=== PATIENT | female | born 1955 | race Caucasian/White ===

== ENCOUNTER 2022-11-03 10:47 | Outpatient (RCR) | payer MEDICARE, SELFPAY | END 2022-11-11 16:53 | disposition home or self-care (01) | LOC: PT 10:47 | PROVIDERS: PCP Nurse Practitioner Family; Visit Provider Nurse Practitioner Family | DX: R26.89 Other abnormalities of gait and mobility (principal) | CPT/HCPCS: 97110; 97112; 97162 ==

== ENCOUNTER 2022-11-17 12:20 | Outpatient (OUT) | payer MEDICARE, SELFPAY ==
[2022-11-17 12:35] LABS: Bilirubin Urine NEGATIVE (NEGATIVE); Blood Urine MODERATE (NEGATIVE); Glucose Urine UA >=1000 mg/dL (NEGATIVE); Ketones Urine TRACE mg/dL (NEGATIVE); Leukocyte Esterase Urine MODERATE (NEGATIVE); Nitrite Urine POSITIVE (NEGATIVE); Protein Urine 30 mg/dL (NEG/TRACE); Urobilinogen Urine 0.2 EU/dL (0.2-1.0)
[2022-11-17 12:37] LABS: Clarity Urine CLOUDY (CLEAR); Color Urine YELLOW (YELLOW)
[2022-11-17 12:41] LABS: Bacteria Urine MODERATE #/HPF (NONE SEEN); Cast Seen? NONE SEEN #/LPF (NONE SEEN); Crystals Seen? None Seen #/HPF (None Seen); Mucus Urine NONE SEEN (NONE SEEN); RBC Urine 0-2 #/HPF (0-2); Squamous Epithelial Cell Urine NONE SEEN #/LPF (NONE/RARE); Urine Culture Indicated ALREADY ORDERED; WBC Urine >100 #/HPF (NONE SEEN)
== END 2022-11-17 12:21 | disposition home or self-care (01) ==
LOC: LAB 12:24
PROVIDERS: PCP Nurse Practitioner Family; Visit Provider Nurse Practitioner Family
DX: R30.0 Dysuria (principal)
CPT/HCPCS: 81001; 87086; 87150; 87186

== ENCOUNTER 2022-11-29 12:16 | Outpatient (OUT) | payer MEDICARE, SELFPAY ==
[2022-11-29 12:37] LABS: Bilirubin Urine NEGATIVE (NEGATIVE); Blood Urine NEGATIVE (NEGATIVE); Clarity Urine CLEAR (CLEAR); Color Urine LT. YELLOW (YELLOW); Glucose Urine UA >=1000 mg/dL (NEGATIVE); Ketones Urine NEGATIVE (NEGATIVE); Leukocyte Esterase Urine NEGATIVE (NEGATIVE); Nitrite Urine POSITIVE (NEGATIVE); Protein Urine NEGATIVE (NEG/TRACE); Urobilinogen Urine 0.2 EU/dL (0.2-1.0); pH Urine 5.5 (5.0-9.0)
[2022-11-29 12:45] LABS: Bacteria Urine MODERATE #/HPF (NONE SEEN); Cast Seen? NONE SEEN #/LPF (NONE SEEN); Crystals Seen? None Seen #/HPF (None Seen); Mucus Urine NONE SEEN (NONE SEEN); RBC Urine 0-2 #/HPF (0-2); Squamous Epithelial Cell Urine FEW #/LPF (NONE/RARE)
[2022-11-29 12:46] LABS: Urine Culture Indicated ALREADY ORDERED
--- NOTE | 2022-11-29 13:44 | CA_ITS ---
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 PVR waveforms with normal upstroke, amplitude but loss of dicrotic notch. Right: - significant pressure gradient between the thigh and calf cuff - normal DAVID Left: - significant pressure gradient between the thigh and calf cuff - significant pressure gradient between the calf and DP cuff - normal DAVID Impression: - elevated indices (B/L thigh) consistent with calcified, noncompressible arterial espinosa, which may underestimate the degree of arterial disease - normal arterial evaluation throughout the remainder of the lower extremities without hemodynamic impairment of the B/L lower extremities at rest (right DAVID 1.07, left DAVID 1.02) - normal B/L TBI Electronically Signed On 11-30-2022 6:58:52 EDT by ACE FISCHER
== END 2022-11-29 12:17 | disposition home or self-care (01) ==
LOC: CARD 12:16
PROVIDERS: PCP Nurse Practitioner Family; Visit Provider Nurse Practitioner Family
DX: M79.605 Pain in left leg (principal); M79.604 Pain in right leg; E11.59 Type 2 diabetes mellitus with other circulatory complications; R30.0 Dysuria
CPT/HCPCS: 81001; 87086; 87150; 87186; 93923

== ENCOUNTER 2023-02-01 14:20 | Outpatient (OUT) | payer MEDICARE, SELFPAY ==
--- OUTSIDE RECORDS SUMMARY | 2023-02-01 14:27 | XMS_ITS | CCD ---
Author Name Unknown Address [address] [place] [address] Organization [facility] Care Team Providers Care Communications Specialist Name Role Phone EBRAHEIM, STUART Unavailable Unavailable EBRAHEIM, STUART Unavailable Unavailable HODGESBENIEL Unavailable Unavailable HODGES, REESE Unavailable Unavailable EBRAHEIM, STUART Unavailable Unavailable EBRAHEIM, STUART Unavailable Unavailable BENI HODGESEL Unavailable Unavailable HODGES, REESE Unavailable Unavailable [place] Unavailable Unavailable EBRAHEIM, STUART Unavailable Unavailable [place] Unavailable Unavailable YERMAL, SOORAJ G Unavailable Unavailable IRENE, MANOHAR Unavailable Unavailable IRENE, MANOHAR Unavailable Unavailable HODGES, REESE Unavailable Unavailable HODGES, REESE Unavailable Unavailable AICHHOLZ, SKI INSTRUCTOR SAMI Attending Unavailable AICHHOLZ, SKI INSTRUCTOR SAMI Consulting Unavailable AICHHOLZ, SKI INSTRUCTOR SAMI Primary Care Unavailable AICHHOLZ, SKI INSTRUCTOR SAMI Admitting Unavailable DR MALLIKA ORTIZ Consulting Unavailable GORAN TORRES Consulting Unavailable MARIANN BORJAS Consulting Unavailable AICHHOLZ, SKI INSTRUCTOR SAMI Primary Care Unavailable RALPH ., SVETA Admitting Unavailable RALPH ., SVETA Attending Unavailable PETRONA SUMNER Consulting Unavailable VIRGINIA TOTH Consulting Unavailable RALPH ., SVETA Consulting Unavailable DIAB ., KAROL Consulting Unavailable FRANCISCO, SHARAN Consulting Unavailable DR REESE HODGES Primary Care Unavailable WILMAN LAKHANI Admitting Unavailable DR MALLIKA ORTIZ Consulting Unavailable WILMAN LAKHANI Attending Unavailable WILAMN LAKHANI Consulting Unavailable AICHHOLZ, SKI INSTRUCTOR SAMI Consulting Unavailable AICHHOLZ, SKI INSTRUCTOR SAMI Primary Care Unavailable AICHHOLZ, SKI INSTRUCTOR SAMI Admitting Unavailable AICHHOLZ, SKI INSTRUCTOR SAMI Attending Unavailable AICHHOLZ, SKI INSTRUCTOR SAMI Consulting Unavailable AICHHOLZ, SKI INSTRUCTOR SAMI Admitting Unavailable URBANO GARCIA Primary Care Unavailable URBANO GARCIA Attending Unavailable BALA HENAO Attending Unavailable MARIANN BORJAS Attending Unavailable MARIANN BORJAS Attending Unavailable Allergies Allergy Classification Reported Allergen(s) Allergy Type Date of Onset Reaction(s) Facility (1 source) succinylcholine chloride Drug allergy (disorder) 8 [facility] (1 source) Succinylcholine; Translations: [SUCCINYLCHOLINE] Drug Allergy 0 [facility] (1 source) ALLERGIES NOT ON FILE; Translations: [ALLERGIES NOT ON FILE] Propensity to adverse reactions (disorder) [facility] Problems Active Problems Problem Classification Problem Date Documented Date Episodic/Chronic Congestive heart failure; nonhypertensive (5 sources) Heart failure, unspecified; Translations: [Acute diastolic (congestive) heart failure] Onset: 04-23-2022 Chronic Diabetes mellitus with complications (5 sources) Type 2 diabetes mellitus with hyperglycemia; Translations: [TYPE 2 DM W/HYPERGLYCEMIA] Onset: 04-11-2022 Chronic Diabetes mellitus with complications (1 source) Type 2 diabetes mellitus with diabetic peripheral angiopathy with gangrene; Translations: [TYPE 2 DIABETES W DIABETIC PERIPHERAL ANGIOPATHY W GANGRENE] Onset: 12-31-2017 Disorders of lipid metabolism (3 sources) Hyperlipidemia, unspecified; Translations: [Mixed hyperlipidemia] Onset: 05-03-2022 Chronic Essential hypertension (4 sources) Essential (primary) hypertension; Translations: [ESSENTIAL PRIMARY HYPERTENSION] Onset: 06-02-2022 Chronic Gangrene (3 sources) Gangrene, not elsewhere classified; Translations: [GANGRENE, NOT ELSEWHERE CLASSIFIED] Onset: 12-31-2017 Episodic Hypertension with complications and secondary hypertension (4 sources) Hypertensive heart disease with heart failure; Translations: [Hypertensive urgency] Onset: 05-03-2022 Chronic Nonspecific chest pain (4 sources) Other chest pain; Translations: [OTHER CHEST PAIN] Onset: 06-12-2022 Episodic Open wounds of extremities (3 sources) 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, initial encounter; Translations: [PARTIAL TRAUMATIC TRNSPHAL AMPUTATION OF R MID FINGER, INIT] Onset: 01-07-2018 Chronic Open wounds of extremities (1 source) 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, subsequent encounter; Translations: [PARTIAL TRAUMATIC TRNSPHAL AMPUTATION OF R MID FINGER, SUBS] Onset: 01-07-2018 Episodic Osteoarthritis (1 source) Primary osteoarthritis, right hand; Translations: [PRIMARY OSTEOARTHRITIS, RIGHT HAND] Onset: 01-07-2018 Chronic Other aftercare (2 sources) half-way (current) use of insulin; Translations: [DIVER PUMPER (CURRENT) USE OF INSULIN] Onset: 12-31-2017 Episodic Other connective tissue disease (1 source) Other specified soft tissue disorders; Translations: [OTHER SPECIFIED SOFT TISSUE DISORDERS] Onset: 01-07-2018 Episodic Other connective tissue disease (1 source) Pain in right foot; Translations: [PAIN IN RIGHT FOOT] Onset: 03-31-2022 Episodic Other connective tissue disease (1 source) Pain in left foot; Translations: [PAIN IN LEFT FOOT] Onset: 03-31-2022 Episodic Other non-traumatic joint disorders (4 sources) Pain in right ankle and joints of right foot; Translations: [PAIN IN RIGHT ANKLE] Onset: 03-28-2022 Episodic Other non-traumatic joint disorders (1 source) Pain in left ankle and joints of left foot; Translations: [PAIN IN LEFT ANKLE] Onset: 03-31-2022 Episodic Other nutritional; endocrine; and metabolic disorders (1 source) Hypomagnesemia; Translations: [HYPOMAGNESEMIA] Onset: 04-13-2022 Chronic Respiratory failure; insufficiency; arrest (adult) (1 source) Acute respiratory failure with hypoxia; Translations: [ACUTE RESPIRATORY FAIL W/HYPOXIA] Onset: 05-03-2022 Episodic Unclassified (2 sources) Unknown / UNK(Unknown) Onset: 12-31-2017 Unclassified (1 source) CONTACT W/AND (SUSP) EXPOS COVID-19; Translations: [CONTACT W/AND (SUSP) EXPOS COVID-19] Onset: 05-03-2022 Past or Other Problems Problem Classification Problem Date Documented Da te Episodic/Chronic Conditions associated with dizziness or vertigo (2 sources) Dizziness; Translations: [Dizziness] Onset: 05-12-2022 Episodic Nausea and vomiting (2 sources) Nausea; Translations: [Nausea] Onset: 05-12-2022 Episodic Results Test Name Value Interpretation Reference Range Facility 36on 12-14-2022 36 Can we call her phar richard and confirm if she picked up her medication? I just sent in a refill for lisinopril/hydrochloroth iazide. Thanks [facility] Office Visiton 11-09-2022 Follow-up visit [id number] Keyanna Stafford 1955 Provider Department Center 11/09/2022 MARIANN DWYER Family History Problem Relation Age of Onset Hypertension Mother Diabetes Mother Family Status - Relation Status Age at Mother Level of Service:31664 [place] OFFICE/OUTPATIENT ESTABLISHED MOD MDM 30-39 MIN Reason for Visit and Comments: Hypertension [077537] Congestive Heart Failure [127] [facility] Telephoneon 11-09-2022 Telephone [id number] Keyanna Stafford 1955 Provider Department Center 11/09/2022 AJAY HERNÁNDEZ Family History Problem Relation Age of Onset Hypertension Mother Diabetes Mother Family Status - Relation Status Age at Mother [facility] Office Visiton 06-21-2022 Follow-up visit [id number] Keyanna Stafford [place] 1955 Provider Department Center 06/21/2022 MARIANN DWYER Family History Problem Relation Age of Onset Hypertension Mother Diabetes Mother Family Status - Relation Status Age at Mother Level of Service:72776 [place] OFFICE/OUTPATIENT ESTABLISHED MOD MDM 30-39 MIN Reason for Visit and Comments: Follow-up [243465] - One month follow up [facility] XR CHEST 2 Von 06-12-2022 XR CHEST 2 V EXAM: XR CHEST 2 V HISTORY: Chest pain COMPARISON: None. TECHNIQUE: PA and lateral views of the chest. FINDINGS: The cardiomediastinal silhouette is normal. No focal consolidation is identified. There is no pneumothorax. No pleural effusion is noted. The osseous structures are intact. IMPRESSION: No acute cardiopulmonary process. Electronically authenticated by: GORAN TORRES Date: 2022-06-12 13:31 Normal [facility] XR STERNUM MIN 2 VIEWSon XR STERNUM MIN 2 VIEWS EXAMINATION: XR STERNUM MIN 2 VIEWS, XR RIBS ELENA NO CHEST 3VIEWS HISTORY: Chest pain COMPARISON: No relevant comparison available. FINDINGS: LUNGS: No appreciable pulmonary parenchymal abnormalities. STERNUM: No fracture or visible bone lesion. RIBS: No fracture or visible bone lesion. OTHER: Negative. IMPRESSION: 1. Unremarkable sternum and ribs. Electronically authenticated by: MALLIKA ORTIZ Date: 2022-06-12 16:18 Normal [facility] PROF CHEM 8 (BAS METB)on Anion gap [Moles/Vol] 15.1 mmol/L Normal [facility] Comment on above: Performed By: #### H STROPN #### [facility] [address] [address] [address] Quique Ortiz Calcium [Mass/Vol] 9.5 mg/dL Normal 8.5-10.1 [facility] Comment on above: Performed By: #### H STROPN #### [facility] [address] [address] [address] Quique Ortiz Chloride [Moles/Vol] 95 mmol/L Critically low 98-107 [facility] Comment on above: Performed By: #### H STROPN #### [facility] [address] [address] [address] Quique Ortiz CO2 [Moles/Vol] 27.3 mmol/L Normal 21.0-32.0 [facility] Comment on above: Performed By: #### H STROPN #### [facility] [address] [address] [address] Quique Ortiz Creatinine [Mass/Vol] 1.01 mg/dL Normal 0.55-1.02 [facility] Comment on above: Performed By: #### H STROPN #### [facility] [address] [address] [address] Quique Ortiz EGFR-AF ZAMBIAN >60 Normal >=60 [facility] Comment on above: Performed By: #### H STROPN #### [facility] [address] [address] [address] Quique Ortiz EGFR-NON AF ZAMBIAN 55 mL/min/1.73m2 Critically low >=60 [facility] Comment on above: Performed By: #### H STROPN #### [facility] [address] [address] [address] Quique Ortiz Glucose [Mass/Vol] 483 mg/dL Critically high 74-106 [facility] Comment on above: Performed By: #### H STROPN #### [facility] [address] [address] [address] Quique Ortiz Potassium [Moles/Vol] 4.4 mmol/L Normal 3.5-5.1 [facility] Comment on above: Performed By: #### H STROPN #### [facility] [address] [address] [address] Quique Ortiz Sodium [Moles/Vol] 133 mmol/L Critically low 136-145 [facility] Comment on above: Performed By: #### H STROPN #### [facility] [address] [address] [address] Quique Ortiz Urea nitrogen [Mass/Vol] 14.0 mg/dL Normal 7.0-18.0 [facility] Comment on above: Performed By: #### H STROPN #### [facility] [address] [address] [address] Quique Ortiz Urea nitrogen/Creatinine [Mass ratio] 13.9 mg/mg Normal [facility] Comment on above: Performed By: #### H STROPN #### [facility] [address] [address] [address] Quique Ortiz Telemedicineon 05-12-2022 Telemedicine [id number] Keyanna Stafford 1955 F Date Provider Department Center 05/12/2022 [id number] HENAO [facility] Family History Problem Relation Age of Onset Hypertension Mother Diabetes Mother Family Status - Relation Status Age at Mother Level of Service:76797 [place] OFFICE/OUTPATIENT ESTABLISHED MOD MDM 30-39 MIN Reason for Visit and Comments: Nausea [70] Dizziness [960259] - Pt states she was taking a rx states she was put on Furosamide 40mg Spironolactone 25mg and Lisinopril 20mg but pt states she stopped these rx due to medications making her Dizziness and Nausea Normal [facility] BNPon 04-25-2022 Natriuretic peptide B (Bld) [Mass/Vol] 1330.0 pg/mL Critically high <=900.0 [facility] Comment on above: Performed By: #### C VDTB #### [facility] [address] [address] [address] Quique Ortiz CBC AUTO DIFFon 04-25-2022 BASO # 0.0 103/ul Normal 0.0-0.1 [facility] Comment on above: Performed By: #### C BC #### [facility] [address] [place] [address] Dr. Qiuque Ortiz Basophils/100 WBC (Bld) 0.4 % Normal 0.2-2.0 [facility] Comment on above: Performed By: #### C BC #### [facility] [address] [place] [address] Dr. Quique Ortiz EO # 0.1 103/ul Normal 0.0-0.7 [facility] Comment on above: Performed By: #### C BC #### [facility] [address] [place] [address] Dr. Quique Ortiz Eosinophils/100 WBC (Bld) 2.3 % Normal 0.9-7.0 [facility] Comment on above: Performed By: #### C BC #### [facility] [address] [place] [address] Dr. Quique Ortiz Erythrocyte distribution width (RBC) [Ratio] 13.2 % Normal 11.0-15.0 [facility] Comment on above: Performed By: #### C BC #### [facility] [address] [place] [address] Dr. Quique Ortiz Hematocrit (Bld) [Volume fraction] 32.7 % Critically low 36.0-48.0 [facility] Comment on above: Performed By: #### C BC #### [facility] [address] [place] [address] Dr. Quique Ortiz Hemoglobin (Bld) [Mass/Vol] 11.0 g/dL Critically low 12.0-16.0 [facility] Comment on above: Performed By: #### C BC #### [facility] [address] [place] [address] Dr. Quique Ortiz IG # 0.02 10e3/ul Normal 0.00-0.03 [facility] Comment on above: Performed By: #### C BC #### [facility] [address] [place] [address] Dr. Quique Ortiz IG % 0.4 % Normal 0.0-0.5 [facility] Comment on above: Performed By: #### C BC #### [facility] [address] [place] [address] Dr. Quique Ortiz LYMPH # 1.3 103/ul Normal 1.2-3.8 [facility] Comment on above: Performed By: #### C BC #### [facility] [address] [place] [address] Dr. Quique Ortiz Lymphocytes/100 WBC (Bld) 23.5 % Normal 20.5-60.0 [facility] Comment on above: Performed By: #### C BC #### [facility] [address] [place] [address] Dr. Quique Ortiz MANUAL DIFF REQ NO Normal [facility] Comment on above: Performed By: #### C BC #### [facility] [address] [place] [address] Dr. Quique Ortiz MCH (RBC) [Entitic mass] 29.3 pg Normal 26.7-34.0 [facility] Comment on above: Performed By: #### C BC #### [facility] [address] [place] [address] Dr. Quique Ortiz MCHC (RBC) [Mass/Vol] 33.6 g/dL Normal 29.9-35.2 [facility] Comment on above: Performed By: #### C BC #### [facility] [address] [place] [address] Dr. Quique Ortiz MCV (RBC) [Entitic vol] 87.0 fL Normal 81.0-99.0 [facility] Comment on above: Performed By: #### C BC #### [facility] [address] [address] [address] Quique Ortiz MONO # 0.6 103/ul Normal 0.3-0.8 [facility] Comment on above: Performed By: #### C BC #### [facility] [address] [address] [address] Quique Ortiz Monocytes/100 WBC (Bld) 10.2 % Normal 1.7-12.0 [facility] Comment on above: Performed By: #### C BC #### [facility] [address] [place] [address] Dr. Quique Ortiz NEUT # 3.5 103/ul Normal 1.4-6.5 [facility] Comment on above: Performed By: #### C BC #### [facility] [address] [place] [address] Dr. Quique Ortiz Neutrophils/100 WBC (Bld) 63.2 % Normal 43.0-75.0 [facility] Comment on above: Performed By: #### C BC #### [facility] [address] [place] [address] Dr. Quique Ortiz Platelet mean volume (Bld) [Entitic vol] 9.2 fL Critically low 9.5-13.5 [facility] Comment on above: Performed By: #### C BC #### [facility] [address] [place] [address] Dr. Quique Ortiz PLT 243 103/ul Normal 150-450 [facility] Comment on above: Performed By: #### C BC #### [facility] [address] [place] [address] Dr. Quique Ortiz RBC 3.76 106/ul Critically low 4.20-5.40 [facility] Comment on above: Performed By: #### C BC #### [facility] [address] [place] [address] Dr. Quique Ortiz WBC 5.6 103/ul Normal 4.0-11.0 [facility] Comment on above: Performed By: #### C BC #### [facility] [address] [place] [address] Dr. Quique Ortiz POINT OF CARE GLUCOSEon 04-06 Glucose [Mass/Vol] 226 mg/dL Critically high 74-106 [facility] Comment on above: Performed By: #### U AMIC #### [facility] [address] [address] [address] Quique Ortiz PROF 14(COMP METB)on 023 Albumin [Mass/Vol] 3.1 g/dL Critically low 3.4-5.0 [facility] Comment on above: Performed By: #### U AMIC #### [facility] [address] [address] [address] Quique Ortiz Albumin/Globulin [Mass ratio] 1.0 {ratio} Normal [facility] Comment on above: Performed By: #### U AMIC #### [facility] [address] [address] [address] Quique Ortiz ALP [Catalytic activity/Vol] 69 U/L Normal 46-116 [facility] Comment on above: Performed By: #### U AMIC #### [facility] [address] [address] [address] Quique Ortiz ALT [Catalytic activity/Vol] 16 U/L Normal 14-59 [facility] Comment on above: Performed By: #### U AMIC #### [facility] [address] [address] [address] Quique Ortiz Anion gap [Moles/Vol] 12.1 mmol/L Normal [facility] Comment on above: Performed By: #### U AMIC #### [facility] [address] [address] [address] Quique Ortiz AST [Catalytic activity/Vol] 12 U/L Critically low 15-37 [facility] Comment on above: Performed By: #### U AMIC #### [facility] [address] [address] [address] Quique Ortiz Bilirubin [Mass/Vol] 0.7 mg/dL Normal 0.2-1.0 [facility] Comment on above: Performed By: #### U AMIC #### [facility] [address] [address] [address] Quique Ortiz Calcium [Mass/Vol] 9.0 mg/dL Normal 8.5-10.1 [facility] Comment on above: Performed By: #### U AMIC #### [facility] [address] [address] [address] Quique Ortiz Chloride [Moles/Vol] 101 mmol/L Normal 98-107 [facility] Comment on above: Performed By: #### U AMIC #### [facility] [address] [address] [address] Quique Ortiz CO2 [Moles/Vol] 28.5 mmol/L Normal 21.0-32.0 [facility] Comment on above: Performed By: #### U AMIC #### [facility] [address] [place] [address] Dr. Quique Ortiz Creatinine [Mass/Vol] 0.56 mg/dL Normal 0.55-1.02 [facility] Comment on above: Performed By: #### U AMIC #### [facility] [address] [address] [address] Quique Ortiz EGFR-AF ZAMBIAN >60 Normal >=60 [facility] Comment on above: Performed By: #### U AMIC #### [facility] [address] [place] [address] Dr. Quique Ortiz EGFR-NON AF ZAMBIAN >60 Normal >=60 [facility] Comment on above: Performed By: #### U AMIC #### [facility] [address] [address] [address] Quique Ortiz Globulin (S) [Mass/Vol] 3.2 g/dL Normal [facility] Comment on above: Performed By: #### U AMIC #### [facility] [address] [address] [address] Quique Ortiz Glucose [Mass/Vol] 187 mg/dL Critically high 74-106 [facility] Comment on above: Performed By: #### U AMIC #### [facility] [address] [address] [address] Quique Ortiz Potassium [Moles/Vol] 3.6 mmol/L Normal 3.5-5.1 [facility] Comment on above: Performed By: #### U AMIC #### [facility] [address] [place] [address] Dr. Quique Ortiz Protein [Mass/Vol] 6.3 g/dL Critically low 6.4-8.2 [facility] Comment on above: Performed By: #### U AMIC #### [facility] [address] [address] [address] Quique Ortiz Sodium [Moles/Vol] 138 mmol/L Normal 136-145 [facility] Comment on above: Performed By: #### U AMIC #### [facility] [address] [place] [address] Dr. Quique Ortiz Urea nitrogen [Mass/Vol] 9.0 mg/dL Normal 7.0-18.0 [facility] Comment on above: Performed By: #### U AMIC #### [facility] [address] [place] [address] Dr. Quique Ortiz Urea nitrogen/Creatinine [Mass ratio] 16.1 mg/mg Normal [facility] Comment on above: Performed By: #### U AMIC #### [facility] [address] [place] [address] Dr. Quique Ortiz BNPon 04-24-2022 Natriuretic peptide B (Bld) [Mass/Vol] 1760.0 pg/mL Critically high <=900.0 [facility] Comment on above: Performed By: #### H STROPN #### [facility] [address] [place] [address] Dr. Quique Ortiz CBC AUTO DIFFon 04-24-2022 BASO # 0.0 103/ul Normal 0.0-0.1 [facility] Comment on above: Performed By: #### H STROPN #### [facility] [address] [place] [address] Dr. Quique Ortiz Basophils/100 WBC (Bld) 0.4 % Normal 0.2-2.0 [facility] Comment on above: Performed By: #### H STROPN #### [facility] [address] [place] [address] Dr. Quique Ortiz EO # 0.1 103/ul Normal 0.0-0.7 [facility] Comment on above: Performed By: #### H STROPN #### [facility] [address] [place] [address] Dr. Quique Ortiz Eosinophils/100 WBC (Bld) 2.6 % Normal 0.9-7.0 [facility] Comment on above: Performed By: #### H STROPN #### [facility] [address] [place] [address] Dr. Quique Ortiz Erythrocyte distribution width (RBC) [Ratio] 13.4 % Normal 11.0-15.0 [facility] Comment on above: Performed By: #### H STROPN #### [facility] [address] [place] [address] Dr. Quique Ortiz Hematocrit (Bld) [Volume fraction] 30.3 % Critically low 36.0-48.0 [facility] Comment on above: Performed By: #### H STROPN #### [facility] [address] [place] [address] Dr. Quique Ortiz Hemoglobin (Bld) [Mass/Vol] 10.1 g/dL Critically low 12.0-16.0 [facility] Comment on above: Performed By: #### H STROPN #### [facility] [address] [place] [address] Dr. Quique Ortiz IG # 0.02 10e3/ul Normal 0.00-0.03 [facility] Comment on above: Performed By: #### H STROPN #### [facility] [address] [place] [address] Dr. Quique Ortiz IG % 0.4 % Normal 0.0-0.5 [facility] Comment on above: Performed By: #### H STROPN #### [facility] [address] [place] [address] Dr. Quique Ortiz LYMPH # 1.7 103/ul Normal 1.2-3.8 [facility] Comment on above: Performed By: #### H STROPN #### [facility] [address] [place] [address] Dr. Quique Ortiz Lymphocytes/100 WBC (Bld) 33.9 % Normal 20.5-60.0 [facility] Comment on above: Performed By: #### H STROPN #### [facility] [address] [place] [address] Dr. Quique Ortiz MANUAL DIFF REQ NO Normal [facility] Comment on above: Performed By: #### H STROPN #### [facility] [address] [place] [address] Dr. Quique Ortiz MCH (RBC) [Entitic mass] 29.4 pg Normal 26.7-34.0 [facility] Comment on above: Performed By: #### H STROPN #### [facility] [address] [place] [address] Dr. Quique Ortiz MCHC (RBC) [Mass/Vol] 33.3 g/dL Normal 29.9-35.2 [facility] Comment on above: Performed By: #### H STROPN #### [facility] [address] [place] [address] Dr. Quique Ortiz MCV (RBC) [Entitic vol] 88.3 fL Normal 81.0-99.0 [facility] Comment on above: Performed By: #### H STROPN #### [facility] [address] [place] [address] Dr. Quique Ortiz MONO # 0.5 103/ul Normal 0.3-0.8 [facility] Comment on above: Performed By: #### H STROPN #### [facility] [address] [place] [address] Dr. Quique Ortiz Monocytes/100 WBC (Bld) 10.5 % Normal 1.7-12.0 [facility] Comment on above: Performed By: #### H STROPN #### [facility] [address] [place] [address] Dr. Quique Ortiz NEUT # 2.6 103/ul Normal 1.4-6.5 [facility] Comment on above: Performed By: #### H STROPN #### [facility] [address] [place], [place] [address] Dr. Quique Ortiz Neutrophils/100 WBC (Bld) 52.2 % Normal 43.0-75.0 [facility] Comment on above: Performed By: #### H STROPN #### [facility] [address] [place], [place] [address] Dr. Quique Ortiz Platelet mean volume (Bld) [Entitic vol] 9.2 fL Critically low 9.5-13.5 [facility] Comment on above: Performed By: #### H STROPN #### [facility] [address] [address] [address] Quique Ortiz PLT 227 103/ul Normal 150-450 [facility] Comment on above: Performed By: #### H STROPN #### [facility] [address] [address] [address] Quique Ortiz RBC 3.43 106/ul Critically low 4.20-5.40 [facility] Comment on above: Performed By: #### H STROPN #### [facility] [address] [address] [address] Quique Ortiz WBC 5.0 103/ul Normal 4.0-11.0 [facility] Comment on above: Performed By: #### H STROPN #### [facility] [address] [address] [address] Quique Ortiz ECHOCARDIO M/2D COMPLETEon 0 04-24-2022 ECHOCARDIO M/2D COMPLETE Patient: KEYANNA STAFFORD Exam Date: 04/24/2022 : 1955 Gender:F Ordering : SVETA RALPH . Admission #: [id number] Family : PETRONA LOREDO Order #: [id number] CLICK HERE TO VIEW EXAM ECHOCARDIOGRAM REPORT PROCEDURE: CARDIO PULMONARY ECHOCARDIO M/2D COMP INDICATIONS: CHF, Shortness of breath COMPARISON: None. DESCRIPTION: COMPLETE ECHOCARDIOGRAM Real-time transthoracic echocardiography with 2D, M-mode, spectral and color flow Doppler performed. QUALITY: Technical quality was good. LEFT VENTRICLE: Normal chamber size. Mild concentric left ventricular hypertrophy. Global left ventricular systolic function is normal. LV EF: Visual estimation of left ventricular ejection fraction is 65% DIASTOLIC: Grade II diastolic dysfunction. ATRIAL SEPTUM: LEFT ATRIUM: Mild dilatation. RIGHT ATRIUM: Normal chamber size. RIGHT VENTRICLE: Normal chamber size. Normal right ventricular systolic function. TRICUSPID VALVE: Normal mobility and thickness. No stenosis with mild regurgitation. Moderate pulmonary hypertension. RVSP 51 mmHg MITRAL VALVE: Normal mobility and thickness. No mitral valve prolapse. No evidence of mitral valve stenosis. There is no mitral annular calcification. Mild mitral regurgitation. AORTIC VALVE: Normal trileaflet appearance. No visible sclerosis. Normal leaflet mobility. No evidence of aortic valve stenosis. Trivial aortic regurgitation. AORTIC ROOT: Normal diameter and appearance. PULMONIC VALVE: Normal thickness and mobility. No stenosis. Mild regurgitation. PERICARDIUM: No evidence of pericardial effusion. IVC: Normal in size. Measuring 2.1 cm with partial collapse. PLEURA: Small pleural effusion. CONCLUSION: 1. Mild concentric left ventricular hypertrophy. Normal ventricular systolic function. LVEF is 65%. 2. Grade 2 diastolic dysfunction. 3. Mild mitral and tricuspid regurgitation. 4. Moderately elevated right-sided pressures. RVSP is 51 mmHg. 5. Doppler studies are consistent with elevated left-sided filling pressures. 6. Small pleural effusion seen. Adult Echocardiography Procedure Report Left Ventricle LVEDD (3.7 - 5.6 cm): 4.36 cm LVESD (2.2 - 4.0 cm): 3.20 cm LVIVS thickness (0.6 - 1.2 cm): 1.28 cm LVPW thickness (0.5 - 1.0 cm): 1.28 cm e': 0.06 m/s E - e': 16.01 LVOT Max Gradient: 2.33 mm[Hg], 2.11 mm[Hg] Peak Velocity (LVOT): 0.76 m/s, 0.73 m/s Mean Velocity (LVOT): 0.55 m/s, 0.55 m/s LVOT Diameter 1.77 cm Left Ventricular Ejection Fraction: 65% Left Atrium LA Volume Index (2D A2C): 59.35 ml, 59.35 ml Left Atrium Systolic Dimension: 3.77 cm Mitral Valve MV E to A Ratio: 1.12, 1.06 Mitral Valve A-Wave Peak Velocity: 0.96 m/s, 0.94 m/s Mitral Valve E-Wave Peak Velocity: 1.08 m/s, 1.00 m/s Right Ventricle RV Internal Diastolic Dimension: 2.29 cm Aorta AO Root Diam: 2.68 cm Ascending Ao Diam: 2.57 cm Aortic Valve AoV Area (Peak Edward): 1.37 cm2, 1.43 cm2, 1.31 cm2 AoV Area (VTI): 1.29 cm2, 1.35 cm2, 1.24 cm2 Peak Velocity(Antegrade Flow): 1.31 m/s, 1.35 m/s Peak Gradient(Antegrade Flow): 6.86 mm[Hg], 7.32 mm[Hg] Mean Velocity(Antegrade Flow): 0.98 m/s, 0.99 m/s Mean Gradient(Antegrade Flow): 4.31 mm[Hg], 4.47 mm[Hg] Velocity Time Integral: 31.11 cm, 30.85 cm Tricuspid Valve Peak Velocity (Regurgitant Flow): 2.83 m/s, 3.30 m/s, 2.58 m/s Peak Velocity: 0.63 m/s Pulmonic Valve Peak Velocity: 0.91 m/s, 0.94 m/s Peak Gradient: 3.30 mm[Hg], 3.52 mm[Hg] Right Atrium Right Atrium Systolic Pressure: 18.02 ml, 18.02 ml Dictated by: Edgard Villatoro M.D. on 04/24/2022 at 14:29 Approved by: Edgard Villatoro M.D. on 04/24/2022 at 14:35 Normal [facility] POINT OF CARE GLUCOSEon 03- Glucose [Mass/Vol] 331 mg/dL Critically high 74-106 [facility] Comment on above: Performed By: #### P OCGLUC #### [facility] [address] [address] [address] Quiqeu Ortiz Glucose [Mass/Vol] 333 mg/dL Critically high -106 [facility] Comment on above: Performed By: #### P OCGLUC #### [facility] [address] [address] [address] Quique Ortiz Glucose [Mass/Vol] 283 mg/dL Critically high -106 [facility] Comment on above: Performed By: #### C VDTBH #### [facility] [address] [address] [address] Quique Ortiz PROF 14(COMP METB)on 023 Albumin [Mass/Vol] 2.9 g/dL Critically low 3.4-5.0 [facility] Comment on above: Performed By: #### H STROPN #### [facility] [address] [address] [address] Quique Ortiz Albumin/Globulin [Mass ratio] 1.1 {ratio} Normal [facility] Comment on above: Performed By: #### H STROPN #### [facility] [address] [address] [address] Quique Ortiz ALP [Catalytic activity/Vol] 76 U/L Normal 46-116 [facility] Comment on above: Performed By: #### H STROPN #### [facility] [address] [place] [address] Dr. Quique Ortiz ALT [Catalytic activity/Vol] 13 U/L Critically low 14-59 [facility] Comment on above: Performed By: #### H STROPN #### [facility] [address] [place] [address] Dr. Quique Ortiz Anion gap [Moles/Vol] 9.9 mmol/L Normal [facility] Comment on above: Performed By: #### H STROPN #### [facility] [address] [place] [address] Dr. Quique Ortiz AST [Catalytic activity/Vol] 14 U/L Critically low 15-37 [facility] Comment on above: Performed By: #### H STROPN #### [facility] [address] [place] [address] Dr. Quique Ortiz Bilirubin [Mass/Vol] 0.5 mg/dL Normal 0.2-1.0 [facility] Comment on above: Performed By: #### H STROPN #### [facility] [address] [place] [address] Dr. Quique Ortiz Calcium [Mass/Vol] 8.3 mg/dL Critically low 8.5-10.1 [facility] Comment on above: Performed By: #### H STROPN #### [facility] [address] [address] [address] Quique Ortiz Chloride [Moles/Vol] 107 mmol/L Normal 98-107 [facility] Comment on above: Performed By: #### H STROPN #### [facility] [address] [address] [address] Quique Ortiz CO2 [Moles/Vol] 28.5 mmol/L Normal 21.0-32.0 [facility] Comment on above: Performed By: #### H STROPN #### [facility] [address] [address] [address] Quique Ortiz Creatinine [Mass/Vol] 0.54 mg/dL Critically low 0.55-1.02 [facility] Comment on above: Performed By: #### H STROPN #### [facility] [address] [address] [address] Quique Ortiz EGFR-AF ZAMBIAN >60 Normal >=60 [facility] Comment on above: Performed By: #### H STROPN #### [facility] [address] [address] [address] Quique Ortiz EGFR-NON AF ZAMBIAN >60 Normal >=60 [facility] Comment on above: Performed By: #### H STROPN #### [facility] [address] [address] [address] Quique Ortiz Globulin (S) [Mass/Vol] 2.7 g/dL Normal [facility] Comment on above: Performed By: #### H STROPN #### [facility] [address] [address] [address] Quique Ortiz Glucose [Mass/Vol] 110 mg/dL Critically high 74-106 [facility] Comment on above: Performed By: #### H STROPN #### [facility] [address] [address] [address] Quique Ortiz Potassium [Moles/Vol] 3.4 mmol/L Critically low 3.5-5.1 [facility] Comment on above: Performed By: #### H STROPN #### [facility] [address] [address] [address] Quique Ortiz Protein [Mass/Vol] 5.6 g/dL Critically low 6.4-8.2 [facility] Comment on above: Performed By: #### H STROPN #### [facility] [address] [address] [address] Quique Ortiz Sodium [Moles/Vol] 142 mmol/L Normal 136-145 [facility] Comment on above: Performed By: #### H STROPN #### [facility] [address] [address] [address] Quique Ortiz Urea nitrogen [Mass/Vol] 6.0 mg/dL Critically low 7.0-18.0 [facility] Comment on above: Performed By: #### H STROPN #### [facility] [address] [address] [address] Quique Ortiz Urea nitrogen/Creatinine [Mass ratio] 11.1 mg/mg Normal [facility] Comment on above: Performed By: #### H STROPN #### [facility] [address] [address] [address] Quique Ortiz BNPon 04-23-2022 Natriuretic peptide B (Bld) [Mass/Vol] 1898.0 pg/mL Critically high <=900.0 [facility] Comment on above: Performed By: #### U AMIC #### [facility] [address] [address] [address] Quique Ortiz CARDIAC GORAN ADMITon 023 CK [Catalytic activity/Vol] 113 U/L Normal 26-192 [facility] Comment on above: Performed By: #### U AMIC #### [facility] [address] [address] [address] Quique Ortiz CK.MB [Mass/Vol] 2.55 ng/mL Normal <=3.60 [facility] Comment on above: Performed By: #### U AMIC #### [facility] [address] [address] [address] Quique Ortiz HSTROP 11.2 pg/mL Normal 4.0-51.3 [facility] Comment on above: Result Comment: CUT- OFF POINTS HAVE BEEN ESTABLISHED BASED ON THE FOURTH UNIVERSAL DEFINITIONS OF MYOCARDIAL INFARCTION. THE UPPER REFERENCE LIMIT (URL) OF TROPONIN, DEFINED THE 99TH PERCENTILE OF cTnI DISTRIBUTION IN A REFERENCE POPULATION, HAS BEEN CONFIRMED THE DECISION THRESHOLD FOR [place] DIAGNOSIS. Performed By: #### U AMIC #### [facility] [address] [address] [address] Quique Ortiz JAXSON 50 ng/mL Normal 9-82 [facility] Comment on above: Performed By: #### U AMIC #### [facility] [address] [address] [address] Quique Ortiz CBC AUTO DIFFon 04-23-2022 BASO # 0.0 103/ul Normal 0.0-0.1 [facility] Comment on above: Performed By: #### H STROPN #### [facility] [address] [place] [address] Dr. Quique Ortiz Basophils/100 WBC (Bld) 0.5 % Normal 0.2-2.0 [facility] Comment on above: Performed By: #### H STROPN #### [facility] [address] [address] [address] Quique Ortiz EO # 0.1 103/ul Normal 0.0-0.7 [facility] Comment on above: Performed By: #### H STROPN #### [facility] [address] [place] [address] Dr. Quique Ortiz Eosinophils/100 WBC (Bld) 1.8 % Normal 0.9-7.0 [facility] Comment on above: Performed By: #### H STROPN #### [facility] [address] [place] [address] Dr. Quique Ortiz Erythrocyte distribution width (RBC) [Ratio] 13.4 % Normal 11.0-15.0 [facility] Comment on above: Performed By: #### H STROPN #### [facility] [address] [place] [address] Dr. Quique Ortiz Hematocrit (Bld) [Volume fraction] 35.9 % Critically low 36.0-48.0 [facility] Comment on above: Performed By: #### H STROPN #### [facility] [address] [address] [address] Quique Ortiz Hemoglobin (Bld) [Mass/Vol] 11.9 g/dL Critically low 12.0-16.0 [facility] Comment on above: Performed By: #### H STROPN #### [facility] [address] [address] [address] Quique Ortiz IG # 0.02 10e3/ul Normal 0.00-0.03 [facility] Comment on above: Performed By: #### H STROPN #### [facility] [address] [address] [address] Quique Ortiz IG % 0.4 % Normal 0.0-0.5 [facility] Comment on above: Performed By: #### H STROPN #### [facility] [address] [place] [address] Dr. Quique Ortiz LYMPH # 1.3 103/ul Normal 1.2-3.8 [facility] Comment on above: Performed By: #### H STROPN #### [facility] [address] [address] [address] Quique Ortiz Lymphocytes/100 WBC (Bld) 23.5 % Normal 20.5-60.0 [facility] Comment on above: Performed By: #### H STROPN #### [facility] [address] [address] [address] Quique Ortiz MANUAL DIFF REQ NO Normal [facility] Comment on above: Performed By: #### H STROPN #### [facility] [address] [address] [address] Quique Ortiz MCH (RBC) [Entitic mass] 29.4 pg Normal 26.7-34.0 [facility] Comment on above: Performed By: #### H STROPN #### [facility] [address] [address] [address] Quique Ortiz MCHC (RBC) [Mass/Vol] 33.1 g/dL Normal 29.9-35.2 [facility] Comment on above: Performed By: #### H STROPN #### [facility] [address] [address] [address] Quique Ortiz MCV (RBC) [Entitic vol] 88.6 fL Normal 81.0-99.0 [facility] Comment on above: Performed By: #### H STROPN #### [facility] [address] [address] [address] Quique Ortiz MONO # 0.5 103/ul Normal 0.3-0.8 [facility] Comment on above: Performed By: #### H STROPN #### [facility] [address] [address] [address] Quique Ortiz Monocytes/100 WBC (Bld) 8.8 % Normal 1.7-12.0 [facility] Comment on above: Performed By: #### H STROPN #### [facility] [address] [address] [address] Quique Ortiz NEUT # 3.6 103/ul Normal 1.4-6.5 [facility] Comment on above: Performed By: #### H STROPN #### [facility] [address] [address] [address] Quique Ortiz Neutrophils/100 WBC (Bld) 65.0 % Normal 43.0-75.0 [facility] Comment on above: Performed By: #### H STROPN #### [facility] [address] [address] [address] Quique Ortiz Platelet mean volume (Bld) [Entitic vol] 9.4 fL Critically low 9.5-13.5 [facility] Comment on above: Performed By: #### H STROPN #### [facility] [address] [address] [address] Quique Ortiz PLT 277 103/ul Normal 150-450 [facility] Comment on above: Performed By: #### H STROPN #### [facility] [address] [address] [address] Quique Ortiz RBC 4.05 106/ul Critically low 4.20-5.40 [facility] Comment on above: Performed By: #### H STROPN #### [facility] [address] [place], [place] [address] Dr[address] Quique Ortiz WBC 5.6 103/ul Normal 4.0-11.0 [facility] Comment on above: Performed By: #### H STROPN #### [facility] [address], [place] [address] Dr[address] Qiuque Ortiz CTA CHEST WO W CONon 023 CTA CHEST WO W CON EXAM: CTA CHEST WO W CON HISTORY: SHORTNESS OF BREATH COMPARISON: None. TECHNIQUE: CT chest with intravenous contrast was performed with timing for the evaluation for pulmonary arteries. Multiplanar reformats were performed. MIP (maximum intensity projection) images or 3D post processing was performed. Dose reduction techniques were achieved by using automated exposure control and/or adjustment of mA and/or kV according to patient size and/or use of iterative reconstruction technique. FINDINGS: Lungs: There are bilateral moderate to large pleural effusions. There are bilateral lower lobes and lingula atelectasis and/or consolidation Airways: Normal. Mediastinum: No adenopathy. Aorta: No aneurysm. Cardiac: Mild cardiomegaly. No pericardial effusion. Pulmonary vasculature: Diagnostic opacification of pulmonary arteries without evidence of pulmonary embolus. Normal morphology. Bones: No acute bony abnormality. Axilla: No adenopathy. Thyroid gland: No abnormality demonstrated on provided imaging. Soft tissues: Unremarkable. Upper abdomen: Unremarkable. Additional findings: None. IMPRESSION: No acute pulmonary embolism. Moderate to large bilateral pleural effusions with bilateral lower lobes and lingular consolidation and/or atelectasis. Finding representing focal pneumonia or sequela of the heart failure. Electronically authenticated by: SHARAN SINGH Date: 2022-04-23 18:04 Normal [facility] Cov[facility] PCR ([facility]on 04-05 SARS-CoV-2 (COVID-19) RNA ALESIA+probe Ql (Unsp spec) Not detected Normal NOT DETECTED [facility] Comment on above: Result Comment: When diagnostic testing is negative, the possibility of a false negative should be considered in the context of a patient's recent exposures and the presence of clinical signs and symptoms consistent with SARS-CoV-2. This test is not yet approved or cleared by the [place] FDA. When there are no FDA-approved or cleared tests available, and other criteria are met, FDA can make tests available under an emergency access mechanism called an Emergency Use Authorization (EUA). The EUA for this test is supported by the [place] of Health and Human Service's declaration that circumstances exist to justify the emergency use of in vitro diagnostics for the detection and/or diagnosis of the virus that causes COVID-19. This EUA will remain in effect for the duration of the COVID-19 declaration justifying emergency of IVDs, unless it is terminated or revoked by the FDA (after which the test may no longer be used). Performed By: #### C VDTBH #### [facility] [address] [place] [address] Dr. Quique Ortiz D-DIMERon 04-23-2022 D-DIMER 0.82 mg/L FEU Critically high <=0.59 [facility] Comment on above: Performed By: #### D DIM #### [facility] [address] [address] [address] Quique Ortiz D-DIMER COMMENTS SEE BELOW Normal [facility] Comment on above: Result Comment: Incr eases in D-Dimer concentration observed with thromboembolic events can be variable due to localization, size, and age of the thrombus. Therefore, a thromboembolic event cannot be diagnosed with certainty on the basis of the reference range. D-Dimers may also be elevated for a variety of disorders including: advanced age, , coronary disease, cancer, liver disease, infection, inflammation, hematoma, DIC, trauma, post-surgery, diabetes, thrombolytic or anticoagulant therapy, stress, and generalized hospitalization. Performed By: #### D DIM #### [facility] [address] [place] [address] Dr. Quique Ortiz POINT OF CARE GLUCOSEon 04-05 Glucose [Mass/Vol] 113 mg/dL Critically high 74-106 [facility] Comment on above: Performed By: #### H STROPN #### [facility] [address] [place] [address] Dr. Quique Ortiz PROF 14(COMP METB)on 023 Albumin [Mass/Vol] 3.5 g/dL Normal 3.4-5.0 [facility] Comment on above: Performed By: #### U AMIC #### [facility] [address] [address] [address] Quique Ortiz Albumin/Globulin [Mass ratio] 1.0 {ratio} Normal [facility] Comment on above: Performed By: #### U AMIC #### [facility] [address] [address] [address] Quique Ortiz ALP [Catalytic activity/Vol] 102 U/L Normal 46-116 [facility] Comment on above: Performed By: #### U AMIC #### [facility] [address] [address] [address] Quique Ortiz ALT [Catalytic activity/Vol] 17 U/L Normal 14-59 [facility] Comment on above: Performed By: #### U AMIC #### [facility] [address] [address] [address] Quique Ortiz Anion gap [Moles/Vol] 11.1 mmol/L Normal [facility] Comment on above: Performed By: #### U AMIC #### [facility] [address] [address] [address] Quique Ortiz AST [Catalytic activity/Vol] 18 U/L Normal 15-37 [facility] Comment on above: Performed By: #### U AMIC #### [facility] [address] [address] [address] Quique Ortiz Bilirubin [Mass/Vol] 0.7 mg/dL Normal 0.2-1.0 [facility] Comment on above: Performed By: #### U AMIC #### [facility] [address] [address] [address] Quique Ortiz Calcium [Mass/Vol] 9.0 mg/dL Normal 8.5-10.1 [facility] Comment on above: Performed By: #### U AMIC #### [facility] [address] [address] [address] Quique Ortiz Chloride [Moles/Vol] 105 mmol/L Normal 98-107 [facility] Comment on above: Performed By: #### U AMIC #### [facility] [address] [address] [address] Quique Ortiz CO2 [Moles/Vol] 27.6 mmol/L Normal 21.0-32.0 [facility] Comment on above: Performed By: #### U AMIC #### [facility] [address] [address] [address] Quique Ortiz Creatinine [Mass/Vol] 0.57 mg/dL Normal 0.55-1.02 [facility] Comment on above: Performed By: #### U AMIC #### [facility] [address] [address] [address] Quique Ortiz EGFR-AF ZAMBIAN >60 Normal >=60 [facility] Comment on above: Performed By: #### U AMIC #### [facility] [address] [address] [address] Quique Ortiz EGFR-NON AF ZAMBIAN >60 Normal >=60 [facility] Comment on above: Performed By: #### U AMIC #### [facility] [address] [address] [address] Quique Ortiz Globulin (S) [Mass/Vol] 3.6 g/dL Normal [facility] Comment on above: Performed By: #### U AMIC #### [facility] [address] [address] [address] Quique Ortiz Glucose [Mass/Vol] 135 mg/dL Critically high 74-106 [facility] Comment on above: Performed By: #### U AMIC #### [facility] [address] [address] [address] Quique Ortiz Potassium [Moles/Vol] 3.7 mmol/L Normal 3.5-5.1 [facility] Comment on above: Performed By: #### U AMIC #### [facility] [address] [address] [address] Quique Ortiz Protein [Mass/Vol] 7.1 g/dL Normal 6.4-8.2 [facility] Comment on above: Performed By: #### U AMIC #### [facility] [address] [address] [address] Quique Ortiz Sodium [Moles/Vol] 140 mmol/L Normal 136-145 [facility] Comment on above: Performed By: #### U AMIC #### [facility] [address] [address] [address] Quique Ortiz Urea nitrogen [Mass/Vol] 7.0 mg/dL Normal 7.0-18.0 [facility] Comment on above: Performed By: #### U AMIC #### [facility] [address] [address] [address] Quique Ortiz Urea nitrogen/Creatinine [Mass ratio] 12.3 mg/mg Normal [facility] Comment on above: Performed By: #### U AMIC #### [facility] [address] [place] [address] Dr. Quique Ortiz TROPONIN, HIGH SENSITIVITYon 04-23-2022 HSTROP 10.9 pg/mL Normal 4.0-51.3 [facility] Comment on above: Result Comment: CUT- OFF POINTS HAVE BEEN ESTABLISHED BASED ON THE FOURTH UNIVERSAL DEFINITIONS OF MYOCARDIAL INFARCTION. THE UPPER REFERENCE LIMIT (URL) OF TROPONIN, DEFINED THE 99TH PERCENTILE OF cTnI DISTRIBUTION IN A REFERENCE POPULATION, HAS BEEN CONFIRMED THE DECISION THRESHOLD FOR [place] DIAGNOSIS. Performed By: #### H STROPN #### [facility] [address] [place] [address] Dr. Quique Ortiz XR CHEST 1 Von 04-23-2022 XR CHEST 1 V EXAM: XR CHEST 1 V HISTORY: Shortness of breath and chest heaviness. COMPARISON: None. TECHNIQUE: Portable chest FINDINGS: IMPRESSION: Moderate bilateral pleural effusions. No pneumothorax. No focal parenchymal consolidation or infiltrate. Electronically authenticated by: PETRONA SUMNER Date: 2022-04-23 15:45 Normal [facility] CBC AUTO DIFFon 04-11-2022 BASO # 0.0 103/ul Normal 0.0-0.1 [facility] Comment on above: Performed By: #### U AMIC #### [facility] [address] [address] [address] Quique Ortiz Basophils/100 WBC (Bld) 0.5 % Normal 0.2-2.0 [facility] Comment on above: Performed By: #### U AMIC #### [facility] [address] [place] [address] Dr. Quique Ortiz EO # 0.1 103/ul Normal 0.0-0.7 [facility] Comment on above: Performed By: #### U AMIC #### [facility] [address] [place] [address] Dr. Quique Ortiz Eosinophils/100 WBC (Bld) 1.6 % Normal 0.9-7.0 [facility] Comment on above: Performed By: #### U AMIC #### [facility] [address] [place] [address] Dr. Quique Ortiz Erythrocyte distribution width (RBC) [Ratio] 12.6 % Normal 11.0-15.0 [facility] Comment on above: Performed By: #### U AMIC #### [facility] [address] [place] [address] Dr. Quique Ortiz Hematocrit (Bld) [Volume fraction] 34.3 % Critically low 36.0-48.0 [facility] Comment on above: Performed By: #### U AMIC #### [facility] [address] [place] [address] Dr. Quique Ortiz Hemoglobin (Bld) [Mass/Vol] 11.5 g/dL Critically low 12.0-16.0 [facility] Comment on above: Performed By: #### U AMIC #### [facility] [address] [place] [address] Dr. Quique Ortiz IG # 0.01 10e3/ul Normal 0.00-0.03 [facility] Comment on above: Performed By: #### U AMIC #### [facility] [address] [place] [address] Dr. Quique Ortiz IG % 0.2 % Normal 0.0-0.5 [facility] Comment on above: Performed By: #### U AMIC #### [facility] [address] [place] [address] Dr. Quique Ortiz LYMPH # 1.3 103/ul Normal 1.2-3.8 [facility] Comment on above: Performed By: #### U AMIC #### [facility] [address] [place] [address] Dr. Quique Ortiz Lymphocytes/100 WBC (Bld) 24.0 % Normal 20.5-60.0 [facility] Comment on above: Performed By: #### U AMIC #### [facility] [address] [place] [address] Dr. Quique Ortiz MANUAL DIFF REQ NO Normal [facility] Comment on above: Performed By: #### U AMIC #### [facility] [address] [place] [address] Dr. Quique Ortiz MCH (RBC) [Entitic mass] 28.5 pg Normal 26.7-34.0 [facility] Comment on above: Performed By: #### U AMIC #### [facility] [address] [place] [address] Dr. Quique Ortiz MCHC (RBC) [Mass/Vol] 33.5 g/dL Normal 29.9-35.2 [facility] Comment on above: Performed By: #### U AMIC #### [facility] [address] [place] [address] Dr. Quique Ortiz MCV (RBC) [Entitic vol] 85.1 fL Normal 81.0-99.0 [facility] Comment on above: Performed By: #### U AMIC #### [facility] [address] [place] [address] Dr. Quique Ortiz MONO # 0.5 103/ul Normal 0.3-0.8 [facility] Comment on above: Performed By: #### U AMIC #### [facility] [address] [place] [address] Dr. Quique Ortiz Monocytes/100 WBC (Bld) 8.3 % Normal 1.7-12.0 [facility] Comment on above: Performed By: #### U AMIC #### [facility] [address] [place] [address] Dr. Quique Ortiz NEUT # 3.6 103/ul Normal 1.4-6.5 [facility] Comment on above: Performed By: #### U AMIC #### [facility] [address] [place] [address] Dr. Quique Ortiz Neutrophils/100 WBC (Bld) 65.4 % Normal 43.0-75.0 [facility] Comment on above: Performed By: #### U AMIC #### [facility] [address] [place] [address] Dr. Quique Ortiz Platelet mean volume (Bld) [Entitic vol] 9.0 fL Critically low 9.5-13.5 [facility] Comment on above: Performed By: #### U AMIC #### [facility] [address] [place] [address] Dr. Quique Ortiz PLT 243 103/ul Normal 150-450 [facility] Comment on above: Performed By: #### U AMIC #### [facility] [address] [place] [address] Dr. Quique Ortiz RBC 4.03 106/ul Critically low 4.20-5.40 [facility] Comment on above: Performed By: #### U AMIC #### [facility] [address] [place] [address] Dr. Quique Ortiz WBC 5.5 103/ul Normal 4.0-11.0 [facility] Comment on above: Performed By: #### U AMIC #### [facility] [address] [place] [address] Dr. Quique Ortiz GLYCOHEMOGLOBIN A1Con 2022 ADA RECOMMENDATION SEE BELOW Normal [facility] Comment on above: Result Comment: ADA RECOMMENDED LIMIT 4.0 - 6.0 ADA THERAPEUTIC TARGET < 7.0 ACTION SUGGESTED > 7.0 Performed By: #### C VDTBH #### [facility] [address] [place] [address] Dr. Quique Ortiz Glucose [Mass/Vol] 292 mg/dL Normal [facility] Comment on above: Performed By: #### C VDTBH #### [facility] [address] [place] [address] Dr. Quique Ortiz HbA1c (Bld) [Mass fraction] 11.8 % Critically high 4.5-6.2 [facility] Comment on above: Performed By: #### C VDTBH #### [facility] [address] [place] [address] Dr. Quique Ortiz LIPID PROFILEon 04-11-2022 CHOL-HDL RATIO NORM SEE BELOW Normal [facility] Comment on above: Result Comment: 3.3 - 4.4 LOW RISK 4.4 - 7.1 AVERAGE RISK 7.1 - 11.0 MODERATE RISK >11.0 HIGH RISK Performed By: #### L IPID, MG, CMP #### [facility] [address] [place] [address] Dr. Quique Ortiz Cholesterol [Mass/Vol] 227 mg/dL Critically high <=200 [facility] Comment on above: Performed By: #### L IPID, MG, CMP #### [facility] [address] [place] [address] Dr. Quique Ortiz Cholesterol in HDL [Mass/Vol] 48 mg/dL Normal 40-60 [facility] Comment on above: Performed By: #### L IPID, MG, CMP #### [facility] [address] [place] [address] Dr. Quique Ortiz Cholesterol in LDL [Mass/Vol] 149.8 mg/dL Normal [facility] Comment on above: Performed By: #### L IPID, MG, CMP #### [facility] [address] [place] [address] Dr. Quique Ortiz Cholesterol.total/C holesterol in HDL [Mass ratio] 4.7 {ratio} Normal [facility] Comment on above: Performed By: #### L IPID, MG, CMP #### [facility] [address] [place] [address] Dr. Quique Ortiz HDL NORMAL > or = 60 mg/dl - LO W CARDIOVASCULAR RISK <40 mg/dl - HIGH CARDIOVASCULAR RISK Normal [facility] Comment on above: Performed By: #### L IPID, MG, CMP #### [facility] [address] [place] [address] Dr. Quique Ortiz LDL CALC NORMAL SEE BELOW Normal [facility] Comment on above: Result Comment: <100 mg/dl OPTIMAL 100 - 129 mg/dl NEAR OR ABOVE OPTIMAL 130 - 159 mg/dl BORDERLINE HIGH 160 - 189 mg/dl HIGH >190 mg/dl VERY HIGH Performed By: #### L IPID, MG, CMP #### [facility] [address] [place] [address] Dr. Quique Ortiz Triglyceride [Mass/Vol] 146 mg/dL Normal <=150 [facility] Comment on above: Performed By: #### L IPID, MG, CMP #### [facility] [address] [place] [address] Dr. Quique Ortiz VLDL CALC 29.2 mg/dL Normal [facility] Comment on above: Performed By: #### L IPID, MG, CMP #### [facility] [address] [place] [address] Dr. Quique Ortiz MAGNESIUMon 04-11-2022 Magnesium [Mass/Vol] 2.0 mg/dL Normal 1.8-2.4 [facility] Comment on above: Performed By: #### L IPID, MG, CMP #### [facility] [address] [place] [address] Dr. Quique Ortiz PROF 14(COMP METB)on 023 Albumin [Mass/Vol] 3.4 g/dL Normal 3.4-5.0 [facility] Comment on above: Performed By: #### L IPID, MG, CMP #### [facility] [address] [address] [address] Quique Ortiz Albumin/Globulin [Mass ratio] 1.0 {ratio} Normal [facility] Comment on above: Performed By: #### L IPID, MG, CMP #### [facility] [address] [place] [address] Dr. Quique Ortiz ALP [Catalytic activity/Vol] 89 U/L Normal 46-116 [facility] Comment on above: Performed By: #### L IPID, MG, CMP #### [facility] [address] [place] [address] Dr. Quique Ortiz ALT [Catalytic activity/Vol] 15 U/L Normal 14-59 [facility] Comment on above: Performed By: #### L IPID, MG, CMP #### [facility] [address] [address] [address] Quique Ortiz Anion gap [Moles/Vol] 10.3 mmol/L Normal [facility] Comment on above: Performed By: #### L IPID, MG, CMP #### [facility] [address] [address] [address] Quique Ortiz AST [Catalytic activity/Vol] 13 U/L Critically low 15-37 [facility] Comment on above: Performed By: #### L IPID, MG, CMP #### [facility] [address] [place] [address] Dr. Quique Ortiz Bilirubin [Mass/Vol] 0.7 mg/dL Normal 0.2-1.0 [facility] Comment on above: Performed By: #### L IPID, MG, CMP #### [facility] [address] [place] [address] Dr. Quique Ortiz Calcium [Mass/Vol] 9.2 mg/dL Normal 8.5-10.1 [facility] Comment on above: Performed By: #### L IPID, MG, CMP #### [facility] [address] [place] [address] Dr. Quique Ortiz Chloride [Moles/Vol] 100 mmol/L Normal 98-107 [facility] Comment on above: Performed By: #### L IPID, MG, CMP #### [facility] [address] [place] [address] Dr. Quique Ortiz CO2 [Moles/Vol] 27.7 mmol/L Normal 21.0-32.0 [facility] Comment on above: Performed By: #### L IPID, MG, CMP #### [facility] [address] [place] [address] Dr. Quique Ortiz Creatinine [Mass/Vol] 0.60 mg/dL Normal 0.55-1.02 [facility] Comment on above: Performed By: #### L IPID, MG, CMP #### [facility] [address] [address] [address] Quique Ortiz EGFR-AF ZAMBIAN >60 Normal >=60 [facility] Comment on above: Performed By: #### L IPID, MG, CMP #### [facility] [address] [address] [address] Quique Ortiz EGFR-NON AF ZAMBIAN >60 Normal >=60 [facility] Comment on above: Performed By: #### L IPID, MG, CMP #### [facility] [address] [address] [address] Quique Ortiz Globulin (S) [Mass/Vol] 3.5 g/dL Normal [facility] Comment on above: Performed By: #### L IPID, MG, CMP #### [facility] [address] [address] [address] Quique Ortiz Glucose [Mass/Vol] 340 mg/dL Critically high 74-106 [facility] Comment on above: Performed By: #### L IPID, MG, CMP #### [facility] [address] [address] [address] Quique Ortiz Potassium [Moles/Vol] 4.0 mmol/L Normal 3.5-5.1 [facility] Comment on above: Performed By: #### L IPID, MG, CMP #### [facility] [address] [place] [address] Dr. Quique Ortiz Protein [Mass/Vol] 6.9 g/dL Normal 6.4-8.2 [facility] Comment on above: Performed By: #### L IPID, MG, CMP #### [facility] [address] [address] [address] Quique Ortiz Sodium [Moles/Vol] 134 mmol/L Critically low 136-145 [facility] Comment on above: Performed By: #### L IPID, MG, CMP #### [facility] [address] [address] [address] Quique Ortiz Urea nitrogen [Mass/Vol] 10.0 mg/dL Normal 7.0-18.0 [facility] Comment on above: Performed By: #### L IPID, MG, CMP #### [facility] [address] [address] [address] Quique Ortiz Urea nitrogen/Creatinine [Mass ratio] 16.7 mg/mg Normal [facility] Comment on above: Performed By: #### L IPID, MG, CMP #### [facility] [address] [address] [address] Quique Ortiz UA RANDOM W/MICROSCOPICon BACTERIA TRACE Abnormal NONE SEEN [facility] Comment on above: Performed By: #### U AMIC #### [facility] [address] [place] [address] Dr. Quique Ortiz Bilirubin Ql (U) Negative Normal NEGATIVE [facility] Comment on above: Performed By: #### U AMIC #### [facility] [address] [place] [address] Dr. Quique Ortiz CAST NONE SEEN Normal NONE SEEN [facility] Comment on above: Performed By: #### U AMIC #### [facility] [address] [place] [address] Dr. Quique Ortiz Clarity (U) CLEAR Normal CLEAR [facility] Comment on above: Performed By: #### U AMIC #### [facility] [address] [place] [address] Dr. Quique Ortiz Color (U) LT. YELLOW Normal YELLOW [facility] Comment on above: Performed By: #### U AMIC #### [facility] [address] [address] [address] Quique Ortiz Crystals LM Nom (Urine sed) NONE SEEN Normal NONE SEEN [facility] Comment on above: Performed By: #### U AMIC #### [facility] [address] [place] [address] Dr. Quique Ortiz Epithelial cells LM Ql (Urine sed) NONE SEEN Normal NONE SEEN /RARE [facility] Comment on above: Performed By: #### U AMIC #### [facility] [address] [place] [address] Dr. Quique Ortiz Glucose Ql (U) >1000 Abnormal NEGATIVE [facility] Comment on above: Performed By: #### U AMIC #### [facility] [address] [address] [address] Quique Ortiz Hemoglobin Ql (U) SMALL Abnormal NEGATIVE [facility] Comment on above: Performed By: #### U AMIC #### [facility] [address] [address] [address] Quique Ortiz Ketones Ql (U) Negative Normal NEGATIVE [facility] Comment on above: Performed By: #### U AMIC #### [facility] [address] [address] [address] Quique Ortiz LEUKOCYTES Negative Normal NEGATIVE [facility] Comment on above: Performed By: #### U AMIC #### [facility] [address] [place] [address] Dr. Quique Ortiz MUCOUS NONE SEEN Normal NONE SEEN [facility] Comment on above: Performed By: #### U AMIC #### [facility] [address] [address] [address] Quique Ortiz Nitrite Ql (U) Negative Normal NEGATIVE [facility] Comment on above: Performed By: #### U AMIC #### [facility] [address] [address] [address] Quique Ortiz pH (U) 5.5 [pH] Normal 5-9 [facility] Comment on above: Performed By: #### U AMIC #### [facility] [address] [address] [address] Quique Ortiz RBC NONE SEEN Abnormal 0-2 [facility] Comment on above: Performed By: #### U AMIC #### [facility] [address] [place] [address] Dr. Quique Ortiz SPEC GRAVITY <=1.005 Abnormal 1.005-<=1.025 [facility] Comment on above: Performed By: #### U AMIC #### [facility] [address] [place] [address] Dr. Quique Ortiz UA PROTEIN Negative Normal NEGATIVE/ TRACE [facility] Comment on above: Performed By: #### U AMIC #### [facility] [address] [place], [place] [address] Dr. Quique Ortiz Urobilinogen Qn (U) 0.2 {Jv'U}/dL Normal 0.2 - 1. 0 [facility] Comment on above: Performed By: #### U AMIC #### [facility] [address] [place], [place] [address] Dr. Quique Ortiz WBC NONE SEEN Normal NONE SEEN [facility] Comment on above: Performed By: #### U AMIC #### [facility] [address] [place], [place] [address] Dr. Quique Ortiz XR ANKLE ELENA MIN 3 VIEWSon 0 03-29-2022 XR ANKLE ELENA MIN 3 VIEWS EXAMINATION: XR FOOT ELENA MIN 3 VIEWS, XR ANKLE ELENA MIN 3 VIEWS HISTORY: Pain in both feet and ankles ; diabetic neuropathy COMPARISON: No relevant comparison available. FINDINGS: RIGHT FINDINGS: BONES: Mild degenerative changes of the first metatarsophalangeal joint. Minimal degenerative changes of the midfoot. Moderate size calcaneal plantar spur. SOFT TISSUES: No visible soft tissue swelling. OTHER: Negative. LEFT FINDINGS: BONES: Mild degenerative changes of the first metatarsophalangeal joint. Minimal degenerative changes of the midfoot. Moderate size calcaneal plantar spur. SOFT TISSUES: No visible soft tissue swelling. OTHER: Negative. IMPRESSION: RIGHT CONCLUSION: Minimal degenerative changes of the foot and ankle. LEFT CONCLUSION: Minimal degenerative changes of the foot and ankle. Electronically authenticated by: MALLIKA ORTIZ Date: 2022-03-29 10:38 Normal [facility] Coding Summary.on 07-02-2020 Coding Summary. CD:[id number] Gh0b Ww+PGhlYWQ+CM7UXQHvP74kp JTooA1ND1zPMI7KSQNEXKVQX I0FVD1dxBZ7QIaoJ5FhbdSm XndwpDScXC13TQj4JIH2cMch QDuxjU4vhIMlS2n6VdYtOB69 jL48FSwgZMDtZbV9ZiLpglol bWFy C4etEaQxfGTuUob+PHRhYmxl IHdpZHRoPScxMDAlJyBzdHls SE9gLw6tMSCjEDPemVccnRLt OiBj i5vlIANkVWwuOV4lrFitQ0Ok kLF9KTJdj9u9Sg77uND+PHRk NFQ6tVsaJQbne153WdKdl8px IDM3 aESpMLssVXR8Q00gr5F9BXMy KVWoUAS2nHQ9mT0ezTojwydr E8ApyOAqAdJ8EVW9uUAmtI9c bGln tzlluS7uHbj+K69IWO5IHOOE YX2WJqt6S8OxZiuflWV+PC90 TCYaZN52cJLdmVPrf0mabRt3 JzEw JGTqIMF3vBfnDFfsj2ReMCJo A50lmLHfx9B5PTSfyMqonSCj CbXrjJT0rJ4sRSxqhvcvr4do dzsn Qxxui3ywsz28nF58A47iBWmj HGTuGZO2EMExDUUjgAhhdo9s lU0aUr2+RFcgp1rzg2agsKf0 IjIw CUUpgcFpaLxcLZQ5h0CtFt02 M2QthBxte0KkMdc8vc28iMQx d8G6cVM2OQnsQGHikD4cLBww ZnQ6 RXGdPnWrlT96wPBbHCznEg8a vBojhFlhQF6kRZKybfkfDGRu sZ8iDKLsgBIkwAfpQK9rKDOt bjtm a523NsYhXIP8VTIefOTqF2Kz lI3tCyVzCHBaMMFnD4GvaBLy CReeC915QPpjBbC8XWFlxoDd Y2Fs QZWkxKdrKwH2p3I1Ij9Nk4Gk ayjpVAM8GIbdBSK2NnQ4TqWu XjY8C8JzIeo4GBGfjWlsNW1v J3Bh GQAehikcsmlbpGU5FWPvKECb pE67iZFgXYxuOh0jr6V7c475 BRNgQJCmwD27Dw1nqMcyNNNs dCBU jC3tvqlnc0smqvmhAbNtRFDe LYv1OIo1GAPrrLucFuUzTWS4 MvS7LIH1kGEsiQ1ecVlnyqct dG9w Oyc+Q93ezE7zFCJ3BKE8pmro HAEgwjYmLM49CM75D1ZfVmmh dGFibGU+XIMnhhFlfDqkIL0v YmFj a0vzs7HmYYxxJ9FdOXHkGDsd Tte0DWCgZYF7lYT2sU2nOCFn CMoxn3F5jKC6M1KmyyRkcf4d b2xs LCGiRWzbK64maUMfe7F6MDTo dSO0DUNqbEjvHpBcoK46Jze+ CIJiaSwgl3YzSpboy9rgt4gw dGg9 HzCzGZHrwrIetQjnQKW1y5Kx Ck10M42zVAnqOZAnQEZbKVPf ERFqxXmyif3cgY4pEv8+PGNv bCB3 qPW1bT1cPZFyDpV9ACqeQ066 YqFfhYVmIteis3wbm6ftsTu5 ApIyDXOcadOmgSwnNPV8m7Vf Lz48 G26oIVgpZWEbXWEbPMIiOMMn lXasbx3eyQ0jWk2+BQ8rb7zo we03jY96lCX+WGEgLUU6cLhe PSdw ZECvoT5xIAmqNmQ8CAQfNrVf sJ52yIJlMVoeYs4pzBqdlXhw KB3rSKSolgsww806EgUjb7zj IDEw rIRpXBcfVWV3B64vl0E2BDLg DUTnCZV2wJY3nV6tdBgrehbr bGVmdDsgdmVydGljYWwtYWxp Z246 IHRvcDsnPlBhdGllbnQgTmFt XPr5V5LkJpr4UEOjxAlwGX6s uJPuFPjkYk0pqZbdaUggXP4f NTBp dgnjn766BnZmi6qrGNAjgLLh SPxcHOA4M27dp9C9YQOoQGEh WWB8bPW1wR6rbWdjadhckKYb dDsg dqPpaGwzMJeyKVzeL126WITr lVyfPkYsqvSoKLHrxWB6JH01 ZP93tAPcg9N5pNV9S8GuJHTx bmct vecfjXQ8NJIkYBKogQ06Dp3q sRhyTk8pYCUmHSJ3SLOpbPCz E3GnpO6yYjWrLTVvVNNaH3Yw eHQt PAmlQ422GPxoNpG9OYKdmuYf N2WzYDXiyYhlXeU4s5Y9Pq7V A6L8WT24BQ02kKTdx7V4lGV7 J3Bh WESuwdbvwflvdBR0GRRxDREq aK95Ys1roAicRu7xBZUjTVI2 OUJhpAAgE0LwaB4qSsJlPDNn MDAw V7BbwOFsRGxeP987VKdcVzO8 CPVyecGsY8YzYHLldWbaKsW2 r9K8Ns1RSTm4UG56SH58wBMl c3R5 yIL1V7RePLLxroglepvapJP0 SJKtDPTafY74Fz8guLxoLl9p KWMqLBN4QFVepATiQ2HuqS8z OiAj YSGfOSUhF0ZnbWIpOGifR694 QRezIdQ5WIZxahUjG9XiALPc pFuiTeG8v1X6Py7PZSTdOQ56 IFR5 vNZ8AB76KN81S5LpDlvnrKKq bGU+PHRhYmxlIHdpZHRoPScx YGSjGsBpnWlyPY2aBm9yIGQo LWNv mHfthDSpXcUxe3ppYROxBLnn GU3alRuoY3IykMS5XTAua1t3 Qe60T12lM8NajIE+PGNvbCB3 aWR0 hO1hUeDgHbK6KIxsW597YfFr qEGxEoice5stk3wxiAn8ZvA9 SMKtkdOjfGzkIAJ4t1LeXx23 Y29s IHdpZHRoPSIxNSUiIHZhbGln gm8wlC8nWv5+ETVccLT9cVT7 wB7xMuIxWrC3THljI710BrTw cCIv Mchhq3jku0wmsUt0HoSqASAg huQkrRdaHGF1o7NgRb86D6En fLwoa4RgWev7sa24gPKvy5L4 bGU9 J1FiHSLzintdbYHaqHoaUR6m TGGrqqoyWDJbcM7oZVLnP9w4 OeImAbJ2AQzcS1JfatU5FEFw cHQg YBflCZE6Y06al7Y9SILqTDZl PVD6rIM2aX4goEspflvuwBCs tQrcbcYgfNyhNSdaRPyrD632 IHRv dAywOJHjmI4nWTMhqXGxzDtq KN4pPKOqotytSdKWIKjuBILN TFZJQTwvdGQ+FGDkTDZ7xImf PSdw JLVryS2qAMWlU8z0BfKaSvP4 BEllN9HwQSHchhiiDs55sQ6s FgHhQqO8JFlcR8RlcvS4ZCDd cHQg ODivUXP5L42pe1J1GLEcYMAr SXK7nKS9bJ4nkVscdhiacUFe zSifljUtqQigNLlpHCtnO362 IHRv eOeuWoUfHzL9NlI8IPF0A9We Moa7ZSYagZmlEZ7ueOJjVFws Hx7kjZwykBhkQK4fGQOnwsrb YWRk nU7lGDJusRXnbIgwSF0wYPGh maoor420OrKrJVI2DJGciPOf I6OsjT3rFnPnDZFwPHFaC3Uh eHQt CJebZ644QSeoWqW4RSPygsLa Z7WoXUVcdAmvEcN7v6S2Ap99 NiBZZWFyczwvdGQ+PHRkIHN0 eWxl JBvlZBPzwX1sJVYpV9a3DzKc XlT5PKqwD2FnBJZcahaeWr77 aD6oTmRdJvJ9FEhoT6AsgiD4 IDEw dBBgGFxaDLY0W53qp1Z6GRTu GXAxGZK3gJU0iX8afWdnwntz bGVmdDsgdmVydGljYWwtYWxp Z246 IHRvcDsnPkZlbWFsZTwvdGQ+ XVLvLEJ8aNkbUIwlSQAxtW3m UFXsF0c2EfFkSfF8MGjkF2Ur ZGRp ggvmHh92vM7qSuQeIzJ0DQqh V0QpgwF5SZWthGJkREotGNR0 V67sb7E8OLFpTIVzVTV8gEN0 dC1h bGlnbjogbGVmdDsgdmVydGlj ZGapVDpuH001YPJtvDzgGsDo CJGpAJ3bxHdkdNY+ZO27hx08 L3Rh EqqlGfw5MFGaVBL8oTM3uA5u FRRfDTudl0M6vHJ2J5EowtGn vo6bp0mcNEWnOJegJ31jtMZn c2U7 MTRdlXS4FNGzyTeiNmJasQ32 Oyc+ZUMumCcbl9ZoGakaf0gv k4yzqWc3IxOgDKCmsbLhsXif PSJ0 q3NpBv90C68xAAceWXCqDIJf BGZpYGAucPsdgs2xpX0bAi9+ UEZqpIK7aJC7vV4iQbHvXrJ1 YWxp N116VvNqrZOyZbyvh7qco4hs vXr7BmSsWMEgpxBnhFefBLK4 g4OoHe01Y9JjhTqmk5FbYvk2 cj48 hTVui6S8jSE5U0XoMQJggwez qGZfdVbxEB9uHDGhhkcjHOVx vI2gSHAiR8o6QbBuUxS9WZhk O2Zv fmJ1XCVavKUgACEazIVRcC7n hurvv1uvpgkhRpYxFNUjHYb3 UIs8LULbhUevHwHrKND1XlF4 ZXJ0 hJRmkN6ywUjfkoombL7dMrf+ MQt7q4alrVKoCJ3biXY1QQ51 XO76mUDcu0M2bFA7X2UrMGZt bmct ofeyvIJ7IGOqHYCabZ54Do4c pVecCl4bVJNgUCC9EWGskVVi K2CcgK4kBlPtLCApYDTgT9Eq eHQt TCzsS634EOlwWdX5RJQitpBn B6NbUJCbxXscYdA5c1A6Do6H YB20ZC58XX79rJSxg6I7uLO8 J3Bh YHXbytvhnpvsvCS6HRElWQFf wX23Jl8zvJvnUy0tHIFqDDY9 FZVzrYUtO1LbtL0gSsZbIOAs MDAw R9ApuPKfIIflB548SYlkEjQ1 TBDwhlJjE0MaMZNhkXalFbL6 t5W6Pz3CId20DC68LH89nZHg c3R5 rOV4M4GfVBUyclcynfpuiUW8 YPEyDRAjcC99Tz5xbPvwCj6m WHXnMHE0QNXgkPPbR7HhsG1o OiAj ARJhJMCvT7NtjHXuQSqjA496 CRnbRbD4TTDbbaOuT5PsYPCs kZxeAtS2t6W0Jf9MADgbijn3 L3Rk PjwvdHI+VA42EAMcXW89iCQu bVZej3draLn3GaZtIUAgEES2 bIlkIFofb5TnIIRwK66yhMWb c2U6 IGNv (more content not included)... [facility] Consent for Treatmenton 06-06 Consent for Treatment [id number]: 127 [facility] Discharge Instructionson Discharge Instructions [id number] :127 [facility] Discharge Instructions Discharge instructions complete, RR equal and non labored and nurse educated to make follow up and take medication as prescribed. [facility] Comment on above: Result Comment: Elec tronically Signed By: Malorie MONSIVAIS, Don Urbina\.tiffany\Date and Time Signed: 06/28/20 11:39 EDT ED Clinical Summaryon 2020 ED Clinical Summary (Inserted Image. [place] ble to display) [place] [id number] ED Clinical Summary Person Information Name: KEYANNA STAFFORD/Brandy Age: 65 Years : 1955 Sex: Female Language: Bahamian PCP: Manohar PARHAM DO Marital Status: Single Visit Id: Visit Reason: Hypertension; HIGH BP Speciality: Acuity: 3 Enc Type: Emergency Med Service: Emergency Arrival: 06/28/2020 10:27:51 Discharge: 06/28/2020 11:46:31 LOS: 000 01:19 Checkin: 06/28/2020 10:27:51 Checkout: 06/28/2020 11:46:31 Dispo Type: Home (Routine DC) EVENTS: Event Name Event Status Request Date/Time Start Date/Time Complete Date/Time Arrive Complete 06/28/2020 10:27:51 06/28/2020 10:27:51 06/28/2020 10:27:51 Document Home Meds Request 06/28/2020 10:27:51 Triage Complete 06/28/2020 10:27:51 06/28/2020 10:42:42 06/28/2020 10:42:42 EKG Complete 06/28/2020 10:42:40 06/28/2020 10:50:03 Dr Exam Complete 06/28/2020 11:00:55 06/28/2020 11:00:55 06/28/2020 11:00:55 Registration Complete 06/28/2020 11:00:55 06/28/2020 11:04:44 06/28/2020 11:43:40 Bed Assign Complete 06/28/2020 11:04:44 06/28/2020 11:04:44 06/28/2020 11:04:44 RN Exam Complete 06/28/2020 11:04:44 06/28/2020 11:17:33 06/28/2020 11:17:33 Meds Admin Complete 06/28/2020 11:17:22 06/28/2020 11:30:42 Discharge Complete 06/28/2020 11:17:28 06/28/2020 11:46:42 06/28/2020 11:46:42 Reg Complete Request 06/28/2020 11:43:40 Reg Bed Request Complete 06/28/2020 11:43:40 06/28/2020 11:43:40 06/28/2020 11:43:40 Transfer Complete 06/28/2020 11:46:42 06/28/2020 11:46:42 06/28/2020 11:46:42 ADDRESS: [address] [place] [phone] PHYS DOC NOTES: MEDICAL INFORMATION: Prescriptions Given: New Medications Printed Prescriptions amlodipine (Norvasc 10 mg Tab) 1 Tablets By Mouth every day for 30 Days. Refills: 0. PATIENT EDUCATION INFORMATION: Instructions: Hypertension; DASH Eating Plan Follow up: With: Address: When: Manohar PARHAM [address] [place] [id number] Business (1) In 3 days 07/01/2020 DIAGNOSIS: Hypertension [facility] ED Note-Physicianon 06-29-19 ED Note-Physician Basic Information Time Seen: Waylon Marques DO 06/28/2020 11:00 Chief Complaint Pt. had a cataract removed from her left eye today and presents with high blood pressure. History of Present Illness 65 female presents the emergency department today with asymptomatic hypertension. Patient did have cataract surgery on her left eye today with Dr. Polo and was sent to the emergency department because of elevated blood pressure readings. Patient does have history of hypertension states that she is supposed to be taking unknown medications for this but she recently lost the care of her primary care physician and she has not had her medications for 1 to 2 months. She is not sure when she last took her medications she is not sure what the medications are. She has been otherwise asymptomatic she denies any headache no chest pain difficulty breathing she is denying any changes acutely to her speech vision or any neurological symptoms, other than of course trouble with her left eye because she just had surgery on it just prior to arrival. No other aggravating or relieving factors no other associated symptoms no other prior treatments or complaints. Family: Reviewed and noncontributory Social: lives at home Review of systems negative unless otherwise specified in the HPI. Physical Exam Vitals & Measurements T: 36.6 ?C (Oral) HR: 74(Peripheral) RR: 18 BP: 183/84 SpO2: 93% HT: 150 cm HT: 150.0 cm WT: 58 kg WT: 58.0 kg BMI: 25.78 Vital Signs reviewed and noted. General: Alert, no acute distress, patient resting comfortably Skin: warm, intact, no pallor noted Head: Normocephalic, atraumatic Eye: Normal conjunctiva patient does have a covering over her left eye consistent with stated history of surgery just prior to arrival Cardiac: Normal peripheral perfusion Respiratory: No acute distress Musculoskeletal: No deformity, full ROM. Neurological: alert and oriented, normal sensory and motor observed. Psychiatric: Cooperative Medical Decision Making Patient was observed in the emergency department for over 1 hour her blood pressure now is 183/84. There is no utility in treating her blood pressure aggressively at this time. Patient remains asymptomatic she is discharged home I did confer with the pharmacist and the patient will be started back on her amlodipine 10 mg daily and given referral to primary care physician. Assessment/Plan Hypertension (I10: Essential (primary) hypertension) Orders: amlodipine, 10 mg = 1 tab(s), Tab, Oral, Once, Stop date 06/28/20 11:17:00 EDT, STAT, Start date 06/28/20 11:17:00 EDT amlodipine, 10 mg = 1 tab(s), Oral, Daily, X 30 day(s), # 30 tab(s), Refills(s) 0 Disposition Plan Discharge Prescription List Prescriptions Norvasc 10 mg Tab, 10 mg= 1 tab(s), Oral, Daily Follow-up With When Contact Information Manohar PARHAM In 3 days 07/01/[address] [place] [address]- Business (1) Additional Instructions: Patient Education Hypertension DASH Eating Plan Problem List/Past Medical History Ongoing No qualifying data Historical No qualifying data Medications Inpatient No active inpatient medications Home No active home medications Allergies No Known Medication Allergies Lab Results No qualifying data available. Diagnostic Results No qualifying data available. EKG Results EC06/28/20: SINUS RHYTHM POSSIBLE LEFT ATRIAL ENLARGEMENT EKG: Normal sinus rhythm rate is normal, the axis is normal there is no ectopy there are no acute ST changes. EKG interpretation by Dr. Marques. BORDERLINE ECG Signed By: Waylon Marques DO 06/28/2020 10:57:50 [facility] Comment on above: Result Comment: Elec tronically Signed By: Waylon Marques DO\.br\Date and Time Signed: 06/28/20 11:18 EDT ED Patient Education Noteon 06-28-2020 ED Patient Education Note Hypertension Hypertension, commonly called high blood pressure, is when the force of blood pumping through your arteries is too strong. Your arteries are the blood vessels that carry blood from your heart throughout your body. A blood pressure reading consists of a higher number over a lower number, such as 110/72. The higher number (systolic) is the pressure inside your arteries when your heart pumps. The lower number (diastolic) is the pressure inside your arteries when your heart relaxes. Ideally you want your blood pressure below 120/80. Hypertension forces your heart to work harder to pump blood. Your arteries may become narrow or stiff. Having hypertension puts you at risk for heart disease, stroke, and other problems. RISK FACTORS Some risk factors for high blood pressure are controllable. Others are not. Risk factors you cannot control include: ? Race. You may be at higher risk if you are . ? Age. Risk increases with age. ? Gender. Men are at higher risk than women before age 45 years. After age 65, women are at higher risk than men. Risk factors you can control include: ? Not getting enough exercise or physical activity. ? Being overweight. ? Getting too much fat, sugar, calories, or salt in your diet. ? Drinking too much alcohol. SIGNS AND SYMPTOMS Hypertension does not usually cause signs or symptoms. Extremely high blood pressure (hypertensive crisis) may cause headache, anxiety, shortness of breath, and nosebleed. DIAGNOSIS To check if you have hypertension, your health care provider will measure your blood pressure while you are seated, with your arm held at the level of your heart. It should be measured at least twice using the same arm. Certain conditions can cause a difference in blood pressure between your right and left arms. A blood pressure reading that is higher than normal on one occasion does not mean that you need treatment. If one blood pressure reading is high, ask your health care provider about having it checked again. TREATMENT Treating high blood pressure includes making lifestyle changes and possibly taking medicine. Living a healthy lifestyle can help lower high blood pressure. You may need to change some of your habits. Lifestyle changes may include: ? Following the DASH diet. This diet is high in fruits, vegetables, and whole grains. It is low in salt, red meat, and added sugars. ? Getting at least 2? hours of brisk physical activity every week. ? Losing weight if necessary. ? Not smoking. ? Limiting alcoholic beverages. ? Learning ways to reduce stress. ?If lifestyle changes are not enough to get your blood pressure under control, your health care provider may prescribe medicine. You may need to take more than one. Work closely with your health care provider to understand the risks and benefits. HOME CARE INSTRUCTIONS ? Have your blood pressure rechecked as directed by your health care provider. ? ? Take medicines only as directed by your health care provider. Follow the directions carefully. Blood pressure medicines must be taken as prescribed. The medicine does not work as well when you skip doses. Skipping doses also puts you at risk for problems. ? ? Do not smoke. ? ? Monitor your blood pressure at home as directed by your health care provider.? SEEK MEDICAL CARE IF: ? You think you are having a reaction to medicines taken. ? You have recurrent headaches or feel dizzy. ? You have swelling in your ankles. ? You have trouble with your vision. SEEK IMMEDIATE MEDICAL CARE IF: ? You develop a severe headache or confusion. ? You have unusual weakness, numbness, or feel faint. ? You have severe chest or abdominal pain. ? You vomit repeatedly. ? You have trouble breathing. MAKE SURE YOU: ? Understand these instructions. ? Will watch your condition. ? Will get help right away if you are not doing well or get worse. Document Released: 01/22/2006 Document Revised: 06/08/2014 Document Reviewed: 11/14/2013 ExitCare? Patient Information ?2014 [employer]. This information is not intended to replace advice given to you by your health care provider. Make sure you discuss any questions you have with your health care provider. Nutrition DASH Eating Plan DASH stands for Dietary Approaches to Stop Hypertension. The DASH eating plan is a healthy eating plan that has been shown to reduce high blood pressure (hypertension). It may also reduce your risk for type 2 diabetes, heart disease, and stroke. The DASH eating plan may also help with weight loss. What are tips for following this plan? General guidelines ? Avoid eating more than 2,300 mg (milligrams) of salt (sodium) a day. If you have hypertension, you may need to reduce your sodium intake to 1,500 mg a day. ? Limit alcohol intake to no more than 1 drink a day for non women and 2 drinks a day for men. One drink equals 12 oz (more content not included)... [facility] ED Patient Summaryon 021 ED Patient Summary (Inserted Image. [place] ble to display) [address] [address] Patient Discharge Instructions Person Information Name: KEYANNA STAFFORD Age: 65 Years Arrival Date: 06/28/2020 10:27:51 Discharge Diagnosis: Hypertension Primary Care Physician: Manohar PARHAM DO Provider Information Primary Provider: Waylon Marques DO Advanced Sealer Operator:None The exam and treatment you received in the Emergency Department were for an urgent problem and are not intended as complete care. It is important that you follow up with a doctor, nurse practitioner, or physician?s records management assistant for ongoing care. If your symptoms become worse or you do not improve as expected and you are unable to reach your usual health care provider, you should return to the Emergency Department. We are available 24 hours a day. KEYANNA STAFFORD has been given the following list of patient education materials, prescriptions and follow-up instructions: Follow-up Instructions: With: Address: When: Manohar PARHAM [address] [facility] [address] [place] [address] Business (1) In 3 days 07/01/2020 In the event that this physician does not participate in your insurance network, please consult with your insurance company to find a nearby participating provider. Patient Education Materials: Hypertension; DASH Eating Plan A MESSAGE TO ALL PATIENTS REGARDING OPIOIDS PRESCRIPTION OPIOIDS: WHAT YOU NEED TO KNOW Prescription opioids can be used to help relieve hnufmdmy-nx-tfyuhv pain and are often prescribed following a surgery or injury, or for certain health conditions. These medications can be an important part of the treatment but also come with serious risks. It is important to work with your healthcare provider to make sure you are getting the safest, most effective care. WHAT ARE THE RISKS AND SIDE EFFECTS OF OPIOID USE? Prescription opioids carry serious risks of addiction and overdose, especially with prolonged use. An opioid overdose, often marked by slowed breathing, can cause sudden . The use of prescription opioids can have a number of side effects as well, even when taken as directed: ? Tolerance?meaning you might need to take more of the medication for the same pain relief ? Physical dependence?meaning you have symptoms of withdrawal when a medication is stopped ? Increased sensitivity to pain ? Constipation ? Nausea, vomiting, and dry mouth ? Sleepiness and dizziness ? Confusion ? Depression ? Low levels of testosterone that can result in lower sex drive, energy, and strength ? Itching and sweating RISKS ARE GREATER WITH: ? History of drug misuse, substance use disorder, or overdose ? Mental health conditions (such as depression or anxiety) ? Sleep apnea ? Older age (65 years and older) ? Avoid alcohol while taking prescription opioids. Also, unless specifically advised by your health care provider, medications to avoid include: ? Benzodiazepines (such as Xanax or Valium) ? Muscle relaxants (such as Soma or Flexeril) ? Hypnotics (such as Ambien or Lunesta) ? Other prescription opioids KNOW YOUR OPTIONS Talk to your health care provider about ways to manage your pain that don?t involve prescription opioids. Some of these options may actually work better and have fewer risks and side effects. Options may include: ? Pain relievers such as acetaminophen, ibuprofen, and naproxen ? Some medication that are also used for depression or seizures ? Physical therapy and exercise ? Cognitive behavioral therapy, a psychological, goal-directed approach, in which patients learn how to modify physical, behavioral, and emotional triggers of pain and stress. IF YOU ARE PRESCRIBED OPIOIDS FOR PAIN: ? Never take opioids in greater amounts or more often than prescribed. ? Follow up with your primary health care provider. o Work together to create a plan on how to manage your pain. o Talk about ways to help manage your pain that don?t involve prescription opioids. o Talk about any and all concerns and side effects. ? Help prevent misuse and abuse o Never sell or share prescription opioids. o Never use another person?s prescription opioids. ? Store prescription opioids in a secure place and out of reach of others (this may include visitors, children, friends, and family). ? Safely dispose of unused prescription opioids: Find your community drug take-back program or your pharmacy mail-back program, or flush them down the toilet, following guidance from the Food and Drug Administration (www.fda.gov/Drugs/Resou rcesForYou). ? Visit www.cdc.gov/drugoverdose to learn about the risks of opioids abuse and overdose. ? If you believe you may be struggling with addiction, tell your health family day care provider and ask for guidance or call [facility]S National Helpline at 4-444-424-XJJQ. u Source: Department of [facility] and (more content not included)... [facility] HAND RIGHT 2 [facility] 8 [facility] RIGHT 2 [facility] [address] [place] [address] ==Patient Name: KEYANNA STAFFORD : 1955Sex: FAge: Race: WhiteMRN: [id number]. 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 COMPARISON: None FINDINGS: Soft tissues:Swelling along the tip of the amputated long finger Bones:Amputation of the long finger middle phalanx at the metaphyseal base Joints:Flexion deformity of the index finger DIP jointOsteoarthritis of the thumb base, to a lesser degree elsewhere IMPRESSION: Long finger amputation injury as above Electronically signed by:Segrio Lawrence. Transcribed by: [email or web address], User Resident: Electronically Signed by: SERGIO LAWRENCE @ 01/07/2018 02:05 PM [facility] Comment on above: Order Comment: , , = ========= , Ordering Provider - MANOHAR BONILLA PA-C , Operative Reporton 8 Operative Report MR#: [id number] [facility] Pt. Name: Keyanna Stafford Room #: DCC Discharge 12/31/2017 Date: Birthdate: 1955 OPERATIVE REPORTDATE OF SURGERY: 12/31/2017SURGEON: Stuart Vo M.D.PREPROCEDURE DIAGNOSIS: Right long finger gangrene.POSTPROCEDURE DIAGNOSIS: Right long finger gangrene.PROCEDURE PERFORMED: Right long finger amputation at the level of themiddle phalanx approximately 5 mm distal to the PIP joint.ASSISTANTS:1. Rajendra Tolentino M.D.2. Perry Garcia M.D.ANESTHESIA: General.IV FLUIDS: Per Anesthesia protocol.SPECIMENS: Intraoperative tissue samples were sent for culture.IMPLANTS: None.BLOOD LOSS: Minimal.TOURNIQUET: Tourni-Cot was used.INDICATIONS FOR PROCEDURE: This is a 62-year-old female with an extensivepsychiatric history, who reports that she has had previous infections tothe fingers of the right hand. She states that the current infection beganapproximately a year ago due to the fact that she impulsively chews herfingernails to the point that she breaks through the skin predominantly onher right 2nd and 3rd digits. She presented to clinic earlier today andthe decision was made to explore the wound in the right long finger as itappeared to be necrotic from its distal most extent down to the middlephalanx.PROCEDURE IN DETAIL: The patient was met in the preoperative area, whereconsent was confirmed and surgical site was marked. The patient was takento the operating room, where she was placed on the operating table insupine position and general anesthesia was induced. The patient's rightupper extremity was prepped and draped in the usual sterile fashion and atime-out was performed. The procedure began by performing a digital blockon the right long finger followed by application of a Tourni-Cot. Theright long finger tip was examined initially using a hemostat. Again, theskin was necrotic and easily friable. Mamadou pus was expressed from thedistal portion of the finger tip. A line was marked at the demarcation ofthe necrotic tissue around the level of the middle phalanx. An incisionwas made circumferentially a few mm proximal to this demarcation at thelevel, which the healthy skin appeared to be. The soft tissues weredissected down and the digital nerves were identified bilaterally and cutafter applying traction to the nerves allowing them to retract back intothe proximal stump. A bone cutter was then used and initial cut was madeat the level of the incision and the distal aspect of the finger wascompletely amputated. At this point, a rongeur was used to debrideremaining necrotic tissue deep as well as to remove additional middlephalanx leaving approximately 3 mm of middle phalanx just distal to the PIPjoint and this allowed for an adequate soft tissue coverage once thehealthy skin flaps were approximated. The wound was irrigated withBetadine and normal saline and then the dorsal skin flap was folded over tothe volar skin flap and closed using 3-0 Novafil suture. Xeroform wasplaced over the incision and the Tourni-Cot was removed. The wound wasthen covered with sterile soft dressing followed by Kerlix and an Weston wrapand this marked the conclusion of the procedure. The patient was taken tothe PACU and started on Bactrim as well as pain medication and Colace. Thepatient was instructed not to remove the dressing until followup and wasdischarged once deemed stable. Dr. Vo was present for the entireprocedure and made all critical decisions regarding the patient care.Electronically Signed by:Stuart Vo M.D. 01/05/2018 10:48 A Stuart Vo M.D. I was present for the sandy and critical portions and I was otherwiseimmediately available to assist. Date Dict: 01/01/2018/09:11 P/Tiffanie Rose Trans: 01/02/2018 05:47 A/JenniferN_JN:[id number]: Reese Hodges M.D. [address] [address] Normal [facility] *ANAEROBIC CULTUREon 11-26-2 018 *ANAEROBIC CULTURE Clinical Report: (D) Specimen/Source: TISSUE/INTRAOP SPEC Collected: 12/31/2017 15:35 Status: Final Last Updated: 01/05/2018 08:19 (1) Right Long Finger Soft Tissue ISO (Final) No Anaerobes Isolated 5 Days Normal [facility] Comment on above: Order Comment: Right Long Finger Soft Tissue Performed By: #### 5 5301, [id number] ####[id number] [place] [address], [facility] *ANAEROBIC CULTURE Clinical Report: (D) Specimen/Source: TISSUE/INTRAOP SPEC Collected: 12/31/2017 15:34 Status: Final Last Updated: 01/05/2018 08:07 (1) Right Long Finger Distal Phalanx ISO (Final) No Anaerobes Isolated 5 Days Result changed by SERVANDO on 01/05/2018 08:07. The previous result was: ISO (Prelim) Normal [facility] Comment on above: Order Comment: Right Long Finger Distal Phalanx Performed By: #### 3 0312 ####[address] *FUNGAL CULTUREon 12-31-2017 *FUNGAL CULTURE Clinical Report: (D) Specimen/Source: TISSUE/INTRAOP SPEC Collected: 12/31/2017 15:35 Status: Final Last Updated: 01/08/2018 14:58 (1) Right Long Finger Soft Tissue FS (Final) No Yeast or Fungal Elements Seen ISO (Final) Tisha albicans Normal [facility] Comment on above: Order Comment: Right Long Finger Soft Tissue Performed By: #### 5 6101, 74161 ####[address] *FUNGAL CULTURE Clinical Report: (D) Specimen/Source: TISSUE/INTRAOP SPEC Collected: 12/31/2017 15:34 Status: Final Last Updated: 01/08/2018 10:00 (1) Right Long Finger Distal Phalanx FS (Final) No Yeast or Fungal Elements Seen ISO (Final) Tisha albicans Normal [facility] Comment on above: Order Comment: Right Long Finger Distal Phalanx Performed By: #### 5 6101, 08942 ####[address] *TISSUE CULTUREon 12-31-2017 *TISSUE CULTURE Clinical Report: (D) Specimen/Source: TISSUE/INTRAOP SPEC Collected: 12/31/2017 15:35 Status: Final Last Updated: 01/02/2018 08:32 (1) Right Long Finger Soft Tissue GRAM (Final) Many Polys Rare Gram Positive Cocci In Pairs Rare Gram Positive Bacilli ISO (Final) Enterococcus faecalis Moderate Growth ISOLATE: Enterococcus faecalis PAU (mcg/ml) AMPICILLIN (AM) 2 Susceptible DAPTOMYCIN (DAP) 2 Susceptible PENICILLIN (P) 4 Susceptible VANCOMYCIN (VA) 1 Susceptible Normal [facility] Comment on above: Order Comment: Right Long Finger Soft Tissue Performed By: #### 3 0338 ####[facility] *TISSUE CULTURE Clinical Report: (D) Specimen/Source: TISSUE/INTRAOP SPEC Collected: 12/31/2017 15:34 Status: Final Last Updated: 01/05/2018 10:02 (1) Right Long Finger Distal Phalanx GRAM (Final) No Polys Seen No Bacteria Seen ISO (Final) Enterococcus faecalis Isolated from broth culture ISO (Final) Presumptive Tisha albicans Isolated from broth culture ISOLATE: Enterococcus faecalis PAU (mcg/ml) AMPICILLIN (AM) 2 Susceptible DAPTOMYCIN (DAP) 2 Susceptible PENICILLIN (P) 4 Susceptible VANCOMYCIN (VA) 1 Susceptible Normal [facility] Comment on above: Order Comment: Right Long Finger Distal Phalanx Performed By: #### 3 0338 ####[facility] APTTon 12-31-2017 aPTT Coag time (Bld) 27.1 s Normal 25.0-35.0 [facility] Comment on above: Result Comment: ALL RESULTS MUST BE INTERPRETED WITH RESPECT TO BLOOD DRAWING ARTIFACTOR DILUTION ERROR OF ANTICOAGULANT AT THE TIME OF SAMPLING.THE APTT SHOULD NOT BE USED TO MONITOR UNFRACTIONATED HEPARIN THERAPY, THIS LABORATORY NO LONGER HAS AN ESTABLISHED THERAPEUTIC RANGE BASEDON THE APTT. IT IS RECOMMENDED THAT THE [facility] - HEPARIN ASSAY (ANTI-XAACTIVITY) BE USED FOR THIS PURPOSE. Performed By: #### 5 6101, 78010 ####[facility] BASIC METABOLIC PANELon 12-07 Calcium mass conc 9.3 mg/dL Normal 8.6-10.3 [facility] Comment on above: Performed By: #### 0 0071 ####[facility] [place] [address], [facility] Chloride molar conc 104 mmol/L Normal 98-107 [facility] Comment on above: Performed By: #### 0 0071 ####[facility] [place] [address], [facility] CO2 molar conc 28 mmol/L Normal 21-31 [facility] Comment on above: Performed By: #### 0 0071 ####[facility] [facility] [place] [address], [facility] Creatinine mass conc 0.51 mg/dL Low 0.60-1.20 [facility] Comment on above: Performed By: #### 0 0071 ####[facility] [facility] [place] [address], [facility] GFR/1.73 sq M predicted among blacks MDRD vol rate/area (S/P/Bld) mL/min/{1.73_m2} Normal >60 [facility] Comment on above: Performed By: #### 0 0071 ####[facility] [facility] [place] [address], [facility] GFR/1.73 sq M predicted among non-blacks MDRD vol rate/area (S/P/Bld) mL/min/{1.73_m2} Normal >60 [facility] Comment on above: Performed By: #### 0 0071 ####[facility] [facility] [place] [place] [address], [facility] Glucose mass conc 168 mg/dL High 70-100 [facility] Comment on above: Performed By: #### 0 0071 ####[facility] [facility] [place] [address], [facility] Potassium molar conc 4.2 mmol/L Normal 3.5-5.1 [facility] Comment on above: Performed By: #### 0 0071 ####[facility] Sodium molar conc 141 mmol/L Normal 136-145 [facility] Comment on above: Performed By: #### 0 0071 ####[facility] Urea nitrogen mass conc 5 mg/dL Low 7-25 [facility] Comment on above: Performed By: #### 0 0071 ####[facility] CBC W/DIFFon 12-31-2017 ABS BASOPHILS 0.0 10*3/uL Normal 0.0-0.2 [facility] Comment on above: Performed By: #### 5 0103 ####[facility] ABS IMM GRANS 0.0 10*3/uL Normal 0.0-0.2 [facility] Comment on above: Performed By: #### 5 102 ####[address] [address] [id number] ABS NEUTROPHILS 3.3 10*3/uL Normal 1.6-7.6 [facility] Comment on above: Performed By: #### 5 0103 ####[facility] Basophils Auto #/vol (Bld) 0.4 % Normal 0.0-1.0 [facility] Comment on above: Performed By: #### 5 0103 ####[facility] Eosinophils Auto #/vol (Bld) 0.1 10*3/uL Normal 0.0-0.5 [facility] Comment on above: Performed By: #### 5 3 ####[facility] [place] [address], [place] Eosinophils/100 WBC Auto (Bld) 1.1 % Normal 0.0-6.0 [facility] Comment on above: Performed By: #### 5 0103 ####[facility] Erythrocyte distribution width Auto Ratio (RBC) 13.0 % Normal 11.5-15.0 [facility] Comment on above: Performed By: #### 5 0103 ####[facility] Hematocrit Auto Volume Fraction (Bld) 39.9 % Normal 36.0-45.0 [facility] Comment on above: Performed By: #### 5 3 ####[facility] Hemoglobin mass conc (Bld) 13.5 g/dL Normal 12.0-15.0 [facility] Comment on above: Performed By: #### 0103 ####[facility] IMMATURE GRANS 0.4 % Normal 0.0-1.0 [facility] Comment on above: Performed By: #### 5 0103 ####[facility] Lymphocytes Auto #/vol (Bld) 1.9 10*3/uL Normal 1.2-4.0 [facility] Comment on above: Performed By: #### 5 0103 ####[facility] Lymphocytes/100 WBC Auto (Bld) 32.9 % Normal 20.0-45.0 [facility] Comment on above: Performed By: #### 3 ####[facility] MCH Auto Entitic mass (RBC) 29.2 pg Normal 27.0-33.0 [facility] Comment on above: Performed By: #### 5 0103 ####[facility] [facility].[address] MCHC Auto mass conc (RBC) 33.8 g/dL Normal 32.0-35.0 [facility] Comment on above: Performed By: #### 5 0103 ####[facility] MCV Auto Entitic volume (RBC) 86.4 fL Normal 82.0-98.0 [facility] Comment on above: Performed By: #### 3 ####[facility] Monocytes Auto #/vol (Bld) 0.4 10*3/uL Normal 0.1-1.0 [facility] Comment on above: Performed By: #### 3 ####[facility] MONOS 7.4 % Normal 5.0-12.0 [facility] Comment on above: Performed By: #### 3 ####[facility] Neutrophils/100 WBC Auto (Bld) 57.8 % Normal 40.0-72.0 [facility] Comment on above: Performed By: #### 3 ####[facility] Nucleated RBC/100 WBC Ratio (Bld) 0 % Normal 0-0 [facility] Comment on above: Performed By: #### 3 ####[facility] [facility].[address] PLAT CNT 226 10*3/uL Normal 150-400 [facility] Comment on above: Performed By: #### 5 0103 ####[facility] [place] [address] RBC Auto #/vol (Bld) 4.62 10*6/uL Normal 3.80-5.00 [facility] Comment on above: Performed By: #### 5 0103 ####[facility] [place] [address] WBC Auto #/vol (Bld) 5.71 10*3/uL Normal 4.00-10.60 [facility] Comment on above: Performed By: #### 5 0103 ####[address] FINGER RIGHT MIN 2 VWSon FINGER RIGHT MIN 2 VWS [facility] [place], [place] [address] ==Patient Name: KEYANNA STAFFORD : 1955Sex: FAge: Race: WhiteMRN: [id number]. Location: OUTPPatient Status: OVisit #: [id number] Date: 12/31/2017 3:35:00 PMCompleted Date: 12/31/2017 03:48 PMRequesting Provider: STUART VO Attending Provider: STUART VO Report Copy To: Signs & Symptoms: crpp right fingerHistory: Comments: crpp right fingerExam: FINGER RIGHT MIN 2 VWSAccession #: [id number] =========FINGER RIGHT MIN 2 VWS 12/31/2017 3:48 PM EST SIGNS AND SYMPTOMS: crpp right finger TECHNOLOGIST COMMENTS: Intra op Fluoro for I\EANDE\D of right middle finger and distal partial amputation of right middle finger with Dr. Vo in OR 6 Silva c-arm used Fluoro time 2 seconds QUESTION FOR THE RADIOLOGIST: crpp right finger PROTOCOL: AP,Lateral and Oblique views were obtained. COMPARISON: None FINDINGS: 3 images were obtained. See above regarding fluoroscopy. IMPRESSION:For documentation Electronically signed by:Abdirizak Herrera. Transcribed by: [email or web address], User Resident: Electronically Signed by: ABDIRIZAK HERRERA @ 2018 08:05 AM Normal [facility] Comment on above: Order Comment: crpp right finger POC GLUCOSE LABon 12-31-2017 Glucose mass conc 141 mg/dL High 70-100 [facility] Comment on above: Performed By: #### 8 5499 ####[facility] [facility] [place] [place] [address], [facility] Glucose mass conc 152 mg/dL High 70-100 [facility] Comment on above: Performed By: #### 8 5499 ####[facility] [facility] [place] [address], [facility] PROTHROMBIN TIMEon 8 INR Coag RelTime (PPP) 0.90 {INR} Low 0.91-1.16 [facility] Comment on above: Result Comment: ACCC P RECOMMENDED INR FOR WARFARIN THERAPY CONDITION INRPROPHYLAXIS OF VENOUS THROMBOSIS 2-3(HIGH-RISK SURGERY)TREATMENT OF VENOUS THROMBOSIS 2-3TREATMENT OF PULMONARY EMBOLISM 2-3PREVENTION OF SYSTEMIC EMBOLISM: 2-3 ACUTE MYOCARDIAL INFARCTION TISSUE HEART VALVES VALVULAR HEART DISEASE ATRIAL FIBRILLATION RECURRENT SYSTEMIC EMBOLISMMECHANICAL HEART VALVE 2.5-3.5 FROM: ORAL ANTICOAGULANTS. MECHANISM OF ACTION, CLINICALEFFECTIVENESS, AND OPTIMAL THERAPEUTIC RANGE. [id number];108:231S-246S. Performed By: #### 5 6101, 57576 ####[facility] [facility].[address] Prothrombin time (PT) Coag time (PPP) 12.1 s Low 12.3-14.8 [facility] Comment on above: Result Comment: ALL RESULTS MUST BE INTERPRETED WITH RESPECT TO BLOOD DRAWING ARTIFACTOR DILUTION ERROR OF ANTICOAGULANT AT THE TIME OF SAMPLING. Performed By: #### 5 6101, 08591 ####[facility] [facility].[address] Encounters Encounter Date Encounter Type Care Provider Facility Start: 11-09-2022 End: 11-09-2022 ambulatory MARIANN [facility] Start: 06-21-2022 End: 06-21-2022 ambulatory [facility] Start: 06-12-2022 End: 06-13-2022 ambulatory URBANO GARCIA Facility:[facility] Start: 06-02-2022 End: 06-03-2022 ambulatory URBANO GARCIA Facility:[facility] Start: 05-12-2022 ambulatory BALA HENAO [facility] Start: 04-23-2022 End: 04-25-2022 Evaluation and management of inpatient MARIANN BORJAS Facility:[facility] Start: 04-11-2022 End: 04-12-2022 ambulatory URBANO GARCIA Facility:[facility] Start: 03-28-2022 End: 03-29-[address] REESE HODGES Facility:[facility] Start: 01-07-2018 End: 01-08-2018 Patient encounter procedure MANOHAR BONILLA Facility:[facility] Start: 12-31-2017 Encounter for other specified special examinations STUART VO [facility] Start: 12-31-2017 End: 2018 Patient encounter procedure STUART VO Facility:[facility] Encounter for other specified special examinations STUART VO [facility] Procedures Date Procedure Procedure Detail Performing Clinician Start: 12-31-2017 AMPUTATION OF FINGER/THUMB STUART GONGBLAIR Start: 12-31-2017 ANESTH LOWER ARM SURGERY LIZZETTE Meng JENIFER Payers Date Payer Category Payer Unknown [id number] 1955 Unknown [id number] 2.16.8 [id number] 1955 Unknown [id number] 2.16.8 [id number] 1955 Unknown [id number] 2.16.8 [id number] 1955 Unknown [id number] 2.16.84 [id number] 1955 Unknown [id number] 2.16.84 [id number] 1955 Unknown [id number] 2.16.84 [id number] 1955 Unknown [id number] 2.16.84 [id number] 1955 Unknown [id number] 2.16.84 [id number] Unknown [id number] Progress note 11-09-2022 Note Date & Type Note Facility 11-09-2022 Note Patient here for 6 m o follow up chronic diastolic heart failure, hypertension, and hyperlipidemia. Denies chest pain and SOB. She is not taking atorvastatin or lisinopril-hydrochlorothiazide because they both made her dizzy. She feels better not taking them. When she checks her BP at home she says it's usually 160 or higher systolic. Review of Systems Constitutional: Positive for malaise/fatigue. Cardiovascular: Positive for leg swelling (intermittent). Neurological: Positive for numbness. All other systems reviewed and are negative. [facility] Progress note 11-09-2022 Note Date & Type Note Facility 11-09-2022 Note Cardiovascular Medic in[facility] SUBJECTIVE No chief complaint on file. Keyanna Stafford is a 67 y.o. female here for follow-up. Patient here for 6 mo follow up chronic diastolic heart failure, hypertension, and hyperlipidemia. Denies chest pain and SOB. She is not taking atorvastatin or lisinopril-hydrochlorothiazide because they both made her dizzy. She feels better not taking them. When she checks her BP at home she says it's usually 160 or higher systolic. HPI PMHx: DM type II, (hx of noncompliance), HTN, HLD, HFpEF She c/o fatigue. This is an ongoing issue for her. She has intermittent dizziness. Not new for her. She denies issues with dyspnea. She has some intermittent issues with leg swelling, this is typically mild. Her BP is elevated today. Advised she report to the ER as she is at risk for a stroke, [place], etc. She declines to go. She reports she stopped taking her lisinopril/hydrochlorothiazide. She is unsure why. She states she will resuming taking it. Patient Active Problem List Diagnosis Gangrene of finger (CMS/HCC) Proliferative diabetic retinopathy of both eyes with macular edema associated with type 2 diabetes mellitus (CMS/HCC) Polyneuropathy due to type 2 diabetes mellitus (CMS/HCC) Pain in left foot Nuclear senile cataract Noncompliance with treatment Mild nonproliferative diabetic retinopathy associated with type 2 diabetes mellitus (CMS/HCC) Hypothyroidism Hyperglycemia due to type 2 diabetes mellitus (CMS/HCC) Hypercholesterolemia Finger clubbing Essential hypertension Diabetes mellitus without complication (CMS/HCC) CVA (cerebral vascular accident) (CMS/HCC) Borderline glaucoma Pseudophakia Scleroderma (CMS/HCC) No past medical history on file. Family History Problem Relation Name Age of Onset Hypertension Mother Diabetes Mother Social History Tobacco Use Smoking status: Never Smokeless tobacco: Never Allergies Allergen Reactions Succinylcholine Review of Systems Constitutional: Positive for malaise/fatigue. Negative for chills, decreased appetite, fever and weight gain. Cardiovascular: Positive for leg swelling (intermittent). Negative for chest pain, dyspnea on exertion, irregular heartbeat, near-syncope, orthopnea, palpitations, paroxysmal nocturnal dyspnea and syncope. Hematologic/Lymphatic: Negative for bleeding problem. Does not bruise/bleed easily. Neurological: Positive for numbness. Constitutional: Positive for malaise/fatigue. Cardiovascular: Positive for leg swelling (intermittent). Neurological: Positive for numbness. All other systems reviewed and are negative. OBJECTIVE Visit Vitals BP (!) 184/87 (BP Location: Right arm, Patient Position: Sitting) Pulse 85 Ht 1.499 m (4' 11 ) Wt 56.2 kg (124 lb) SpO2 99% BMI 25.04 kg/m??? Smoking Status Never BSA 1.53 m??? Medications: Current Outpatient Medications: furosemide (Lasix) 40 mg tablet, Take 1 tablet (40 mg) by mouth in the morning., Disp: 90 tablet, Rfl: 3 insulin lispro (HumaLOG) 100 unit/mL injection, Inject 2-8 Units under the skin in the morning., Disp: , Rfl: Levemir FlexTouch U100 Insulin 100 unit/mL (3 mL) pen, Inject 100 Units under the skin., Disp: , Rfl: atorvastatin (Lipitor) 10 mg tablet, Take 1 tablet (10 mg) by mouth in the evening. (Patient not taking: Reported on 11/09/2022), Disp: 90 tablet, Rfl: 3 lisinopriL-hydrochlorothiazide 20-12.5 mg tablet, Take 1 tablet by mouth in the morning., Disp: 90 tablet, Rfl: 3 Physical Exam Vitals reviewed. Constitutional: Appearance: Normal appearance. She is normal weight. HENT: Head: Normocephalic and atraumatic. Right Ear: External ear normal. Left Ear: External ear normal. Eyes: Extraocular Movements: Extraocular movements intact. Conjunctiva/sclera: Conjunctivae normal. Pupils: Pupils are equal, round, and reactive to light. Neck: Vascular: No carotid bruit. Cardiovascular: Rate and Rhythm: Normal rate and regular rhythm. Pulses: Normal pulses. Heart sounds: Normal heart sounds. Pulmonary: Effort: Pulmonary effort is normal. Breath sounds: Normal breath sounds. Abdominal: General: Bowel sounds are normal. Palpations: Abdomen is soft. Musculoskeletal: Cervical back: Neck supple. Right lower leg: Edema present. Left lower leg: Edema present. Comments: +1 BLE edema Skin: General: Skin is warm and dry. Neurological: General: No focal deficit present. Mental Status: She is alert and oriented to person, place, and time. Psychiatric: Mood and Affect: Mood normal. Behavior: Behavior normal. Thought Content: Thought content normal. Judgment: Judgment normal. Labs: 06/02/22 Cr. 1.01, BUN 14, K 4.4, Na 133, eGFR 55 04/25/22 Hgb 11, plt 243 Cr 0.56, BUN 9, K 3.6, Na 138, eGFR >60, ALT 16, AST 12 NTproBNP 1330 Testing/Procedures: CXR 06/12/2022: no acute findings ECHO 04/24/22 ASSESSMENT/PLAN: Diagnosis Plan (more content not included)... [facility] note 06-21-2022 Note Date & Type Note Facility 06-21-2022 Note Patient is here toda y for a one month follow up. Review of Systems Constitutional: Positive for malaise/fatigue. Neurological: Positive for numbness. All other systems reviewed and are negative. [facility] Progress note 06-21-2022 Note Date & Type Note Facility 06-21-2022 Note Cardiovascular Medic [facility] SUBJECTIVE Chief Complaint Patient presents with Follow-up One month follow up Keyanna Stafford is a 67 y.o. female here for follow-up. HPI PMHx: DM type II (hx of noncompliance), HTN, HLD She reports having significant side effects from taking the medications she was prescribed after her recent discharge. She thinks one of them was aldactone and the other she cannot recall. BP at home the past few days: L 135/84 R 108/68 L 104/70 R 117/72 Today: L 195/100 R 201/95 She has been out of her medications for the past week or so. She c/o fatigue. This is an ongoing issue for her. She has some occasional palpitations, typically when she is laying down on her left side. Resolves with deep breathing. Not new for her. She denies issues with dyspnea. She has some intermittent issues with leg swelling, this is mild, denies any currently. She has been weighing herself. She had some weight loss after her recent admission. We discussed how some of her weight loss was related to her fluid retention. She states she had gained weight from her insulin. Last HPI per Dr. Henao: Keyanna Stafford is a 67 y.o. female who presents today for a telemed visit for a post hospitalization follow up. She has a history of HTN, HLD, and DM. She was recently hospitalized after presenting with shortness of breath and was treated for acute decompensated heart failure with preserved ejection fraction. She was started on lasix and spirinolactone for HFpEF. Today, patient tells me that she had been dizzy, and for that reason, she discontinued taking all of her medications. She tells me that she has been doing well since discontinuing the medications. She denies any chest pain or shortness of breath. She endroses some lower extremity edema, but denies any orthopnea or PND. No chest pressure or tightness. No additional complaints or concerns. Patient Active Problem List Diagnosis Gangrene of finger (CMS/HCC) Proliferative diabetic retinopathy of both eyes with macular edema associated with type 2 diabetes mellitus (CMS/HCC) Polyneuropathy due to type 2 diabetes mellitus (CMS/HCC) Pain in left foot Nuclear senile cataract Noncompliance with treatment Mild nonproliferative diabetic retinopathy associated with type 2 diabetes mellitus (CMS/HCC) Hypothyroidism Hyperglycemia due to type 2 diabetes mellitus (CMS/HCC) Hypercholesterolemia Finger clubbing Essential hypertension Diabetes mellitus without complication (CMS/HCC) CVA (cerebral vascular accident) (CMS/HCC) Borderline glaucoma Pseudophakia Scleroderma (CMS/HCC) History reviewed. No pertinent past medical history. Family History Problem Relation Name Age of Onset Hypertension Mother Diabetes Mother Social History Tobacco Use Smoking status: Never Smokeless tobacco: Never Allergies Allergen Reactions Succinylcholine ROS Constitutional: Positive for malaise/fatigue. Neurological: Positive for numbness. All other systems reviewed and are negative. OBJECTIVE Visit Vitals BP 157/75 (BP Location: Left arm, Patient Position: Sitting, BP Cuff Size: Adult) Pulse 89 Ht 1.499 m (4' 11 ) Wt 54.4 kg (120 lb) SpO2 100% BMI 24.24 kg/m??? Smoking Status Never BSA 1.5 m??? Medications: Current Outpatient Medications: atorvastatin (Lipitor) 10 mg tablet, Take 1 tablet (10 mg) by mouth in the evening., Disp: 90 tablet, Rfl: 3 furosemide (Lasix) 40 mg tablet, Take 1 tablet (40 mg) by mouth in the morning., Disp: 90 tablet, Rfl: 3 insulin lispro (HumaLOG) 100 unit/mL injection, Inject 2-8 Units under the skin in the morning., Disp: , Rfl: Levemir FlexTouch U100 Insulin 100 unit/mL (3 mL) pen, Inject 100 Units under the skin., Disp: , Rfl: lisinopriL-hydrochlorothiazide 20-12.5 mg tablet, Take 1 tablet by mouth in the morning., Disp: 90 tablet, Rfl: 3 Physical Exam Vitals reviewed. Constitutional: Appearance: Normal appearance. She is normal weight. HENT: Head: Normocephalic and atraumatic. Right Ear: External ear normal. Left Ear: External ear normal. Eyes: Extraocular Movements: Extraocular movements intact. Conjunctiva/sclera: Conjunctivae normal. Pupils: Pupils are equal, round, and reactive to light. Neck: Vascular: No carotid bruit. Cardiovascular: Rate and Rhythm: Normal rate and regular rhythm. Pulses: Normal pulses. Heart sounds: Normal heart sounds. Pulmonary: Effort: Pulmonary effort is normal. Breath sounds: Normal breath sounds. Abdominal: General: Bowel sounds are normal. Palpations: Abdomen is soft. Musculoskeletal: Cervical back: Neck supple. Right lower leg: No edema. Left lower leg: No edema. Skin: General: Skin is warm and dry. Neurological: General: No focal deficit present. Mental Status: She is alert and oriented to person, place, and time. (more content not included)... [facility] Progress note 05-12-2022 Note Date & Type Note Facility 05-12-2022 Note Review of Systems Cardiovascular: Positive for leg swelling. Respiratory: Positive for cough. Neurological: Positive for dizziness, light-headedness and loss of balance. All other systems reviewed and are negative. [facility] Progress note 05-12-2022 Note Date & Type Note Facility 05-12-2022 Note [facility] Note Date of Telehealth Visit: 05/12/2022 Keyanna Stafford is a 67 y.o. female who presents today for a telemed visit for a post hospitalization follow up. She has a history of HTN, HLD, and DM. She was recently hospitalized after presenting with shortness of breath and was treated for acute decompensated heart failure with preserved ejection fraction. She was started on lasix and spirinolactone for HFpEF. Today, patient tells me that she had been dizzy, and for that reason, she discontinued taking all of her medications. She tells me that she has been doing well since discontinuing the medications. She denies any chest pain or shortness of breath. She endroses some lower extremity edema, but denies any orthopnea or PND. No chest pressure or tightness. No additional complaints or concerns. The patient was notified that using 3rd [employer] telecommunication application (e.g., [employer]) is not HIPPA compliant and may carry some privacy risks. Yes The visit was conducted via telephone. Verbal consent to provide and bill this service was obtained on 05/12/2022. No signature was obtained due to the COVID-19 pandemic. Patient Location: Patient Home Review of Systems: 10 point ROS was performed and negative unless otherwise specified in HPI Objective PHYSICAL EXAMINATION: Exam is performed during tele-medicine encounter. Gen: Patient is speaking comfortably, is alert and oriented. Does not appear to be in any distress. Speaks in full sentences. Lungs: no cough. Breathing is non labored Neuro: No aphasia or dysarthria Psych: Cooperative, appropriate mood and affect ASSESSMENT AND PLAN HFpEF Hypertension Chest pain Plan: -Patient self discontinued medications. I emphasized the importance of medication compliance and taking medications as prescribed. Recommend resumed meds as prescribed -For hypertension, patient has not been checking her blood pressure at home. I emphasized importance of checking blood pressure on a daily basis and maintaining blood pressure log. This will help in anti hypertensive medication titration -Patient denies any recurrence of chest pain. Possible chest pain was related to hypertensive urgency. I discussed ischemic eval with patient at this time. She declines at the present time and will think about it. Should be discussed during next in person visit -Optimize medical management -Aggressive risk factor modification -Plan of care discussed with patient. All questions were answered. Patient voices understanding and is agreeable with current plan. -Patient was educated on red flag symptoms. Strict return precautions were provided. Patient verbalizes understanding -Follow-up in cardiology clinic in person in 2-4 weeks Thank you for allowing us to participate in the care of your patient. Please do not hesitate to contact cardiology with any questions or concerns. Bala Henao MD [facility] Summary Purpose Family History No Family History Records FoundNo Family History Records FoundNo Family History Records FoundNo Family History Records Found Advance Directives No Advanced Directives Records FoundNo Advanced Directives Records FoundNo Advanced Directives Records FoundNo Advanced Directives Records Found Additional Source Comments INFORMATION SOURCE (unrecogn ized section and content) DATE CREATED AUTHOR 01/14/2018 [facility] DATE CREATED AUTHOR AUTHOR'S ORGANIZ ATION 07/05/2020 [facility] DATE CREATED AUTHOR AUTHOR'S ORGANIZ ATION 06/16/2022 [facility] DATE CREATED AUTHOR AUTHOR'S ORGANIZ ATION 12/16/2022 [facility] FOR RECORDS PERTAINING TO PATIENTS WHO ARE OR HAVE BEEN ENROLLED IN A CHEMICAL DEPENDENCY/SUBSTANCEABUSE PROGRAM, SOME INFORMATION MAY BE OMITTED. This clinical summary was aggregated from multiple sources. Caution should be exercised in using it in the provision of clinical care. This summary normalizes information from multiple sources, and as a consequence, information in this document may materially change the coding, format and clinical context of patient data. In addition, data may be omitted in some cases. CLINICAL DECISIONS SHOULD BE BASED ON THE PRIMARY CLINICAL RECORDS. [employer] provides no warranty or guarantee of the accuracy or completeness of information in this document.
[2023-02-01 15:29] LABS: Bilirubin Urine NEGATIVE (NEGATIVE); Blood Urine TRACE-I (NEGATIVE); Clarity Urine CLEAR (CLEAR); Color Urine LT. YELLOW (YELLOW); Glucose Urine UA 250 mg/dL (NEGATIVE); Ketones Urine NEGATIVE (NEGATIVE); Leukocyte Esterase Urine NEGATIVE (NEGATIVE); Nitrite Urine NEGATIVE (NEGATIVE); Protein Urine NEGATIVE (NEG/TRACE); Specific Gravity Urine <=1.005 (1.005-1.025); Urobilinogen Urine 0.2 EU/dL (0.2-1.0)
[2023-02-01 15:40] LABS: Bacteria Urine TRACE #/HPF (NONE SEEN); Cast Seen? NONE SEEN #/LPF (NONE SEEN); Crystals Seen? None Seen #/HPF (None Seen); Mucus Urine NONE SEEN (NONE SEEN); RBC Urine 0-2 #/HPF (0-2); Squamous Epithelial Cell Urine FEW #/LPF (NONE/RARE); Urine Culture Indicated ALREADY ORDERED; WBC Urine 0-2 #/HPF (NONE SEEN)
== END 2023-02-01 14:21 | disposition home or self-care (01) ==
LOC: LAB 14:21
PROVIDERS: PCP Nurse Practitioner Family; Visit Provider Nurse Practitioner Family
DX: R30.0 Dysuria (principal)
CPT/HCPCS: 81001; 87086

== ENCOUNTER 2023-09-04 12:14 | Inpatient (IN) | payer MEDICARE, SELFPAY ==
[2023-09-04] VITALS (25 sets, daily range): BP systolic 116–197; BP diastolic 54–112; PULSE 76–90; TEMP 36.7–37.4; O2SAT 16–96; BMI 28.3; BMI 27.9
--- NOTE | 2023-09-04 12:17 | XR_ITS ---
The [address] [address] Patient Name: GLENN STAFFORD MRN: [id number] date: 1955 Sex: F Assigned Patient Location: ED.MAIN Current Patient Location: ER Accession/Order Number: [id number] Exam Date: 09/04/2023 12:45 Report Date: 09/04/2023 13:01 At the request of: ADRIAN MANZANO Procedure: XR chest 1V EXAMINATION: XR chest 1V HISTORY: Dyspnea COMPARISON: 06/12/2022 TECHNIQUE: AP portable FINDINGS: LUNGS: Moderate bibasilar infiltrates obscuring the hemidiaphragms and partially obscuring the heart borders VASCULATURE: Mildly increased pulmonary vasculature. PLEURA: No pneumothorax. Bilateral pleural effusions CARDIAC: No cardiomegaly or cardiac silhouette abnormality. MEDIASTINUM: No visible mass or adenopathy. BONES: No fracture or visible bone lesion. OTHER: Negative. XR/XR chest 1V IMPRESSION: Moderate bibasilar infiltrates with pleural effusions and pulmonary vascular congestion. Consider pulmonary edema Electronically authenticated by: PETRONA ZHANG Date: 09/04/2023 13:01
--- NOTE | 2023-09-04 12:17 | ECG_ITS ---
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
--- OUTSIDE RECORDS SUMMARY | 2023-09-04 12:46 | XMS_ITS | CCD ---
Author Organization [facility] Inform ion [facility] Care Team Providers Care Marketing Segment Manager Name Role Phone EBRAHEIM, STUART Unavailable Unavailable EBRAHEIM, STUART Unavailable Unavailable REESE HODGES Unavailable Unavailable HODGESBENIEL Unavailable Unavailable EBRAHEIM, STUART Unavailable Unavailable EBRAHEIM, STUART Unavailable Unavailable REESE HODGES Unavailable Unavailable REESE HODGES Unavailable Unavailable OR Unavailable Unavailable EBRAHEIM, STUART Unavailable Unavailable OR Unavailable Unavailable YERMAL, SOORAJ G Unavailable Unavailable IRENE, MANOHAR Unavailable Unavailable IRENE, MANOHAR Unavailable Unavailable HODGES, REESE Unavailable Unavailable BENI HODGESEL Unavailable Unavailable AICHHOLZ, ELECTRONICS TEACHER SAMI Attending Unavailable AICHHOLZ, ELECTRONICS TEACHER SAMI Consulting Unavailable AICHHOLZ, ELECTRONICS TEACHER SAMI Primary Care Unavailable AICHHOLZ, ELECTRONICS TEACHER SAMI Admitting Unavailable DR MALLIKA ORTIZ Consulting Unavailable GORAN TORRES Consulting Unavailable MARIANN BORJAS Consulting Unavailable AICHHOLZ, ELECTRONICS TEACHER SAMI Primary Care Unavailable RALPH ., SVETA Admitting Unavailable RALPH ., SVETA Attending Unavailable PETRONA SUMNER Consulting Unavailable VIRGINIA TOTH Consulting Unavailable RALPH ., SVETA Consulting Unavailable DIAB ., KAROL Consulting Unavailable FRANCISCO, SHARAN Consulting Unavailable DR REESE HODGES Primary Care Unavailable WILMAN LAKHANI Admitting Unavailable DR MALLIKA ORTIZ Consulting Unavailable WILMAN LAKHANI Attending Unavailable WILMAN LAKHANI Consulting Unavailable AICHHOLZ, ELECTRONICS TEACHER SAMI Consulting Unavailable AICHHOLZ, ELECTRONICS TEACHER SAMI Primary Care Unavailable AICHHOLZ, ELECTRONICS TEACHER SAMI Admitting Unavailable AICHHOLZ, ELECTRONICS TEACHER SAMI Attending Unavailable AICHHOLZ, ELECTRONICS TEACHER SAMI Consulting Unavailable AICHHOLZ, ELECTRONICS TEACHER SAMI Admitting Unavailable AICHHOLZ, ELECTRONICS TEACHER SAMI Primary Care Unavailable URBANO GARCIA Attending Unavailable MARIANN BORJAS Attending Unavailable BALA HENAO Attending Unavailable MARIANN BORJAS Attending Unavailable Allergies Allergy Classification Reported Allergen(s) Allergy Type Date of Onset Reaction(s) Facility (1 source) succinylcholine chloride Drug allergy (disorder) 8 [facility] Repository (1 source) Succinylcholine; Translations: [SUCCINYLCHOLINE] Drug Allergy 0 [facility] Repository (1 source) ALLERGIES NOT ON FILE; Translations: [ALLERGIES NOT ON FILE] Propensity to adverse reactions (disorder) [facility] Repository Problems Active Problems Problem Classification Problem [...] Onset: 01-07-2018 Chronic Other aftercare (2 sources) terminal gauger (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 Please provide a one month supply and then we can send refills once she gets the lab work done. We just need to be sure that it doesn't affect her kidney function or make her potassium go too high. Thank you. [facility] 36on 12-14-2022 36 Can we call her phar richard and confirm if she picked up her medication? I just sent in a refill for lisinopril/hydrochloroth iazide. Thanks [facility] Office Visiton 11-09-2022 Follow-up visit [id number] [facility] 1955 [facility] Provider Department Center 11/09/2022 MARIANN DWYER Family History Problem Relation Age of Onset Hypertension Mother Diabetes Mother Family Status - Relation Status Age at Mother Level of Service:28077 OR OFFICE/OUTPATIENT ESTABLISHED MOD MDM 30-39 MIN Reason for Visit and Comments: Hypertension [664748] Congestive Heart Failure [127] [facility] Telephoneon 11-09-2022 Telephone [id number] Keyanna Stafford 1955 Provider Department Center 11/09/2022 AJAY HERNÁNDEZ Family History Problem Relation Age of Onset Hypertension Mother Diabetes Mother Family Status - Relation Status Age at Mother [facility] Office Visiton 06-21-2022 Follow-up visit [id number] Keyanna Stafford 1955 Provider Department Center 06/21/2022 MARIANN DWYER Family History Problem Relation Age of Onset Hypertension Mother Diabetes Mother Family Status - Relation Status Age at Mother Level of Service:05166 OR OFFICE/OUTPATIENT ESTABLISHED MOD MDM 30-39 MIN Reason for Visit and Comments: Follow-up [958634] - One month follow up [facility] XR CHEST 2 Von 06-12-2022 XR CHEST [...] by: GORAN TORRES Date: 2022-06-12 13:31 Normal [facility] XR STERNUM MIN 2 VIEWSon [...] by: MALLIKA ORTIZ Date: 2022-06-12 16:18 Normal [facility] PROF CHEM 8 (BAS METB)on Anion gap [Moles/Vol] 15.1 mmol/L Normal [facility] Comment on above: Performed By: #### H STROPN #### [facility] [address] [place] [address] Dr. Quique Ortiz Calcium [Mass/Vol] 9.5 mg/dL Normal 8.5-10.1 [facility] Comment on above: Performed By: #### H STROPN #### [facility] [address] [place] [address] Dr. Quique Ortiz Chloride [Moles/Vol] 95 mmol/L Critically low 98-107 [facility] Comment on above: Performed By: #### H STROPN #### [facility] [address] [address] [address] Quique Ortiz CO2 [Moles/Vol] 27.3 mmol/L Normal 21.0-32.0 [facility] Comment on above: Performed By: #### H STROPN #### [facility] [address] [address] [address] Quique Ortiz Creatinine [Mass/Vol] 1.01 mg/dL Normal 0.55-1.02 [facility] Comment on above: Performed By: #### H STROPN #### [facility] [address] [place] [address] Dr. Quique Ortiz EGFR-AF WALLISIAN >60 Normal >=60 [facility] Comment on above: Performed By: #### H STROPN #### [facility] [address] [address] [address] Quique Ortiz EGFR-NON AF WALLISIAN 55 mL/min/1.73m2 Critically low >=60 [facility] Comment on above: Performed By: #### H STROPN #### [facility] [address] [address] [address] Quique Ortiz Glucose [Mass/Vol] 483 mg/dL Critically high 74-106 [facility] Comment on above: Performed By: #### H STROPN #### [facility] [address] [address] [address] Quique Ortiz Potassium [Moles/Vol] 4.4 mmol/L Normal 3.5-5.1 [facility] Comment on above: Performed By: #### H STROPN #### [facility] [address] [address] [address] Quique Ortiz Sodium [Moles/Vol] 133 mmol/L Critically low 136-145 [facility] Comment on above: Performed By: #### H STROPN #### [facility] [address] [address] [address] Quique Ortiz Urea nitrogen [Mass/Vol] 14.0 mg/dL Normal 7.0-18.0 [facility] Comment on above: Performed By: #### H STROPN #### [facility] [address] [address] [address] Quique Ortiz Urea nitrogen/Creatinine [Mass ratio] 13.9 mg/mg Normal [facility] Comment on above: Performed By: #### H STROPN #### [facility] [address] [address] [address] Quique Ortiz Telemedicine 05-12-2022 Telemedicine [id number] Keyanna Stafford 1955 F Date Provider Department Center 05/12/2022 [facility]8BALA HENAO [facility] Family History Problem Relation Age of Onset Hypertension Mother Diabetes Mother Family Status - Relation Status Age at Mother Level of Service:26339 OR OFFICE/OUTPATIENT ESTABLISHED MOD MDM 30-39 MIN Reason for Visit and Comments: Nausea [70] Dizziness [762349] - Pt states she was taking a rx states she was put on Furosamide 40mg Spironolactone 25mg and Lisinopril 20mg but pt states she stopped these rx due to medications making her Dizziness and Nausea Normal [facility] BNPon 04-25-2022 Natriuretic peptide B (Bld) [Mass/Vol] 1330.0 pg/mL Critically high <=900.0 [facility] Comment on above: Performed By: #### C VDTB #### [facility] [address] [place] [address] Dr. Quique Ortiz CBC AUTO DIFFon 04-25-2022 BASO # 0.0 103/ul Normal 0.0-0.1 [facility] Comment on above: Performed By: #### C BC #### [facility] [address] [place] [address] Dr. Quique Ortiz Basophils/100 WBC (Bld) 0.4 % Normal 0.2-2.0 [facility] Comment on above: Performed By: #### C BC #### [facility] [address] [place] [address] Dr. Quique Ortiz EO # 0.1 103/ul Normal 0.0-0.7 [facility] Comment on above: Performed By: #### C BC #### [facility] [address] [place] [address] Dr. Quique Ortiz Eosinophils/100 WBC (Bld) 2.3 % Normal 0.9-7.0 [facility] Comment on above: Performed By: #### C BC #### [facility] [address] [place] [address] Dr. Quique Ortiz Erythrocyte distribution width (RBC) [Ratio] 13.2 % Normal 11.0-15.0 [facility] Comment on above: Performed By: #### C BC #### [facility] [address] [place] [address] Dr. Quique Ortiz Hematocrit (Bld) [Volume fraction] 32.7 % Critically low 36.0-48.0 [facility] Comment on above: Performed By: #### C BC #### [facility] [address] [place] [address] Dr. Quique Ortiz Hemoglobin (Bld) [Mass/Vol] 11.0 g/dL Critically low 12.0-16.0 [facility] Comment on above: Performed By: #### C BC #### [facility] [address] [place] [address] Dr. Quique Ortiz IG # 0.02 10e3/ul Normal 0.00-0.03 [facility] Comment on above: Performed By: #### C BC #### [facility] [address] [place] [address] Dr. Quique Ortiz IG % 0.4 % Normal 0.0-0.5 [facility] Comment on above: Performed By: #### C BC #### [facility] [address] [place] [address] Dr. Quique Ortiz LYMPH # 1.3 103/ul Normal 1.2-3.8 [facility] Comment on above: Performed By: #### C BC #### [facility] [address] [place] [address] Dr. Quique Otriz Lymphocytes/100 WBC (Bld) 23.5 % Normal 20.5-60.0 [facility] Comment on above: Performed By: #### C BC #### [facility] [address] [place] [address] Dr. Quique Ortiz MANUAL DIFF REQ NO Normal [facility] Comment on above: Performed By: #### C BC #### [facility] [address] [place] [address] Dr. Quique Ortiz MCH (RBC) [Entitic mass] 29.3 pg Normal 26.7-34.0 [facility] Comment on above: Performed By: #### C BC #### [facility] [address] [place] [address] Dr. Quique Ortiz MCHC (RBC) [Mass/Vol] 33.6 g/dL Normal 29.9-35.2 [facility] Comment on above: Performed By: #### C BC #### [facility] [address] [address] [address] Quique Ortiz MCV (RBC) [Entitic vol] 87.0 fL Normal 81.0-99.0 [facility] Comment on above: Performed By: #### C BC #### [facility] [address] [address] [address] Quique Ortiz MONO # 0.6 103/ul Normal 0.3-0.8 [facility] Comment on above: Performed By: #### C BC #### [facility] [address] [address] [address] Quique Ortiz Monocytes/100 WBC (Bld) 10.2 % Normal 1.7-12.0 [facility] Comment on above: Performed By: #### C BC #### [facility] [address] [address] [address] Quique Ortiz NEUT # 3.5 103/ul Normal 1.4-6.5 [facility] Comment on above: Performed By: #### C BC #### [facility] [address] [address] [address] Quique Ortiz Neutrophils/100 WBC (Bld) 63.2 % Normal 43.0-75.0 [facility] Comment on above: Performed By: #### C BC #### [facility] [address] [address] [address] Quique Ortiz Platelet mean volume (Bld) [Entitic vol] 9.2 fL Critically low 9.5-13.5 [facility] Comment on above: Performed By: #### C BC #### [facility] [address] [address] [address] Quique Ortiz PLT 243 103/ul Normal 150-450 [facility] Comment on above: Performed By: #### C BC #### [facility] [address] [address] [address] Quique Ortiz RBC 3.76 106/ul Critically low 4.20-5.40 [facility] Comment on above: Performed By: #### C BC #### [facility] [address] [address] [address] Quique Ortiz WBC 5.6 103/ul Normal 4.0-11.0 [facility] Comment on above: Performed By: #### C BC #### [facility] [address] [address] [address] Quique Ortiz POINT OF CARE GLUCOSEon 04-06 Glucose [Mass/Vol] 226 mg/dL Critically high 74-106 [facility] Comment on above: Performed By: #### U AMIC #### [facility] [address] [place] [address] Dr. Quique Ortiz PROF 14(COMP METB)on 023 Albumin [Mass/Vol] 3.1 g/dL Critically low 3.4-5.0 [facility] Comment on above: Performed By: #### U AMIC #### [facility] [address] [place] [address] Dr. Quique Ortiz Albumin/Globulin [Mass ratio] 1.0 {ratio} Normal [facility] Comment on above: Performed By: #### U AMIC #### [facility] [address] [place] [address] Dr. Quique Ortiz ALP [Catalytic activity/Vol] 69 U/L Normal 46-116 [facility] Comment on above: Performed By: #### U AMIC #### [facility] [address] [place] [address] Dr. Quique Ortiz ALT [Catalytic activity/Vol] 16 U/L Normal 14-59 [facility] Comment on above: Performed By: #### U AMIC #### [facility] [address] [address] [address] Quique Ortiz Anion gap [Moles/Vol] 12.1 mmol/L Normal [facility] Comment on above: Performed By: #### U AMIC #### [facility] [address] [place] [address] Dr. Quique Ortiz AST [Catalytic activity/Vol] 12 U/L Critically low 15-37 [facility] Comment on above: Performed By: #### U AMIC #### [facility] [address] [address] [address] Quique Ortiz Bilirubin [Mass/Vol] 0.7 mg/dL Normal 0.2-1.0 [facility] Comment on above: Performed By: #### U AMIC #### [facility] [address] [address] [address] Quique Ortiz Calcium [Mass/Vol] 9.0 mg/dL Normal 8.5-10.1 [facility] Comment on above: Performed By: #### U AMIC #### [facility] [address] [address] [address] Quique Ortiz Chloride [Moles/Vol] 101 mmol/L Normal 98-107 [facility] Comment on above: Performed By: #### U AMIC #### [facility] [address] [address] [address] Quique Ortiz CO2 [Moles/Vol] 28.5 mmol/L Normal 21.0-32.0 [facility] Comment on above: Performed By: #### U AMIC #### [facility] [address] [address] [address] Quique Ortiz Creatinine [Mass/Vol] 0.56 mg/dL Normal 0.55-1.02 [facility] Comment on above: Performed By: #### U AMIC #### [facility] [address] [address] [address] Quique Ortiz EGFR-AF WALLISIAN >60 Normal >=60 [facility] Comment on above: Performed By: #### U AMIC #### [facility] [address] [address] [address] Quique Ortiz EGFR-NON AF WALLISIAN >60 Normal >=60 [facility] Comment on above: Performed By: #### U AMIC #### [facility] [address] [address] [address] Quique Ortiz Globulin (S) [Mass/Vol] 3.2 g/dL Normal [facility] Comment on above: Performed By: #### U AMIC #### [facility] [address] [address] [address] Quique Ortiz Glucose [Mass/Vol] 187 mg/dL Critically high 74-106 [facility] Comment on above: Performed By: #### U AMIC #### [facility] [address] [address] [address] Quique Ortiz Potassium [Moles/Vol] 3.6 mmol/L Normal 3.5-5.1 [facility] Comment on above: Performed By: #### U AMIC #### [facility] [address] [address] [address] Quique Ortiz Protein [Mass/Vol] 6.3 g/dL Critically low 6.4-8.2 [facility] Comment on above: Performed By: #### U AMIC #### [facility] [address] [place] [address] Dr. Quique Ortiz Sodium [Moles/Vol] 138 mmol/L Normal 136-145 [facility] Comment on above: Performed By: #### U AMIC #### [facility] [address] [place] [address] Dr. Quique Ortiz Urea nitrogen [Mass/Vol] 9.0 mg/dL Normal 7.0-18.0 [facility] Comment on above: Performed By: #### U AMIC #### [facility] [address] [place] [address] Dr. Quique Ortiz Urea nitrogen/Creatinine [Mass ratio] 16.1 mg/mg Normal [facility] Comment on above: Performed By: #### U AMIC #### [facility] [address] [address] [address] Quique Ortiz BNPon 04-24-2022 Natriuretic peptide B (Bld) [Mass/Vol] 1760.0 pg/mL Critically high <=900.0 [facility] Comment on above: Performed By: #### H STROPN #### [facility] [address] [place] [address] Dr. Quique Ortiz CBC AUTO DIFFon 04-24-2022 BASO # 0.0 103/ul Normal 0.0-0.1 [facility] Comment on above: Performed By: #### H STROPN #### [facility] [address] [place] [address] Dr. Quique Ortiz Basophils/100 WBC (Bld) 0.4 % Normal 0.2-2.0 [facility] Comment on above: Performed By: #### H STROPN #### [facility] [address] [place] [address] Dr. Quique Ortiz EO # 0.1 103/ul Normal 0.0-0.7 [facility] Comment on above: Performed By: #### H STROPN #### [facility] [address] [place] [address] Dr. Quique Ortiz Eosinophils/100 WBC (Bld) 2.6 % Normal 0.9-7.0 [facility] Comment on above: Performed By: #### H STROPN #### [facility] [address] [place] [address] Dr. Quique Ortiz Erythrocyte distribution width (RBC) [Ratio] 13.4 % Normal 11.0-15.0 [facility] Comment on above: Performed By: #### H STROPN #### [facility] [address] [place] [address] Dr. Quique Ortiz Hematocrit (Bld) [Volume fraction] 30.3 % Critically low 36.0-48.0 [facility] Comment on above: Performed By: #### H STROPN #### [facility] [address] [place] [address] Dr. Quique Ortiz Hemoglobin (Bld) [Mass/Vol] 10.1 g/dL Critically low 12.0-16.0 [facility] Comment on above: Performed By: #### H STROPN #### [facility] [address] [place] [address] Dr. Quique Ortiz IG # 0.02 10e3/ul Normal 0.00-0.03 [facility] Comment on above: Performed By: #### H STROPN #### [facility] [address] [place] [address] Dr. Quique Ortiz IG % 0.4 % Normal 0.0-0.5 [facility] Comment on above: Performed By: #### H STROPN #### [facility] [address] [place] [address] Dr. Quique Ortiz LYMPH # 1.7 103/ul Normal 1.2-3.8 [facility] Comment on above: Performed By: #### H STROPN #### [facility] [address] [place] [address] Dr. Quique Ortiz Lymphocytes/100 WBC (Bld) 33.9 % Normal 20.5-60.0 [facility] Comment on above: Performed By: #### H STROPN #### [facility] [address] [place] [address] Dr. Quique Ortiz MANUAL DIFF REQ NO Normal [facility] Comment on above: Performed By: #### H STROPN #### [facility] [address] [place] [address] Dr. Quique Ortiz MCH (RBC) [Entitic mass] 29.4 pg Normal 26.7-34.0 [facility] Comment on above: Performed By: #### H STROPN #### [facility] [address] [place] [address] Dr. Quique Ortiz MCHC (RBC) [Mass/Vol] 33.3 g/dL Normal 29.9-35.2 [facility] Comment on above: Performed By: #### H STROPN #### [facility] [address] [place] [address] Dr. Quique Ortiz MCV (RBC) [Entitic vol] 88.3 fL Normal 81.0-99.0 [facility] Comment on above: Performed By: #### H STROPN #### [facility] [address] [place] [address] Dr. Quique Ortiz MONO # 0.5 103/ul Normal 0.3-0.8 [facility] Comment on above: Performed By: #### H STROPN #### [facility] [address] [place] [address] Dr. Quique Ortiz Monocytes/100 WBC (Bld) 10.5 % Normal 1.7-12.0 [facility] Comment on above: Performed By: #### H STROPN #### [facility] [address] [address] [address] Quique Ortiz NEUT # 2.6 103/ul Normal 1.4-6.5 [facility] Comment on above: Performed By: #### H STROPN #### [facility] [address] [address] [address] Quique Ortiz Neutrophils/100 WBC (Bld) 52.2 % Normal 43.0-75.0 [facility] Comment on above: Performed By: #### H STROPN #### [facility] [address] [address] [address] Quique Ortiz Platelet mean volume (Bld) [Entitic vol] 9.2 fL Critically low 9.5-13.5 [facility] Comment on above: Performed By: #### H STROPN #### [facility] [address] [address] [address] Quique Ortiz PLT 227 103/ul Normal 150-450 [facility] Comment on above: Performed By: #### H STROPN #### [facility] [address] [place] [address] Dr. Quique Ortiz RBC 3.43 106/ul Critically low 4.20-5.40 [facility] Comment on above: Performed By: #### H STROPN #### [facility] [address] [place] [address] Dr. Quique Ortiz WBC 5.0 103/ul Normal 4.0-11.0 [facility] Comment on above: Performed By: #### H STROPN #### [facility] [address] [address] [address] Quique Ortiz ECHOCARDIO M/2D COMPLETEon 0 04-24-2022 ECHOCARDIO M/2D COMPLETE Patient: KEYANNA STAFFORD Exam Date: 04/24/2022 : 1955 Gender:F Ordering : SVETA ROSAS . Admission #: [id number] Family : PETRONA OLREDO Order #: [id number] CLICK HERE TO VIEW EXAM ECHOCARDIOGRAM REPORT [...] Villatoro M.D. on 04/24/2022 at 14:35 Normal [facility] POINT OF CARE GLUCOSEon 04-06 Glucose [Mass/Vol] 331 mg/dL Critically high 74-106 T [facility] Comment on above: Performed By: #### P OCGLUC #### [facility] [address] [place] [address] Dr. Quique Ortiz Glucose [Mass/Vol] 333 mg/dL Critically high 74-106 [facility] Comment on above: Performed By: #### P OCGLUC #### [facility] [address] [place] [address] Dr. Quique Ortiz Glucose [Mass/Vol] 283 mg/dL Critically high 74-106 [facility] Comment on above: Performed By: #### C VDTBH #### [facility] [address] [place] [address] Dr. Quique Ortiz PROF 14(COMP METB)on 023 Albumin [Mass/Vol] 2.9 g/dL Critically low 3.4-5.0 [facility] Comment on above: Performed By: #### H STROPN #### [facility] [address] [place] [address] Dr. Quique Ortiz Albumin/Globulin [Mass ratio] 1.1 {ratio} Normal [facility] Comment on above: Performed By: #### H STROPN #### [facility] [address] [place] [address] Dr. Quique Ortiz ALP [Catalytic activity/Vol] 76 U/L Normal 46-116 [facility] Comment on above: Performed By: #### H STROPN #### [facility] [address] [place] [address] Dr. Quique Ortiz ALT [Catalytic activity/Vol] 13 U/L Critically low 14-59 [facility] Comment on above: Performed By: #### H STROPN #### [facility] [address] [place] [address] Dr. Quique Ortiz Anion gap [Moles/Vol] 9.9 mmol/L Normal [facility] Comment on above: Performed By: #### H STROPN #### [facility] [address] [place] [address] Dr. Quique Ortiz AST [Catalytic activity/Vol] 14 U/L Critically low 15-37 [facility] Comment on above: Performed By: #### H STROPN #### [facility] [address] [place] [address] Dr. Quique Ortiz Bilirubin [Mass/Vol] 0.5 mg/dL Normal 0.2-1.0 [facility] Comment on above: Performed By: #### H STROPN #### [facility] [address] [place] [address] Dr. Quique Ortiz Calcium [Mass/Vol] 8.3 mg/dL Critically low 8.5-10.1 [facility] Comment on above: Performed By: #### H STROPN #### [facility] [address] [address] [address] Quique Ortiz Chloride [Moles/Vol] 107 mmol/L Normal 98-107 [facility] Comment on above: Performed By: #### H STROPN #### [facility] [address] [place] [address] Dr. Quique Ortiz CO2 [Moles/Vol] 28.5 mmol/L Normal 21.0-32.0 [facility] Comment on above: Performed By: #### H STROPN #### [facility] [address] [place] [address] Dr. Quique Ortiz Creatinine [Mass/Vol] 0.54 mg/dL Critically low 0.55-1.02 [facility] Comment on above: Performed By: #### H STROPN #### [facility] [address] [place] [address] Dr. Quique Ortiz EGFR-AF WALLISIAN >60 Normal >=60 [facility] Comment on above: Performed By: #### H STROPN #### [facility] [address] [place] [address] Dr. Quique Ortiz EGFR-NON AF WALLISIAN >60 Normal >=60 [facility] Comment on above: Performed By: #### H STROPN #### [facility] [address] [address] [address] Quique Ortiz Globulin (S) [Mass/Vol] 2.7 g/dL Normal [facility] Comment on above: Performed By: #### H STROPN #### [facility] [address] [place] [address] Dr. Quique Ortiz Glucose [Mass/Vol] 110 mg/dL Critically high 74-106 T [facility] Comment on above: Performed By: #### H STROPN #### [facility] [address] [address] [address] Quique Ortiz Potassium [Moles/Vol] 3.4 mmol/L Critically low 3.5-5.1 [facility] Comment on above: Performed By: #### H STROPN #### [facility] [address] [address] [address] Quique Ortiz Protein [Mass/Vol] 5.6 g/dL Critically low 6.4-8.2 [facility] Comment on above: Performed By: #### H STROPN #### [facility] [address] [place] [address] Dr. Quique Ortiz Sodium [Moles/Vol] 142 mmol/L Normal 136-145 [facility] Comment on above: Performed By: #### H STROPN #### [facility] [address] [place] [address] Dr. Quique Ortiz Urea nitrogen [Mass/Vol] 6.0 mg/dL Critically low 7.0-18.0 [facility] Comment on above: Performed By: #### H STROPN #### [facility] [address] [place] [address] Dr. Quique Ortiz Urea nitrogen/Creatinine [Mass ratio] 11.1 mg/mg Normal [facility] Comment on above: Performed By: #### H STROPN #### [facility] [address] [place] [address] Dr. Quique Ortiz BNPon 04-23-2022 Natriuretic peptide B (Bld) [Mass/Vol] 1898.0 pg/mL Critically high <=900.0 [facility] Comment on above: Performed By: #### U AMIC #### [facility] [address] [place] [address] Dr. Quique Ortiz CARDIAC GORAN ADMITon 023 CK [Catalytic activity/Vol] 113 U/L Normal 26-192 [facility] Comment on above: Performed By: #### U AMIC #### [facility] [address] [place] [address] Dr. Quique Ortiz CK.MB [Mass/Vol] 2.55 ng/mL Normal <=3.60 [facility] Comment on above: Performed By: #### U AMIC #### [facility] [address] [place] [address] Dr. Quique Ortiz HSTROP 11.2 pg/mL Normal 4.0-51.3 [facility] Comment on above: Result Comment: CUT- OFF POINTS HAVE BEEN ESTABLISHED BASED ON THE FOURTH UNIVERSAL DEFINITIONS OF MYOCARDIAL INFARCTION. THE UPPER REFERENCE LIMIT (URL) OF TROPONIN, DEFINED THE 99TH PERCENTILE OF cTnI DISTRIBUTION IN A REFERENCE POPULATION, HAS BEEN CONFIRMED THE DECISION THRESHOLD FOR [place] DIAGNOSIS. Performed By: #### U AMIC #### [facility] [address] [place] [address] Dr. Quique Ortiz JAXSON 50 ng/mL Normal 9-82 [facility] Comment on above: Performed By: #### U AMIC #### [facility] [address] [place] [address] Dr. Quique Ortiz CBC AUTO DIFFon 04-23-2022 BASO # 0.0 103/ul Normal 0.0-0.1 [facility] Comment on above: Performed By: #### H STROPN #### [facility] [address] [place] [address] Dr. Quique Ortiz Basophils/100 WBC (Bld) 0.5 % Normal 0.2-2.0 [facility] Comment on above: Performed By: #### H STROPN #### [facility] [address] [place] [address] Dr. Quique Ortiz EO # 0.1 103/ul Normal 0.0-0.7 [facility] Comment on above: Performed By: #### H STROPN #### [facility] [address] [place] [address] Dr. Quique Ortiz Eosinophils/100 WBC (Bld) 1.8 % Normal 0.9-7.0 [facility] Comment on above: Performed By: #### H STROPN #### [facility] [address] [place] [address] Dr. Quique Ortiz Erythrocyte distribution width (RBC) [Ratio] 13.4 % Normal 11.0-15.0 [facility] Comment on above: Performed By: #### H STROPN #### [facility] [address] [place] [address] Dr. Quique Ortiz Hematocrit (Bld) [Volume fraction] 35.9 % Critically low 36.0-48.0 [facility] Comment on above: Performed By: #### H STROPN #### [facility] [address] [place] [address] Dr. Quique Ortiz Hemoglobin (Bld) [Mass/Vol] 11.9 g/dL Critically low 12.0-16.0 [facility] Comment on above: Performed By: #### H STROPN #### [facility] [address] [place] [address] Dr. Quique Ortiz IG # 0.02 10e3/ul Normal 0.00-0.03 [facility] Comment on above: Performed By: #### H STROPN #### [facility] [address] [place] [address] Dr. Quique Ortiz IG % 0.4 % Normal 0.0-0.5 [facility] Comment on above: Performed By: #### H STROPN #### [facility] [address] [place] [address] Dr. Quique Ortiz LYMPH # 1.3 103/ul Normal 1.2-3.8 [facility] Comment on above: Performed By: #### H STROPN #### [facility] [address] [place] [address] Dr. Quique Ortiz Lymphocytes/100 WBC (Bld) 23.5 % Normal 20.5-60.0 [facility] Comment on above: Performed By: #### H STROPN #### [facility] [address] [place] [address] Dr. Quique Ortiz MANUAL DIFF REQ NO Normal [facility] Comment on above: Performed By: #### H STROPN #### [facility] [address] [place] [address] Dr. Quique Ortiz MCH (RBC) [Entitic mass] 29.4 pg Normal 26.7-34.0 [facility] Comment on above: Performed By: #### H STROPN #### [facility] [address] [place] [address] Dr. Quique Ortiz MCHC (RBC) [Mass/Vol] 33.1 g/dL Normal 29.9-35.2 [facility] Comment on above: Performed By: #### H STROPN #### [facility] [address] [place] [address] Dr. Quique Ortiz MCV (RBC) [Entitic vol] 88.6 fL Normal 81.0-99.0 [facility] Comment on above: Performed By: #### H STROPN #### [facility] [address] [place] [address] Dr. Quique Ortiz MONO # 0.5 103/ul Normal 0.3-0.8 [facility] Comment on above: Performed By: #### H STROPN #### [facility] [address] [place] [address] Dr. Quique Ortiz Monocytes/100 WBC (Bld) 8.8 % Normal 1.7-12.0 [facility] Comment on above: Performed By: #### H STROPN #### [facility] [address] [place] [address] Dr. Quique Ortiz NEUT # 3.6 103/ul Normal 1.4-6.5 [facility] Comment on above: Performed By: #### H STROPN #### [facility] [address] [place] [address] Dr. Quique Ortiz Neutrophils/100 WBC (Bld) 65.0 % Normal 43.0-75.0 [facility] Comment on above: Performed By: #### H STROPN #### [facility] [address] [place] [address] Dr. Quique Ortiz Platelet mean volume (Bld) [Entitic vol] 9.4 fL Critically low 9.5-13.5 [facility] Comment on above: Performed By: #### H STROPN #### [facility] [address] [place] [address] Dr. Quique Ortiz PLT 277 103/ul Normal 150-450 [facility] Comment on above: Performed By: #### H STROPN #### [facility] [address] [address] [address] Quique Ortiz RBC 4.05 106/ul Critically low 4.20-5.40 [facility] Comment on above: Performed By: #### H STROPN #### [facility] [address] [address] [address] Quique Ortiz WBC 5.6 103/ul Normal 4.0-11.0 [facility] Comment on above: Performed By: #### H STROPN #### [facility] [address] [address] [address] Quique Ortiz CTA CHEST WO W CONon 023 [...] SHARAN SINGH Date: 2022-04-23 18:04 Normal [facility] Covid-19 PCR (CVDTB)on 04-05 SARS-CoV-2 (COVID-19) RNA ALESIA+probe Ql (Unsp spec) Not detected Normal NOT DETECTED [facility] Comment on above: Result Comment: When diagnostic [...] for this test is supported by the [place] of Health and Human Service's declaration that [...] used). Performed By: #### C VDTBH #### [facility] [address] [place] [address] Dr. Quique Ortiz D-DIMERon 04-23-2022 D-DIMER 0.82 mg/L FEU Critically high <=0.59 [facility] Comment on above: Performed By: #### D DIM #### [facility] [address] [place] [address] Dr. Quique Ortiz D-DIMER COMMENTS SEE BELOW Normal [facility] Comment on above: Result Comment: Incr [...] hospitalization. Performed By: #### D DIM #### [facility] [address] [place] [address] Dr. Quique Ortiz POINT OF CARE GLUCOSEon 04-05 Glucose [Mass/Vol] 113 mg/dL Critically high 74-106 T [facility] Comment on above: Performed By: #### H STROPN #### [facility] [address] [address] [address] Quique Ortiz PROF 14(COMP METB)on 023 Albumin [Mass/Vol] 3.5 g/dL Normal 3.4-5.0 [facility] Comment on above: Performed By: #### U AMIC #### [facility] [address] [address] [address] Quique Ortiz Albumin/Globulin [Mass ratio] 1.0 {ratio} Normal [facility] Comment on above: Performed By: #### U AMIC #### [facility] [address] [place] [address] Dr. Quique Ortiz ALP [Catalytic activity/Vol] 102 U/L Normal 46-116 [facility] Comment on above: Performed By: #### U AMIC #### [facility] [address] [address] [address] Quique Ortiz ALT [Catalytic activity/Vol] 17 U/L Normal 14-59 [facility] Comment on above: Performed By: #### U AMIC #### [facility] [address] [address] [address] Quique Ortiz Anion gap [Moles/Vol] 11.1 mmol/L Normal [facility] Comment on above: Performed By: #### U AMIC #### [facility] [address] [address] [address] Quique Ortiz AST [Catalytic activity/Vol] 18 U/L Normal 15-37 [facility] Comment on above: Performed By: #### U AMIC #### [facility] [address] [address] [address] Quique Ortiz Bilirubin [Mass/Vol] 0.7 mg/dL Normal 0.2-1.0 [facility] Comment on above: Performed By: #### U AMIC #### [facility] [address] [address] [address] Quique Ortiz Calcium [Mass/Vol] 9.0 mg/dL Normal 8.5-10.1 [facility] Comment on above: Performed By: #### U AMIC #### [facility] [address] [address] [address] Quique Ortiz Chloride [Moles/Vol] 105 mmol/L Normal 98-107 [facility] Comment on above: Performed By: #### U AMIC #### [facility] [address] [address] [address] Quique Ortiz CO2 [Moles/Vol] 27.6 mmol/L Normal 21.0-32.0 [facility] Comment on above: Performed By: #### U AMIC #### [facility] [address] [place] [address] Dr. Quique Ortiz Creatinine [Mass/Vol] 0.57 mg/dL Normal 0.55-1.02 [facility] Comment on above: Performed By: #### U AMIC #### [facility] [address] [address] [address] Quique Ortiz EGFR-AF WALLISIAN >60 Normal >=60 [facility] Comment on above: Performed By: #### U AMIC #### [facility] [address] [place] [address] Dr. Quique Ortiz EGFR-NON AF WALLISIAN >60 Normal >=60 [facility] Comment on above: Performed By: #### U AMIC #### [facility] [address] [place] [address] Dr. Quique Ortiz Globulin (S) [Mass/Vol] 3.6 g/dL Normal [facility] Comment on above: Performed By: #### U AMIC #### [facility] [address] [address] [address] Quique Ortiz Glucose [Mass/Vol] 135 mg/dL Critically high 74-106 [facility] Comment on above: Performed By: #### U AMIC #### [facility] [address] [place] [address] Dr. Quique Ortiz Potassium [Moles/Vol] 3.7 mmol/L Normal 3.5-5.1 [facility] Comment on above: Performed By: #### U AMIC #### [facility] [address] [place], [place] [address] Dr. Quique Ortiz Protein [Mass/Vol] 7.1 g/dL Normal 6.4-8.2 [facility] Comment on above: Performed By: #### U AMIC #### [facility] [address] [place], [place] [address] Dr. Quique Ortiz Sodium [Moles/Vol] 140 mmol/L Normal 136-145 [facility] Comment on above: Performed By: #### U AMIC #### [facility] [address] [address] [address] Quique Ortiz Urea nitrogen [Mass/Vol] 7.0 mg/dL Normal 7.0-18.0 [facility] Comment on above: Performed By: #### U AMIC #### [facility] [address] [address] [address] Quique Ortiz Urea nitrogen/Creatinine [Mass ratio] 12.3 mg/mg Normal [facility] Comment on above: Performed By: #### U AMIC #### [facility] [address] [address] [address] Quique Ortiz TROPONIN, HIGH SENSITIVITYon 04-23-2022 HSTROP 10.9 pg/mL Normal 4.0-51.3 [facility] Comment on above: Result Comment: CUT- OFF POINTS HAVE BEEN ESTABLISHED BASED ON THE FOURTH UNIVERSAL DEFINITIONS OF MYOCARDIAL INFARCTION. THE UPPER REFERENCE LIMIT (URL) OF TROPONIN, DEFINED THE 99TH PERCENTILE OF cTnI DISTRIBUTION IN A REFERENCE POPULATION, HAS BEEN CONFIRMED THE DECISION THRESHOLD FOR [place] DIAGNOSIS. Performed By: #### H STROPN #### [facility] [id number] Quique Ortiz XR CHEST 1 Von 04-23-2022 XR CHEST 1 V EXAM: XR CHEST 1 V HISTORY: Shortness of breath and chest heaviness. COMPARISON: None. TECHNIQUE: Portable chest FINDINGS: IMPRESSION: Moderate bilateral pleural effusions. No pneumothorax. No focal parenchymal consolidation or infiltrate. Electronically authenticated by: PETRONA SUMNER Date: 2022-04-23 15:45 Normal [facility] CBC AUTO DIFFon 04-11-2022 BASO # 0.0 103/ul Normal 0.0-0.1 [facility] Comment on above: Performed By: #### U AMIC #### [facility] [address] [address] [address] Quique Ortiz Basophils/100 WBC (Bld) 0.5 % Normal 0.2-2.0 [facility] Comment on above: Performed By: #### U AMIC #### [facility] [address] [address] [address] Quique Ortiz EO # 0.1 103/ul Normal 0.0-0.7 [facility] Comment on above: Performed By: #### U AMIC #### [facility] [address] [address] [address] Quique Ortiz Eosinophils/100 WBC (Bld) 1.6 % Normal 0.9-7.0 [facility] Comment on above: Performed By: #### U AMIC #### [facility] [address] [address] [address] Quique Ortiz Erythrocyte distribution width (RBC) [Ratio] 12.6 % Normal 11.0-15.0 [facility] Comment on above: Performed By: #### U AMIC #### [facility] [address] [place] [address] Dr. Quique Ortiz Hematocrit (Bld) [Volume fraction] 34.3 % Critically low 36.0-48.0 [facility] Comment on above: Performed By: #### U AMIC #### [facility] [address] [address] [address] Quique Ortiz Hemoglobin (Bld) [Mass/Vol] 11.5 g/dL Critically low 12.0-16.0 [facility] Comment on above: Performed By: #### U AMIC #### [facility] [address] [address] [address] Quique Ortiz IG # 0.01 10e3/ul Normal 0.00-0.03 [facility] Comment on above: Performed By: #### U AMIC #### [facility] [address] [address] [address] Quique Ortiz IG % 0.2 % Normal 0.0-0.5 [facility] Comment on above: Performed By: #### U AMIC #### [facility] [address] [address] [address] Quique Ortiz LYMPH # 1.3 103/ul Normal 1.2-3.8 [facility] Comment on above: Performed By: #### U AMIC #### [facility] [address] [place] [address] Dr. Quique Ortiz Lymphocytes/100 WBC (Bld) 24.0 % Normal 20.5-60.0 [facility] Comment on above: Performed By: #### U AMIC #### [facility] [address] [place] [address] Dr. Quique Ortiz MANUAL DIFF REQ NO Normal [facility] Comment on above: Performed By: #### U AMIC #### [facility] [address] [place] [address] Dr. Quique Ortiz MCH (RBC) [Entitic mass] 28.5 pg Normal 26.7-34.0 [facility] Comment on above: Performed By: #### U AMIC #### [facility] [address] [place] [address] Dr. Quique Ortiz MCHC (RBC) [Mass/Vol] 33.5 g/dL Normal 29.9-35.2 [facility] Comment on above: Performed By: #### U AMIC #### [facility] [address] [place] [address] Dr. Quique Ortiz MCV (RBC) [Entitic vol] 85.1 fL Normal 81.0-99.0 [facility] Comment on above: Performed By: #### U AMIC #### [facility] [address] [place] [address] Dr. Quique Ortiz MONO # 0.5 103/ul Normal 0.3-0.8 [facility] Comment on above: Performed By: #### U AMIC #### [facility] [address] [address] [address] Quique Ortiz Monocytes/100 WBC (Bld) 8.3 % Normal 1.7-12.0 [facility] Comment on above: Performed By: #### U AMIC #### [facility] [address] [place] [address] Dr. Quique Ortiz NEUT # 3.6 103/ul Normal 1.4-6.5 [facility] Comment on above: Performed By: #### U AMIC #### [facility] [facility] [address] [place] [address] Dr. Quique Ortiz Neutrophils/100 WBC (Bld) 65.4 % Normal 43.0-75.0 [facility] Comment on above: Performed By: #### U AMIC #### [facility] [address] [place] [address] Dr. Quique Ortiz Platelet mean volume (Bld) [Entitic vol] 9.0 fL Critically low 9.5-13.5 [facility] Comment on above: Performed By: #### U AMIC #### [facility] [address] [place] [address] Dr. Quique Ortiz PLT 243 103/ul Normal 150-450 [facility] Comment on above: Performed By: #### U AMIC #### [facility] [address] [place] [address] Dr. Quique Ortiz RBC 4.03 106/ul Critically low 4.20-5.40 [facility] Comment on above: Performed By: #### U AMIC #### [facility] [address] [place] [address] Dr. Quique Ortiz WBC 5.5 103/ul Normal 4.0-11.0 [facility] Comment on above: Performed By: #### U AMIC #### [facility] [address] [place], [place] [id number] Dr. Quique Ortiz GLYCOHEMOGLOBIN A1Con 2022 ADA RECOMMENDATION SEE BELOW Normal The [facility] Comment on above: Result Comment: ADA RECOMMENDED LIMIT 4.0 - 6.0 ADA THERAPEUTIC TARGET < 7.0 ACTION SUGGESTED > 7.0 Performed By: #### C VDTBH #### [facility] [address] [address] [address] Quique Ortiz Glucose [Mass/Vol] 292 mg/dL Normal [facility] Comment on above: Performed By: #### C VDTBH #### [facility] [address] [address] [address] Quique Ortiz HbA1c (Bld) [Mass fraction] 11.8 % Critically high 4.5-6.2 [facility] Comment on above: Performed By: #### C VDTBH #### [facility] [address] [address] [address] Quique Ortiz LIPID PROFILEon 04-11-2022 CHOL-HDL RATIO NORM SEE BELOW Normal [facility] Comment on above: Result Comment: 3.3 - 4.4 LOW RISK 4.4 - 7.1 AVERAGE RISK 7.1 - 11.0 MODERATE RISK >11.0 HIGH RISK Performed By: #### L IPID, MG, CMP #### [facility] [address] [place] [address] Dr. Quique Ortiz Cholesterol [Mass/Vol] 227 mg/dL Critically high <=200 [facility] Comment on above: Performed By: #### L IPID, MG, CMP #### [facility] [address] [place] [address] Dr. Quique Ortiz Cholesterol in HDL [Mass/Vol] 48 mg/dL Normal 40-60 [facility] Comment on above: Performed By: #### L IPID, MG, CMP #### [facility] [address] [address] [address] Quique Ortiz Cholesterol in LDL [Mass/Vol] 149.8 mg/dL Normal [facility] Comment on above: Performed By: #### L IPID, MG, CMP #### [facility] [address] [address] [address] Quique Ortiz Cholesterol.total/C holesterol in HDL [Mass ratio] 4.7 {ratio} Normal [facility] Comment on above: Performed By: #### L IPID, MG, CMP #### [facility] [address] [address] [address] Quique Ortiz HDL NORMAL > or = 60 mg/dl - LO W CARDIOVASCULAR RISK <40 mg/dl - HIGH CARDIOVASCULAR RISK Normal [facility] Comment on above: Performed By: #### L IPID, MG, CMP #### [facility] [address] [address] [address] Quique Ortiz LDL CALC NORMAL SEE BELOW Normal [facility] Comment on above: Result Comment: <100 mg/dl OPTIMAL 100 - 129 mg/dl NEAR OR ABOVE OPTIMAL 130 - 159 mg/dl BORDERLINE HIGH 160 - 189 mg/dl HIGH >190 mg/dl VERY HIGH Performed By: #### L IPID, MG, CMP #### [facility] [address] [address] [address] Quique Ortiz Triglyceride [Mass/Vol] 146 mg/dL Normal <=150 [facility] Comment on above: Performed By: #### L IPID, MG, CMP #### [facility] [address] [address] [address] Quique Ortiz VLDL CALC 29.2 mg/dL Normal [facility] Comment on above: Performed By: #### L IPID, MG, CMP #### [facility] [address] [address] [address] Quique Ortiz MAGNESIUMon 04-11-2022 Magnesium [Mass/Vol] 2.0 mg/dL Normal 1.8-2.4 [facility] Comment on above: Performed By: #### L IPID, MG, CMP #### [facility] [address] [address] [address] Quique Ortiz PROF 14(COMP METB)on 023 Albumin [Mass/Vol] 3.4 g/dL Normal 3.4-5.0 [facility] Comment on above: Performed By: #### L IPID, MG, CMP #### [facility] [address] [place] [address] Dr. Quique Ortiz Albumin/Globulin [Mass ratio] 1.0 {ratio} Normal [facility] Comment on above: Performed By: #### L IPID, MG, CMP #### [facility] [address] [address] [address] Quique Ortiz ALP [Catalytic activity/Vol] 89 U/L Normal 46-116 [facility] Comment on above: Performed By: #### L IPID, MG, CMP #### [facility] [address] [address] [address] Quique Ortiz ALT [Catalytic activity/Vol] 15 U/L Normal 14-59 [facility] Comment on above: Performed By: #### L IPID, MG, CMP #### [facility] [address] [address] [address] Quique Ortiz Anion gap [Moles/Vol] 10.3 mmol/L Normal [facility] Comment on above: Performed By: #### L IPID, MG, CMP #### [facility] [address] [address] [address] Quique Ortiz AST [Catalytic activity/Vol] 13 U/L Critically low 15-37 [facility] Comment on above: Performed By: #### L IPID, MG, CMP #### [facility] [address] [address] [address] Quique Ortiz Bilirubin [Mass/Vol] 0.7 mg/dL Normal 0.2-1.0 [facility] Comment on above: Performed By: #### L IPID, MG, CMP #### [facility] [address] [address] [address] Quique Ortiz Calcium [Mass/Vol] 9.2 mg/dL Normal 8.5-10.1 [facility] Comment on above: Performed By: #### L IPID, MG, CMP #### [facility] [address] [address] [address] Quique Ortiz Chloride [Moles/Vol] 100 mmol/L Normal 98-107 [facility] Comment on above: Performed By: #### L IPID, MG, CMP #### [facility] [address] [address] [address] Quique Ortiz CO2 [Moles/Vol] 27.7 mmol/L Normal 21.0-32.0 [facility] Comment on above: Performed By: #### L IPID, MG, CMP #### [facility] [address] [address] [address] Quique Ortiz Creatinine [Mass/Vol] 0.60 mg/dL Normal 0.55-1.02 [facility] Comment on above: Performed By: #### L IPID, MG, CMP #### [facility] [address] [address] [address] Quique Ortiz EGFR-AF WALLISIAN >60 Normal >=60 [facility] Comment on above: Performed By: #### L IPID, MG, CMP #### [facility] [address] [address] [address] Quique Ortiz EGFR-NON AF WALLISIAN >60 Normal >=60 [facility] Comment on above: Performed By: #### L IPID, MG, CMP #### [facility] [address] [address] [address] Quique Ortiz Globulin (S) [Mass/Vol] 3.5 g/dL Normal [facility] Comment on above: Performed By: #### L IPID, MG, CMP #### [facility] [address] [address] [address] Quique Ortiz Glucose [Mass/Vol] 340 mg/dL Critically high 74-106 [facility] Comment on above: Performed By: #### L IPID, MG, CMP #### [facility] [address] [address] [address] Quique Ortiz Potassium [Moles/Vol] 4.0 mmol/L Normal 3.5-5.1 [facility] Comment on above: Performed By: #### L IPID, MG, CMP #### [facility] [address] [address] [address] Quique Ortiz Protein [Mass/Vol] 6.9 g/dL Normal 6.4-8.2 [facility] Comment on above: Performed By: #### L IPID, MG, CMP #### [facility] [address] [address] [address] Quique Ortiz Sodium [Moles/Vol] 134 mmol/L Critically low 136-145 Th e [facility] Comment on above: Performed By: #### L IPID, MG, CMP #### [facility] [address] [place] [address] Dr. Quique Ortiz Urea nitrogen [Mass/Vol] 10.0 mg/dL Normal 7.0-18.0 [facility] Comment on above: Performed By: #### L IPID, MG, CMP #### [facility] [address] [place] [address] Dr. Quique Ortiz Urea nitrogen/Creatinine [Mass ratio] 16.7 mg/mg Normal [facility] Comment on above: Performed By: #### L IPID, MG, CMP #### [facility] [address] [place] [address] Dr. Quique Ortiz UA RANDOM W/MICROSCOPICon BACTERIA TRACE Abnormal NONE SEEN [facility] Comment on above: Performed By: #### U AMIC #### [facility] [address] [place] [address] Dr. Quique Ortiz Bilirubin Ql (U) Negative Normal NEGATIVE [facility] Comment on above: Performed By: #### U AMIC #### [facility] [address] [place] [address] Dr. Quique Ortiz CAST NONE SEEN Normal NONE SEEN [facility] Comment on above: Performed By: #### U AMIC #### [facility] [address] [place] [address] Dr. Quique Ortiz Clarity (U) CLEAR Normal CLEAR [facility] Comment on above: Performed By: #### U AMIC #### [facility] [address] [place] [address] Dr. Quique Ortiz Color (U) LT. YELLOW Normal YELLOW [facility] Comment on above: Performed By: #### U AMIC #### [facility] [address] [place] [address] Dr. Quique Ortiz Crystals LM Nom (Urine sed) NONE SEEN Normal NONE SEEN [facility] Comment on above: Performed By: #### U AMIC #### [facility] [address] [address] [address] Quique Ortiz Epithelial cells LM Ql (Urine sed) NONE SEEN Normal NONE SEEN /RARE [facility] Comment on above: Performed By: #### U AMIC #### [facility] [address] [place] [address] Dr. Quique Ortiz Glucose Ql (U) >1000 Abnormal NEGATIVE [facility] Comment on above: Performed By: #### U AMIC #### [facility] [address] [address] [address] Quique Ortiz Hemoglobin Ql (U) SMALL Abnormal NEGATIVE [facility] Comment on above: Performed By: #### U AMIC #### [facility] [address] [place] [address] Dr. Quique Ortiz Ketones Ql (U) Negative Normal NEGATIVE [facility] Comment on above: Performed By: #### U AMIC #### [facility] [address] [place] [address] Dr. Quique Ortiz LEUKOCYTES Negative Normal NEGATIVE [facility] Comment on above: Performed By: #### U AMIC #### [facility] [address] [address] [address] Quique Ortiz MUCOUS NONE SEEN Normal NONE SEEN [facility] Comment on above: Performed By: #### U AMIC #### [facility] [address] [place] [address] Dr. Quique Ortiz Nitrite Ql (U) Negative Normal NEGATIVE [facility] Comment on above: Performed By: #### U AMIC #### [facility] [address] [place] [address] Dr. Quique Ortiz pH (U) 5.5 [pH] Normal 5-9 [facility] Comment on above: Performed By: #### U AMIC #### [facility] [address] [place] [address] Dr. Quique Ortiz RBC NONE SEEN Abnormal 0-2 [facility] Comment on above: Performed By: #### U AMIC #### [facility] [address] [place] [address] Dr. Quique Ortiz SPEC GRAVITY <=1.005 Abnormal 1.005-<=1.025 [facility] Comment on above: Performed By: #### U AMIC #### [facility] [address] [address] [address] Quique Ortiz UA PROTEIN Negative Normal NEGATIVE/ TRACE [facility] Comment on above: Performed By: #### U AMIC #### [facility] [address] [address] [address] Quique Ortiz Urobilinogen Qn (U) 0.2 {Jv'U}/dL Normal 0.2 - 1. 0 [facility] Comment on above: Performed By: #### U AMIC #### [facility] [address] [place] [address] Dr. Quique Ortiz WBC NONE SEEN Normal NONE SEEN [facility] Comment on above: Performed By: #### U AMIC #### [facility] [address] [place] [address] Dr. Quique Ortiz XR ANKLE ELENA MIN [...] MALLIKA ORTIZ Date: 2022-03-29 10:38 Normal [facility] Coding Summary.on 07-02-2020 Coding Summary. CD:[id number] Gh0b Ww+PGhlYWQ+LC5YQJCzR86pj XRlrK8KJ6fYUN3COPGLKYEJS Z2WQV2aqOL1YFpwU7GpdcCq QhvbdLDzVL93KSz0OQJ8qVlg VQfwzC8joOGqM0k2XiBlTK22 vQ29ZBcvNPLcVpC6SdHeqhjd bWFy Z8nlRbXcqQSgBdo+PHRhYmxl IHdpZHRoPScxMDAlJyBzdHls BR2jOp2pXSVaFWJhdQhypGEx OiBj y6eqMCVxAXjtAJ1xuTszV1Mx kTQ7MJKhi2g5Mu62rRZ+PHRk BWA5dXrbHLnro507QyQmh6do IDM3 zIAxKUduSQT9Q26wz3J2UUXw UOKjICB8dWX0rA9yxUrqfsif E8OzqVKpYrJ8NRE6oSWuiU9b bGln orimjQ4kDlx+U78KPL9GPZCA AR6PGrv7B3GsDuapyCW+PC90 OMZhQC33sGPodXFup1ukjPe8 JzEw DXVsNVC8xOeyZLuuh2UwXZJt G41qoZInk8R3CDLbgKajgKBx AvJhiAP8kQ7pFEnpflqod0rt dzsn Njpnx6plaw14kU93P18dFGnh YHHkHLZ0WEGhCCFjuYgkgy6o zT6jTm7+HLnkt9gmp2uuiQt6 IjIw FKZnyuZczHhoUWQ0m7PyFq38 F6WhcBqec3AwJai0xx49vDBn d9G9rJB9ATmhAWPhmJ9zUHdr ZnQ6 AEJwTgXwlP29qUHzIDkhMf3v mFtumFluEG9hQKPnxrwiNZDy nG7eNSXvaINkaFbxHU9yJAWt bjtm b474BmXzKIT4EZGqcJXzK1Id sK3sXsVpLIYhFTQcV2DkwYEg TXzoB683MLurOgN7UPDzjuKt Y2Fs PLKxbQuxGjU4w0I2Pn2Dp0Hr nnkwOTF0EDgyLRZ7IfV1FhCt IkB4J5EzOjq5NRSmvXklGF4w J3Bh FGOhwgzdktdxcFX4XZCjAOEw rI55xKZdCUhlKp9op9U8o838 BHJqLFLzcB52Bv5jlYrjQNOt dCBU cR3mxhrty6tspcliHnDyWXLw HZz6WBz9EDEjvIitOgWmLZU9 FgK4WBY9mSTslF1feHdaksrd dG9w Oyc+B36skF1kTRR7YDO5zzbx BIKgtsMcJF26EC99Y5KpGnsa dGFibGU+OGJtgxUkgXlrLO7x YmFj k3mbb7WeFZlzT3XbVRLsROsb Dsc9DDNpRJS9nLB6kH8qPYJr GYwtp7E1fKX6O5GybuHsyl6x b2xs KAFjYTpvR33qgWUfu0O7OWEs lGX0EIDgsQebBtBymY29Htl+ ULHzqTesn8TjOicsc0ooj7mf dGg9 BaUbNBEcuuUrcSjyEAK0e6Kq Oa72F71wFLpuTFQnWNQgTJIo UKCpdToyxz5lmC6xRw4+PGNv bCB3 lKD0yW8dJAEnHgJ7EQwwE872 GkRmpXEeWrlff9pzi6lguMu3 NnCiPQVdfvYmsSngFAT7r5Xd Lz48 T09sTKqjHPTfXMSzGKOgHBGl tKkyre9tlX5mSl4+FL6iz6qn tc43aI11xNI+DOHpRKK0rSqk PSdw OXUphM1dODkvKlF2TFSeGzGd nV96xJUmVTmwFi8qvXgweWod WJ0cEMHgqdvek487VhNxs6ee IDEw sRAeKDcmDEU7G25sz9E0GVBs CYPiRLX1sQQ0yQ3qsSixegcq bGVmdDsgdmVydGljYWwtYWxp Z246 IHRvcDsnPlBhdGllbnQgTmFt XFl6C8UiLss9HMMcsTwrND8q pTGlGCcmHb1eyOjytSnwBI7v NTBp lwmnz701OgPed6vmXCOxjAPy ERmfQJD3M44vf6J3CTSwLKSz CCH0fHA9cT5igKkjetumlKSr dDsg trLjrRykKYutDReiI087MECm pSgeAtAyegNuRMOfjKO6DY75 WW91cETxv5T7tFX4H6PoFEAf bmct edgwnUG1UKWhFXRviC74Ft1t lKifEn7lMDZeSWB8RSFniXIl T1RhjC3sXiCsCKYwYXLaA9Nu eHQt DVhoQ467CGlhTuZ5JQXznvGw F0JzUBDzuRadMlO8s8S4Zm6D Z0U8ME81ZE23iKQrr1E5cNC9 J3Bh YHZnikgqkwyspUE0YNKsTHEf jY00Ff7hnZuxZw6sHKUkWBN6 PRFcbLWhZ6TbcD2nSoPnRLXn MDAw A6GkhYNoHWfoQ792ZKiuVuT4 CSSbyrHfK3AxPECsfCuwMhF8 p3G3Pt5XEBb8PD41VU92wWLj c3R5 iJW7Z0BwCIOnogbhbubvvVN9 SRNuUHCopW81Ze0vrOpiHm8g ZHKeSDB7UWYziQRdK1KmbY2e OiAj BMRrQBBaF0GsdSFbYBdzN365 VUioHhY3OHUsvsQzH0CbDNBk oUuiMyA9d5O1Kf5FKUWrJP09 IFR5 sWA5UZ79QG53D9OrZvjlmGSi bGU+PHRhYmxlIHdpZHRoPScx HCBxVsLvzHmcVO3dWq9pPCOy LWNv qAqnxGSrJrTth6noPBUtOYbv PN5jfWovF3TpgLK9OQNpb0f1 Tl00P61tL5FugRH+PGNvbCB3 aWR0 qW1aEyGdLpW3JBpiR369BuBi cELtRckvt0evb6yafMm8ZaO2 EHOnkdGonRaxKZO5j2IiGq95 Y29s IHdpZHRoPSIxNSUiIHZhbGln jf4jbZ6mIp9+SJZzjGQ3hUF4 aY7gUuQiWtG2DHzgC053NcLs cCIv Unorf0pmm7dbfUv6VlMtFDRk lnZrrUhoINM8g9QkAs97K6Xs mDbzr2SsSdk9sg08yUKmz5B7 bGU9 J6FoFXTxtzceyPFdxUynNN6p MVEknaijRLGziV7fJNCwK7g8 KpBjZbK5LCjmV3XnajY1ATSc cHQg QAulGFT5I77zz3L3UDBrPCHk HPY9oFO7cB3rbNobcpveuNBk cNwkirAwbNbyKQjhMVezV081 IHRv vVvjGKQomS1dPRMxzGQxaNie DY5pOXWfaefqMxVDLDovORLY TFZJQTwvdGQ+JHZzPWU1yZyy PSdw FGBscS6uZEXzI9d6WdJoNfC2 PWqbH9BcDFZiplgfRe90mZ7x UsKkBgB0IIujO5IjzpM4LUCk cHQg AIozXMA4O01aj7Z3NUXuSRLm HGU8yEI1gZ5gfZxnnorxiXGf sVqhqyWitXwjWKqlLAquW428 IHRv hVksUhUcSjC7FoG0UHN0O7Zi Ghf1VMDlmUdgCG0dkRCsWCem Nv0zdZfmfPwcEQ7pYARjmhjt YWRk yR8sOISgnWLaiIfyNR0iUZAp titzi209JfWuLVW5XKMlgFGa Y3BskQ1zLxEiJVDwTBIlW3Lz eHQt GRfmR196ASgmDqQ2YGAbxgLk N8XlTEAidTarJnU8g5Z0Dc23 NiBZZWFyczwvdGQ+PHRkIHN0 eWxl SZblCEOoeQ1oSMZwM9i1ReQg XoZ2TTitZ0BvSDNifpghKv63 pH7fHsItSiJ4HTifV5RhbfS5 IDEw zUKrCLdqHQL4C68rg0N6MBOs DZSpIIN8lLM6gP4amHohzsxn bGVmdDsgdmVydGljYWwtYWxp Z246 IHRvcDsnPkZlbWFsZTwvdGQ+ FCVsOXC8pZmpLPtlEYYglF7w UCMrC3z3OpFiUiT9HQekU6Pe ZGRp knfgXi18wJ8uQkFjHdE4GGsv I9PpspT0KWYulRQeZQtaQRN9 Y82jr9I2ODDgQXIcLPF7xOD6 dC1h bGlnbjogbGVmdDsgdmVydGlj IMlyEZgoD117MIJuiApfDeFh PECyWI6tuGqyhDN+QH80sc35 L3Rh OykaDqv1SWCwKDQ8sAQ6xN8b BCIqDWtcu0P0kBX2L6EwjnSb mg0pq6neXSBsFZavO37saILw c2U7 MPLnoOI5LPGltCtwSbZgsV36 Oyc+BDLqpVtpn9XkIuzfa5xd g6iqiGz7NrAfAPFpmbBghUqk PSJ0 b6WeXb68D57aPWvxAMRgXSNu UHMxITRnpMgoos7zaO9hTc8+ CIKxpZG9yIJ1jB1yKzSqXrZ6 YWxp S921ZlCcgPBrLgvxh6dcn9nk lOs5EgEdBRWokgGcpQwkPYA5 j0YmWl34S5OuyUjjv5TjEkm3 cj48 wGEgw1B3cRM3P7LeCBHhdiye sDPyhZxfOJ6mENYmesyrNMHy kB2dFMRnE5g7CbMfLaJ9YUiu O2Zv fnA9UQEhrXBjTPYvlPLJcQ3v rqanu1ycebnfMuAlJKCjKPn9 BSa4ENZoxWbuXcLxUMH9YnW8 ZXJ0 tIBfwP9uwUzsuhoddY8qZbi+ ONn1m5msgEScZB0dyCB2RX61 XL92dXLoy4X2lIW0E3TrVUJo bmct mbijfVS3YFIuRGVqbA39Xz4k hLndUj9bRIQhBBE1XCPmeSBt M9BmhI0tGwXoRBRiWZVvS4Lj eHQt EZflK720BJioZaU5SIQfylDn D1UdSOVpdJmnVwM0r5I5Un3R EI95NK39FW03uKPgo2P3sAR8 J3Bh UTEamsztmuqloLF6DABiKCVl eA77Dl6lcDhrZn0tMSTgIBB9 CGPxsORtC6OhdE5zFsFsSSDy MDAw L6DuwXSiHEliL533LPwxLuZ3 LQFnguItB6UfBKAifGpcCeY1 y3Q8Xp0SJq53TD88ZT41uQXk c3R5 cJR5H3QrYBQkmrxdezzguDK2 TZJfCQWexF06Dr0tvWplZu2s LGDiZFA9PQGhbLIqY8TtxH0h OiAj MNSmRDNjK5VjhTXrNJdgT346 XOmrUmL4SUOiikEjA3OlCAVf bOknLiC8b9I4Ky4SOKhwcpa9 L3Rk PjwvdHI+RR56CVFhXT40wCKw cXIco1fycBn3FzQnRWFeONP9 yMiuUUetl1NaRLNhX13wiHFk c2U6 IGNv (more content not included)... [facility] Consent for Treatmenton 06-06 Consent for Treatment [id number]: 127 [facility] Discharge Instructionson Discharge Instructions [id number] :127 [facility] Discharge Instructions Discharge instructions complete, RR equal and non labored and nurse educated to make follow up and take medication as prescribed. [facility] Comment on above: Result Comment: Elec tronically Signed By: Malorie MONSIVAIS, Don Urbina\.tiffany\Date and Time Signed: 06/28/20 11:39 EDT ED Clinical Summaryon 2020 ED Clinical Summary (Inserted Image. [place] ble to display) [place] [id number] ED Clinical Summary Person Information Name: KEYANNA STAFFORD/[facility] Age: 65 Years : 1955 Sex: Female Language: Yi PCP: Manohar PARHAM DO Marital Status: Single [...] 06/28/2020 11:46:42 06/28/2020 11:46:42 06/28/2020 11:46:42 ADDRESS: [address] [place] [phone] PHYS DOC NOTES: MEDICAL INFORMATION: Prescriptions Given: New Medications Printed Prescriptions amlodipine (Norvasc 10 mg Tab) 1 Tablets By Mouth every day for 30 Days. Refills: 0. PATIENT EDUCATION INFORMATION: Instructions: Hypertension; DASH Eating Plan Follow up: With: Address: When: Manohar PARHAM [address] [facility] [address] [place] [id number] Business (1) In 3 days 07/01/2020 DIAGNOSIS: Hypertension Normal [facility] ED Note-Physicianon 06-29-19 ED Note-Physician Basic Information [...] Manohar PARHAM In 3 days 07/01/2020 EDT [address] [place] [id number] Business (1) Additional Instructions: Patient Education Hypertension [...] By: Waylon Marques DO 06/28/2020 10:57:50 Normal [facility] Comment on above: Result Comment: Elec tronically [...] 06/08/2014 Document Reviewed: 11/14/2013 ExitCare? Patient Information ?2015 [employer]. This information is not intended to replace [...] 12 oz (more content not included)... Normal [facility] ED Patient Summaryon 021 ED Patient Summary (Inserted Image. [place] ble to display) [place] [id number] Patient Discharge Instructions Person Information Name: KEYANNA STAFFORD Age: 65 Years Arrival Date: 06/28/2020 10:27:51 Discharge Diagnosis: Hypertension Primary Care Physician: Manohar PARHAM DO Provider Information Primary Provider: Waylon Marques DO [employer] Member:None The exam and treatment you received in the Emergency Department were for an urgent problem and are not intended as complete care. It is important that you follow up with a doctor, nurse practitioner, or physician?s ex assistant/program director for ongoing care. If your symptoms become worse or you do not improve as expected and you are unable to reach your usual health care provider, you should return to the Emergency Department. We are available 24 hours a day. KEYANNA STAFFORD has been given the following list of patient education materials, prescriptions and follow-up instructions: Follow-up Instructions: With: Address: When: Manohar PARHAM [address] [place] [address] Business (1) In 3 days 07/01/2020 In the event that this physician does not participate in your insurance network, please consult with your insurance company to find a nearby participating provider. Patient Education Materials: Hypertension; DASH Eating Plan A MESSAGE TO ALL PATIENTS REGARDING OPIOIDS PRESCRIPTION OPIOIDS: WHAT YOU NEED TO KNOW Prescription opioids can be used to help relieve gkhirqmi-ic-mewtra pain and are often prescribed following a [...] be struggling with addiction, tell your health manager care management and ask for guidance or call [facility] National Helpline at 6-909-315-PNVS. v Source: [place] Department of Health and (more content not included)... Normal [facility] HAND RIGHT 2 [facility] 8 HAND RIGHT 2 [facility] [address] [place] [id number] ==Patient Name: KEYANNA STAFFORD : 1955Sex: FAge: Race: WhiteMRN: [id number]. 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 Transcribed by: [email or web address], User Resident: Electronically Signed by: SERGIO LAWRENCE @ 01/07/2018 02:05 PM Normal [facility] Comment on above: Order Comment: , , = ========= , Ordering Provider - MANOHAR BONILLA PA-C , Operative Reporton [id number] Operative Report MR#: [id number] [facility] Pt. Name: Keyanna Stafford Room [...] Dict: 01/01/2018/09:11 P/Tiffanie Rose Trans: 01/02/2018 05:47 A/JenniferN_JN:[id number]: Reese Hodges M.D. 3 [facility] [address] Normal [facility] *ANAEROBIC CULTUREon 11-26-2 018 *ANAEROBIC CULTURE Clinical Report: (D) Specimen/Source: TISSUE/INTRAOP SPEC Collected: 12/31/2017 15:35 Status: Final Last Updated: 01/05/2018 08:19 (1) Right Long Finger Soft Tissue ISO (Final) No Anaerobes Isolated 5 Days Normal [facility] Comment on above: Order Comment: Right Long Finger Soft Tissue Performed By: #### 5 6101, [id number] ####[facility] *ANAEROBIC CULTURE Clinical Report: (D) Specimen/Source: TISSUE/INTRAOP SPEC Collected: 12/31/2017 15:34 Status: Final Last Updated: 01/05/2018 08:07 (1) Right Long Finger Distal Phalanx ISO (Final) No Anaerobes Isolated 5 Days Result changed by MICKI on 01/05/2018 08:07. The previous result was: ISO (Prelim) Normal [facility] Comment on above: Order Comment: Right Long Finger Distal Phalanx Performed By: #### 3 0312 ####[facility] *FUNGAL CULTUREon 12-31-2017 *FUNGAL CULTURE Clinical Report: (D) Specimen/Source: TISSUE/INTRAOP SPEC Collected: 12/31/2017 15:35 Status: Final Last Updated: 01/08/2018 14:58 (1) Right Long Finger Soft Tissue FS (Final) No Yeast or Fungal Elements Seen ISO (Final) Tisha albicans Normal [facility] Comment on above: Order Comment: Right Long Finger Soft Tissue Performed By: #### 5 6101, [id number] ####[facility] *FUNGAL CULTURE Clinical Report: (D) Specimen/Source: TISSUE/INTRAOP SPEC Collected: 12/31/2017 15:34 Status: Final Last Updated: 01/08/2018 10:00 (1) Right Long Finger Distal Phalanx FS (Final) No Yeast or Fungal Elements Seen ISO (Final) Tisha albicans Normal [facility] Comment on above: Order Comment: Right Long Finger Distal Phalanx Performed By: #### 5 6101, [id number] ####[facility] *TISSUE CULTUREon 12-31-2017 *TISSUE CULTURE Clinical [...] Susceptible VANCOMYCIN (VA) 1 Susceptible Normal [facility] Comment on above: Order Comment: Right Long Finger Soft Tissue Performed By: #### 3 0338 ####[facility] *TISSUE CULTURE Clinical Report: (D) Specimen/Source: [...] Susceptible VANCOMYCIN (VA) 1 Susceptible Normal [facility] Comment on above: Order Comment: Right Long Finger Distal Phalanx Performed By: #### 3 0338 ####[facility] APTTon 12-31-2017 aPTT Coag time (Bld) 27.1 s Normal 25.0-35.0 [facility] Comment on above: Result Comment: ALL [...] THIS PURPOSE. Performed By: #### 5 6101, [id number] ####[facility] [facility] [place] [address], [facility] BASIC METABOLIC PANELon 11-2 Calcium mass conc 9.3 mg/dL Normal 8.6-10.3 [facility] Comment on above: Performed By: #### 0 0071 ####[facility] [facility] [place] [address], [facility] Chloride molar conc 104 mmol/L Normal 98-107 [facility] Comment on above: Performed By: #### 0 0071 ####[place] [address] [facility] [place] [address], [facility] CO2 molar conc 28 mmol/L Normal 21-31 [facility] Comment on above: Performed By: #### 0 0071 ####[place] [address] [facility] [place] [address], [facility] Creatinine mass conc 0.51 mg/dL Low 0.60-1.20 [facility] Comment on above: Performed By: #### 0 0071 ####[place] [address] [facility] [place] [address], [facility] GFR/1.73 sq M predicted among blacks MDRD vol rate/area (S/P/Bld) mL/min/{1.73_m2} Normal >60 [facility] Comment on above: Performed By: #### 0 0071 ####[facility] [facility] [place] [address], [facility] GFR/1.73 sq M predicted among non-blacks MDRD vol rate/area (S/P/Bld) mL/min/{1.73_m2} Normal >60 [facility] Comment on above: Performed By: #### 0 0071 ####[place] [address] [facility] [place] [address], [facility] Glucose mass conc 168 mg/dL High 70-100 [facility] Comment on above: Performed By: #### 0 0071 ####[facility] Potassium molar conc 4.2 mmol/L Normal 3.5-5.1 [facility] Comment on above: Performed By: #### 0 0071 ####[facility] Sodium molar conc 141 mmol/L Normal 136-145 [facility] Comment on above: Performed By: #### 0 1 ####[facility] Urea nitrogen mass conc 5 mg/dL Low 7-25 [facility] Comment on above: Performed By: #### 0 1 ####[place] [address] CBC W/DIFFon 12-31-2017 ABS BASOPHILS 0.0 10*3/uL Normal 0.0-0.2 [facility] Comment on above: Performed By: #### 5 102 ####[facility] ABS IMM GRANS 0.0 10*3/uL Normal 0.0-0.2 [facility] Comment on above: Performed By: #### 5 3 ####[facility] ABS NEUTROPHILS 3.3 10*3/uL Normal 1.6-7.6 [facility] Comment on above: Performed By: #### 5 3 ####[facility] Basophils Auto #/vol (Bld) 0.4 % Normal 0.0-1.0 [facility] Comment on above: Performed By: #### 5 3 ####[facility] Eosinophils Auto #/vol (Bld) 0.1 10*3/uL Normal 0.0-0.5 [facility] Comment on above: Performed By: #### 0103 ####[address] Eosinophils/100 WBC Auto (Bld) 1.1 % Normal 0.0-6.0 [facility] Comment on above: Performed By: #### 102 ####[address] Erythrocyte distribution width Auto Ratio (RBC) 13.0 % Normal 11.5-15.0 [facility] Comment on above: Performed By: #### 102 ####[address] Hematocrit Auto Volume Fraction (Bld) 39.9 % Normal 36.0-45.0 [facility] Comment on above: Performed By: #### 102 ####[address] Hemoglobin mass conc (Bld) 13.5 g/dL Normal 12.0-15.0 [facility] Comment on above: Performed By: #### 3 ####[address] IMMATURE GRANS 0.4 % Normal 0.0-1.0 [facility] Comment on above: Performed By: #### 3 ####[address] Lymphocytes Auto #/vol (Bld) 1.9 10*3/uL Normal 1.2-4.0 [facility] Comment on above: Performed By: #### 3 ####[address] [place] [address], [place] Lymphocytes/100 WBC Auto (Bld) 32.9 % Normal 20.0-45.0 [facility] Comment on above: Performed By: #### 5 0103 ####[facility] MCH Auto Entitic mass (RBC) 29.2 pg Normal 27.0-33.0 [facility] Comment on above: Performed By: #### 5 0103 ####[facility] MCHC Auto mass conc (RBC) 33.8 g/dL Normal 32.0-35.0 [facility] Comment on above: Performed By: #### 0103 ####[address] MCV Auto Entitic volume (RBC) 86.4 fL Normal 82.0-98.0 [facility] Comment on above: Performed By: #### 0103 ####[address] Monocytes Auto #/vol (Bld) 0.4 10*3/uL Normal 0.1-1.0 [facility] Comment on above: Performed By: #### 5 0103 ####[facility] MONOS 7.4 % Normal 5.0-12.0 [facility] Comment on above: Performed By: #### 5 0103 ####[place] [address] Neutrophils/100 WBC Auto (Bld) 57.8 % Normal 40.0-72.0 [facility] Comment on above: Performed By: #### 5 3 ####[facility] Nucleated RBC/100 WBC Ratio (Bld) 0 % Normal 0-0 [facility] Comment on above: Performed By: #### 5 0103 ####[facility] [place] [address] PLAT CNT 226 10*3/uL Normal 150-400 [facility] Comment on above: Performed By: #### 5 0103 ####[address] RBC Auto #/vol (Bld) 4.62 10*6/uL Normal 3.80-5.00 [facility] Comment on above: Performed By: #### 5 0103 ####[place] [address] WBC Auto #/vol (Bld) 5.71 10*3/uL Normal 4.00-10.60 [facility] Comment on above: Performed By: #### 5 0103 ####[address] FINGER RIGHT MIN 2 Son FINGER RIGHT MIN 2 VWS [facility] [address] [place], [place] [address] ==Patient Name: KEYANNA STAFFORD : 1955Sex: FAge: Race: WhiteMRN: [id number]. Location: OUTPPatient Status: OVisit #: [id number] Date: 12/31/2017 3:35:00 PMCompleted Date: 12/31/2017 03:48 PMRequesting Provider: STUART VO Attending Provider: STUART VO Report Copy To: Signs & Symptoms: crpp right fingerHistory: Comments: crpp right fingerExam: FINGER RIGHT MIN 2 VWSAccession #: [id number] =========FINGER RIGHT MIN 2 VWS 12/31/2017 3:48 [...] documentation Electronically signed by:Abdirizak Herrera. Transcribed by: [email or web address], User Resident: Electronically Signed by: ABDIRIZAK HERRERA @ 2018 08:05 AM Normal [facility] Comment on above: Order Comment: crpp right finger POC GLUCOSE LABon 12-31-2017 Glucose mass conc 141 mg/dL High 70-100 [facility] Comment on above: Performed By: #### 8 5499 ####[facility] [facility] [place] [address], [facility] Glucose mass conc 152 mg/dL High 70-100 [facility] Comment on above: Performed By: #### 8 5499 ####[facility] [facility] [place] [address], [facility] PROTHROMBIN TIMEon 8 INR Coag RelTime (PPP) 0.90 {INR} Low 0.91-1.16 [facility] Comment on above: Result Comment: ACCC P RECOMMENDED INR FOR WARFARIN THERAPY CONDITION INRPROPHYLAXIS OF VENOUS THROMBOSIS 2-3(HIGH-RISK SURGERY)TREATMENT OF VENOUS THROMBOSIS 2-3TREATMENT OF PULMONARY EMBOLISM 2-3PREVENTION OF SYSTEMIC EMBOLISM: 2-3 ACUTE MYOCARDIAL INFARCTION TISSUE HEART VALVES VALVULAR HEART DISEASE ATRIAL FIBRILLATION RECURRENT SYSTEMIC EMBOLISMMECHANICAL HEART VALVE 2.5-3.5 FROM: ORAL ANTICOAGULANTS. MECHANISM OF ACTION, CLINICALEFFECTIVENESS, AND OPTIMAL THERAPEUTIC RANGE. [id number]. Performed By: #### 5 6101, 60[address] ####[place] [address] Prothrombin time (PT) Coag time (PPP) 12.1 s Low 12.3-14.8 [facility] Comment on above: Result Comment: ALL RESULTS MUST BE INTERPRETED WITH RESPECT TO BLOOD DRAWING ARTIFACTOR DILUTION ERROR OF ANTICOAGULANT AT THE TIME OF SAMPLING. Performed By: #### 5 6101, [id number] ####[place] [address] Encounters Encounter Date Encounter Type Care Provider Facility Start: 11-09-2022 End: 11-09-2022 ambulatory [facility] Start: 06-21-2022 End: 06-21-2022 ambulatory [facility] Start: 06-12-2022 End: 06-13-2022 ambulatory URBANO GARCIA Facility:[facility] Start: 06-02-2022 End: 06-03-2022 ambulatory URBANO GARCIA Facility:[facility] Start: 05-12-2022 ambulatory BALA HENAO [facility] Start: 04-23-2022 End: 04-25-2022 Evaluation and management of inpatient MARIANN BORJAS Facility:[facility] Start: 04-11-2022 End: 04-12-2022 ambulatory URBANO GARCIA Facility:[facility] Start: 03-28-2022 End: 03-29-[address] REESE HODGES Facility:[facility] Start: 01-07-2018 End: 01-08-2018 Patient encounter procedure MANOHAR BONILLA Facility:[facility] Start: 12-31-2017 Encounter for other specified special examinations STUART EBRAHEIM [facility] Start: 12-31-2017 End: 2018 Patient encounter procedure STUART EBRAHEIM Facility:[facility] Encounter for other specified special examinations STUART EBRAHEIM [facility] Procedures Date Procedure Procedure Detail Performing Clinician Start: 12-31-2017 AMPUTATION OF FINGER/THUMB STUART EBRAHEIM Start: 12-31-2017 ANESTH LOWER ARM SURGERY LIZZETTE FLORIANOBEY Payers Date Payer Category Payer Unknown [id number] 1955 Unknown [id number] 2.16.8 [id number] 1955 Unknown [id number] 2.16.8 [id number] 1955 Unknown [id number] 2.16.8 [id number] 1955 Unknown [id number] 2.16.84 [id number] 1955 Unknown [id number] 2.16.84 [id number] 1955 Unknown [id number] 2.16.84 [id number] 1955 Unknown [id number] 2.16.84 [id number] 1955 Unknown [id number] 2.16.84 [id number] Unknown [id number] Progress note 11-09-2022 Note Date & Type Note Facility 11-09-2022 Note [facility] SUBJECTIVE No chief complaint on file. [...] she is at risk for a stroke, [place], etc. She declines to go. She reports [...] ASSESSMENT/PLAN: Diagnosis Plan (more content not included)... [facility] Progress note 11-09-2022 Note Date & Type [...] All other systems reviewed and are negative. [facility] Progress note 06-21-2022 Note Date & Type Note Facility 06-21-2022 Note [facility] SUBJECTIVE Chief Complaint Patient presents with Follow-up [...] place, and time. (more content not included)... [facility] Progress note 06-21-2022 Note Date & Type Note Facility 06-21-2022 Note Patient is here toda y for a one month follow up. Review of Systems Constitutional: Positive for malaise/fatigue. Neurological: Positive for numbness. All other systems reviewed and are negative. [facility] Progress note 05-12-2022 Note Date & Type Note Facility 05-12-2022 Note [facility] Note Date of Telehealth Visit: [...] The patient was notified that using 3rd constitution party telecommunication application (e.g., [employer]) is not HIPPA compliant and may carry [...] any questions or concerns. Bala Henao MD [facility] Progress note 05-12-2022 Note Date & Type Note Facility 05-12-2022 Note Review of Systems Cardiovascular: Positive for leg swelling. Respiratory: Positive for cough. Neurological: Positive for dizziness, light-headedness and loss of balance. All other systems reviewed and are negative. [facility] Summary Purpose Family History No Family History Records FoundNo Family History Records FoundNo Family History Records FoundNo Family History Records Found Advance Directives No Advanced Directives Records FoundNo Advanced Directives Records FoundNo Advanced Directives Records FoundNo Advanced Directives Records Found Additional Source Comments INFORMATION SOURCE (unrecogn ized section and content) DATE CREATED AUTHOR 01/14/2018 [facility] DATE CREATED AUTHOR AUTHOR'S ORGANIZ ATION 07/05/2020 [facility] DATE CREATED AUTHOR AUTHOR'S ORGANIZ ATION 06/16/2022 [facility] DATE CREATED AUTHOR AUTHOR'S ORGANIZ ATION 03/22/2023 [facility] FOR RECORDS PERTAINING TO PATIENTS WHO [...] BE BASED ON THE PRIMARY CLINICAL RECORDS. [employer] provides no warranty or guarantee of the accuracy or completeness of information in this document.
[2023-09-04 12:47] LABS: PCO2 VBG 41.7 mmHg (40.0-52.0); pH VBG 7.409 (7.330-7.430)
[2023-09-04 12:50] LABS: Basophils Percent Auto 0.7 % (0.2-2.0); Eosinophils Absolute Auto 0.2 10^3/uL (0.0-0.7); Eosinophils Percent Auto 3.2 % (0.9-7.0); Hematocrit 31.4 % (36.0-48.0); Hemoglobin 10.8 g/dL (12.0-16.0); Immature Granulocytes Abs Auto 0.01 10^3/uL (0.00-0.03); Immature Granulocytes Pct Auto 0.2 % (0.0-0.5); Lymphocytes Absolute Auto 0.9 10^3/uL (1.2-3.8); Lymphocytes Percent Auto 15.1 % (20.5-60.0); Mean Corpuscular HGB Conc 34.4 g/dL (29.9-35.2); Mean Corpuscular Hemoglobin 29.8 pg (26.7-34.0); Mean Corpuscular Volume 86.7 fL (81.0-99.0); Monocytes Absolute Auto 0.6 10^3/uL (0.3-0.8); Monocytes Percent Auto 11.4 % (1.7-12.0); Neutrophils Absolute Auto 3.9 10^3/uL (1.4-6.5); Neutrophils Percent Auto 69.4 % (43.0-75.0); Platelet Count 225 10^3/uL (150-450); Red Blood Count 3.62 10^6/uL (4.20-5.40); Red Cell Distribution Width 13.1 % (11.0-15.0); White Blood Count 5.6 10^3/uL (4.0-11.0)
[2023-09-04 13:02] LABS: Troponin I High Sensitivity 14.9 pg/mL (4.0-51.3)
[2023-09-04 13:08] LABS: Alanine Aminotransferase 30 U/L (14-59); Albumin Globulin Ratio 0.9; Albumin Level 3.3 g/dL (3.4-5.0); Alkaline Phosphatase 115 U/L (46-116); Anion Gap 13.2; Aspartate Amino Transferase 14 U/L (15-37); BUN Creatinine Ratio 14.5; Bilirubin Total 0.8 mg/dL (0.2-1.0); Calcium 8.9 mg/dL (8.5-10.1); Carbon Dioxide 28.7 mmol/L (21.0-32.0); Chloride 94 mmol/L (98-107); Estimated GFR (African America 52 (>=60); Estimated GFR (Non-African Ame 43 (>=60); Globulin 3.7 g/dL; Potassium 3.9 mmol/L (3.5-5.1); Sodium 132 mmol/L (136-145)
[2023-09-04 13:10] LABS: Glucose 568 mg/dL (74-106)
[2023-09-04 13:14] LABS: D Dimer 1.48 mg/L FEU (<=0.59)
[2023-09-04 13:17] LABS: INR 1.01; Prothrombin Time 10.7 sec (9.0-11.6)
[2023-09-04 13:20] LABS: Bilirubin Urine NEGATIVE (NEGATIVE); Blood Urine NEGATIVE (NEGATIVE); Clarity Urine CLEAR (CLEAR); Color Urine LT. YELLOW (YELLOW); Glucose Urine UA >=1000 mg/dL (NEGATIVE); Ketones Urine NEGATIVE (NEGATIVE); Leukocyte Esterase Urine NEGATIVE (NEGATIVE); Nitrite Urine NEGATIVE (NEGATIVE); Protein Urine NEGATIVE (NEG/TRACE); Specific Gravity Urine <=1.005 (1.005-1.025); Urobilinogen Urine 0.2 EU/dL (0.2-1.0)
[2023-09-04] MEDS: BUMETANIDE 1 MG/4 ML VIAL IVP (13:22)
[2023-09-04 13:30] LABS: Urine Microscopic Indicated NO
--- NOTE | 2023-09-04 13:43 | ED.SOB1 ---
HPI - SOB/Dyspnea General Chief Complaint: Shortness of Breath/Dyspnea Stated Complaint: CHF AND WATER RETENTION Time Seen by Provider: 09/04/23 12:17 Source: patient and family Mode of arrival: Wheelchair Limitations: no limitations History of Present Illness HPI Narrative: This patient is here being seen by her marketing researcher here in this community. The nurse practitioner called me and thought that she was in heart failure. She has had a recent echocardiogram done that showed preserved left ventricular function but some decrease on right sided function. She admittedly is extremely noncompliant with all of her medications including her heart pills her diabetes pills and diuretics and hypertension pills. She cannot give a reason why she says sometimes she just gets forgetful or lazy. She has not been running a fever. She notes that she has increasing dyspnea with exertion she has also increased leg swelling. She says she does not know what her dry weight is and does not weigh herself at home. She is not having any chest pain heaviness squeezing or pressure. Related Data Home Medications ?Medication ?Instructions ?Recorded ?Confirmed furosemide 40 mg tablet 40 mg PO DAILY 09/04/23 09/04/23 insulin detemir U-100 100 unit/mL 30 unit subcut BID 09/04/23 09/04/23 (3 mL) subcutaneous pen (Levemir FlexPen) Allergies Allergy/AdvReac Type Severity Reaction Status Date / Time No Known Drug Allergies Allergy Verified 09/04/23 12:22 Exam Narrative Exam Narrative: Awake alert [place] very pleasant. 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 She does have some jugular vein distention. Her airway is widely normal there is no central nervous system symptomatology she has no confusion no altered mental status she has no headache he has no neck pain. Her lungs show that she has a rales bilaterally to midlung tan. There is no pleural rub. Heart sounds are normal with no S3-S4 gallop. Abdomen is nontender. Extremities show 2-3+ edema all the way from ankles up to her mid thigh. There is no cellulitis there is no drainage from the legs. There is no palpable ropiness. Constitutional Vital Signs, click to edit/add: Last Vital Signs Temp 98.1 F 09/04/23 12:26 Pulse 82 09/04/23 12:40 Resp 21 H 09/04/23 12:40 BP 187/82 H 09/04/23 12:26 Pulse Ox 92 L 07/30/24 12:40 O2 Del Method Room Air 09/04/23 12:38 Course Vital Signs Vital signs: Vital Signs Temperature 98.1 F 09/04/23 12:26 Pulse Rate 83 09/04/23 12:26 Respiratory Rate 16 09/04/23 12:26 Blood Pressure 187/82 H 09/04/23 12:26 Pulse Oximetry 93 L 09/04/23 12:26 Oxygen Delivery Method Room Air 09/04/23 12:26 Temperature 98.1 F 09/04/23 12:26 Pulse Rate 82 09/04/23 12:40 Respiratory Rate 21 H 09/04/23 12:40 Blood Pressure 187/82 H 09/04/23 12:26 Pulse Oximetry 92 L 09/04/23 12:40 Oxygen Delivery Method Room Air 09/04/23 12:38 MDM - SOB/Dyspnea MDM Narrative Medical decision making narrative: Patient's resting EKG does not show any ST segment elevation or malignant arrhythmia. Her troponin is negative. However her BNP is substantially elevated consistent with his clinical working diagnosis of CHF. She had been given 1 mg of Bumex after my initial evaluation. Her oxygen saturations are stable. I spoke to the on-call hospitalist. He spoke with her marketing researcher and they are going to admit her here. I did relay that her D-dimer is modestly elevated but she does have some renal compromise as well. He will deal with the doubt D-dimer but we would like to get her admitted to the floor soon as possible Lab Data Labs: Lab Results 09/04/23 09/04/23 Range/Units 12:35 13:05 WBC 5.6 (4.0-11.0) 10^3/uL RBC 3.62 L (4.20-5.40) 10^6/uL Hgb 10.8 L (12.0-16.0) g/dL Hct 31.4 L (36.0-48.0) % MCV 86.7 (81.0-99.0) fL MCH 29.8 (26.7-34.0) pg MCHC 34.4 (29.9-35.2) g/dL RDW 13.1 (11.0-15.0) % Plt Count 225 (150-450) 10^3/uL MPV 10.0 (9.5-13.5) fL Neut % (Auto) 69.4 (43.0-75.0) % Lymph % (Auto) 15.1 L (20.5-60.0) % Armstrong % (Auto) 11.4 (1.7-12.0) % Eos % (Auto) 3.2 (0.9-7.0) % Baso % (Auto) 0.7 (0.2-2.0) % Neut # (Auto) 3.9 (1.4-6.5) 10^3/uL Lymph # (Auto) 0.9 L (1.2-3.8) 10^3/uL Armstrong # (Auto) 0.6 (0.3-0.8) 10^3/uL Eos # (Auto) 0.2 (0.0-0.7) 10^3/uL Baso # (Auto) 0.0 (0.0-0.1) 10^3/uL Abs Immat Gran (auto) 0.01 (0.00-0.03) 10^3/uL Imm/Tot Granulo (auto) 0.2 (0.0-0.5) % PT 10.7 (9.0-11.6) sec INR 1.01 D-Dimer 1.48 H* (<=0.59) mg/L FEU VBG pH 7.409 (7.330-7.430) VBG pCO2 41.7 (40.0-52.0) mmHg Sodium 132 L (136-145) mmol/L Potassium 3.9 (3.5-5.1) mmol/L Chloride 94 L (98-107) mmol/L Carbon Dioxide 28.7 (21.0-32.0) mmol/L Anion Gap 13.2 BUN 18.0 (7.0-18.0) mg/dL Creatinine 1.24 H (0.55-1.02) mg/dL Est GFR ( Amer) 52 L (>=60) Est GFR (Non-Af Amer) 43 L (>=60) BUN/Creatinine Ratio 14.5 Glucose 568 H* (74-106) mg/dL Calcium 8.9 (8.5-10.1) mg/dL Total Bilirubin 0.8 (0.2-1.0) mg/dL AST 14 L (15-37) U/L ALT 30 (14-59) U/L Alkaline Phosphatase 115 (46-116) U/L Troponin I High Sens 14.9 (4.0-51.3) pg/mL NT-Pro-B Natriuret Pep 4803.0 H* (<=900.0) pg/mL Total Protein 7.0 (6.4-8.2) g/dL Albumin 3.3 L (3.4-5.0) g/dL Globulin 3.7 g/dL Albumin/Globulin Ratio 0.9 Urine Color Lt. yellow (YELLOW) Urine Clarity Clear (CLEAR) Urine pH 6.0 (5.0-9.0) Ur Specific [place] <=1.005 A (1.005-1.025) Urine Protein Negative (NEG/TRACE) mg/dL Urine Glucose (UA) >=1000 A (NEGATIVE) mg/dL Urine Ketones Negative (NEGATIVE) mg/dL Urine Occult Blood Negative (NEGATIVE) Urine Nitrite Negative (NEGATIVE) Urine Bilirubin Negative (NEGATIVE) Urine Urobilinogen 0.2 (0.2-1.0) EU/dL Ur Leukocyte Esterase Negative (NEGATIVE) Discharge Plan Discharge Chief Complaint: Shortness of Breath/Dyspnea Clinical Impression: CHF (congestive heart failure) Patient Disposition: Admitted As Inpatient Time of Disposition Decision: 13:46 Prescriptions / Home Meds: No Action furosemide 40 mg tablet 40 mg PO DAILY Levemir FlexPen 100 unit/mL (3 mL) insulin pen 30 unit SUBCUT BID Print Language: German Referrals: MISTY MCBRIDE [Primary Care Provider] - 1 week
--- NOTE | 2023-09-04 14:53 | CA_ITS ---
Patient Name: GLENN STAFFORD MR#: [id number] : 1955 Exam Date: 09/04/2023 Ordering Doctor: SHAIKH Xiomara KAPADIA . ECHOCARDIOGRAM REPORT PROCEDURE: CA ECHO DOPPLER COMPLETE INDICATIONS: CHF COMPARISON: None. DESCRIPTION: COMPLETE ECHOCARDIOGRAM Real-time transthoracic echocardiography with 2D, M-mode, spectral and color flow Doppler performed. QUALITY: Technical quality was good. LEFT VENTRICLE: Normal chamber size. Moderate concentric left ventricular hypertrophy. Global left ventricular systolic function is moderately there is global hypokinesis. Decreased. LV EF: Moderately reduced left ventricular ejection fraction, (35-40%). DIASTOLIC: Grade II diastolic dysfunction. ATRIAL SEPTUM: LEFT ATRIUM: Moderate dilatation. RIGHT ATRIUM: Normal chamber size. RIGHT VENTRICLE: Normal chamber size. Normal right ventricular systolic function. TRICUSPID VALVE: Normal mobility and thickness. No stenosis with trivial regurgitation. Mild pulmonary hypertension. RVSP 42 mmHg MITRAL VALVE: Normal mobility and thickness. No evidence of mitral valve stenosis. There is no mitral annular calcification. Moderate mitral regurgitation. AORTIC VALVE: Normal trileaflet appearance. Thickened aortic valve. Normal leaflet mobility. No evidence of aortic valve stenosis. DVI 0.6. No aortic regurgitation. AORTIC ROOT: Normal diameter and appearance. PULMONIC VALVE: Normal thickness and mobility. No stenosis. Trivial regurgitation. PERICARDIUM: No evidence of pericardial effusion. IVC: Collapses with inspirations. Normal size. PLEURA: Small pleural effusion. CONCLUSION: 1. Moderate concentric left ventricular hypertrophy with diffuse global hypokinesis and moderately reduced systolic function. LVEF is 35 to 40%. 2. Grade 2 diastolic dysfunction. 3. Normal right ventricular size and systolic function. 4. Moderate mitral regurgitation. 5. No pericardial effusion. 6. Mildly elevated right-sided pressures. RVSP is 42 mmHg. Adult Echocardiography Procedure Report Left Ventricle LVEDD (3.7 - 5.6 cm): 4.73 cm LVESD (2.2 - 4.0 cm): 3.80 cm LVIVS thickness (0.6 - 1.2 cm): 1.29 cm LVPW thickness (0.5 - 1.0 cm): 1.27 cm e': 0.07 m/s E - e': 17.09 LVOT Max Gradient: 2.77 mm[Hg], 2.98 mm[Hg] LVOT Area (cm2): 0.85 m/s Peak Velocity (LVOT): 0.83 m/s, 0.86 m/s Mean Velocity (LVOT): 0.62 m/s LVOT Diameter 1.74 cm Left Ventricular Ejection Fraction: 35-40 % Left Atrium LA Volume Index (2D A2C): 42.75 ml/m2 Left Atrium Systolic Dimension: 4.02 cm Mitral Valve MV E to A Ratio: 1.11, 1.24 Mitral Valve A-Wave Peak Velocity: 1.01 m/s Mitral Valve E-Wave Peak Velocity: 1.19 m/s Right Ventricle RV Internal Diastolic Dimension: 2.83 cm Aorta AO Root Diam: 2.87 cm Ascending Ao Diam: 2.52 cm Aortic Valve AoV Area (Peak Edward): 1.43 cm2, 1.43 cm2, 1.42 cm2 AoV Area (VTI): 1.40 cm2, 1.47 cm2, 1.34 cm2 Peak Velocity(Antegrade Flow): 1.39 m/s, 1.45 m/s Peak Gradient(Antegrade Flow): 7.74 mm[Hg], 8.38 mm[Hg] Mean Velocity(Antegrade Flow): 0.96 m/s, 1.00 m/s Mean Gradient(Antegrade Flow): 4.15 mm[Hg], 4.57 mm[Hg] Velocity Time Integral: 30.05 cm, 31.89 cm Tricuspid Valve Peak Velocity (Regurgitant Flow): 3.12 m/s, 2.44 m/s, 2.12 m/s Pulmonic Valve Peak Velocity: 0.88 m/s Peak Gradient: 2.85 mm[Hg], 3.41 mm[Hg] Right Atrium Right Atrium Systolic Pressure: 38.64 ml, 38.64 ml Dictated by: Edgard Villatoro M.D. on 09/04/2023 at 17:56 Approved by: Edgard Villatoro M.D. on 09/04/2023 at 18:01
[2023-09-04] MEDS: HYDRALAZINE HCL 20 MG/ML VIAL 10 MG IVP (15:20)
[2023-09-04 15:39] LABS: Glucometer 507 mg/dL (74-106)
[2023-09-04] MEDS: INSULIN ASPART 300 UNIT/3 ML PEN SUBQ ×2 (15:49→21:32)
[2023-09-04] MEDS: ENOXAPARIN SODIUM 40 MG/0.4 ML SYRINGE SUBQ (16:52)
[2023-09-04] MEDS: SPIRONOLACTONE 25 MG TABLET PO (17:19)
[2023-09-04] MEDS: ISOSORBIDE MONONITRATE 30 MG TAB.ER.24H PO (17:20)
[2023-09-04 20:26] LABS: Glucometer 186 mg/dL (74-106)
[2023-09-04] MEDS: FUROSEMIDE 40 MG/4 ML VIAL IVP (20:47)
[2023-09-05] VITALS (22 sets, daily range): BP systolic 126–165; BP diastolic 59–75; PULSE 71–84; TEMP 36.8–37.1; O2SAT 91–95
[2023-09-05 06:14] LABS: Basophils Percent Auto 0.6 % (0.2-2.0); Eosinophils Absolute Auto 0.2 10^3/uL (0.0-0.7); Eosinophils Percent Auto 3.6 % (0.9-7.0); Hematocrit 27.5 % (36.0-48.0); Hemoglobin 9.4 g/dL (12.0-16.0); Immature Granulocytes Abs Auto 0.02 10^3/uL (0.00-0.03); Immature Granulocytes Pct Auto 0.4 % (0.0-0.5); Lymphocytes Absolute Auto 1.3 10^3/uL (1.2-3.8); Lymphocytes Percent Auto 25.1 % (20.5-60.0); Mean Corpuscular HGB Conc 34.2 g/dL (29.9-35.2); Mean Corpuscular Hemoglobin 29.7 pg (26.7-34.0); Monocytes Absolute Auto 0.6 10^3/uL (0.3-0.8); Neutrophils Absolute Auto 3.1 10^3/uL (1.4-6.5); Neutrophils Percent Auto 59.3 % (43.0-75.0); Platelet Count 203 10^3/uL (150-450); Red Blood Count 3.16 10^6/uL (4.20-5.40); Red Cell Distribution Width 13.1 % (11.0-15.0); White Blood Count 5.3 10^3/uL (4.0-11.0)
[2023-09-05 06:28] LABS: Alanine Aminotransferase 18 U/L (14-59); Albumin Globulin Ratio 0.8; Albumin Level 2.7 g/dL (3.4-5.0); Alkaline Phosphatase 77 U/L (46-116); Anion Gap 8.8; Aspartate Amino Transferase 10 U/L (15-37); BUN Creatinine Ratio 16.7; Bilirubin Total 0.8 mg/dL (0.2-1.0); Calcium 8.6 mg/dL (8.5-10.1); Carbon Dioxide 27.6 mmol/L (21.0-32.0); Chloride 98 mmol/L (98-107); Estimated GFR (African America >60 (>=60); Estimated GFR (Non-African Ame 54 (>=60); Globulin 3.2 g/dL; Glucose 269 mg/dL (74-106); Potassium 3.4 mmol/L (3.5-5.1); Sodium 131 mmol/L (136-145); Total Protein 5.9 g/dL (6.4-8.2)
[2023-09-05] MEDS: ISOSORBIDE MONONITRATE 30 MG TAB.ER.24H PO (08:16)
[2023-09-05] MEDS: POTASSIUM CHLORIDE 10 MEQ ER TABLET 40 MEQ PO (08:17)
[2023-09-05] MEDS: SPIRONOLACTONE 25 MG TABLET PO (08:17)
[2023-09-05] MEDS: INSULIN ASPART 300 UNIT/3 ML PEN SUBQ ×4 (08:17→22:00)
[2023-09-05] MEDS: FUROSEMIDE 40 MG/4 ML VIAL IVP ×2 (08:58→21:59)
[2023-09-05] MEDS: ONDANSETRON PF 4 MG/2 ML VIAL IV (10:42)
--- NOTE | 2023-09-05 10:48 | CM.NOTE ---
Rounds made with Dr. Stone. Dr. Stone discussed plan of care, Echo results with Keyanna. Will order cardiology consult. Keyanna verbalized understanding. No discharge today.
--- NOTE | 2023-09-05 11:03 | PM.HP ---
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 Patient herself reports shortness of breath at rest that is worse on exertion along with orthopnea, PND, lower extremity edema that has progressively gotten worse over the past 1 month. Workup in ER was consistent with volume overload likely secondary to acute on chronic diastolic heart failure for which she was admitted for inpatient treatment, IV diuresis. She was started on IV Lasix 40 twice daily. She was also noted to have poorly controlled blood pressure with blood pressure as high as 190/110 -values consistent with hypertensive emergency. She was also noted to have elevated blood glucose upon arrival for which she required sliding scale insulin coverage. An echocardiogram was ordered that shows new finding of reduced ejection fraction, grade 2 diastolic dysfunction, significant cardiac structural abnormality. Patient still feels quite short of breath at rest and has evidence of considerable volume overload based on exam. Opioid HPI Opioid Management Most Recent Pain and Opioid Data: Last Pain Assessment 09/05/23 11:00 Last ORT Total Score 0 09/04/23 14:30 Last ORT Risk Category Low Risk 09/04/23 14:30 Review of Systems ROS Status of ROS 10 or more systems reviewed and unremarkable except as noted in history and below PFS PFS Medical History (Updated 09/05/23 @ 11:09 by Shaikh Chase MD) CHF (congestive heart failure) ?I50.9 - Heart failure, unspecified (ICD-10) HTN (hypertension) ?I10 - Essential (primary) hypertension (ICD-10) HLD (hyperlipidemia) ?E78.5 - Hyperlipidemia, unspecified (ICD-10) Type 2 diabetes mellitus ?E11.9 - Type 2 diabetes mellitus without complications (ICD-10) Social History (Updated 09/05/23 @ 11:09 by Shaikh Chase MD) Within the past year, how often did you have a drink containing alcohol: never Within the past year, how often did you have six or more drinks on one occasion: never Score interpretation: A score less than 3 is consistent with normal alcohol consumption. Non-prescribed substance use: denies use Highest level of school completed/degree received: high school graduate Gender Identity: female Meds Home Medications and Allergies Home Medications ?Medication ?Instructions ?Recorded ?Confirmed ?Type furosemide 40 mg tablet 40 mg PO DAILY 09/04/23 09/04/23 History insulin detemir U-100 100 unit/mL 30 unit subcut BID 09/04/23 09/04/23 History (3 mL) subcutaneous pen (Levemir FlexPen) Allergies Allergy/AdvReac Type Severity Reaction Status Date / Time No Known Drug Allergies Allergy Verified 09/04/23 12:22 Exam Constitutional Vital Signs, click to edit/add: Last Vital Signs Temp 98.4 F 09/05/23 07:45 Pulse 80 09/05/23 10:50 Resp 15 09/05/23 07:45 BP 165/75 H 09/05/23 07:45 Pulse Ox 92 L 09/05/23 10:50 O2 Del Method Room Air 09/05/23 10:50 O2 Flow Rate 2 09/05/23 10:00 Documenting provider has reviewed patient's vital signs: yes Common normals: no apparent distress and oriented x3 General appearance: cooperative Respiratory Common normals: normal respiratory effort and no use of accessory muscles Effort & inspection: able to speak in complete sentences Auscultation: rales bilateral and diffuse Cardio Common normals: regular rate, S1 normal heart sound and S2 normal heart sound Rate: regular rate Heart sounds: S1 normal and S2 normal GI Common normals: Normal to inspection, nondistended, normoactive bowel sounds present, soft to palpation, non-tender and no hepatosplenomegaly Palpation: soft and no hepatosplenomegaly Extremity General: edema (+3 LE edema) Neuro Common normals: oriented x3, moves all extremities and no focal motor deficits Psych Common normals: mental status grossly normal, denies hallucinations, denies homicidal ideation and denies suicidal ideation Results Labs Labs: Short CBC 09/04/23 09/05/23 Range/Units 12:35 05:41 WBC 5.6 5.3 (4.0-11.0) 10^3/uL Hgb 10.8 L 9.4 L (12.0-16.0) g/dL Hct 31.4 L 27.5 L (36.0-48.0) % Plt Count 225 203 (150-450) 10^3/uL BMP 09/04/23 09/05/23 12:35 05:41 Sodium 132 L 131 L Potassium 3.9 3.4 L Chloride 94 L 98 Carbon Dioxide 28.7 27.6 BUN 18.0 17.0 Creatinine 1.24 H 1.02 Glucose 568 H* 269 H Calcium 8.9 8.6 Liver Function 09/04/23 09/05/23 Range/Units 12:35 05:41 Total Bilirubin 0.8 0.8 (0.2-1.0) mg/dL AST 14 L 10 L (15-37) U/L ALT 30 18 (14-59) U/L Alkaline Phosphatase 115 77 (46-116) U/L Albumin 3.3 L 2.7 L (3.4-5.0) g/dL Urine 09/04/23 Range/Units 13:05 Urine Color Lt. yellow (YELLOW) Urine Clarity Clear (CLEAR) Urine pH 6.0 (5.0-9.0) Ur Specific [place] <=1.005 A (1.005-1.025) Urine Protein Negative (NEG/TRACE) mg/dL Urine Glucose (UA) >=1000 A (NEGATIVE) mg/dL ABG ABG results: 09/04/23 12:35 VBG pH 7.409 VBG pCO2 41.7 Assessment and Plan Assessment and Plan (1) Acute on chronic combined systolic (congestive) and diastolic (congestive) heart failure: Assessment and Plan: Acute on chronic combined (systolic and diastolic) heart failure. On IV Lasix 40 twice daily. Monitor intake and output. Daily weights. Cardiology consulted. New finding of reduced ejection fraction on echo. Once euvolemic, may need to consider ischemic workup for coronary artery disease (2) Hypertensive emergency: Assessment and Plan: Blood pressure is now stable. Blood pressure is still above goal. Added carvedilol. Continue with Aldactone and Imdur. She will need to be started on guideline directed medical therapy for acute on chronic systolic heart failure but our goal now is to achieve euvolemia and improve her symptoms (3) Type 2 diabetes mellitus: Assessment and Plan: Poorly controlled and presented with hyperglycemia. She is on Levemir 30 units twice daily. Continue with sliding scale insulin. Improved now Qualifiers: Diabetes mellitus terminal superintendent insulin use: with terminal superintendent use Diabetes mellitus complication status: without complication Qualified Code(s): E11.9 - Type 2 diabetes mellitus without complications; Z79.4 - MCFP (current) use of insulin (4) HLD (hyperlipidemia): Assessment and Plan: Not on statin. Check lipid panel. Will start on Lipitor Qualifiers: Hyperlipidemia type: unspecified Qualified Code(s): E78.5 - Hyperlipidemia, unspecified (5) Non compliance w medication regimen: Assessment and Plan: Discussed importance of compliance with medication and follow-ups. Plan Continue with with inpatient treatment for acute on chronic systolic/diastolic heart failure. Patient is a still quite volume overload and will need continued IV diuresis. Monitor renal function and serum electrolytes closely while on diuresis. Follow-up cardiology recommendation once they have evaluated the patient.
[2023-09-05] MEDS: CARVEDILOL 12.5 MG TABLET PO ×2 (11:30→21:59)
[2023-09-05 11:37] LABS: Chol HDL Ratio 4.4; Cholesterol 159 mg/dL (<=200); HDL Cholesterol 36 mg/dL (40-60); Triglycerides 200 mg/dL (<=150)
--- NOTE | 2023-09-05 13:01 | SWNOTE1 ---
SW met with pt to discuss dc needs. Pt lives at [facility] in [place]. Pt lives on the 3rd floor and uses the elevator. Pt has a cane that she has been using the past few days to assist getting around. Pt has her sister do her grocery shopping, sometimes she does go with her. At this time pt has no concerns about discharge. No anticipated discharge needs. SW to follow as needed. Pt did work with therapy and recommendations were discharge to home. Important Message from Medicare reviewed and discussed with patient. Pt. verbalized understanding and signed the form. Original given to patient and copy placed in patient?s chart.
--- NOTE | 2023-09-05 17:43 | PM.CACN ---
History of Present Illness History of Present Illness Consult date: 09/05/23 Requesting physician: Shaikh Chase Consult reason: congestive heart failure Chief complaint: CHF AND WATER RETENTION Narrative: This is a 68-year-old woman with history of hypertension, hyperlipidemia and chronic diastolic heart failure who is currently admitted with worsening shortness of breath and lower extremity edema and acute on chronic heart failure decompensation. She was evaluated in the cardiology office on 09/04/2023 and she was complaining of significant symptoms of shortness of breath and lower extremity edema. She was found to be in significant volume overload and she was referred for admission to the [facility] for management. She was started on intravenous diuretic therapy with furosemide. In addition she is on spironolactone. She reports that she has not been compliant with her medications and diuretic therapies. She denies chest pain. She does not feel palpitations. Her EKG during hospitalization showed sinus rhythm without ischemic changes. Her prior echocardiogram in April 2022 showed preserved ventricular systolic function with grade 2 diastolic dysfunction and mild mitral and trace regurgitation with moderate elevated right-sided pressures. On admission she had evidence of renal dysfunction and creatinine improved today with diuresis. Her NT proBNP level was nearly 5000 on admission. Her blood pressure has been uncontrolled and severely elevated. Carvedilol added today. Review of Systems ROS Status of ROS 10 or more systems reviewed and unremarkable except as noted in history and below Cardiovascular Reports: edema Respiratory Reports: shortness of breath [facility] Medical History (Updated 09/05/23 @ 17:49 by LUCIANA DIAZ) CHF (congestive heart failure) ?I50.9 - Heart failure, unspecified (ICD-10) HTN (hypertension) ?I10 - Essential (primary) hypertension (ICD-10) HLD (hyperlipidemia) ?E78.5 - Hyperlipidemia, unspecified (ICD-10) Type 2 diabetes mellitus ?E11.9 - Type 2 diabetes mellitus without complications (ICD-10) Social History (Updated 09/05/23 @ 11:09 by Shaikh Chase MD) Within the past year, how often did you have a drink containing alcohol: never Within the past year, how often did you have six or more drinks on one occasion: never Score interpretation: A score less than 3 is consistent with normal alcohol consumption. Non-prescribed substance use: denies use Highest level of school completed/degree received: high school graduate Gender Identity: female Meds Home Medications and Allergies Home Medications ?Medication ?Instructions ?Recorded ?Confirmed ?Type furosemide 40 mg tablet 40 mg PO DAILY 09/04/23 09/04/23 History insulin detemir U-100 100 unit/mL 30 unit subcut BID 09/04/23 09/04/23 History (3 mL) subcutaneous pen (Levemir FlexPen) Allergies Allergy/AdvReac Type Severity Reaction Status Date / Time No Known Drug Allergies Allergy Verified 09/04/23 12:22 Exam Constitutional Vital Signs, click to edit/add: Last Vital Signs Temp 98.3 F 09/05/23 13:22 Pulse 71 09/05/23 15:57 Resp 18 09/05/23 13:22 BP 154/72 H 09/05/23 13:22 Pulse Ox 92 L 09/05/23 13:22 O2 Del Method Room Air 09/05/23 13:22 O2 Flow Rate 2 09/05/23 10:00 Common normals: no apparent distress, oriented x3 and healthy appearing HENMT Common normals: normocephalic Chest Common normals: inspection of chest normal Respiratory Common normals: normal respiratory effort, no retractions and no use of accessory muscles Auscultation: rales Cardio Common normals: regular rate, regular rhythm, S1 normal heart sound, S2 normal heart sound and no gallops Jugular venous distention: JVD Peripheral pulses: radial pulses present Extremity General: edema (+2 edema bilaterally) Neuro Common normals: oriented x3, moves all extremities, no focal motor deficits and no sensory deficits noted Results Labs and Meds Lab results: Cardiac Enzymes 09/05/23 Range/Units 05:41 AST 10 L (15-37) U/L Lipids 09/05/23 Range/Units 05:41 Triglycerides 200 H (<=150) mg/dL Cholesterol 159 (<=200) mg/dL HDL Cholesterol 36 L (40-60) mg/dL Cholesterol/HDL Ratio 4.4 CBC 09/05/23 Range/Units 05:41 WBC 5.3 (4.0-11.0) 10^3/uL RBC 3.16 L (4.20-5.40) 10^6/uL Hgb 9.4 L (12.0-16.0) g/dL Hct 27.5 L (36.0-48.0) % Plt Count 203 (150-450) 10^3/uL Neut # (Auto) 3.1 (1.4-6.5) 10^3/uL Lymph # (Auto) 1.3 (1.2-3.8) 10^3/uL [place] # (Auto) 0.6 (0.3-0.8) 10^3/uL Eos # (Auto) 0.2 (0.0-0.7) 10^3/uL Baso # (Auto) 0.0 (0.0-0.1) 10^3/uL Comprehensive Metabolic Panel 09/05/23 Range/Units 05:41 Sodium 131 L (136-145) mmol/L Potassium 3.4 L (3.5-5.1) mmol/L Chloride 98 (98-107) mmol/L Carbon Dioxide 27.6 (21.0-32.0) mmol/L BUN 17.0 (7.0-18.0) mg/dL Creatinine 1.02 (0.55-1.02) mg/dL Glucose 269 H (74-106) mg/dL Calcium 8.6 (8.5-10.1) mg/dL AST 10 L (15-37) U/L ALT 18 (14-59) U/L Alkaline Phosphatase 77 (46-116) U/L Total Protein 5.9 L (6.4-8.2) g/dL Albumin 2.7 L (3.4-5.0) g/dL Intake and Output 09/05/23 09/05/23 09/05/23 07:59 15:59 23:59 Intake Total 300 / 300 Output Total 1000 / 1100 1000 / 1000 Balance -700 / -800 -1000 / -1000 Intake: Oral 300 / 300 Output: Urine 1000 / 1100 1000 / 1000 EKG Interpretation EKG: sinus rhythm Assessment and Plan Assessment and Plan (1) Acute on chronic diastolic (congestive) heart failure: (2) Hypertensive emergency: (3) HLD (hyperlipidemia): Qualifiers: Hyperlipidemia type: unspecified Qualified Code(s): E78.5 - Hyperlipidemia, unspecified (4) Non compliance w medication regimen: (5) Type 2 diabetes mellitus: Qualifiers: Diabetes mellitus assisted insulin use: with terminal makeup operator use Diabetes mellitus complication status: without complication Qualified Code(s): E11.9 - Type 2 diabetes mellitus without complications; Z79.4 - 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 She has started responding to intravenous diuretic therapy but she still has evidence of significant volume overload. Blood pressure is uncontrolled despite medications. She does not have angina. Her EKG shows sinus rhythm. Her renal function is improving. Her NT proBNP is significantly elevated consistent with a decompensated heart failure. At this time I recommend continuing diuretic therapy with furosemide 40 mg IV twice daily in conjunction with spironolactone 25 mg daily. I recommend adding an SGLT2 inhibitor preferably Farxiga or Jardiance 10 mg daily or other SGLT2 inhibitor if those 2 are not available. For her uncontrolled hypertension recommend adding losartan 50 mg daily and to increase to 100 mg daily depending on response. She will need around 2 days of additional hospitalization to achieve euvolemia following which she can be shifted to a regimen of furosemide 40 mg daily p.o., spironolactone 25 mg daily, and either Jardiance or Farxiga 10 mg daily together with carvedilol and losartan. She should follow-up in the cardiology clinic within a week of discharge from the hospital.
[2023-09-05] MEDS: ENOXAPARIN SODIUM 40 MG/0.4 ML SYRINGE SUBQ (17:53)
[2023-09-05] MEDS: ACETAMINOPHEN 325 MG TABLET 650 MG PO (21:58)
[2023-09-05] MEDS: OXYCODONE HCL 5 MG TABLET PO (21:59)
[2023-09-05] MEDS: CANAGLIFLOZIN 100 MG TABLET PO (21:59)
[2023-09-05] MEDS: POTASSIUM CHLORIDE 10 MEQ ER TABLET 20 MEQ PO (21:59)
[2023-09-05] MEDS: LOSARTAN POTASSIUM 50 MG TABLET PO (22:00)
[2023-09-05] MEDS: INSULIN DETEMIR 300 UNIT/3 ML INSULN.PEN 30 UNIT SUBQ (22:03)
[2023-09-06] VITALS (21 sets, daily range): BP systolic 95–166; BP diastolic 51–75; PULSE 64–87; TEMP 36.3–37.1; O2SAT 88–97
[2023-09-06 03:02] LABS: Glucometer 107 mg/dL (74-106)
[2023-09-06 06:07] LABS: Basophils Percent Auto 0.4 % (0.2-2.0); Eosinophils Absolute Auto 0.2 10^3/uL (0.0-0.7); Eosinophils Percent Auto 3.6 % (0.9-7.0); Hematocrit 28.8 % (36.0-48.0); Hemoglobin 9.8 g/dL (12.0-16.0); Immature Granulocytes Abs Auto 0.02 10^3/uL (0.00-0.03); Immature Granulocytes Pct Auto 0.4 % (0.0-0.5); Lymphocytes Absolute Auto 1.3 10^3/uL (1.2-3.8); Lymphocytes Percent Auto 23.9 % (20.5-60.0); Mean Corpuscular Hemoglobin 29.7 pg (26.7-34.0); Mean Corpuscular Volume 87.3 fL (81.0-99.0); Mean Platelet Volume 9.5 fL (9.5-13.5); Monocytes Absolute Auto 0.6 10^3/uL (0.3-0.8); Monocytes Percent Auto 10.9 % (1.7-12.0); Neutrophils Absolute Auto 3.2 10^3/uL (1.4-6.5); Neutrophils Percent Auto 60.8 % (43.0-75.0); Platelet Count 209 10^3/uL (150-450); Red Cell Distribution Width 13.3 % (11.0-15.0); White Blood Count 5.2 10^3/uL (4.0-11.0)
[2023-09-06 06:21] LABS: Alanine Aminotransferase 19 U/L (14-59); Albumin Globulin Ratio 0.8; Albumin Level 2.7 g/dL (3.4-5.0); Alkaline Phosphatase 69 U/L (46-116); Anion Gap 10.5; Aspartate Amino Transferase 14 U/L (15-37); BUN Creatinine Ratio 14.2; Bilirubin Total 0.7 mg/dL (0.2-1.0); Calcium 8.8 mg/dL (8.5-10.1); Carbon Dioxide 28.7 mmol/L (21.0-32.0); Chloride 100 mmol/L (98-107); Estimated GFR (African America >60 (>=60); Estimated GFR (Non-African Ame 51 (>=60); Globulin 3.3 g/dL; Glucose 130 mg/dL (74-106); Potassium 4.2 mmol/L (3.5-5.1); Sodium 135 mmol/L (136-145)
--- NOTE | 2023-09-06 07:34 | XR_ITS ---
[address] [address] Patient Name: GLENN STAFFORD MRN: [id number] date: 1955 Sex: F Assigned Patient Location: [place] Current Patient Location: [place] Accession/Order Number: [id number] Exam Date: 09/06/2023 07:55 Report Date: 09/06/2023 09:10 At the request of: SHAIKH KANG Procedure: XR chest 1V EXAMINATION: XR chest 1V HISTORY: Congestive heart failure COMPARISON: XR chest 09/04/2023 FINDINGS: LUNGS: Opacification of the lung bases with loss of diaphragm and lower heart margins bilaterally; atelectasis versus infiltrates. VASCULATURE: No increased pulmonary vasculature. PLEURA: Bilateral pleural effusions. CARDIAC: Stable mild cardiomegaly. MEDIASTINUM: No visible mass or adenopathy. BONES: No fracture or visible bone lesion. OTHER: Negative. XR/XR chest 1V IMPRESSION: 1. Slight interval improvement in bibasilar moderate or greater pleural effusions and adjacent atelectasis or infiltrates. 2. Grossly stable cardiomegaly. Electronically authenticated by: MALLIKA ORTIZ Date: 09/06/2023 09:10
[2023-09-06] MEDS: FUROSEMIDE 40 MG/4 ML VIAL IVP (08:50)
[2023-09-06] MEDS: ISOSORBIDE MONONITRATE 30 MG TAB.ER.24H PO (08:50)
[2023-09-06] MEDS: POTASSIUM CHLORIDE 10 MEQ ER TABLET 20 MEQ PO ×2 (08:51→21:52)
[2023-09-06] MEDS: SPIRONOLACTONE 25 MG TABLET PO (08:51)
[2023-09-06] MEDS: INSULIN DETEMIR 300 UNIT/3 ML INSULN.PEN 30 UNIT SUBQ ×2 (08:51→21:52)
[2023-09-06] MEDS: CARVEDILOL 12.5 MG TABLET PO ×2 (08:51→21:53)
--- NOTE | 2023-09-06 10:21 | CM.NOTE ---
Rounds made with Dr. Stone. Dr. Stone discussed importance of medications and close physician follow up at discharge. Keyanna verbalizes understanding. No discharge today.
--- NOTE | 2023-09-06 10:25 | PM.IMPN1 ---
Progress Note: A&P Assessment and Plan (1) Acute on chronic combined systolic (congestive) and diastolic (congestive) heart failure: Assessment and Plan: Significant volume overload on exam. Increase lasix to 80 q12. Monitor I/O, daily weights. (2) Hypertensive emergency: Assessment and Plan: BP is better. C/w coreg, losartan, aldactone, imdur (3) HLD (hyperlipidemia): Assessment and Plan: C/w lipitor. Qualifiers: Hyperlipidemia type: unspecified Qualified Code(s): E78.5 - Hyperlipidemia, unspecified (4) Non compliance w medication regimen: Assessment and Plan: Discussed and reiterated the importance of compliance (5) Type 2 diabetes mellitus: Assessment and Plan: FSBS at goal with current regimen. Qualifiers: Diabetes mellitus intermodal customer service insulin use: with intermodal customer service use Diabetes mellitus complication status: without complication Qualified Code(s): E11.9 - Type 2 diabetes mellitus without complications; Z79.4 - correction (current) use of insulin Plan Still volume overload on exam and needs IV diuresis for it. Monitor renal function and serum electrolytes closely Internal Medicine - PN: Subj Subjective Interval history: Seen and examined. Feel slightly better. But still quite volume overload based on CXR, physical exam. Still has considerable NI. Exam Constitutional Vital Signs, click to edit/add: Last Vital Signs Temp 97.7 F 09/06/23 07:46 Pulse 68 09/06/23 10:00 Resp 18 09/06/23 07:50 BP 138/62 09/06/23 07:46 Pulse Ox 92 L 09/06/23 07:46 O2 Del Method Room Air 09/06/23 07:46 O2 Flow Rate 2 09/06/23 00:18 Documenting provider has reviewed patient's vital signs: yes Common normals: no apparent distress and oriented x3 General appearance: cooperative Respiratory Common normals: normal respiratory effort and no use of accessory muscles Effort & inspection: able to speak in complete sentences Auscultation: rales bilateral and diffuse Cardio Common normals: regular rate, S1 normal heart sound and S2 normal heart sound Rate: regular rate Heart sounds: S1 normal and S2 normal Extremity General: edema (+3 LE edema) Neuro Common normals: oriented x3, moves all extremities and no focal motor deficits Psych Common normals: mental status grossly normal, denies hallucinations, denies homicidal ideation and denies suicidal ideation Internal Medicine - PN: Obj Da Labs Labs: Laboratory Results - last 24 hr 09/05/23 09/06/23 09/06/23 05:41 03:01 05:57 WBC 5.2 RBC 3.30 L Hgb 9.8 L Hct 28.8 L MCV 87.3 MCH 29.7 MCHC 34.0 RDW 13.3 Plt Count 209 MPV 9.5 Neut % (Auto) 60.8 Lymph % (Auto) 23.9 M[place] % (Auto) 10.9 Eos % (Auto) 3.6 Baso % (Auto) 0.4 Neut # (Auto) 3.2 Lymph # (Auto) 1.3 [place] # (Auto) 0.6 Eos # (Auto) 0.2 Baso # (Auto) 0.0 Abs Immat Gran (auto) 0.02 Imm/Tot Granulo (auto) 0.4 Sodium 135 L Potassium 4.2 Chloride 100 Carbon Dioxide 28.7 Anion Gap 10.5 BUN 15.0 Creatinine 1.06 H Est GFR ( Amer) >60 Est GFR (Non-Af Amer) 51 L BUN/Creatinine Ratio 14.2 Glucose 130 H Calcium 8.8 Total Bilirubin 0.7 AST 14 L ALT 19 Alkaline Phosphatase 69 Total Protein 6.0 L Albumin 2.7 L Globulin 3.3 Albumin/Globulin Ratio 0.8 Triglycerides 200 H Cholesterol 159 LDL Cholesterol, Calc 83.0 VLDL Cholesterol 40.0 HDL Cholesterol 36 L Cholesterol/HDL Ratio 4.4 POC Glucose 107 H
[2023-09-06] MEDS: INSULIN ASPART 300 UNIT/3 ML PEN SUBQ ×2 (16:52→21:53)
[2023-09-06] MEDS: ENOXAPARIN SODIUM 40 MG/0.4 ML SYRINGE SUBQ (16:52)
[2023-09-06] MEDS: FUROSEMIDE 100 MG/10 ML VIAL 80 MG INJ (20:31)
[2023-09-06] MEDS: CANAGLIFLOZIN 100 MG TABLET PO (21:51)
[2023-09-06] MEDS: ATORVASTATIN CALCIUM 40 MG TABLET PO (21:51)
[2023-09-06] MEDS: LOSARTAN POTASSIUM 50 MG TABLET PO (21:55)
[2023-09-07] VITALS (8 sets, daily range): BP systolic 107–114; BP diastolic 61–65; PULSE 71–74; TEMP 36.5–36.7; O2SAT 91–94
[2023-09-07 06:18] LABS: Basophils Percent Auto 0.6 % (0.2-2.0); Eosinophils Absolute Auto 0.2 10^3/uL (0.0-0.7); Eosinophils Percent Auto 3.2 % (0.9-7.0); Hematocrit 30.4 % (36.0-48.0); Hemoglobin 10.1 g/dL (12.0-16.0); Immature Granulocytes Abs Auto 0.01 10^3/uL (0.00-0.03); Immature Granulocytes Pct Auto 0.2 % (0.0-0.5); Lymphocytes Absolute Auto 1.3 10^3/uL (1.2-3.8); Lymphocytes Percent Auto 25.3 % (20.5-60.0); Mean Corpuscular HGB Conc 33.2 g/dL (29.9-35.2); Mean Corpuscular Volume 87.4 fL (81.0-99.0); Mean Platelet Volume 10.9 fL (9.5-13.5); Monocytes Absolute Auto 0.5 10^3/uL (0.3-0.8); Monocytes Percent Auto 10.5 % (1.7-12.0); Neutrophils Percent Auto 60.2 % (43.0-75.0); Platelet Count 168 10^3/uL (150-450); Red Blood Count 3.48 10^6/uL (4.20-5.40); Red Cell Distribution Width 13.2 % (11.0-15.0); White Blood Count 4.9 10^3/uL (4.0-11.0)
[2023-09-07 06:33] LABS: Alanine Aminotransferase 20 U/L (14-59); Albumin Globulin Ratio 0.9; Alkaline Phosphatase 68 U/L (46-116); Anion Gap 12.2; Aspartate Amino Transferase 19 U/L (15-37); Bilirubin Total 0.8 mg/dL (0.2-1.0); Calcium 9.5 mg/dL (8.5-10.1); Carbon Dioxide 28.8 mmol/L (21.0-32.0); Chloride 100 mmol/L (98-107); Estimated GFR (African America >60 (>=60); Estimated GFR (Non-African Ame 55 (>=60); Globulin 3.4 g/dL; Glucose 90 mg/dL (74-106); Sodium 137 mmol/L (136-145); Total Protein 6.4 g/dL (6.4-8.2)
--- NOTE | 2023-09-07 09:46 | CM.NOTE ---
Rounds made with Dr. Stone. Plan for discharge today. Follow up with PCP and Cardiology. Keyanna agrees with discharge plan.
[2023-09-07] MEDS: POTASSIUM CHLORIDE 10 MEQ ER TABLET 20 MEQ PO (09:58)
[2023-09-07] MEDS: FUROSEMIDE 100 MG/10 ML VIAL 80 MG INJ (09:58)
[2023-09-07] MEDS: CARVEDILOL 12.5 MG TABLET PO (09:58)
[2023-09-07] MEDS: ISOSORBIDE MONONITRATE 30 MG TAB.ER.24H PO (09:58)
[2023-09-07] MEDS: SPIRONOLACTONE 25 MG TABLET PO (09:58)
--- NOTE | 2023-09-07 10:06 | PM.DS1 ---
DS: Providers Provider Date of admission: 09/04/23 14:15 Primary care physician: MISTY MCBRIDE Admitting clinician: Shaikh Chase Attending physician on admission: Shaikh Chase Consults: 09/04/23 14:53 Occupational Therapy Eval and Treat Routine Reason for consultation: Ambulatory dysfunction/weakness Physical Therapy Eval and Treat Routine Reason for consultation: Ambulatory dysfunction/weakness 09/05/23 Consult to Cardiology Routine Reason for consultation: CHF Has provider been notified: Yes Attending physician on discharge: Shaikh Chase Discharging clinician: Shaikh Chase Anticipated date of discharge: 09/07/23 DS: Diagnosis Discharge Diagnosis (1) Acute on chronic combined systolic (congestive) and diastolic (congestive) heart failure: Assessment and plan: Improved with IV Lasix but she is a still volume overload. However she can be transition to oral Lasix and follow-up with PCP and cardiology as outpatient (2) Hypertensive emergency: Assessment and plan: Blood pressure is significantly improved from before. Given her new finding of heart failure with reduced ejection fraction, she was started on carvedilol and losartan. She needs to monitor blood pressure at home and follow-up with PCP and cardiology as outpatient (3) HLD (hyperlipidemia): Assessment and plan: Continue with Lipitor Qualifiers: Hyperlipidemia type: unspecified Qualified Code(s): E78.5 - Hyperlipidemia, unspecified (4) Non compliance w medication regimen: Assessment and plan: Patient understands now that she needs to be compliant with follow-up and medications. She will follow-up with PCP and cardiology as recommended (5) Type 2 diabetes mellitus: Assessment and plan: Continue with home medications. Blood glucose at goal Qualifiers: Diabetes mellitus [employer] insulin use: with [employer] use Diabetes mellitus complication status: without complication Qualified Code(s): E11.9 - Type 2 diabetes mellitus without complications; Z79.4 - long-term (current) use of insulin DS: Summary Hospital Course Hospital Course: 68-year-old female was sent from allergist/immunologist office for generalized anasarca/shortness of breath and was admitted for acute on chronic diastolic heart failure and started on IV Lasix. She also had poorly controlled hypertension upon arrival and required IV medications to lower her blood pressure. Echocardiogram performed in the hospital showed new finding of reduced ejection fraction and she was started on carvedilol and losartan. Patient was also seen by cardiology in the hospital. Upon my assessment today, it seems like patient has achieved adequate diuresis and can be discharged on oral Lasix 40 twice daily. She will need close follow-up with PCP and cardiology as outpatient I also informed her that she needs to have her chemistries rechecked before she is seen by her PCP in 1 week. Patient instructed to return to the hospital if she has worsening shortness of breath, lower extremity edema. Status at Discharge Functional status at discharge: independent ambulation Overall status at discharge: patient is back to baseline Time Spent with Patient Time attestation: Total time spent providing and/or coordinating discharge services: Time spent: greater than 30 minutes Exam Constitutional Vital Signs, click to edit/add: Last Vital Signs Temp 98.0 F 09/07/23 08:00 Pulse 71 09/07/23 08:00 Resp 18 09/07/23 08:00 BP 114/65 09/07/23 08:00 Pulse Ox 94 L 09/07/23 08:00 O2 Del Method Room Air 09/07/23 08:00 O2 Flow Rate 2 09/06/23 00:18 Documenting provider has reviewed patient's vital signs: yes Common normals: no apparent distress and oriented x3 General appearance: cooperative Respiratory Common normals: normal respiratory effort, no use of accessory muscles and clear to auscultation bilaterally Effort & inspection: able to speak in complete sentences Cardio Common normals: regular rate, S1 normal heart sound and S2 normal heart sound Rate: regular rate Heart sounds: S1 normal and S2 normal Extremity General: edema (TRACE PEDAL EDEMA) Neuro Common normals: oriented x3, moves all extremities and no focal motor deficits Psych Common normals: mental status grossly normal, denies hallucinations, denies homicidal ideation and denies suicidal ideation DS: Data Data Completed and Pending Labs on day of discharge: Labs from last 24 hours 09/07/23 05:56 WBC 4.9 RBC 3.48 L Hgb 10.1 L Hct 30.4 L MCV 87.4 MCH 29.0 MCHC 33.2 RDW 13.2 Plt Count 168 MPV 10.9 Neut % (Auto) 60.2 Lymph % (Auto) 25.3 [place] % (Auto) 10.5 Eos % (Auto) 3.2 Baso % (Auto) 0.6 Neut # (Auto) 3.0 Lymph # (Auto) 1.3 [place] # (Auto) 0.5 Eos # (Auto) 0.2 Baso # (Auto) 0.0 Abs Immat Gran (auto) 0.01 Imm/Tot Granulo (auto) 0.2 Sodium 137 Potassium 4.0 Chloride 100 Carbon Dioxide 28.8 Anion Gap 12.2 BUN 14.0 Creatinine 1.00 Est GFR ( Amer) >60 Est GFR (Non-Af Amer) 55 L BUN/Creatinine Ratio 14.0 Glucose 90 Calcium 9.5 Total Bilirubin 0.8 AST 19 ALT 20 Alkaline Phosphatase 68 Total Protein 6.4 Albumin 3.0 L Globulin 3.4 Albumin/Globulin Ratio 0.9 Discharge Plan Discharge Disposition: Home, Self-Care Discharge Medications: New carvedilol [Coreg] 12.5 mg tablet 12.5 mg PO BID Qty: 60 0RF Rx Instructions: must administer with a meal/food losartan 50 mg tablet 50 mg PO DAILY Qty: 30 0RF atorvastatin [Lipitor] 40 mg tablet 40 mg PO DAILY Qty: 30 0RF Continued Levemir FlexPen 100 unit/mL (3 mL) insulin pen 30 unit SUBCUT BID Changed furosemide 40 mg tablet 40 mg PO BID Qty: 0 0RF Activity: increase activity as tolerated Diet: advance to your usual diet Print Language: Malawian Forms: Portal Instructions Follow Up Appointments: f/u with PCP In one week F.u with Cardiology in 1-2 weeks
[2023-09-07] MEDS: INSULIN ASPART 300 UNIT/3 ML PEN SUBQ (11:51)
--- NOTE | 2023-09-10 13:36 | CM.DCFOLLOWU ---
Person spoke with:patient How are you feeling? well How is your pain? none Did you understand your discharge instructions? yes Do you have any questions about your discharge instructions?no Were you given any prescriptions at discharge? yes Were you able to get your prescriptions filled? yes Do you understand how to take your medications as ordered? yes Do you have any questions about your follow up appointment and do you plan to keep your follow up appointment? no questions, reviewed follow ups with patient Is there anything else that you would like to discuss? no Questions/Comments/Concerns/Other: none
== END 2023-09-07 13:30 | disposition home or self-care (01) | DRG 291 ==
LOC: ER 13:46 → MS 14:26
PROVIDERS: Admitting Provider Internal Medicine; Emergency Provider Emergency Medicine Emergency Medical Services; PCP Nurse Practitioner Family; Visit Provider Internal Medicine
DX: I11.0 Hypertensive heart disease with heart failure (principal); I50.43 Acute on chronic combined systolic (congestive) and diastolic (congestive) heart failure; I16.1 Hypertensive emergency; E78.5 Hyperlipidemia, unspecified; E11.65 Type 2 diabetes mellitus with hyperglycemia; Z91.148 Patient's other noncompliance with medication regimen for other reason; Z79.4 Long term (current) use of insulin; Z79.899 Other long term (current) drug therapy
CPT/HCPCS: 36415; 71045; 80053; 80061; 81003; 82800; 82948; 83880; 84484; 85025; 85378; 85610; 93005; 93306; 93356; 94761; 96372; 96375; 96376; 97162; 97165; 97530; 97535; 99285; J0360; J1650; J1940; J2405

== ENCOUNTER 2023-10-24 09:39 | Outpatient (OUT) | payer MEDICARE, SELFPAY ==
--- OUTSIDE RECORDS SUMMARY | 2023-10-24 09:58 | XMS_ITS | CCD ---
Author Organization [facility] Care Team Providers Care Raise Drill Operator Name Role Phone EBRAHEIM, STUART Unavailable Unavailable EBRAHEIM, STUART Unavailable Unavailable REESE HODGES Unavailable Unavailable HODGESREESE Unavailable Unavailable EBRAHEIM, STUART Unavailable Unavailable EBRAHEIM, STUART Unavailable Unavailable BENI HODGESEL Unavailable Unavailable BENI HODGESEL Unavailable Unavailable NM Unavailable Unavailable EBRAHEIM, STUART Unavailable Unavailable NM Unavailable Unavailable YERMAL, SOORAJ G Unavailable Unavailable IRENE, MANOHAR Unavailable Unavailable IRENE, MANOHAR Unavailable Unavailable HODGES, REESE Unavailable Unavailable HODGES, REESE Unavailable Unavailable AICHHOLZ, SHIRT LINE OPERATOR SAMI Attending Unavailable AICHHOLZ, SHIRT LINE OPERATOR SAMI Consulting Unavailable AICHHOLZ, SHIRT LINE OPERATOR SAMI Primary Care Unavailable AICHHOLZ, SHIRT LINE OPERATOR SAMI Admitting Unavailable DR MALLIKA ORTIZ Consulting Unavailable GORAN TORRES Consulting Unavailable MARIANN DAVIDSON Consulting Unavailable AICHHOLZ, SHIRT LINE OPERATOR SAMI Primary Care Unavailable RALPH ., SVETA Admitting Unavailable RALPH ., SVETA Attending Unavailable PETRONA SUMNER Consulting Unavailable VIRGINIA TOTH Consulting Unavailable RALPH ., SVETA Consulting Unavailable DIAB ., KAROL Consulting Unavailable FRANCISCO, SHARAN Consulting Unavailable DR REESE HODGES Primary Care Unavailable WILMAN LAKHANI Admitting Unavailable DR MALLIKA ORTIZ Consulting Unavailable WILMAN LAKHANI Attending Unavailable WILMAN LAKHANI Consulting Unavailable AICHHOLZ, SHIRT LINE OPERATOR SAMI Consulting Unavailable AICHHOLZ, SHIRT LINE OPERATOR SAMI Primary Care Unavailable AICHHOLZ, SHIRT LINE OPERATOR SAMI Admitting Unavailable AICHHOLZ, SHIRT LINE OPERATOR SAMI Attending Unavailable AICHHOLZ, SHIRT LINE OPERATOR SAMI Consulting Unavailable AICHHOLZ, SHIRT LINE OPERATOR SAMI Admitting Unavailable AICHHOLZ, SHIRT LINE OPERATOR SAMI Primary Care Unavailable AICHHOLURBANO Roberts Attending Unavailable BALA SHEA Attending Unavailable MARIANN DAVIDSON Attending Unavailable MARIANN DAVIDSON Attending Unavailable Allergies Allergy Classification Reported Allergen(s) Allergy Type Date of Onset Reaction(s) Facility (1 source) succinylcholine chloride Drug allergy (disorder) 8 AOF [facility] Repository (1 source) Succinylcholine; Translations: [SUCCINYLCHOLINE] Drug Allergy 0 [facility] Repository Problems Active Problems Problem Classification Problem Date Documented Date Episodic/Chronic Congestive heart failure; nonhypertensive (5 sources) Heart failure, unspecified; Translations: [Acute diastolic (congestive) heart failure] Onset: 04-23-2022 Chronic Diabetes mellitus with complications (7 sources) Type 2 diabetes mellitus with hyperglycemia; [...] Onset: 01-07-2018 Chronic Other aftercare (2 sources) [facility] (current) use of insulin; Translations: [PET STYLIST (CURRENT) USE OF INSULIN] Onset: 12-31-2017 Episodic [...] [CONTACT W/AND (SUSP) EXPOS COVID-19] Onset: 05-03-2022 Unclassified (1 source) Patient's noncompliance with other medical treatment and regimen due to unspecified reason; Translations: [Patient's noncompliance with other medical treatment and regimen due to unspecified reason] Onset: 06-21-2022 Past or Other Problems Problem Classification Problem Date Documented Date Episodic/Chronic Unclassified (1 source) Patient's noncompliance with other medical treatment and regimen due to unspecified reason; Translations: [Patient's noncompliance with other medical treatment and regimen due to unspecified reason] Onset: 09-04-2023 Results Test Name Value Interpretation Reference Range Facility Office Visiton 09-21-2023 Follow-up visit [id number] Keyanna Stafford [place] 1955 Provider Department Center 09/21/2023 MirtaBALA CHAPMAN Family History Problem Relation Age of Onset Hypertension Mother Diabetes Mother Family Status - Relation Status Age at Mother Level of Service:55029 NM OFFICE/OUTPATIENT ESTABLISHED MOD MDM 30 MIN Reason for Visit and Comments: Follow-up [979572] - 1-2 wk follow up [facility] Office Visiton 09-04-2023 Follow-up visit [id number] LemuelBertsheri Che[place] 1955 Provider Department Center 09/04/2023 MARIANN DWYER Family History Problem Relation Age of Onset Hypertension Mother Diabetes Mother Family Status - Relation Status Age at Mother Level of Service:50154 NM OFFICE/OUTPATIENT ESTABLISHED MOD MDM 30 MIN Reason for Visit and Comments: Congestive Heart Failure [127] Hypertension [253436] Hyperlipidemia [182] [facility] 36on 03-20-2023 36 We can have her [...] her potassium go too high. Thank you. [facility] 36on 12-14-2022 36 Can we call her phar richard and confirm if she picked up her medication? I just sent in a refill for lisinopril/hydrochloroth iazide. Thanks [facility] Office Visiton 11-09-2022 Follow-up visit [id number] LemuelBertsheri [place]atham 1955 Provider Department Center 11/09/2022 MARIANN DWYER Family History Problem Relation Age of Onset Hypertension Mother Diabetes Mother Family Status - Relation Status Age at Mother Level of Service:16813 NM OFFICE/OUTPATIENT ESTABLISHED MOD MDM 30-39 MIN Reason for Visit and Comments: Hypertension [167334] Congestive Heart Failure [127] Normal [facility] Telephoneon 11-09-2022 Telephone [id number] Keyanna Stafford 1955 F Date Provider Department Center 11/09/2022 AJAY HERNÁNDEZ [facility] Family History Problem Relation Age of Onset Hypertension Mother Diabetes Mother Family Status - Relation Status Age at Mother Normal [facility] XR CHEST 2 Von 06-12-2022 XR CHEST [...] by: GORAN TORRES Date: 2022-06-12 13:31 Normal [facility] XR STERNUM MIN 2 VIEWSon XR STERNUM [...] by: MALLIKA ORTIZ Date: 2022-06-12 16:18 Normal [facility] PROF CHEM 8 (BAS METB)on Anion gap [Moles/Vol] 15.1 mmol/L Normal [facility] Comment on above: Performed By: #### H STROPN #### [facility] [address] [address] [address] Quique Ortiz Calcium [Mass/Vol] 9.5 mg/dL Normal 8.5-10.1 [facility] Comment on above: Performed By: #### H STROPN #### [facility] [address] [address] [address] Quique Ortiz Chloride [Moles/Vol] 95 mmol/L Critically low 98-107 [facility] Comment on above: Performed By: #### H STROPN #### [facility] [address] [address] [address] Quique Ortiz CO2 [Moles/Vol] 27.3 mmol/L Normal 21.0-32.0 [facility] Comment on above: Performed By: #### H STROPN #### [facility] [address] [address] [address] Quique Ortiz Creatinine [Mass/Vol] 1.01 mg/dL Normal 0.55-1.02 [facility] Comment on above: Performed By: #### H STROPN #### [facility] [address] [address] [address] Quique Ortiz EGFR-AF THAI >60 Normal >=60 [facility] Comment on above: Performed By: #### H STROPN #### [facility] [address] [address] [address] Quique Ortiz EGFR-NON AF THAI 55 mL/min/1.73m2 Critically low >=60 [facility] Comment on above: Performed By: #### H STROPN #### [facility] [address] [address] [address] Quique Ortiz Glucose [Mass/Vol] 483 mg/dL Critically high 74-106 T [facility] Comment on above: Performed By: #### H STROPN #### [facility] [address] [place] [address] Dr. Quique Ortiz Potassium [Moles/Vol] 4.4 mmol/L Normal 3.5-5.1 [facility] Comment on above: Performed By: #### H STROPN #### [facility] [address] [address] [address] Quique Ortiz Sodium [Moles/Vol] 133 mmol/L Critically low 136-145 [facility] Comment on above: Performed By: #### H STROPN #### [facility] [address] [address] [address] Quique Ortiz Urea nitrogen [Mass/Vol] 14.0 mg/dL Normal 7.0-18.0 [facility] Comment on above: Performed By: #### H STROPN #### [facility] [address] [place] [address] Dr. Quique Ortiz Urea nitrogen/Creatinine [Mass ratio] 13.9 mg/mg Normal [facility] Comment on above: Performed By: #### H STROPN #### [facility] [address] [place] [address] Dr. Quique Ortiz BNPon 04-25-2022 Natriuretic peptide B (Bld) [Mass/Vol] 1330.0 pg/mL Critically high <=900.0 [facility] Comment on above: Performed By: #### C VDTBH #### [facility] [address] [place] [address] Dr. Quique Ortiz CBC AUTO DIFFon 04-25-2022 BASO # 0.0 103/ul Normal 0.0-0.1 [facility] Comment on above: Performed By: #### C BC #### [facility] [address] [place] [address] Dr. Quique Ortiz Basophils/100 WBC (Bld) 0.4 % Normal 0.2-2.0 [facility] Comment on above: Performed By: #### C BC #### [facility] [address] [place] [address] Dr. Quique Ortiz EO # 0.1 103/ul Normal 0.0-0.7 [facility] Comment on above: Performed By: #### C BC #### [facility] [address] [place] [address] Dr. Quique Ortiz Eosinophils/100 WBC (Bld) 2.3 % Normal 0.9-7.0 [facility] Comment on above: Performed By: #### C BC #### [facility] [address] [place] [address] Dr. Quique Ortiz Erythrocyte distribution width (RBC) [Ratio] 13.2 % Normal 11.0-15.0 [facility] Comment on above: Performed By: #### C BC #### [facility] [address] [place] [address] Dr. Quique Ortiz Hematocrit (Bld) [Volume fraction] 32.7 % Critically low 36.0-48.0 [facility] Comment on above: Performed By: #### C BC #### [facility] [address] [place] [address] Dr. Quique Ortiz Hemoglobin (Bld) [Mass/Vol] 11.0 g/dL Critically low 12.0-16.0 [facility] Comment on above: Performed By: #### C BC #### [facility] [address] [place] [address] Dr. Quique Ortiz IG # 0.02 10e3/ul Normal 0.00-0.03 [facility] Comment on above: Performed By: #### C BC #### [facility] [address] [place] [address] Dr. Quique Ortiz IG % 0.4 % Normal 0.0-0.5 [facility] Comment on above: Performed By: #### C BC #### [facility] [address] [place] [address] Dr. Quique Ortiz LYMPH # 1.3 103/ul Normal 1.2-3.8 [facility] Comment on above: Performed By: #### C BC #### [facility] [address] [place] [address] Dr. Quique Ortiz Lymphocytes/100 WBC (Bld) 23.5 % Normal 20.5-60.0 [facility] Comment on above: Performed By: #### C BC #### [facility] [address] [place] [address] Dr. Quique Ortiz MANUAL DIFF REQ NO Normal [facility] Comment on above: Performed By: #### C BC #### [facility] [address] [place] [address] Dr. Quique Ortiz MCH (RBC) [Entitic mass] 29.3 pg Normal 26.7-34.0 [facility] Comment on above: Performed By: #### C BC #### [facility] [address] [place] [address] Dr. Quique Ortiz MCHC (RBC) [Mass/Vol] 33.6 g/dL Normal 29.9-35.2 [facility] Comment on above: Performed By: #### C BC #### [facility] [id number] Quique Ortiz MCV (RBC) [Entitic vol] 87.0 fL Normal 81.0-99.0 [facility] Comment on above: Performed By: #### C BC #### [facility] [address] [address] [address] Quique Ortiz MONO # 0.6 103/ul Normal 0.3-0.8 [facility] Comment on above: Performed By: #### C BC #### [facility] [address] [address] [address] Quique Ortiz Monocytes/100 WBC (Bld) 10.2 % Normal 1.7-12.0 [facility] Comment on above: Performed By: #### C BC #### [facility] [address] [place] [address] Dr. Quique Ortiz NEUT # 3.5 103/ul Normal 1.4-6.5 [facility] Comment on above: Performed By: #### C BC #### [facility] [address] [place] [address] Dr. Quique Ortiz Neutrophils/100 WBC (Bld) 63.2 % Normal 43.0-75.0 [facility] Comment on above: Performed By: #### C BC #### [facility] [address] [place] [address] Dr. Quique Ortiz Platelet mean volume (Bld) [Entitic vol] 9.2 fL Critically low 9.5-13.5 [facility] Comment on above: Performed By: #### C BC #### [facility] [address] [place] [address] Dr. Quique Ortiz PLT 243 103/ul Normal 150-450 [facility] Comment on above: Performed By: #### C BC #### [facility] [address] [id number] Quique Ortiz RBC 3.76 106/ul Critically low 4.20-5.40 [facility] Comment on above: Performed By: #### C BC #### [facility] [address] [address] [address] Quique Ortiz WBC 5.6 103/ul Normal 4.0-11.0 [facility] Comment on above: Performed By: #### C BC #### [facility] [address] [place] [address] Dr. Quique Ortiz POINT OF CARE GLUCOSEon 04-06 Glucose [Mass/Vol] 226 mg/dL Critically high 74-106 T [facility] Comment on above: Performed By: #### U AMIC #### [facility] [address] [place] [address] Dr. Quique Ortiz PROF 14(COMP METB)on 023 Albumin [Mass/Vol] 3.1 g/dL Critically low 3.4-5.0 [facility] Comment on above: Performed By: #### U AMIC #### [facility] [address] [place] [address] Dr. Quique Ortiz Albumin/Globulin [Mass ratio] 1.0 {ratio} Normal [facility] Comment on above: Performed By: #### U AMIC #### [facility] [address] [place] [address] Dr. Quique Ortiz ALP [Catalytic activity/Vol] 69 U/L Normal 46-116 [facility] Comment on above: Performed By: #### U AMIC #### [facility] [address] [place] [address] Dr. Quique Ortiz ALT [Catalytic activity/Vol] 16 U/L Normal 14-59 [facility] Comment on above: Performed By: #### U AMIC #### [facility] [address] [place] [address] Dr. Quique Ortiz Anion gap [Moles/Vol] 12.1 mmol/L Normal [facility] Comment on above: Performed By: #### U AMIC #### [facility] [address] [place] [address] Dr. Quique Ortiz AST [Catalytic activity/Vol] 12 U/L Critically low 15-37 [facility] Comment on above: Performed By: #### U AMIC #### [facility] [address] [address] [address] Quique Otriz Bilirubin [Mass/Vol] 0.7 mg/dL Normal 0.2-1.0 [facility] Comment on above: Performed By: #### U AMIC #### [facility] [address] [place] [address] Dr. Quique Ortiz Calcium [Mass/Vol] 9.0 mg/dL Normal 8.5-10.1 [facility] Comment on above: Performed By: #### U AMIC #### [facility] [address] [address] [address] Quique Ortiz Chloride [Moles/Vol] 101 mmol/L Normal 98-107 [facility] Comment on above: Performed By: #### U AMIC #### [facility] [address] [place] [address] Dr. Quique Ortiz CO2 [Moles/Vol] 28.5 mmol/L Normal 21.0-32.0 [facility] Comment on above: Performed By: #### U AMIC #### [facility] [address] [place] [address] Dr. Quique Ortiz Creatinine [Mass/Vol] 0.56 mg/dL Normal 0.55-1.02 [facility] Comment on above: Performed By: #### U AMIC #### [facility] [address] [place] [address] Dr. Quique Ortiz EGFR-AF THAI >60 Normal >=60 [facility] Comment on above: Performed By: #### U AMIC #### [facility] [address] [place] [address] Dr. Quique Ortiz EGFR-NON AF THAI >60 Normal >=60 [facility] Comment on above: Performed By: #### U AMIC #### [facility] [address] [place] [address] Dr. Quique Ortiz Globulin (S) [Mass/Vol] 3.2 g/dL Normal [facility] Comment on above: Performed By: #### U AMIC #### [facility] [address] [place] [address] Dr. Quique Ortiz Glucose [Mass/Vol] 187 mg/dL Critically high 74-106 T [facility] Comment on above: Performed By: #### U AMIC #### [facility] [address] [place] [address] Dr. Quique Ortiz Potassium [Moles/Vol] 3.6 mmol/L Normal 3.5-5.1 [facility] Comment on above: Performed By: #### U AMIC #### [facility] [address] [place] [address] Dr. Quique Ortiz Protein [Mass/Vol] 6.3 g/dL Critically low 6.4-8.2 [facility] Comment on above: Performed By: #### U AMIC #### [facility] [address] [place] [address] Dr. Quique Ortiz Sodium [Moles/Vol] 138 mmol/L Normal 136-145 [facility] Comment on above: Performed By: #### U AMIC #### [facility] [address] [place] [address] Dr. Quique Ortiz Urea nitrogen [Mass/Vol] 9.0 mg/dL Normal 7.0-18.0 [facility] Comment on above: Performed By: #### U AMIC #### [facility] [address] [place] [address] Dr. Quique Ortiz Urea nitrogen/Creatinine [Mass ratio] 16.1 mg/mg Normal [facility] Comment on above: Performed By: #### U AMIC #### [facility] [address] [place] [address] Dr. Quique Ortiz BNPon 04-24-2022 Natriuretic peptide B (Bld) [Mass/Vol] 1760.0 pg/mL Critically high <=900.0 [facility] Comment on above: Performed By: #### H STROPN #### [facility] [address] [place] [address] Dr. Quique Ortiz CBC AUTO DIFFon 04-24-2022 BASO # 0.0 103/ul Normal 0.0-0.1 [facility] Comment on above: Performed By: #### H STROPN #### [facility] [address] [address] [address] Quique Ortiz Basophils/100 WBC (Bld) 0.4 % Normal 0.2-2.0 [facility] Comment on above: Performed By: #### H STROPN #### [facility] [address] [address] [address] Quique Ortiz EO # 0.1 103/ul Normal 0.0-0.7 [facility] Comment on above: Performed By: #### H STROPN #### [facility] [address] [place] [address] Dr. Quique Ortiz Eosinophils/100 WBC (Bld) 2.6 % Normal 0.9-7.0 [facility] Comment on above: Performed By: #### H STROPN #### [facility] [address] [place] [address] Dr. Quique Ortiz Erythrocyte distribution width (RBC) [Ratio] 13.4 % Normal 11.0-15.0 [facility] Comment on above: Performed By: #### H STROPN #### [facility] [address] [place] [address] Dr. Quique Ortiz Hematocrit (Bld) [Volume fraction] 30.3 % Critically low 36.0-48.0 [facility] Comment on above: Performed By: #### H STROPN #### [facility] [address] [place] [address] Dr. Quique Ortiz Hemoglobin (Bld) [Mass/Vol] 10.1 g/dL Critically low 12.0-16.0 [facility] Comment on above: Performed By: #### H STROPN #### [facility] [address] [place] [address] Dr. Quique Ortiz IG # 0.02 10e3/ul Normal 0.00-0.03 [facility] Comment on above: Performed By: #### H STROPN #### [facility] [address] [place] [address] Dr. Quique Ortiz IG % 0.4 % Normal 0.0-0.5 [facility] Comment on above: Performed By: #### H STROPN #### [facility] [address] [address] [address] Quique Ortiz LYMPH # 1.7 103/ul Normal 1.2-3.8 [facility] Comment on above: Performed By: #### H STROPN #### [facility] [address] [address] [address] Quique Ortiz Lymphocytes/100 WBC (Bld) 33.9 % Normal 20.5-60.0 [facility] Comment on above: Performed By: #### H STROPN #### [facility] [address] [address] [address] Quique Ortiz MANUAL DIFF REQ NO Normal [facility] Comment on above: Performed By: #### H STROPN #### [facility] [address] [place] [address] Dr. Quique Ortiz MCH (RBC) [Entitic mass] 29.4 pg Normal 26.7-34.0 [facility] Comment on above: Performed By: #### H STROPN #### [facility] [address] [place] [address] Dr. Quique Ortiz MCHC (RBC) [Mass/Vol] 33.3 g/dL Normal 29.9-35.2 [facility] Comment on above: Performed By: #### H STROPN #### [facility] [address] [place] [address] Dr. Quique Ortiz MCV (RBC) [Entitic vol] 88.3 fL Normal 81.0-99.0 [facility] Comment on above: Performed By: #### H STROPN #### [facility] [address] [place] [address] Dr. Quique Ortiz MONO # 0.5 103/ul Normal 0.3-0.8 [facility] Comment on above: Performed By: #### H STROPN #### [facility] [address] [address] [address] Quique Ortiz Monocytes/100 WBC (Bld) 10.5 % Normal 1.7-12.0 [facility] Comment on above: Performed By: #### H STROPN #### [facility] [address] [address] [address] Quique Ortiz NEUT # 2.6 103/ul Normal 1.4-6.5 [facility] Comment on above: Performed By: #### H STROPN #### [facility] [address] [address] [address] Quique Ortiz Neutrophils/100 WBC (Bld) 52.2 % Normal 43.0-75.0 [facility] Comment on above: Performed By: #### H STROPN #### [facility] [address] [address] [address] Quique Ortiz Platelet mean volume (Bld) [Entitic vol] 9.2 fL Critically low 9.5-13.5 [facility] Comment on above: Performed By: #### H STROPN #### [facility] [address] [address] [address] Quique Ortiz PLT 227 103/ul Normal 150-450 [facility] Comment on above: Performed By: #### H STROPN #### [facility] [address] [address] [address] Quique Ortiz RBC 3.43 106/ul Critically low 4.20-5.40 [facility] Comment on above: Performed By: #### H STROPN #### [facility] [address] [address] [address] Quiqeu Ortiz WBC 5.0 103/ul Normal 4.0-11.0 [facility] Comment on above: Performed By: #### H STROPN #### [facility] [address] [address] [address] Quique Ortiz ECHOCARDIO M/2D COMPLETEon 0 04-24-2022 ECHOCARDIO M/2D COMPLETE Patient: KEYANNA STAFFORD Exam Date: 04/24/2022 : 1955 Gender:F Ordering : SVETA Granado Admission #: [id number] Family : PETRONA Colt Chaidez [facility] Order #: [id number] CLICK HERE TO VIEW EXAM ECHOCARDIOGRAM REPORT [...] Villatoro M.D. on 04/24/2022 at 14:35 Normal [facility] POINT OF CARE GLUCOSEon 04-06 Glucose [Mass/Vol] 331 mg/dL Critically high -106 [facility] Comment on above: Performed By: #### P OCGLUC #### [facility] [address] [place] [address] Dr. Quique Ortiz Glucose [Mass/Vol] 333 mg/dL Critically high 74-106 [facility] Comment on above: Performed By: #### P OCGLUC #### [facility] [address] [address] [address] Quique Ortiz Glucose [Mass/Vol] 283 mg/dL Critically high 74-106 [facility] Comment on above: Performed By: #### C VDTBH #### [facility] [address] [address] [address] Quique Ortiz PROF 14(COMP METB)on 023 Albumin [Mass/Vol] 2.9 g/dL Critically low 3.4-5.0 [facility] Comment on above: Performed By: #### H STROPN #### [facility] [address] [address] [address] Quique Ortiz Albumin/Globulin [Mass ratio] 1.1 {ratio} [facility] Comment on above: Performed By: #### H STROPN #### [facility] [address] [place] [address] Dr. Quique Ortiz ALP [Catalytic activity/Vol] 76 U/L Normal 46-116 [facility] Comment on above: Performed By: #### H STROPN #### [facility] [address] [address] [address] Quique Ortiz ALT [Catalytic activity/Vol] 13 U/L Critically low 14-59 [facility] Comment on above: Performed By: #### H STROPN #### [facility] [address] [address] [address] Quique Ortiz Anion gap [Moles/Vol] 9.9 mmol/L Normal [facility] Comment on above: Performed By: #### H STROPN #### [facility] [address] [address] [address] Quique Ortiz AST [Catalytic activity/Vol] 14 U/L Critically low 15-37 [facility] Comment on above: Performed By: #### H STROPN #### [facility] [address] [address] [address] Quique Ortiz Bilirubin [Mass/Vol] 0.5 mg/dL Normal 0.2-1.0 [facility] Comment on above: Performed By: #### H STROPN #### [facility] [address] [address] [address] Quique Ortiz Calcium [Mass/Vol] 8.3 mg/dL Critically low 8.5-10.1 [facility] Comment on above: Performed By: #### H STROPN #### [facility] [address] [address] [address] Quique Ortiz Chloride [Moles/Vol] 107 mmol/L Normal 98-107 [facility] Comment on above: Performed By: #### H STROPN #### [facility] [address] [address] [address] Quique Ortiz CO2 [Moles/Vol] 28.5 mmol/L Normal 21.0-32.0 [facility] Comment on above: Performed By: #### H STROPN #### [facility] [address] [place] [address] Dr. Quique Ortiz Creatinine [Mass/Vol] 0.54 mg/dL Critically low 0.55-1.02 [facility] Comment on above: Performed By: #### H STROPN #### [facility] [address] [address] [address] Quique Ortiz EGFR-AF THAI >60 Normal >=60 [facility] Comment on above: Performed By: #### H STROPN #### [facility] [address] [place] [address] Dr. Quique Ortiz EGFR-NON AF THAI >60 Normal >=60 [facility] Comment on above: Performed By: #### H STROPN #### [facility] [address] [address] [address] Quique Ortiz Globulin (S) [Mass/Vol] 2.7 g/dL Normal [facility] Comment on above: Performed By: #### H STROPN #### [facility] [address] [address] [address] Quique Ortiz Glucose [Mass/Vol] 110 mg/dL Critically high 74-106 [facility] Comment on above: Performed By: #### H STROPN #### [facility] [address] [address] [address] Quique Ortiz Potassium [Moles/Vol] 3.4 mmol/L Critically low 3.5-5.1 [facility] Comment on above: Performed By: #### H STROPN #### [facility] [address] [place] [address] Dr. Quique Ortiz Protein [Mass/Vol] 5.6 g/dL Critically low 6.4-8.2 [facility] Comment on above: Performed By: #### H STROPN #### [facility] [address] [address] [address] Quique Ortiz Sodium [Moles/Vol] 142 mmol/L Normal 136-145 [facility] Comment on above: Performed By: #### H STROPN #### [facility] [address] [place] [address] Dr. Quique Ortiz Urea nitrogen [Mass/Vol] 6.0 mg/dL Critically low 7.0-18.0 [facility] Comment on above: Performed By: #### H STROPN #### [facility] [address] [place] [address] Dr. Quique Ortiz Urea nitrogen/Creatinine [Mass ratio] 11.1 mg/mg Normal [facility] Comment on above: Performed By: #### H STROPN #### [facility] [address] [place] [address] Dr. Quique Ortiz BNPon 04-23-2022 Natriuretic peptide B (Bld) [Mass/Vol] 1898.0 pg/mL Critically high <=900.0 [facility] Comment on above: Performed By: #### U AMIC #### [facility] [address] [place] [address] Dr. Quique Ortiz CARDIAC GORAN ADMITon 023 CK [Catalytic activity/Vol] 113 U/L Normal 26-192 [facility] Comment on above: Performed By: #### U AMIC #### [facility] [address] [place] [address] Dr. Quique Ortiz CK.MB [Mass/Vol] 2.55 ng/mL Normal <=3.60 [facility] Comment on above: Performed By: #### U AMIC #### [facility] [address] [address] [address] Quique Ortiz HSTROP 11.2 pg/mL Normal 4.0-51.3 [facility] Comment on above: Result Comment: CUT- OFF POINTS HAVE BEEN ESTABLISHED BASED ON THE FOURTH UNIVERSAL DEFINITIONS OF MYOCARDIAL INFARCTION. THE UPPER REFERENCE LIMIT (URL) OF TROPONIN, DEFINED THE 99TH PERCENTILE OF cTnI DISTRIBUTION IN A REFERENCE POPULATION, HAS BEEN CONFIRMED THE DECISION THRESHOLD FOR [place] DIAGNOSIS. Performed By: #### U AMIC #### [facility] [address] [place] [address] Dr. Quique Ortiz JAXSON 50 ng/mL Normal 9-82 [facility] Comment on above: Performed By: #### U AMIC #### [facility] [address] [place] [address] Dr. Quique Ortiz CBC AUTO DIFFon 04-23-2022 BASO # 0.0 103/ul Normal 0.0-0.1 [facility] Comment on above: Performed By: #### H STROPN #### [facility] [address] [place] [address] Dr. Quique Ortiz Basophils/100 WBC (Bld) 0.5 % Normal 0.2-2.0 [facility] Comment on above: Performed By: #### H STROPN #### [facility] [address] [place] [address] Dr. Quique Ortiz EO # 0.1 103/ul Normal 0.0-0.7 [facility] Comment on above: Performed By: #### H STROPN #### [facility] [address] [place] [address] Dr. Quique Ortiz Eosinophils/100 WBC (Bld) 1.8 % Normal 0.9-7.0 [facility] Comment on above: Performed By: #### H STROPN #### [facility] [address] [place] [address] Dr. Quique Ortiz Erythrocyte distribution width (RBC) [Ratio] 13.4 % Normal 11.0-15.0 [facility] Comment on above: Performed By: #### H STROPN #### [facility] [address] [address] [address] Quique Ortiz Hematocrit (Bld) [Volume fraction] 35.9 % Critically low 36.0-48.0 [facility] Comment on above: Performed By: #### H STROPN #### [facility] [address] [address] [address] Quique Ortiz Hemoglobin (Bld) [Mass/Vol] 11.9 g/dL Critically low 12.0-16.0 [facility] Comment on above: Performed By: #### H STROPN #### [facility] [address] [address] [address] Quique Ortiz IG # 0.02 10e3/ul Normal 0.00-0.03 [facility] Comment on above: Performed By: #### H STROPN #### [facility] [address] [place] [address] Dr. Quique Ortiz IG % 0.4 % Normal 0.0-0.5 [facility] Comment on above: Performed By: #### H STROPN #### [facility] [address] [address] [address] Quique Ortiz LYMPH # 1.3 103/ul Normal 1.2-3.8 [facility] Comment on above: Performed By: #### H STROPN #### [facility] [address] [place] [address] Dr. Quique Ortiz Lymphocytes/100 WBC (Bld) 23.5 % Normal 20.5-60.0 [facility] Comment on above: Performed By: #### H STROPN #### [facility] [address] [address] [address] Quique Ortiz MANUAL DIFF REQ NO Normal [facility] Comment on above: Performed By: #### H STROPN #### [facility] [address] [place] [address] Dr. Quique Ortiz MCH (RBC) [Entitic mass] 29.4 pg Normal 26.7-34.0 [facility] Comment on above: Performed By: #### H STROPN #### [facility] [address] [address] [address] Quique Ortiz MCHC (RBC) [Mass/Vol] 33.1 g/dL Normal 29.9-35.2 [facility] Comment on above: Performed By: #### H STROPN #### [facility] [address] [place] [address] Dr. Quique Ortiz MCV (RBC) [Entitic vol] 88.6 fL Normal 81.0-99.0 [facility] Comment on above: Performed By: #### H STROPN #### [facility] [address] [place] [address] Dr. Quique Ortiz MONO # 0.5 103/ul Normal 0.3-0.8 [facility] Comment on above: Performed By: #### H STROPN #### [facility] [address] [place] [address] Dr. Quique Ortiz Monocytes/100 WBC (Bld) 8.8 % Normal 1.7-12.0 [facility] Comment on above: Performed By: #### H STROPN #### [facility] [address] [place] [address] Dr. Quique Ortiz NEUT # 3.6 103/ul Normal 1.4-6.5 [facility] Comment on above: Performed By: #### H STROPN #### [facility] [address] [place] [address] Dr. Quique Ortiz Neutrophils/100 WBC (Bld) 65.0 % Normal 43.0-75.0 [facility] Comment on above: Performed By: #### H STROPN #### [facility] [address] [place] [address] Dr. Quique Ortiz Platelet mean volume (Bld) [Entitic vol] 9.4 fL Critically low 9.5-13.5 [facility] Comment on above: Performed By: #### H STROPN #### [facility] [address] [place] [address] Dr. Quique Ortiz PLT 277 103/ul Normal 150-450 [facility] Comment on above: Performed By: #### H STROPN #### [facility] [address] [place], [place] [address] Dr. Quique Ortiz RBC 4.05 106/ul Critically low 4.20-5.40 [facility] Comment on above: Performed By: #### H STROPN #### [facility] [address] [place], [place] [address] Dr. Quique Ortiz WBC 5.6 103/ul Normal 4.0-11.0 [facility] Comment on above: Performed By: #### H STROPN #### [facility] [address] [place], [place] [address] Dr. Quique Ortiz CTA CHEST WO W [...] SHARAN SINGH Date: 2022-04-23 18:04 Normal [facility] Covid-19 PCR (CVDTBH)on 04-05 SARS-CoV-2 (COVID-19) RNA ALESIA+probe Ql (Unsp spec) Not detected Normal NOT DETECTED [facility] Comment on above: Result Comment: When diagnostic [...] for this test is supported by the [place] of Health and Human Service's declaration that [...] used). Performed By: #### C VDTBH #### [facility] [address] [place] [address] Dr. Quique Ortiz D-DIMERon 04-23-2022 D-DIMER 0.82 mg/L FEU Critically high <=0.[address] [facility] Comment on above: Performed By: #### D DIM #### [facility] [address] [place] [address] Dr. Quique Ortiz D-DIMER COMMENTS SEE BELOW Normal [facility] Comment on above: Result Comment: Incr [...] hospitalization. Performed By: #### D DIM #### [facility] [address] [place] [address] Dr. Quique Ortiz POINT OF CARE GLUCOSEon - Glucose [Mass/Vol] 113 mg/dL Critically high 74-106 T [facility] Comment on above: Performed By: #### H STROPN #### [facility] [address] [address] [address] Quique Ortiz PROF 14(COMP METB)on 023 Albumin [Mass/Vol] 3.5 g/dL Normal 3.4-5.0 [facility] Comment on above: Performed By: #### U AMIC #### [facility] [address] [address] [address] Quique Ortiz Albumin/Globulin [Mass ratio] 1.0 {ratio} Normal [facility] Comment on above: Performed By: #### U AMIC #### [facility] [address] [address] [address] Quique Ortiz ALP [Catalytic activity/Vol] 102 U/L Normal 46-116 [facility] Comment on above: Performed By: #### U AMIC #### [facility] [address] [place] [address] Dr. Quique Ortiz ALT [Catalytic activity/Vol] 17 U/L Normal 14-59 [facility] Comment on above: Performed By: #### U AMIC #### [facility] [address] [address] [address] Quique Ortiz Anion gap [Moles/Vol] 11.1 mmol/L Normal [facility] Comment on above: Performed By: #### U AMIC #### [facility] [address] [place] [address] Dr. Quique Ortiz AST [Catalytic activity/Vol] 18 U/L Normal 15-37 [facility] Comment on above: Performed By: #### U AMIC #### [facility] [address] [address] [address] Quique Ortiz Bilirubin [Mass/Vol] 0.7 mg/dL Normal 0.2-1.0 [facility] Comment on above: Performed By: #### U AMIC #### [facility] [address] [address] [address] Quique Ortiz Calcium [Mass/Vol] 9.0 mg/dL Normal 8.5-10.[address] [facility] Comment on above: Performed By: #### U AMIC #### [facility] [address] [address] [address] Quique Ortiz Chloride [Moles/Vol] 105 mmol/L Normal 98-107 [facility] Comment on above: Performed By: #### U AMIC #### [facility] [address] [address] [address] Quique Ortiz CO2 [Moles/Vol] 27.6 mmol/L Normal 21.0-32.0 [facility] Comment on above: Performed By: #### U AMIC #### [facility] [address] [address] [address] Quique Ortiz Creatinine [Mass/Vol] 0.57 mg/dL Normal 0.55-1.02 [facility] Comment on above: Performed By: #### U AMIC #### [facility] [address] [address] [address] Quique Ortiz EGFR-AF THAI >60 Normal >=60 [facility] Comment on above: Performed By: #### U AMIC #### [facility] [address] [address] [address] Quique Ortiz EGFR-NON AF THAI >60 Normal >=60 [facility] Comment on above: Performed By: #### U AMIC #### [facility] [address] [address] [address] Quique Ortiz Globulin (S) [Mass/Vol] 3.6 g/dL Normal [facility] Comment on above: Performed By: #### U AMIC #### [facility] [address] [address] [address] Quique Ortiz Glucose [Mass/Vol] 135 mg/dL Critically high 74-106 [facility] Comment on above: Performed By: #### U AMIC #### [facility] [address] [address] [address] Quique Ortiz Potassium [Moles/Vol] 3.7 mmol/L Normal 3.5-5.1 [facility] Comment on above: Performed By: #### U AMIC #### [facility] [address] [address] [address] Quique Ortiz Protein [Mass/Vol] 7.1 g/dL Normal 6.4-8.[address] [facility] Comment on above: Performed By: #### U AMIC #### [facility] [address] [address] [address] Quique Ortiz Sodium [Moles/Vol] 140 mmol/L Normal 136-[address] [facility] Comment on above: Performed By: #### U AMIC #### [facility] [address] [address] [address] Quique Ortiz Urea nitrogen [Mass/Vol] 7.0 mg/dL Normal 7.0-18.0 [facility] Comment on above: Performed By: #### U AMIC #### [facility] [address] [address] [address] Quique Ortiz Urea nitrogen/Creatinine [Mass ratio] 12.3 mg/mg Normal [facility] Comment on above: Performed By: #### U AMIC #### [facility] [address] [address] [address] Quique Ortiz TROPONIN, HIGH SENSITIVITYon 04-23-2022 HSTROP 10.9 pg/mL Normal 4.0-51.3 [facility] Comment on above: Result Comment: CUT- OFF POINTS HAVE BEEN ESTABLISHED BASED ON THE FOURTH UNIVERSAL DEFINITIONS OF MYOCARDIAL INFARCTION. THE UPPER REFERENCE LIMIT (URL) OF TROPONIN, DEFINED THE 99TH PERCENTILE OF cTnI DISTRIBUTION IN A REFERENCE POPULATION, HAS BEEN CONFIRMED THE DECISION THRESHOLD FOR [place] DIAGNOSIS. Performed By: #### H STROPN #### [facility] [address] [place] [address] Dr. Quique Ortiz XR CHEST 1 Von 04-23-2022 XR CHEST 1 V EXAM: XR CHEST 1 V HISTORY: Shortness of breath and chest heaviness. COMPARISON: None. TECHNIQUE: Portable chest FINDINGS: IMPRESSION: Moderate bilateral pleural effusions. No pneumothorax. No focal parenchymal consolidation or infiltrate. Electronically authenticated by: PETRONA SUMNER Date: 2022-04-23 15:45 Normal [facility] CBC AUTO DIFFon 04-11-2022 BASO # 0.0 103/ul Normal 0.0-0.1 [facility] Comment on above: Performed By: #### U AMIC #### [facility] [address] [address] [address] Quique Ortiz Basophils/100 WBC (Bld) 0.5 % Normal 0.2-2.0 [facility] Comment on above: Performed By: #### U AMIC #### [facility] [address] [place] [address] Dr. Quique Ortiz EO # 0.1 103/ul Normal 0.0-0.7 [facility] Comment on above: Performed By: #### U AMIC #### [facility] [address] [place] [address] Dr. Quique Ortiz Eosinophils/100 WBC (Bld) 1.6 % Normal 0.9-7.0 [facility] Comment on above: Performed By: #### U AMIC #### [facility] [address] [place] [address] Dr. Quique Ortiz Erythrocyte distribution width (RBC) [Ratio] 12.6 % Normal 11.0-15.0 [facility] Comment on above: Performed By: #### U AMIC #### [facility] [address] [place] [address] Dr. Quique Ortiz Hematocrit (Bld) [Volume fraction] 34.3 % Critically low 36.0-48.0 [facility] Comment on above: Performed By: #### U AMIC #### [facility] [address] [place] [address] Dr. Quique Ortiz Hemoglobin (Bld) [Mass/Vol] 11.5 g/dL Critically low 12.0-16.0 [facility] Comment on above: Performed By: #### U AMIC #### [facility] [address] [place] [address] Dr. Quique Ortiz IG # 0.01 10e3/ul Normal 0.00-0.03 [facility] Comment on above: Performed By: #### U AMIC #### [facility] [address] [place] [address] Dr. Quique Ortiz IG % 0.2 % Normal 0.0-0.5 [facility] Comment on above: Performed By: #### U AMIC #### [facility] [address] [place] [address] Dr. Quique Ortiz LYMPH # 1.3 103/ul Normal 1.2-3.8 [facility] Comment on above: Performed By: #### U AMIC #### [facility] [address] [place] [address] Dr. Quique Ortiz Lymphocytes/100 WBC (Bld) 24.0 % Normal 20.5-60.0 [facility] Comment on above: Performed By: #### U AMIC #### [facility] [address] [place] [address] Dr. Quique Ortiz MANUAL DIFF REQ NO Normal [facility] Comment on above: Performed By: #### U AMIC #### [facility] [address] [place] [address] Dr. Quique Ortiz MCH (RBC) [Entitic mass] 28.5 pg Normal 26.7-34.0 [facility] Comment on above: Performed By: #### U AMIC #### [facility] [address] [place] [address] Dr. Quique Ortiz MCHC (RBC) [Mass/Vol] 33.5 g/dL Normal 29.9-35.2 [facility] Comment on above: Performed By: #### U AMIC #### [facility] [address] [place] [address] Dr. Quique Ortiz MCV (RBC) [Entitic vol] 85.1 fL Normal 81.0-99.0 [facility] Comment on above: Performed By: #### U AMIC #### [facility] [address] [place] [address] Dr. Quique Ortiz MONO # 0.5 103/ul Normal 0.3-0.8 [facility] Comment on above: Performed By: #### U AMIC #### [facility] [address] [place] [address] Dr. Quique Ortiz Monocytes/100 WBC (Bld) 8.3 % Normal 1.7-12.0 [facility] Comment on above: Performed By: #### U AMIC #### [facility] [address] [address] [address] Quique Ortiz NEUT # 3.6 103/ul Normal 1.4-6.5 [facility] Comment on above: Performed By: #### U AMIC #### [facility] [address] [address] [address] Quique Ortiz Neutrophils/100 WBC (Bld) 65.4 % Normal 43.0-75.0 [facility] Comment on above: Performed By: #### U AMIC #### [facility] [address] [address] [address] Quique Ortiz Platelet mean volume (Bld) [Entitic vol] 9.0 fL Critically low 9.5-13.5 [facility] Comment on above: Performed By: #### U AMIC #### [facility] [address] [place] [address] Dr. Quique Ortiz PLT 243 103/ul Normal 150-450 [facility] Comment on above: Performed By: #### U AMIC #### [facility] [address] [place] [address] Dr. Quique Ortiz RBC 4.03 106/ul Critically low 4.20-5.40 [facility] Comment on above: Performed By: #### U AMIC #### [facility] [address] [place] [address] Dr. Quique Ortiz WBC 5.5 103/ul Normal 4.0-11.0 [facility] Comment on above: Performed By: #### U AMIC #### [facility] [address] [place] [address] Dr. Quique Ortiz GLYCOHEMOGLOBIN A1Con 2022 ADA RECOMMENDATION SEE BELOW Normal [facility] Comment on above: Result Comment: ADA RECOMMENDED LIMIT 4.0 - 6.0 ADA THERAPEUTIC TARGET < 7.0 ACTION SUGGESTED > 7.0 Performed By: #### C VDTB #### [facility] [address] [place] [address] Dr. Quique Ortiz Glucose [Mass/Vol] 292 mg/dL Normal [facility] Comment on above: Performed By: #### C VDTBH #### [facility] [address] [address] [address] Quique Ortiz HbA1c (Bld) [Mass fraction] 11.8 % Critically high 4.5-6.2 [facility] Comment on above: Performed By: #### C VDTBH #### [facility] [address] [address] [address] Quique Ortiz LIPID PROFILEon 04-11-2022 CHOL-HDL RATIO NORM SEE BELOW [facility] Comment on above: Result Comment: 3.3 - 4.4 LOW RISK 4.4 - 7.1 AVERAGE RISK 7.1 - 11.0 MODERATE RISK >11.0 HIGH RISK Performed By: #### L IPID, MG, CMP #### [facility] [address] [address] [address] Quique Ortiz Cholesterol [Mass/Vol] 227 mg/dL Critically high <=200 [facility] Comment on above: Performed By: #### L IPID, MG, CMP #### [facility] [address] [address] [address] Quique Ortiz Cholesterol in HDL [Mass/Vol] 48 mg/dL Normal 40-60 [facility] Comment on above: Performed By: #### L IPID, MG, CMP #### [facility] [address] [address] [address] Quique Ortiz Cholesterol in LDL [Mass/Vol] 149.8 mg/dL Normal [facility] Comment on above: Performed By: #### L IPID, MG, CMP #### [facility] [address] [address] [address] Quique Ortiz Cholesterol.total/C holesterol in HDL [Mass ratio] 4.7 {ratio} Normal [facility] Comment on above: Performed By: #### L IPID, MG, CMP #### [facility] [address] [address] [address] Quique Ortiz HDL NORMAL > or = 60 mg/dl - LO W CARDIOVASCULAR RISK <40 mg/dl - HIGH CARDIOVASCULAR RISK Normal [facility] Comment on above: Performed By: #### L IPID, MG, CMP #### [facility] [address] [address] [address] Quique Ortiz LDL CALC NORMAL SEE BELOW Normal [facility] Comment on above: Result Comment: <100 mg/dl OPTIMAL 100 - 129 mg/dl NEAR OR ABOVE OPTIMAL 130 - 159 mg/dl BORDERLINE HIGH 160 - 189 mg/dl HIGH >190 mg/dl VERY HIGH Performed By: #### L IPID, MG, CMP #### [facility] [address] [address] [address] Quique Ortiz Triglyceride [Mass/Vol] 146 mg/dL Normal <=150 [facility] Comment on above: Performed By: #### L IPID, MG, CMP #### [facility] [address] [place] [address] Dr. Quique Ortiz VLDL CALC 29.2 mg/dL Normal [facility] Comment on above: Performed By: #### L IPID, MG, CMP #### [facility] [address] [place] [address] Dr. Quique Ortiz MAGNESIUMon 04-11-2022 Magnesium [Mass/Vol] 2.0 mg/dL Normal 1.8-2.4 [facility] Comment on above: Performed By: #### L IPID, MG, CMP #### [facility] [address] [place] [address] Dr. Quique Ortiz PROF 14(COMP METB)on 023 Albumin [Mass/Vol] 3.4 g/dL Normal 3.4-5.0 [facility] Comment on above: Performed By: #### L IPID, MG, CMP #### [facility] [address] [place] [address] Dr. Quique Ortiz Albumin/Globulin [Mass ratio] 1.0 {ratio} Normal [facility] Comment on above: Performed By: #### L IPID, MG, CMP #### [facility] [address] [place] [address] Dr. Quique Ortiz ALP [Catalytic activity/Vol] 89 U/L Normal 46-116 [facility] Comment on above: Performed By: #### L IPID, MG, CMP #### [facility] [address] [place] [address] Dr. Quique Ortiz ALT [Catalytic activity/Vol] 15 U/L Normal 14-59 [facility] Comment on above: Performed By: #### L IPID, MG, CMP #### [facility] [address] [place] [address] Dr. Quique Ortiz Anion gap [Moles/Vol] 10.3 mmol/L Normal [facility] Comment on above: Performed By: #### L IPID, MG, CMP #### [facility] [address] [place] [address] Dr. Quique Ortiz AST [Catalytic activity/Vol] 13 U/L Critically low 15-37 [facility] Comment on above: Performed By: #### L IPID, MG, CMP #### [facility] [address] [place] [address] Dr. Quique Ortiz Bilirubin [Mass/Vol] 0.7 mg/dL Normal 0.2-1.0 [facility] Comment on above: Performed By: #### L IPID, MG, CMP #### [facility] [address] [place] [address] Dr. Quique Ortiz Calcium [Mass/Vol] 9.2 mg/dL Normal 8.5-10.1 [facility] Comment on above: Performed By: #### L IPID, MG, CMP #### [facility] [address] [place] [address] Dr. Quique Ortiz Chloride [Moles/Vol] 100 mmol/L Normal 98-107 [facility] Comment on above: Performed By: #### L IPID, MG, CMP #### [facility] [address] [place] [address] Dr. Quique Ortiz CO2 [Moles/Vol] 27.7 mmol/L Normal 21.0-32.0 [facility] Comment on above: Performed By: #### L IPID, MG, CMP #### [facility] [address] [address] [address] Quique Ortiz Creatinine [Mass/Vol] 0.60 mg/dL Normal 0.55-1.02 [facility] Comment on above: Performed By: #### L IPID, MG, CMP #### [facility] [address] [address] [address] Quique Ortiz EGFR-AF THAI >60 Normal >=60 [facility] Comment on above: Performed By: #### L IPID, MG, CMP #### [facility] [address] [address] [address] Quique Ortiz EGFR-NON AF THAI >60 Normal >=60 [facility] Comment on above: Performed By: #### L IPID, MG, CMP #### [facility] [address] [address] [address] Quique Ortiz Globulin (S) [Mass/Vol] 3.5 g/dL Normal [facility] Comment on above: Performed By: #### L IPID, MG, CMP #### [facility] [address] [address] [address] Quique Ortiz Glucose [Mass/Vol] 340 mg/dL Critically high 74-106 [facility] Comment on above: Performed By: #### L IPID, MG, CMP #### [facility] [address] [address] [address] Quique Ortiz Potassium [Moles/Vol] 4.0 mmol/L Normal 3.5-5.1 [facility] Comment on above: Performed By: #### L IPID, MG, CMP #### [facility] [address] [address] [address] Quique Ortiz Protein [Mass/Vol] 6.9 g/dL Normal 6.4-8.2 [facility] Comment on above: Performed By: #### L IPID, MG, CMP #### [facility] [address] [address] [address] Quique Ortiz Sodium [Moles/Vol] 134 mmol/L Critically low 136-145 [facility] Comment on above: Performed By: #### L IPID, MG, CMP #### [facility] [address] [address] [address] Quique Ortiz Urea nitrogen [Mass/Vol] 10.0 mg/dL Normal 7.0-18.0 [facility] Comment on above: Performed By: #### L IPID, MG, CMP #### [facility] [address] [place] [address] Dr. Quique Ortiz Urea nitrogen/Creatinine [Mass ratio] 16.7 mg/mg Normal [facility] Comment on above: Performed By: #### L IPID, MG, CMP #### [facility] [address] [place] [address] Dr. Quique Ortiz UA RANDOM W/MICROSCOPICon BACTERIA TRACE Abnormal NONE SEEN [facility] Comment on above: Performed By: #### U AMIC #### [facility] [address] [place] [address] Dr. Quique Ortiz Bilirubin Ql (U) Negative Normal NEGATIVE [facility] Comment on above: Performed By: #### U AMIC #### [facility] [address] [place] [address] Dr. Quique Ortiz CAST NONE SEEN Normal NONE SEEN [facility] Comment on above: Performed By: #### U AMIC #### [facility] [address] [place] [address] Dr. Quique Ortiz Clarity (U) CLEAR Normal CLEAR [facility] Comment on above: Performed By: #### U AMIC #### [facility] [address] [place] [address] Dr. Quique Ortiz Color (U) LT. YELLOW Normal YELLOW [facility] Comment on above: Performed By: #### U AMIC #### [facility] [address] [place] [address] Dr. Quique Ortiz Crystals LM Nom (Urine sed) NONE SEEN Normal NONE SEEN [facility] Comment on above: Performed By: #### U AMIC #### [facility] [address] [place] [address] Dr. Quique Ortiz Epithelial cells LM Ql (Urine sed) NONE SEEN Normal NONE SEEN /RARE [facility] Comment on above: Performed By: #### U AMIC #### [facility] [address] [address] [address] Quique Oritz Glucose Ql (U) >1000 Abnormal NEGATIVE [facility] Comment on above: Performed By: #### U AMIC #### [facility] [address] [address] [address] Quique Ortiz Hemoglobin Ql (U) SMALL Abnormal NEGATIVE [facility] Comment on above: Performed By: #### U AMIC #### [facility] [address] [address] [address] Quique Ortiz Ketones Ql (U) Negative Normal NEGATIVE [facility] Comment on above: Performed By: #### U AMIC #### [facility] [address] [place] [address] Dr. Quique Ortiz LEUKOCYTES Negative Normal NEGATIVE [facility] Comment on above: Performed By: #### U AMIC #### [facility] [address] [address] [address] Quique Ortiz MUCOUS NONE SEEN Normal NONE SEEN [facility] Comment on above: Performed By: #### U AMIC #### [facility] [address] [address] [address] Quique Ortiz Nitrite Ql (U) Negative Normal NEGATIVE [facility] Comment on above: Performed By: #### U AMIC #### [facility] [address] [place] [address] Dr. Quique Ortiz pH (U) 5.5 [pH] Normal 5-9 [facility] Comment on above: Performed By: #### U AMIC #### [facility] [address] [address] [address] Quique Ortiz RBC NONE SEEN Abnormal 0-2 [facility] Comment on above: Performed By: #### U AMIC #### [facility] [address] [place] [address] Dr. Quique Ortiz SPEC GRAVITY <=1.005 Abnormal 1.005-<=1.025 [facility] Comment on above: Performed By: #### U AMIC #### [facility] [address] [address] [address] Quique Ortiz UA PROTEIN Negative Normal NEGATIVE/ TRACE [facility] Comment on above: Performed By: #### U AMIC #### [facility] [address] [address] [address] Quique Ortiz Urobilinogen Qn (U) 0.2 {Jv'U}/dL Normal 0.2 - 1. 0 [facility] Comment on above: Performed By: #### U AMIC #### [facility] [address] [address] [address] Quique Ortiz WBC NONE SEEN Normal NONE SEEN [facility] Comment on above: Performed By: #### U AMIC #### [facility] [address] [address] [address] Quique Ortiz XR ANKLE ELENA MIN [...] MALLIKA ORTIZ Date: 2022-03-29 10:38 Normal [facility] Coding Summary.on 07-02-2020 Coding Summary. CD:[id number] Gh0b Ww+PGhlYWQ+[id number] BAdkX0UQ2gYGO9GINLCMJFZK T9FFC3ufJE3GPnzO1WpbxSk TocasXVcLG57VXr3FIQ1eVcc ONhosW5bcBCbK8h6FnSpYV86 oH37NGpjZDXrAbU6FwFbsvkk bWFy S5wqReUtqWYpZfn+PHRhYmxl IHdpZHRoPScxMDAlJyBzdHls ZL8eYh7gHDFzTPPjxTczdWBs OiBj c0ttFRPyFMcfIL8cqCoyR0Oj fWG1YJPbn6c2Eq15nWZ+PHRk BKW1pHorQVmkz026OzJac4vi IDM3 yBDrBTyrKZG0L14uf7F5LXZc TROaDKD4kBF1tA8caSewnpul B9SigAGoIhB4YCU6bKGieE5r bGln qjkyvF0sSqu+W10WEM3CQSCN DX3SAsm1X4GtIpcvlNC+PC90 EOKcBG41oIVmyVEfd5plsJq7 JzEw JDJlCOH4jDqiVBpiz7SsILNw W28crYZji3B7HJHytPnkdMAx PyQaoZK1vF9uAXldortfq9nt dzsn Ylico2nubm09wE57P27mBIah ZCNzNEC0ONXoIHXxiJwxpn8j nO2lVy3+FFqat0idj2jsiBp5 IjIw AZVyduPxuKuxSLJ0e5YeXl36 H0GjbWval3KbEnp5bm34mYLg s5U0eWB5OCjfEUKmiH5sYWbi ZnQ6 NKFxQiKyiS91qMVgRTtpZq8t rQyvgMrnKI6eSLSfjbrqFASy bC8pLZOpxKJroTppJY3fXQCp bjtm w940NbBbVOI2TMIevEEdX9Xl xA9gKgZsJMImLWBhG3OlfMLx DJslS083ZQkeQzN7DVHosxVs Y2Fs WGNvzVkoDfU3t6N3Fo3Ew1Zt ccstSSG7CDqqQMX6HqV8SoIn PtV8I6JwRxr8JYRojFtpJL3w J3Bh XYFdjpwoxvowjYO1GPPpSXTz tH81hUQtCSvdQz3xv3E2x478 BLFxGCZhtS74Sn7jvXknRVCd dCBU oG7lwptbt5guptijLxQcZCCu SBs3OKd0GKGmqKbpBcPuFKB6 UfC6LGS8bLFloA6wgUaddaxo dG9w Oyc+K16bhK0kFPN2OMK9mrel PWYogyJxBX31QP69M2AmBhwm dGFibGU+QZNtegYsgTvsWM4s YmFj u9dwj0QwSMixK3DwRQNlUKqr Ftd5SMIqVEE0mRA1lC3hYYSw LVvow7O2bRZ9I5SissBdif1w b2xs LXVoIUbzF43caWPlw7X2UXEt uKY0AZMvbJsgQfUtmW39Hvd+ NTMliUadb3LwKmtak8yvg1kb dGg9 LzRiXBVjtqWzkMiuXNZ8e1Ux Af50K32yXGeaQHUuNFDwPHAx URKzuRxamq2zuV9pWq1+PGNv bCB3 vZE2hQ6cVCIfHmR3FCzsW389 XlTnxNMtIrbkh6jyl6szyOc9 EhJhQPSgigNcxElhMES9e7Gh Lz48 V17aVGlcXVMaYQUzZRRnHGWt gHmgwf2vpK2eZt6+YZ6ke1rm jh55bH41iZY+ZWWfCOG6jCso PSdw CNKvvG2bLYzzCrR4EOBrCrQf rF52fSAjQHfyMt5szGzrjZma AL3kCPFodyzpo504YrEyz7cr IDEw eMUdHJsdOSK3I27ql2O5WPCw YLTuOHE3nGG1dC7ecCawfgnf bGVmdDsgdmVydGljYWwtYWxp Z246 IHRvcDsnPlBhdGllbnQgTmFt WDu2G8UzFwp0OHAeoGatVZ8s hEChOPxcKv5bsJpfqGaiTI0d NTBp drwle624ZgPqu0oiIMGqoTRq JYrcRDL0O27dg8J6SMUeNMGb UQV6yJG3yQ9nlSzkeavmkTFx dDsg edEeuLxqWAllQHmyI708DXZd pXjyPvOisvXpCDIepUY8VT21 KR44kJEzs5Z9uFY8R9QuOHGu bmct jwrngRK3UWXsGIGdeU54Mn4b eYhuDv9cAPKnGGW4RLOpxQOg D7DbbS9dSeXlPACnDWMmV5Lq eHQt SEclS118CAhgXhS1IVXlznTp L3OxKYQbiAuwRyJ8e7Y7Jk8O U4R8LH19JV06mSZjj5V7bJC7 J3Bh RFPpcpdxbtxdhYN8YOHaWWSf aX12Mc4ncHveVg4rLFPyWJZ9 ARJthZJwT4IdkP8qAmRfPFTp MDAw D1EzjGDoDGxqO637OTjtApX2 UMGachFpN6UhAOLtoByvVlO6 c6Z4Dh4EXPf3JL44ZF90sFWg c3R5 wBG3P9JiFMWbyfukggpwwAY2 KTIjYGCzkF56Dz3qpGrjUa2y BSUqVEU9WGKnnFAlA0MxfF0o OiAj ZQIrAGPwP2ZgyKQwKGcsS179 KAfjDfQ9OWYklhZpR9OhJRFa bCwuAxX6f7K6Zn1KBLMrKC81 IFR5 dNQ2SN08VV71U2XzHqjlpGWy bGU+PHRhYmxlIHdpZHRoPScx KYFxRuNobPnsQH8rQf1tZQEa LWNv aKcpoDWiRtKpb8lcHRLtVYlc PA2qlOivH2FbdBW4JPEgm2i7 Qv55U73pD9ToeXH+PGNvbCB3 aWR0 jS7rKdKmBaV2EAnlX784RnFz zYIqDbllx6hti0hufJp5CzC5 DHNjvjUzcGeqOZY5q3TaRu80 Y29s IHdpZHRoPSIxNSUiIHZhbGln au2tvE4dRo6+PMXgtTG6hQD4 cK2vBdYbEnN1CDvtW449FlWf cCIv Ruvsh6hia7hvmZb9CaLoDUCc umFmiJoeDYF8c8MaCw28U5Lv gIchp0KbLcf6rm90yVKiw6V4 bGU9 A0BqVGWiyihqhHFnqOssYY2h EFTllhrjLXNzjV0jFUQgZ0h2 JjJfSvK0MNzwH9DkoiF9BQKd cHQg KOmmIRZ5M12ga1I1BDJsTGXn RDS2dNG1uB0qcVjatszoeHMg oUxytjSaaGbtURrhDKchS566 IHRv pRbgLDClxO5pQZCvhEXejFaf JL6xXWFrplgqRpNFPCsdSVBD TFZJQTwvdGQ+OILuOZH4ePkm PSdw WKWmzQ2hNEStA4v3EpAkTiL4 UElnT7TkYKLintntHy18aY5f RiZiJsY5YKwcI5FapkA3QMFq cHQg KCweANG5D36pm2V7QMLaPKCy FVR8tEP9sZ1uuTjfiarywKUf zGobzrKjnQzpVHyeQJegX343 IHRv wCjkXgXgUsG0BiL5XCY6I9Nb Ltb7NYJriCzeWA5rjTPaBLbq Fk7zcAiukXysBR2pRGPwmgop YWRk dM7bSPBidJUfaDmwEV9jFSAh ikkda802MpKqSZM1CNNbhKTb U7SbzJ1pDlCuQNJyXLRzV3Zd eHQt UKckX609EHdiNuS5MLCnacRv M1LmGYHmiUetOcG5l3H1Jf91 NiBZZWFyczwvdGQ+PHRkIHN0 eWxl DEorGOWtgK4zTZMxQ9v7YcDo UdX5CBtoF5LsPDLkwuzzMm37 sS0qIcPcAzY6BAhyD7OobjJ3 IDEw dUAjNWwlJNS1U94ng7V2LSFa ZUHrXSW6vEC8lI0hkBdripfp bGVmdDsgdmVydGljYWwtYWxp Z246 IHRvcDsnPkZlbWFsZTwvdGQ+ DPPtKNU4nNvhQXllJTNcxB4u ACMlR3i9OnCaPoT1BWoyR4Ji ZGRp yzwuBk00cL6mKpNeZeF7GQgf D2MzxgA0TPBosKAgKCfqCQL6 Z27qa7X6OKSuTNIrIGG4tRA3 dC1h bGlnbjogbGVmdDsgdmVydGlj QTtsARlyN571DWHezOmgUhIi XKOePJ7qlSpweMF+AN84bu39 L3Rh UnhzTcl0MYKgLHO5vPG0cL8o HQOiHRdfw8Q6sPL0Y5HhfaPg ex2dr2dcCONdBQhfG65ogDKp c2U7 SDSmkKH7AVCevAvbRjJeoC31 Oyc+XLYtxPlnv1JjOphbu1if m6cnsUk4AnJeCEIybqHpzYbx PSJ0 j4DjCj32X17dCIoeQQHnEPFc UGOgAMTtuFxrzu1ubX7oFp3+ MSEdrAW3eDU7kO8pShSgZdS1 YWxp H213HiYlyZKiXtfni8xll4ym vAa8ZyYwKUUocnChkHbkXFH0 m1RjGi50G6SziPias4YpZar1 cj48 cSMzp3K0cTK7E6JpWHVivnjl mTQweYhrQZ3qYYErslwpTFGt sU5mRQOkR2j4PlUoUrY7KStv O2Zv jiT4OCYupUNeRRQidCSUyI6w qglvv8cdkmynHlKyYBTkTCr1 YBi9NGSqnLtiXlRcHLW8AdU5 ZXJ0 qYHtcW3rhNeazdrcfK7lWrd+ MDx5m8aokLIbDX4zlGS1GA58 FV68sIRra4H3hAK1B1JzYFRg bmct gbbipJC9LTQdNRAjiC67Jl9m oIqrGd9hJEHrQTM8SJImcIEk R6QotT7oYmIwOTMoZCDuQ3Wz eHQt AAzqS846DAatNxJ8EHYajcDf D3DkNVXibXlfAgO9p6D6Tk2E GC07UG24ZI31aQMyq8O6aCW7 J3Bh GBOubdjdaxsejYR6LZTmKHMw nI15Nt0sdEsoKx8xIJVvXGY2 JABxqRZzA8EooW0oOgEaXZMe MDAw N1XnpRWwZEnmA656UUadSsR3 TEXmncKnV7BgIDYrdArtJnX1 i6T3Ih7RFt79FZ16MN13qEEb c3R5 lBW6X9CaRNYeqvsaklancIL2 YTDwJSVrqV43Ed4ovYvxWd4r XJRdXWN9KIYwzHXjP8NljD8n OiAj QCNpQWRyB9VfdJDcJMhtU937 AOfrMrY5QCRbgfOrB9NjNGPn aZxhGuI4x4Y1Kn4ERHtiviu6 L3Rk PjwvdHI+NY24TOCmYX81jWQx cDSav7leyXd8QbIgHCWqLKM4 cBjoDPgyu7DcYKQfG51lrWXk c2U6 IGNv (more content not included)... [facility] Consent for Treatmenton 06-06 Consent for Treatment [id number]: 127 [facility] Discharge Instructionson Discharge Instructions [id number]#[id number] :127 [facility] Discharge Instructions Discharge instructions complete, RR equal and non labored and nurse educated to make follow up and take medication as prescribed. [facility] Comment on above: Result Comment: Elec tronically Signed By: Malorie MONSIVAIS, Don Urbina\.tiffany\Date and Time Signed: 06/28/20 11:39 EDT ED Clinical Summaryon 2020 ED Clinical Summary (Inserted Image. [place] ble to display) [place] [id number] ED Clinical Summary Person Information [facility]: [facility] Age[facility] 65 Years : 1955 Sex: Female Language: Kenyan PCP: Manohar PARHAM DO Marital Status: Single [...] 06/28/2020 11:46:42 06/28/2020 11:46:42 06/28/2020 11:46:42 ADDRESS: [address] [id number] PHYS DOC NOTES: MEDICAL INFORMATION: Prescriptions Given: New Medications Printed Prescriptions amlodipine (Norvasc 10 mg Tab) 1 Tablets By Mouth every day for 30 Days. Refills: 0. PATIENT EDUCATION INFORMATION: Instructions: Hypertension; DASH Eating Plan Follow up: With: Address: When: Manohar PRASAD [address] [place] [id number] Business (1) In 3 days 07/01/2020 DIAGNOSIS: Hypertension Normal [facility] ED Note-Physicianon 06-29-19 ED Note-Physician Basic Information Time Seen: Shelli RICHEYWaylon 06/28/2020 11:00 Chief Complaint Pt. had a [...] Manohar PARHAM In 3 days 07/01/2020 EDT [address] [place] [address]- Business (1) Additional Instructions: Patient Education Hypertension [...] By: Waylon Marques DO 06/28/2020 10:57:50 Normal [facility] Comment on above: Result Comment: Elec tronically [...] Document Reviewed: 11/14/2013 ExitCare? Patient Information ?2015 [employer]. This information is not intended to replace [...] 12 oz (more content not included)... Normal [facility] ED Patient Summaryon 021 ED Patient Summary (Inserted Image. [place] ble to display) [place] [id number] Patient Discharge Instructions Person Information Name: KEYANNA STAFFORD Age: 65 Years Arrival Date: 06/28/2020 10:27:51 Discharge Diagnosis: Hypertension Primary Care Physician: Manohar PARHAM DO Provider Information Primary Provider: Waylon Marques DO [employer] Foreign Language Tutor:None The exam and treatment you received in the Emergency Department were for an urgent problem and are not intended as complete care. It is important that you follow up with a doctor, nurse practitioner, or physician?s server service assistant for ongoing care. If your symptoms [...] Instructions: With: Address: When: Manohar PARHAM [address] [place] [address] Business (1) In 3 days 07/01/2020 In the event that this physician does not participate in your insurance network, please consult with your insurance company to find a nearby participating provider. Patient Education Materials: Hypertension; DASH Eating Plan A MESSAGE TO ALL PATIENTS REGARDING OPIOIDS PRESCRIPTION OPIOIDS: WHAT YOU NEED TO KNOW Prescription opioids can be used to help relieve noukvopg-te-nnyydg pain and are often prescribed following a [...] be struggling with addiction, tell your health behavioral health care manager and ask for guidance or call [employer]?S National Helpline at 2-261-558-AMDT. m Source: [place] Department of Health and (more content not included)... Normal [facility] HAND RIGHT 2 [facility] 2 [facility] [address] [place] [address] ==Patient Name: KEYANNA STAFFORD : 1955Sex: FAge: Race: WhiteMRN: [id number]. 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 Transcribed by: [email or web address], User Resident: Electronically Signed by: SERGIO LAWRENCE @ 01/07/2018 02:05 PM Normal [facility] Comment on above: Order Comment: , , = ========= , Ordering Provider - MANOHAR BONILLA PA-C , Operative Reporton 8 Operative Report MR#: [id number] [facility] Pt. Name: Keyanna Stafford Room [...] otherwiseimmediately available to assist. Date Dict: 01/01/2018/09:11 P/Timo Mathis, SUHSILate Trans: 01/02/2018 05:47 A/Emil_[id number]: Reese Hodges M.D. [address] [facility] [id number] Normal [facility] *ANAEROBIC CULTUREon 11-26-2 018 *ANAEROBIC CULTURE Clinical Report: (D) Specimen/Source: TISSUE/INTRAOP SPEC Collected: 12/31/2017 15:35 Status: Final Last Updated: 01/05/2018 08:19 (1) Right Long Finger Soft Tissue ISO (Final) No Anaerobes Isolated 5 Days Normal [facility] Comment on above: Order Comment: Right Long Finger Soft Tissue Performed By: #### 5 [id number] ####[facility] *ANAEROBIC CULTURE Clinical Report: (D) Specimen/Source: TISSUE/INTRAOP SPEC Collected: 12/31/2017 15:34 Status: Final Last Updated: 01/05/2018 08:07 (1) Right Long Finger Distal Phalanx ISO (Final) No Anaerobes Isolated 5 Days [facility] 01[facility]2018 08[facility]07. The previous result was: ISO (Prelim) Normal [facility] Comment on above: Order Comment: Right Long Finger Distal Phalanx Performed By: #### 3 [id number] ####[facility] *FUNGAL CULTUREon 12-31-2017 *FUNGAL CULTURE Clinical Report: (D) Specimen/Source: TISSUE/INTRAOP SPEC Collected: 12/31/2017 15:35 Status: Final Last Updated: 01/08/2018 14:58 (1) Right Long Finger Soft Tissue FS (Final) No Yeast or Fungal Elements Seen ISO (Final) Tisha albicans Normal [facility] Comment on above: Order Comment: Right Long Finger Soft Tissue Performed By: #### 5 [id number], [id number] ####[facility] *FUNGAL CULTURE Clinical Report: (D) Specimen/Source: TISSUE/INTRAOP SPEC Collected: 12/31/2017 15:34 Status: Final Last Updated: 01/08/2018 10:00 (1) Right Long Finger Distal Phalanx FS (Final) No Yeast or Fungal Elements Seen ISO (Final) Tisha albicans Normal [facility] Comment on above: Order Comment: Right Long Finger Distal Phalanx Performed By: #### 5 [id number], [id number] ####[facility] *TISSUE CULTUREon 12-31-2017 *TISSUE CULTURE Clinical [...] Susceptible VANCOMYCIN (VA) 1 Susceptible Normal [facility] Comment on above: Order Comment: Right Long Finger Soft Tissue Performed By: #### 3 [id number] ####[facility] *TISSUE CULTURE Clinical Report: (D) Specimen/Source: [...] Susceptible VANCOMYCIN (VA) 1 Susceptible Normal [facility] Comment on above: Order Comment: Right Long Finger Distal Phalanx Performed By: #### 3 [id number] ####[place] [id number] [address] APTTon 12-31-2017 aPTT Coag time (Bld) 27.1 s Normal 25.0-35.0 [facility] Comment on above: Result Comment: ALL [...] THIS PURPOSE. Performed By: #### 5 [id number], [id number] ####[place] [id number] [place] [id number], [facility] BASIC METABOLIC PANELon 11-2 Calcium mass conc 9.3 mg/dL Normal 8.6-10.3 [facility] Comment on above: Performed By: #### 0 0071 ####[facility] [place] [address], [facility] Chloride molar conc 104 mmol/L Normal 98-107 [facility] Comment on above: Performed By: #### 0 0071 ####[facility] [place] [address], [facility] CO2 molar conc 28 mmol/L Normal 21-31 [facility] Comment on above: Performed By: #### 0 0071 ####[facility] [place] [address], [facility] Creatinine mass conc 0.51 mg/dL Low 0.60-1.20 [facility] Comment on above: Performed By: #### 0 0071 ####[facility] [facility] [place] [address], [facility] GFR/1.73 sq M predicted among blacks MDRD vol rate/area (S/P/Bld) mL/min/{1.73_m2} Normal >60 [facility] Comment on above: Performed By: #### 0 0071 ####[facility] [place] [address], [facility] GFR/1.73 sq M predicted among non-blacks MDRD vol rate/area (S/P/Bld) mL/min/{1.73_m2} Normal >60 [facility] Comment on above: Performed By: #### 0 0071 ####[facility] [place] [address], [facility] Glucose mass conc 168 mg/dL High 70-100 [facility] Comment on above: Performed By: #### 0 0071 ####[facility] Potassium molar conc 4.2 mmol/L Normal 3.5-5.1 [facility] Comment on above: Performed By: #### 0 0071 ####[facility] Sodium molar conc 141 mmol/L Normal 136-145 [facility] Comment on above: Performed By: #### 0 0071 ####[facility] Urea nitrogen mass conc 5 mg/dL Low 7-25 [facility] Comment on above: Performed By: #### 0 1 ####[address] CBC W/DIFFon 12-31-2017 ABS BASOPHILS 0.0 10*3/uL Normal 0.0-0.2 [facility] Comment on above: Performed By: #### 5 102 ####[facility] ABS IMM GRANS 0.0 10*3/uL Normal 0.0-0.2 [facility] Comment on above: Performed By: #### 5 102 ####[address] ABS NEUTROPHILS 3.3 10*3/uL Normal 1.6-7.6 [facility] Comment on above: Performed By: #### 5 3 ####[facility] Basophils Auto #/vol (Bld) 0.4 % Normal 0.0-1.0 [facility] Comment on above: Performed By: #### 5 102 ####[place] [id number] [address] Eosinophils Auto #/vol (Bld) 0.1 10*3/uL Normal 0.0-0.5 [facility] Comment on above: Performed By: #### 5 0103 ####[facility] [place] [address], [facility] Eosinophils/100 WBC Auto (Bld) 1.1 % Normal 0.0-6.0 [facility] Comment on above: Performed By: #### 5 0103 ####[facility] [facility] Erythrocyte distribution width Auto Ratio (RBC) 13.0 % Normal 11.5-15.0 [facility] Comment on above: Performed By: #### 3 ####[facility] [facility] Hematocrit Auto Volume Fraction (Bld) 39.9 % Normal 36.0-45.0 [facility] Comment on above: Performed By: #### 3 ####[facility] [facility].[address] Hemoglobin mass conc (Bld) 13.5 g/dL Normal 12.0-15.0 [facility] Comment on above: Performed By: #### 3 ####[facility]3000 [facility].[address] IMMATURE GRANS 0.4 % Normal 0.0-1.0 [facility] Comment on above: Performed By: #### 3 ####[facility] Lymphocytes Auto #/vol (Bld) 1.9 10*3/uL Normal 1.2-4.0 [facility] Comment on above: Performed By: #### 3 ####[facility] [place] [address], [facility] Lymphocytes/100 WBC Auto (Bld) 32.9 % Normal 20.0-45.0 [facility] Comment on above: Performed By: #### 5 0103 ####[facility] [facility] MCH Auto Entitic mass (RBC) 29.2 pg Normal 27.0-33.0 [facility] Comment on above: Performed By: #### 5 3 ####[facility] [facility] MCHC Auto mass conc (RBC) 33.8 g/dL Normal 32.0-35.0 [facility] Comment on above: Performed By: #### 3 ####[facility] [facility] MCV Auto Entitic volume (RBC) 86.4 fL Normal 82.0-98.0 [facility] Comment on above: Performed By: #### 3 ####[facility]3000 [facility].[address] Monocytes Auto #/vol (Bld) 0.4 10*3/uL Normal 0.1-1.0 [facility] Comment on above: Performed By: #### 5 3 ####[facility] [facility].[address] MONOS 7.4 % Normal 5.0-12.0 [facility] Comment on above: Performed By: #### 3 ####[facility] [facility] Neutrophils/100 WBC Auto (Bld) 57.8 % Normal 40.0-72.0 [facility] Comment on above: Performed By: #### 102 ####[facility] Nucleated RBC/100 WBC Ratio (Bld) 0 % Normal 0-0 [facility] Comment on above: Performed By: #### 5 0103 ####[facility] [place] [address] PLAT CNT 226 10*3/uL Normal 150-400 [facility] Comment on above: Performed By: #### 5 0103 ####[facility] [place] [address] RBC Auto #/vol (Bld) 4.62 10*6/uL Normal 3.80-5.00 [facility] Comment on above: Performed By: #### 5 0103 ####[facility] WBC Auto #/vol (Bld) 5.71 10*3/uL Normal 4.00-10.60 [facility] Comment on above: Performed By: #### 5 0103 ####[facility] [place] [address] FINGER RIGHT MIN 2 VWSon FINGER RIGHT MIN 2 VWS [facility] [address] [place], [place] [address] ==Patient Name: KEYANNA STAFFORD : 1955Sex: FAge: Race: WhiteMRN: [id number]. Location: OUTPPatient Status: OVisit #: [id number] Date: 12/31/2017 3:35:00 PMCompleted Date: 12/31/2017 03:48 PMRequesting Provider: STUART VO Attending Provider: STUART VO Report Copy To: Signs & Symptoms: crpp right fingerHistory: Comments: crpp right fingerExam: FINGER RIGHT MIN 2 VWSAccession #: [id number] =========FINGER RIGHT MIN 2 VWS 12/31/2017 3:48 [...] documentation Electronically signed by:Abdirizak Herrera. Transcribed by: [email or web address], User Resident: Electronically Signed by: ABDIRIZAK HERRERA @ 2018 08:05 AM Normal [facility] Comment on above: Order Comment: crpp right finger POC GLUCOSE LABon 12-31-2017 Glucose mass conc 141 mg/dL High 70-100 [facility] Comment on above: Performed By: #### 8 5499 ####[facility] [facility] [place] [address], [facility] Glucose mass conc 152 mg/dL High 70-100 [facility] Comment on above: Performed By: #### 8 5499 ####[facility] [facility] [place] [address], [facility] PROTHROMBIN TIMEon 8 INR Coag RelTime (PPP) 0.90 {INR} Low 0.91-1.16 [facility] Comment on above: Result Comment: ACCC P RECOMMENDED INR FOR WARFARIN THERAPY CONDITION INRPROPHYLAXIS OF VENOUS THROMBOSIS 2-3(HIGH-RISK SURGERY)TREATMENT OF VENOUS THROMBOSIS 2-3TREATMENT OF PULMONARY EMBOLISM 2-3PREVENTION OF SYSTEMIC EMBOLISM: 2-3 ACUTE MYOCARDIAL INFARCTION TISSUE HEART VALVES VALVULAR HEART DISEASE ATRIAL FIBRILLATION RECURRENT SYSTEMIC EMBOLISMMECHANICAL HEART VALVE 2.5-3.5 FROM: ORAL ANTICOAGULANTS. MECHANISM OF ACTION, CLINICALEFFECTIVENESS, AND OPTIMAL THERAPEUTIC RANGE. [id number]. Performed By: #### 5 6101, [id number] ####[facility] Prothrombin time (PT) Coag time (PPP) 12.1 s Low 12.3-14.8 [facility] Comment on above: Result Comment: ALL RESULTS MUST BE INTERPRETED WITH RESPECT TO BLOOD DRAWING ARTIFACTOR DILUTION ERROR OF ANTICOAGULANT AT THE TIME OF SAMPLING. Performed By: #### 5 6101, [id number] ####[facility] [facility].[address] Encounters Encounter Date Encounter Type Care Provider Facility Start: 09-21-2023 End: 09-21-2023 ambulatory BALA SHEA [facility] Start: 09-04-2023 End: 09-04-2023 ambulatory MARIANN [facility] Start: 11-09-2022 End: 11-09-2022 ambulatory MARIANN [facility] Start: 06-12-2022 End: 06-13-2022 ambulatory URBANO GARCIA Facility:[facility] Start: 06-02-2022 End: 06-03-2022 ambulatory URBANO GARCIA Facility:[facility] Start: 04-23-2022 End: 04-25-2022 Evaluation and management of inpatient MARIANN DAVIDSON Facility:[facility] Start: 04-11-2022 End: 04-12-2022 ambulatory URBANO SAMI ELLIOTTLOLI Facility:[facility] Start: 03-28-2022 End: 03-29-[address] REESE HODGES Facility: Start: 01-07-2018 End: 01-08-2018 Patient encounter procedure MANOHAR BONILLA Facility:[facility] Start: 12-31-2017 Encounter for other specified special examinations STUART EBRAHEIM [facility] Start: 12-31-2017 End: 2018 Patient encounter procedure STUART EBRAHEIM Facility:[facility] Encounter for other specified special examinations STUART EBRAHEIM [facility] Procedures Date Procedure Procedure Detail Performing Clinician Start: 09-21-2023 Follow-up visit Follow-up BALA SHEA Start: 12-31-2017 AMPUTATION OF FINGER/THUMB STUART EBRAHEIM Start: 12-31-2017 ANESTH LOWER ARM SURGERY LIZZETTE FLORIANOBEY Payers Date Payer Category Payer Unknown [id number] 1955 Unknown [id number] 2.16.8 [id number] 1955 Unknown [id number] 2.16.8 [id number] 1955 Unknown [id number] 2.16.8 [id number] 1955 Unknown [id number] 2.16.84 [id number] 1955 Unknown [id number] 2.16.84 [id number] 1955 Unknown [id number] 2.16.84 [id number] 1955 Unknown [id number] 2.16.84 [id number] 1955 Unknown [id number] 2.16.84 [id number] Unknown [id number] Progress note 09-21-2023 Note Date & Type Note Facility 09-21-2023 Note [facility] SUBJECTIVE Chief Complaint Patient presents with Follow-up 1-2 wk follow up Keyanna Stafford is a 68 y.o. female here for follow-up. Her sister Ana Paula accompanied her today. HPI PMHx: DM type II, (hx of noncompliance), HTN, HLD, HF Patient was evaluated by Maria Fernanda Daivdson NP in clinic 2 weeks ago. During that time, patient was thought to be in heart failure. As such, patient was admitted to the hospital for further evaluation/management. Echocardiogram revealed a decreased EF to 35 to 40%. She was diuresed and discharged home on oral diuretics. Patient presents today for follow-up. Overall, she is doing much better. Her legs are significantly less edematous. She denies any shortness of breath. She denies any orthopnea or paroxysmal nocturnal dyspnea. She reports that she is taking the medications that have been prescribed for her. Patient Active Problem List Diagnosis Gangrene of [...] accident) (CMS/HCC) Borderline glaucoma Pseudophakia Scleroderma (CMS/HCC) Past Medical History: Diagnosis Date CHF (congestive heart failure) (CMS/HCC) Diabetes mellitus (CMS/HCC) Hyperlipidemia Hypertension Family History Problem Relation Name Age of Onset Hypertension Mother Diabetes Mother Social History Tobacco Use Smoking status: Never Smokeless tobacco: Never Substance Use Topics Alcohol use: Not Currently Drug use: Never Allergies Allergen Reactions Succinylcholine Cardiology ROS: 10 point ROS is performed and is negative unless otherwise specified in HPI. OBJECTIVE Visit Vitals BP 140/64 (BP Location: Left arm, Patient Position: Sitting, BP Cuff Size: Adult) Pulse 89 Resp 16 Ht 1.499 m (4' 11 ) Wt 58.5 kg (129 lb) SpO2 94% BMI 26.05 kg/m??? Smoking Status Never BSA 1.56 m??? Medications: Current Outpatient Medications: atorvastatin (Lipitor) 10 mg tablet, Take 10 mg by mouth in the morning., Disp: , Rfl: carvedilol (Coreg) 12.5 mg tablet, Take 12.5 mg by mouth with breakfast and with evening meal., Disp: , Rfl: furosemide (Lasix) 40 mg tablet, take 1 tablet by mouth every morning, Disp: 90 tablet, Rfl: 3 Levemir FlexTouch U100 Insulin 100 unit/mL (3 mL) pen, Inject 100 Units under the skin., Disp: , Rfl: losartan (Cozaar) 50 mg tablet, Take 50 mg by mouth in the morning., Disp: , Rfl: atorvastatin (Lipitor) 10 mg tablet, Take 1 tablet (10 mg) by mouth in the evening., Disp: 90 tablet, Rfl: 3 lisinopriL-hydrochlorothiazide 20-12.5 mg tablet, Take 1 tablet by mouth in the morning., Disp: 90 tablet, Rfl: 3 spironolactone (Aldactone) 25 mg tablet, Take 1 tablet (25 mg) by mouth in the morning., Disp: 30 tablet, Rfl: 0 spironolactone (Aldactone) 25 mg tablet, Take 1 tablet (25 mg) by mouth in the morning., Disp: [...] Effort: Pulmonary effort is normal. Breath sounds: No rales. Comments: Bilateral crackles Abdominal: General: Bowel sounds are normal. Palpations: [...] 06/12/2022: no acute findings ECHO 04/24/22 ASSESSMENT/PLAN: New onset HFrEF HTN HLD PLAN: For GDMT, patient is on Carvedilol 12.5 mg BID and Losartan 50 mg daily Will add spirinolactone 25 mg (more content not included)... [facility] Progress note 09-04-2023 Note Date & Type Note Facility 09-04-2023 Note [facility] SUBJECTIVE Chief Complaint Patient presents with Congestive Heart Failure Hypertension Hyperlipidemia Keyanna Stafford is a 68 y.o. female here for follow-up. Her sister Ana Paula accompanied her today. Patient here for 9 mo follow up hypertension, chronic diastolic heart failure, and hyperlipidemia. C/o weight gain and SOB/NI. C/o LE weakness. Denies chest pain and lightheadedness/syncope. Says palpitations occur no more than usual for her. Says she's been out of lisinopril-hydrochlorothiazide and spironolactone for awhile. HPI PMHx: DM type II, (hx of noncompliance), HTN, HLD, HFpEF She c/o worsening SOB. Has been significant for the past week. Any exertion she is SOB. She had recently had a GI bug with diarrhea. She has gained 16# since last seen. She states it may have been more as she thought she was previously at 119# so that would make it a 21# weight gain. She reports weight gain has been over the past month or so. She c/o significant BLE edema extending up her thighs and abdomen. She reports trouble with her underwear and pants fitting. She is only taking lasix. She is not currently taking her cardiac medications including lisinopril/hydrochlorothiazide, spironolactone or atorvastatin. We had previously refilled her spironolactone but she failed to get follow-up labs to make sure it was safe to continue to take. She is under a lot of stress right now. She lost her daughter about 1 week ago, she was in her late 40s. Cause yet is unknown, possibly cardiac. Denies CP. Patient Active Problem List Diagnosis Gangrene of [...] accident) (CMS/HCC) Borderline glaucoma Pseudophakia Scleroderma (CMS/HCC) Past Medical History: Diagnosis Date CHF (congestive heart failure) (CMS/HCC) Diabetes mellitus (CMS/HCC) Hyperlipidemia Hypertension Family History Problem Relation Name Age of Onset Hypertension Mother Diabetes Mother Social History Tobacco Use Smoking status: Never Smokeless tobacco: Never Allergies Allergen Reactions Succinylcholine ROS Constitutional: Positive for malaise/fatigue and weight gain (16# since Nov 2022). Cardiovascular: Positive for dyspnea on exertion, leg swelling and palpitations. Respiratory: Positive for shortness of breath. Gastrointestinal: Positive for bloating. Neurological: Positive for numbness. All other systems reviewed and are negative. OBJECTIVE Visit Vitals BP 170/82 (BP Location: Left arm, Patient Position: Sitting) Pulse 81 Ht 1.499 m (4' 11 ) Wt 63.5 kg (140 lb) SpO2 92% BMI 28.28 kg/m??? Smoking Status Never BSA 1.63 m??? Medications: Current Outpatient Medications: furosemide (Lasix) 40 mg tablet, take 1 tablet by mouth every morning, Disp: 90 tablet, Rfl: 3 Levemir FlexTouch U100 Insulin 100 unit/mL (3 mL) pen, Inject 100 Units under the skin., Disp: , Rfl: atorvastatin (Lipitor) 10 mg tablet, Take 1 tablet (10 mg) by mouth in the evening. (Patient not taking: Reported on 11/09/2022), Disp: 90 tablet, Rfl: 3 insulin lispro (HumaLOG) 100 unit/mL injection, Inject 2-8 Units under the skin in the morning., Disp: , Rfl: lisinopriL-hydrochlorothiazide 20-12.5 mg tablet, Take 1 tablet by mouth in the morning. (Patient not taking: Reported on 09/04/2023), Disp: 90 tablet, Rfl: 3 spironolactone (Aldactone) 25 mg tablet, Take 1 tablet (25 mg) by mouth in the morning. (Patient not taking: Reported on 09/04/2023), Disp: 30 tablet, Rfl: 0 Physical Exam Vitals reviewed. Constitutional: Appearance: Normal appearance. She is normal weight. HENT: Head: Normocephalic and atraumatic. Right Ear: External ear normal. Left Ear: External ear normal. Eyes: Extraocular Movements: Extraocular movements intact. Conjunctiva/sclera: Conjunctivae normal. Pupils: Pupils are equal, round, and reactive to light. Neck: Vascular: No carotid bruit. Comments: Elevated JVD Cardiovascular: Rate and Rhythm: Normal rate and regular rhythm. Pulses: Normal pulses. Heart sounds: Normal heart sounds. Pulmonary: Effort: Pulmonary effort is normal. Breath sounds: Rales present. Comments: Bilateral crackles Abdominal: General: Bowel sounds are normal. Palpations: Abdomen is soft. Musculoskeletal: Cervical back: Neck supple. Right lower leg: Edema present. Left lower leg: Edema pr (more content not included)... [facility] Progress note 09-04-2023 Note Date & Type Note Facility 09-04-2023 Note Patient here for 9 m o follow up hypertension, chronic diastolic heart failure, and hyperlipidemia. C/o weight gain and SOB/NI. C/o LE weakness. Denies chest pain and lightheadedness/syncope. Says palpitations occur no more than usual for her. Says she's been out of lisinopril-hydrochlorothiazide and spironolactone for awhile. Review of Systems Constitutional: Positive for malaise/fatigue and weight gain (16# since Nov 2022). Cardiovascular: Positive for dyspnea on exertion, leg swelling and palpitations. Respiratory: Positive for shortness of breath. Gastrointestinal: Positive for bloating. Neurological: Positive for numbness. All other systems reviewed and are negative. [facility] Progress note 11-09-2022 Note Date [...] All other systems reviewed and are negative. [facility] Progress note 11-09-2022 Note Date & Type Note Facility 11-09-2022 Note Cardi[facility] Medic [facility] SUBJECTIVE No chief complaint on file. [...] she is at risk for a stroke, [place], etc. She declines to go. She reports [...] ASSESSMENT/PLAN: Diagnosis Plan (more content not included)... [facility] Summary Purpose Family History No Family History Records FoundNo Family History Records FoundNo Family History Records FoundNo Family History Records Found Advance Directives No Advanced Directives Records FoundNo Advanced Directives Records FoundNo Advanced Directives Records FoundNo Advanced Directives Records Found Additional Source Comments INFORMATION SOURCE (unrecogn ized section and content) DATE CREATED AUTHOR 01/14/2018 [facility] DATE CREATED AUTHOR AUTHOR'S ORGANIZ ATION 07/05/2020 [facility] DATE CREATED AUTHOR AUTHOR'S ORGANIZ ATION 06/16/[address] [facility] DATE CREATED AUTHOR AUTHOR'S ORGANIZ ATION 09/24/2023 [facility] FOR RECORDS PERTAINING TO PATIENTS WHO [...] BE BASED ON THE PRIMARY CLINICAL RECORDS. [address] [facility]. provides no warranty or guarantee of the accuracy or completeness of information in this document.
[2023-10-24 10:10] LABS: Anion Gap 10.9; BUN Creatinine Ratio 12.6; Calcium 9.2 mg/dL (8.5-10.1); Carbon Dioxide 29.2 mmol/L (21.0-32.0); Chloride 101 mmol/L (98-107); Estimated GFR (African America >60 (>=60); Estimated GFR (Non-African Ame 58 (>=60); Glucose 291 mg/dL (74-106); Potassium 4.1 mmol/L (3.5-5.1); Sodium 137 mmol/L (136-145)
== END 2023-10-24 09:40 | disposition home or self-care (01) ==
LOC: LAB 09:42
PROVIDERS: PCP Nurse Practitioner Family; Visit Provider Internal Medicine Cardiovascular Disease
DX: I10 Essential (primary) hypertension (principal)
CPT/HCPCS: 36415; 80048

== ENCOUNTER 2023-11-30 15:17 | Outpatient (OUT) | payer MEDICARE, SELFPAY ==
--- OUTSIDE RECORDS SUMMARY | 2023-11-30 15:24 | XMS_ITS | CCD ---
Author Organization [facility] Care Team Providers Care Gas Specialist Name Role Phone EBRAHEIM, STUART Unavailable Unavailable EBRAHEIM, STUART Unavailable Unavailable REESE HODGES Unavailable Unavailable HODGESREESE Unavailable Unavailable EBRAHEIM, STUART Unavailable Unavailable EBRAHEIM, STUART Unavailable Unavailable BENI HODGESEL Unavailable Unavailable BENI HODGESEL Unavailable Unavailable TX Unavailable Unavailable EBRAHEIM, STUART Unavailable Unavailable [place] Unavailable Unavailable YERMAL, SOORAJ G Unavailable Unavailable IRENE, MANOHAR Unavailable Unavailable IRENE, MANOHAR Unavailable Unavailable HODGES, REESE Unavailable Unavailable HODGES, REESE Unavailable Unavailable AICHHOLZ, CHIEF PROGRAM OFFICER SAMI Attending Unavailable AICHHOLZ, CHIEF PROGRAM OFFICER SAMI Consulting Unavailable AICHHOLZ, CHIEF PROGRAM OFFICER SAMI Primary Care Unavailable AICHHOLZ, CHIEF PROGRAM OFFICER SAMI Admitting Unavailable DR MALLIKA ORTIZ Consulting Unavailable GORAN TORRES Consulting Unavailable MARIANN DAVIDSON Consulting Unavailable AICHHOLZ, CHIEF PROGRAM OFFICER SAMI Primary Care Unavailable RALPH ., SVETA Admitting Unavailable RALPH ., SVETA Attending Unavailable PETRONA SUMNER Consulting Unavailable VIRGINIA TOTH Consulting Unavailable RALPH ., SVETA Consulting Unavailable DIAB ., KAROL Consulting Unavailable FRANCISCO, SHARAN Consulting Unavailable DR REESE HODGES Primary Care Unavailable WILMAN LAKHANI Admitting Unavailable DR MALLIKA ORTIZ Consulting Unavailable WILMAN LAKHANI Attending Unavailable WILMAN LAKHANI Consulting Unavailable AICHHOLZ, CHIEF PROGRAM OFFICER SAMI Consulting Unavailable AICHHOLZ, CHIEF PROGRAM OFFICER SAMI Primary Care Unavailable AICHHOLZ, CHIEF PROGRAM OFFICER SAMI Admitting Unavailable AICHHOLZ, CHIEF PROGRAM OFFICER SAMI Attending Unavailable AICHHOLZ, CHIEF PROGRAM OFFICER SAMI Consulting Unavailable AICHHOLZ, CHIEF PROGRAM OFFICER SAMI Admitting Unavailable AICHHOLZ, CHIEF PROGRAM OFFICER SAMI Primary Care Unavailable AICHHOLZURBANO Attending Unavailable MARIANN DAVIDSON Attending Unavailable BALA HENAO Attending Unavailable MARIANN DAVIDSON Attending Unavailable MARIANN DAVIDSON Attending Unavailable Allergies Allergy Classification Reported Allergen(s) Allergy Type Date of Onset Reaction(s) Facility (1 source) succinylcholine chloride Drug allergy (disorder) 8 AOF [facility] Repository (1 source) Succinylcholine; Translations: [SUCCINYLCHOLINE] Drug Allergy 0 [facility] Repository Problems Active Problems Problem Classification Problem Date Documented Date Episodic/Chronic Congestive heart failure; nonhypertensive (9 sources) Heart failure, unspecified; Translations: [Acute diastolic [...] Onset: 01-07-2018 Chronic Other 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 (2 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; Translations: [CORRECTION (CURRENT) USE OF INSULIN] Onset: 12-31-2017 Episodic [...] source) Hypomagnesemia; Translations: [HYPOMAGNESEMIA] Onset: 04-13-2022 Chronic Residual codes; unclassified (2 sources) Edema, unspecified; Translations: [Edema, unspecified] Onset: 10-24-2023 Episodic Respiratory failure; insufficiency; arrest (adult) (1 source) [...] Test Name Value Interpretation Reference Range Facility Orders Onlyon 11-26-2023 Orders Only [id number] Keyanna Stafford 1955 Provider Department [place] 11/26/2023 DELILAH FLORES [facility] ID HeartVAS Family History Problem Relation Age of Onset Hypertension Mother Diabetes Mother Family Status - Relation Status Age at Mother [facility] NURSNOTEon 11-05-[address] Henao, You have Keyanna Stafford coming for a R/Cors on 11/12/2023. She is from [place] and stated she will need to use the [employer] services transport that she uses for appointments and procedures. She said they take people to everything so she thinks they are a medical transport??? She also said they will transport in the evenings. [facility] 37on 11-01-2023 37 *Increase your lasix to 80mg in the AM (2 tablets) and continue 40mg (1 tablet) in the evening. *Will increase your carvedilol for better blood pressure control. Will increase to 25mg twice daily. You can take 2 tablets of your current 12.5mg prescription until this runs out then switch to the new prescription 1 tablet twice daily. *Financial assistance program: [phone] or [phone] [facility] Office Visiton 11-01-2023 Follow-up visit [id number] Keyanna Stafford 1955 Provider Department [place] 11/01/2023 MARIANN DWYER [facility] Family History Problem Relation Age of Onset Hypertension Mother Diabetes Mother Family Status - Relation Status Age at Mother Level of Service:39956 [place] OFFICE/OUTPATIENT ESTABLISHED MOD MDM 30 MIN [facility] 37on 10-24-2023 37 *Monitor your weight daily and write down your weights. Bring to your next office visit. *Will start Farxiga 10mg daily for management of your heart failure. Let us know if it is too expensive. *Take lasix faithfully 40mg twice daily. You can take your afternoon dose around 2-3pm. 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 *I ordered a heart cath, left/coronary and right, to look at the blood vessels in your heart to check for blockages along with checking the pressure in your heart. [facility] Office Visiton 10-24-2023 Follow-up visit [id number] Keyanna Stafford 1955 Date Provider Department Center 10/24/2023 MARIANN DWYER Family History Problem Relation Age of Onset Hypertension Mother Diabetes Mother Family Status - Relation Status Age at Mother Level of Service:66706 [place] OFFICE/OUTPATIENT ESTABLISHED MOD MDM 30 MIN [facility] Office Visiton 09-21-2023 Follow-up visit [id number] Keyanna Stafford 1955 Provider Department Center 09/21/2023 [id number]-BALA HENAO Family History Problem Relation Age of Onset Hypertension Mother Diabetes Mother Family Status - Relation Status Age at Mother Level of Service:94601 [place] OFFICE/OUTPATIENT ESTABLISHED MOD MDM 30 MIN Reason for Visit and Comments: Follow-up [365684] - 1-2 wk follow up [facility] Office Visiton 09-04-2023 Follow-up visit [id number] Keyanna Stafford 1955 Provider Department Center 09/04/2023 MARIANN DWYER Family History Problem Relation Age of Onset Hypertension Mother Diabetes Mother Family Status - Relation Status Age at Mother Level of Service:16612 [place] OFFICE/OUTPATIENT ESTABLISHED MOD MDM 30 MIN Reason for Visit and Comments: Congestive Heart Failure [127] Hypertension [328440] Hyperlipidemia [182] [facility] 36on 03-20-2023 36 We can have her [...] her potassium go too high. Thank you. Normal [facility] 36on 12-14-2022 36 Can we call her phar richard and confirm if she picked up her medication? I just sent in a refill for lisinopril/hydrochloroth iazide. Thanks Normal [facility] XR CHEST 2 Von 06-12-2022 [...] by: GORAN TORRES Date: 2022-06-12 13:31 Normal [facility] XR STERNUM MIN 2 VIEWSon XR [...] MALLIKA ORTIZ Date: 2022-06-12 16:18 Normal [facility] PROF CHEM 8 (BAS METB)on Anion gap [Moles/Vol] 15.1 mmol/L Normal [facility] Comment on above: Performed By: #### H STROPN #### [facility] [address] [address] [address] Quique Ortiz Calcium [Mass/Vol] 9.5 mg/dL Normal 8.5-10.1 [facility] Comment on above: Performed By: #### H STROPN #### [facility] [address] [address] [address] Quique Ortiz Chloride [Moles/Vol] 95 mmol/L Critically low 98-107 [facility] Comment on above: Performed By: #### H STROPN #### [facility] [address] [address] [address] Quique Ortiz CO2 [Moles/Vol] 27.3 mmol/L Normal 21.0-32.0 [facility] Comment on above: Performed By: #### H STROPN #### [facility] [address] [address] [address] Quique Ortiz Creatinine [Mass/Vol] 1.01 mg/dL Normal 0.55-1.02 [facility] Comment on above: Performed By: #### H STROPN #### [facility] [address] [address] [address] Quique Ortiz EGFR-AF ANGUILLAN >60 Normal >=60 [facility] Comment on above: Performed By: #### H STROPN #### [facility] [address] [address] [address] Quique Otriz EGFR-NON AF ANGUILLAN 55 mL/min/1.73m2 Critically low >=60 [facility] Comment on above: Performed By: #### H STROPN #### [facility] [address] [address] [address] Quique Ortiz Glucose [Mass/Vol] 483 mg/dL Critically high 74-106 T [facility] Comment on above: Performed By: #### H STROPN #### [facility] [address] [address] [address] Quique Ortiz Potassium [Moles/Vol] 4.4 mmol/L Normal 3.5-5.1 [facility] Comment on above: Performed By: #### H STROPN #### [facility] [address] [address] [address] Quique Ortiz Sodium [Moles/Vol] 133 mmol/L Critically low 136-145 [facility] Comment on above: Performed By: #### H STROPN #### [facility] [address] [address] [address] Quique Ortiz Urea nitrogen [Mass/Vol] 14.0 mg/dL Normal 7.0-18.0 [facility] Comment on above: Performed By: #### H STROPN #### [facility] [address] [address] [address] Quique Ortiz Urea nitrogen/Creatinine [Mass ratio] 13.9 mg/mg Normal [facility] Comment on above: Performed By: #### H STROPN #### [facility] [address] [place] [address] Dr. Quique Ortiz BNPon 04-25-2022 Natriuretic peptide B (Bld) [Mass/Vol] 1330.0 pg/mL Critically high <=900.0 [facility] Comment on above: Performed By: #### C VDTBH #### [facility] [address] [place] [address] Dr. Quique Ortiz CBC AUTO DIFFon 04-25-2022 BASO # 0.0 103/ul Normal 0.0-0.1 [facility] Comment on above: Performed By: #### C BC #### [facility] [address] [place] [address] Dr. Quique Ortiz Basophils/100 WBC (Bld) 0.4 % Normal 0.2-2.0 [facility] Comment on above: Performed By: #### C BC #### [facility] [address] [place] [address] Dr. Quique Ortiz EO # 0.1 103/ul Normal 0.0-0.7 [facility] Comment on above: Performed By: #### C BC #### [facility] [address] [place] [address] Dr. Quique Ortiz Eosinophils/100 WBC (Bld) 2.3 % Normal 0.9-7.0 [facility] Comment on above: Performed By: #### C BC #### [facility] [address] [place] [address] Dr. Quique Ortiz Erythrocyte distribution width (RBC) [Ratio] 13.2 % Normal 11.0-15.0 [facility] Comment on above: Performed By: #### C BC #### [facility] [address] [place] [address] Dr. Quique Ortiz Hematocrit (Bld) [Volume fraction] 32.7 % Critically low 36.0-48.0 [facility] Comment on above: Performed By: #### C BC #### [facility] [address] [place] [address] Dr. Quique Ortiz Hemoglobin (Bld) [Mass/Vol] 11.0 g/dL Critically low 12.0-16.0 [facility] Comment on above: Performed By: #### C BC #### [facility] [address] [place] [address] Dr. Quique Ortiz IG # 0.02 10e3/ul Normal 0.00-0.03 [facility] Comment on above: Performed By: #### C BC #### [facility] [address] [place] [address] Dr. Quique Ortiz IG % 0.4 % Normal 0.0-0.5 [facility] Comment on above: Performed By: #### C BC #### [facility] [address] [place] [address] Dr. Quique Ortiz LYMPH # 1.3 103/ul Normal 1.2-3.8 [facility] Comment on above: Performed By: #### C BC #### [facility] [address] [place] [address] Dr. Quique Ortiz Lymphocytes/100 WBC (Bld) 23.5 % Normal 20.5-60.0 [facility] Comment on above: Performed By: #### C BC #### [facility] [address] [place] [address] Dr. Quique Ortiz MANUAL DIFF REQ NO Normal [facility] Comment on above: Performed By: #### C BC #### [facility] [address] [place] [address] Dr. Quique Ortiz MCH (RBC) [Entitic mass] 29.3 pg Normal 26.7-34.0 [facility] Comment on above: Performed By: #### C BC #### [facility] [address] [place] [address] Dr. Quique Ortiz MCHC (RBC) [Mass/Vol] 33.6 g/dL Normal 29.9-35.2 [facility] Comment on above: Performed By: #### C BC #### [facility] [address] [place] [address] Dr. Quique Ortiz MCV (RBC) [Entitic vol] 87.0 fL Normal 81.0-99.0 [facility] Comment on above: Performed By: #### C BC #### [facility] [address] [place] [address] Dr. Quique Ortiz MONO # 0.6 103/ul Normal 0.3-0.8 [facility] Comment on above: Performed By: #### C BC #### [facility] [address] [place] [address] Dr. Quique Ortiz Monocytes/100 WBC (Bld) 10.2 % Normal 1.7-12.0 [facility] Comment on above: Performed By: #### C BC #### [facility] [address] [place] [address] Dr. Quique Ortiz NEUT # 3.5 103/ul Normal 1.4-6.5 [facility] Comment on above: Performed By: #### C BC #### [facility] [address] [place] [address] Dr. Quique Ortiz Neutrophils/100 WBC (Bld) 63.2 % Normal 43.0-75.0 [facility] Comment on above: Performed By: #### C BC #### [facility] [address] [place] [address] Dr. Quique Ortiz Platelet mean volume (Bld) [Entitic vol] 9.2 fL Critically low 9.5-13.5 [facility] Comment on above: Performed By: #### C BC #### [facility] [address] [place] [address] Dr. Quique Ortiz PLT 243 103/ul Normal 150-450 [facility] Comment on above: Performed By: #### C BC #### [facility] [address] [place], [place] [id number] Dr. Quique Ortiz RBC 3.76 106/ul Critically low 4.20-5.40 [facility] Comment on above: Performed By: #### C BC #### [facility] [address] [place] [address] Dr. Quique Ortiz WBC 5.6 103/ul Normal 4.0-11.0 [facility] Comment on above: Performed By: #### C BC #### [facility] [address] [address] [address] Quique Ortiz POINT OF CARE GLUCOSEon 04-06 Glucose [Mass/Vol] 226 mg/dL Critically high 74-106 T [facility] Comment on above: Performed By: #### U AMIC #### [facility] [address] [place] [address] Dr. Quique Ortiz PROF 14(COMP METB)on 023 Albumin [Mass/Vol] 3.1 g/dL Critically low 3.4-5.0 [facility] Comment on above: Performed By: #### U AMIC #### [facility] [address] [place] [address] Dr. Quique Ortiz Albumin/Globulin [Mass ratio] 1.0 {ratio} Normal [facility] Comment on above: Performed By: #### U AMIC #### [facility] [address] [address] [address] Quique Ortiz ALP [Catalytic activity/Vol] 69 U/L Normal 46-116 [facility] Comment on above: Performed By: #### U AMIC #### [facility] [address] [place] [address] Dr. Quique Ortiz ALT [Catalytic activity/Vol] 16 U/L Normal 14-59 [facility] Comment on above: Performed By: #### U AMIC #### [facility] [address] [address] [address] Quique Ortiz Anion gap [Moles/Vol] 12.1 mmol/L Normal [facility] Comment on above: Performed By: #### U AMIC #### [facility] [address] [place] [address] Dr. Quique Ortiz AST [Catalytic activity/Vol] 12 U/L Critically low 15-37 [facility] Comment on above: Performed By: #### U AMIC #### [facility] [address] [place] [address] Dr. Quique Ortiz Bilirubin [Mass/Vol] 0.7 mg/dL Normal 0.2-1.0 [facility] Comment on above: Performed By: #### U AMIC #### [facility] [address] [place] [address] Dr. Quique Ortiz Calcium [Mass/Vol] 9.0 mg/dL Normal 8.5-10.1 [facility] Comment on above: Performed By: #### U AMIC #### [facility] [address] [address] [address] Quique Ortiz Chloride [Moles/Vol] 101 mmol/L Normal 98-107 [facility] Comment on above: Performed By: #### U AMIC #### [facility] [address] [place] [address] Dr. Quique Ortiz CO2 [Moles/Vol] 28.5 mmol/L Normal 21.0-32.0 [facility] Comment on above: Performed By: #### U AMIC #### [facility] [address] [place] [address] Dr. Quique Ortiz Creatinine [Mass/Vol] 0.56 mg/dL Normal 0.55-1.02 [facility] Comment on above: Performed By: #### U AMIC #### [facility] [address] [place] [address] Dr. Quique Ortiz EGFR-AF ANGUILLAN >60 Normal >=60 [facility] Comment on above: Performed By: #### U AMIC #### [facility] [address] [place] [address] Dr. Quique Ortiz EGFR-NON AF ANGUILLAN >60 Normal >=60 [facility] Comment on above: Performed By: #### U AMIC #### [facility] [address] [place] [address] Dr. Quique Ortiz Globulin (S) [Mass/Vol] 3.2 g/dL Normal [facility] Comment on above: Performed By: #### U AMIC #### [facility] [address] [place] [address] Dr. Quique Ortiz Glucose [Mass/Vol] 187 mg/dL Critically high 74-106 [facility] Comment on above: Performed By: #### U AMIC #### [facility] [address] [address] [address] Quique Ortiz Potassium [Moles/Vol] 3.6 mmol/L Normal 3.5-5.1 [facility] Comment on above: Performed By: #### U AMIC #### [facility] [address] [place] [address] Dr. Quique Ortiz Protein [Mass/Vol] 6.3 g/dL Critically low 6.4-8.2 [facility] Comment on above: Performed By: #### U AMIC #### [facility] [address] [place] [address] Dr. Quique Ortiz Sodium [Moles/Vol] 138 mmol/L Normal 136-145 [facility] Comment on above: Performed By: #### U AMIC #### [facility] [address] [place] [address] Dr. Quique Ortiz Urea nitrogen [Mass/Vol] 9.0 mg/dL Normal 7.0-18.0 [facility] Comment on above: Performed By: #### U AMIC #### [facility] [address] [place] [address] Dr. Quique Ortiz Urea nitrogen/Creatinine [Mass ratio] 16.1 mg/mg Normal [facility] Comment on above: Performed By: #### U AMIC #### [facility] [address] [place] [address] Dr. Quique Ortiz BNPon 04-24-2022 Natriuretic peptide B (Bld) [Mass/Vol] 1760.0 pg/mL Critically high <=900.0 [facility] Comment on above: Performed By: #### H STROPN #### [facility] [address] [place] [address] Dr. Quique Ortiz CBC AUTO DIFFon 04-24-2022 BASO # 0.0 103/ul Normal 0.0-0.1 [facility] Comment on above: Performed By: #### H STROPN #### [facility] [address] [place] [address] Dr. Quique Ortiz Basophils/100 WBC (Bld) 0.4 % Normal 0.2-2.0 [facility] Comment on above: Performed By: #### H STROPN #### [facility] [address] [place] [address] Dr. Quique Ortiz EO # 0.1 103/ul Normal 0.0-0.7 [facility] Comment on above: Performed By: #### H STROPN #### [facility] [address] [place] [address] Dr. Quique Ortiz Eosinophils/100 WBC (Bld) 2.6 % Normal 0.9-7.0 [facility] Comment on above: Performed By: #### H STROPN #### [facility] [address] [place] [address] Dr. Quique Ortiz Erythrocyte distribution width (RBC) [Ratio] 13.4 % Normal 11.0-15.0 [facility] Comment on above: Performed By: #### H STROPN #### [facility] [address] [place] [address] Dr. Quique Ortiz Hematocrit (Bld) [Volume fraction] 30.3 % Critically low 36.0-48.0 [facility] Comment on above: Performed By: #### H STROPN #### [facility] [address] [place] [address] Dr. Quique Ortiz Hemoglobin (Bld) [Mass/Vol] 10.1 g/dL Critically low 12.0-16.0 [facility] Comment on above: Performed By: #### H STROPN #### [facility] [address] [place] [address] Dr. Quique Ortiz IG # 0.02 10e3/ul Normal 0.00-0.03 [facility] Comment on above: Performed By: #### H STROPN #### [facility] [address] [place] [address] Dr. Quique Ortiz IG % 0.4 % Normal 0.0-0.5 [facility] Comment on above: Performed By: #### H STROPN #### [facility] [address] [place] [address] Dr. Quique Ortiz LYMPH # 1.7 103/ul Normal 1.2-3.8 [facility] Comment on above: Performed By: #### H STROPN #### [facility] [address] [place] [address] Dr. Quique Ortiz Lymphocytes/100 WBC (Bld) 33.9 % Normal 20.5-60.0 [facility] Comment on above: Performed By: #### H STROPN #### [facility] [address] [place] [address] Dr. Quique Ortiz MANUAL DIFF REQ NO Normal [facility] Comment on above: Performed By: #### H STROPN #### [facility] [address] [place] [address] Dr. Quique Ortiz MCH (RBC) [Entitic mass] 29.4 pg Normal 26.7-34.0 [facility] Comment on above: Performed By: #### H STROPN #### [facility] [address] [place] [address] Dr. Quique Ortiz MCHC (RBC) [Mass/Vol] 33.3 g/dL Normal 29.9-35.2 [facility] Comment on above: Performed By: #### H STROPN #### [facility] [address] [place] [address] Dr. Quique Ortiz MCV (RBC) [Entitic vol] 88.3 fL Normal 81.0-99.0 [facility] [facility] Comment on above: Performed By: #### H STROPN #### [facility] [address] [place] [address] Dr. Quique Ortiz MONO # 0.5 103/ul Normal 0.3-0.8 [facility] Comment on above: Performed By: #### H STROPN #### [facility] [address] [place] [address] Dr. Quique Ortiz Monocytes/100 WBC (Bld) 10.5 % Normal 1.7-12.0 [facility] Comment on above: Performed By: #### H STROPN #### [facility] [address] [place] [address] Dr. Quique Ortiz NEUT # 2.6 103/ul Normal 1.4-6.5 [facility] Comment on above: Performed By: #### H STROPN #### [facility] [address] [address] [address] Quique Ortiz Neutrophils/100 WBC (Bld) 52.2 % Normal 43.0-75.0 [facility] Comment on above: Performed By: #### H STROPN #### [facility] [address] [address] [address] Quique Ortiz Platelet mean volume (Bld) [Entitic vol] 9.2 fL Critically low 9.5-13.5 [facility] Comment on above: Performed By: #### H STROPN #### [facility] [address] [address] [address] Quique Ortiz PLT 227 103/ul Normal 150-450 [facility] Comment on above: Performed By: #### H STROPN #### [facility] [address] [address] [address] Quique Ortiz RBC 3.43 106/ul Critically low 4.20-5.40 [facility] Comment on above: Performed By: #### H STROPN #### [facility] [address] [address] [address] Quique Ortiz WBC 5.0 103/ul Normal 4.0-11.0 [facility] Comment on above: Performed By: #### H STROPN #### [facility] [address] [address] [address] Qiuque Ortiz ECHOCARDIO M/2D COMPLETEon 0 04-24-2022 ECHOCARDIO M/2D COMPLETE Patient: KEYANNA STAFFORD Exam Date: 04/24/2022 : 1955 Gender:F Ordering : SVETA ROSAS . Admission #: [id number] Family : PETRONA Gregory GuadalupeLoy LOREDO Order #: [id number] CLICK HERE TO VIEW EXAM ECHOCARDIOGRAM REPORT [...] Villatoro M.D. on 04/24/2022 at 14:35 Normal [facility] POINT OF CARE GLUCOSEon - Glucose [Mass/Vol] 331 mg/dL Critically high 74-106 [facility] Comment on above: Performed By: #### P OCGLUC #### [facility] [address] [place] [address] Dr. Quique Ortiz Glucose [Mass/Vol] 333 mg/dL Critically high 74-106 [facility] Comment on above: Performed By: #### P OCGLUC #### [facility] [address] [place] [address] Dr. Quique Ortiz Glucose [Mass/Vol] 283 mg/dL Critically high 74-106 [facility] Comment on above: Performed By: #### C VDTB #### [facility] [address] [place] [address] Dr. Quique Ortiz PROF 14(COMP METB)on 023 Albumin [Mass/Vol] 2.9 g/dL Critically low 3.4-5.0 [facility] Comment on above: Performed By: #### H STROPN #### [facility] [address] [place] [address] Dr. Quique Ortiz Albumin/Globulin [Mass ratio] 1.1 {ratio} Normal [facility] Comment on above: Performed By: #### H STROPN #### [facility] [address] [place] [address] Dr. Quique Ortiz ALP [Catalytic activity/Vol] 76 U/L Normal 46-116 [facility] Comment on above: Performed By: #### H STROPN #### [facility] [address] [place] [address] Dr. Quique Ortiz ALT [Catalytic activity/Vol] 13 U/L Critically low 14-59 [facility] Comment on above: Performed By: #### H STROPN #### [facility] [address] [place] [address] Dr. Quique Ortiz Anion gap [Moles/Vol] 9.9 mmol/L Normal [facility] Comment on above: Performed By: #### H STROPN #### [facility] [address] [place] [address] Dr. Quique Ortiz AST [Catalytic activity/Vol] 14 U/L Critically low 15-37 [facility] Comment on above: Performed By: #### H STROPN #### [facility] [address] [place] [address] Dr. Quique Ortiz Bilirubin [Mass/Vol] 0.5 mg/dL Normal 0.2-1.0 [facility] Comment on above: Performed By: #### H STROPN #### [facility] [address] [place] [address] Dr. Quique Ortiz Calcium [Mass/Vol] 8.3 mg/dL Critically low 8.5-10.1 [facility] Comment on above: Performed By: #### H STROPN #### [facility] [address] [place] [address] Dr. Quique Ortiz Chloride [Moles/Vol] 107 mmol/L Normal 98-107 [facility] Comment on above: Performed By: #### H STROPN #### [facility] [address] [address] [address] Quique Ortiz CO2 [Moles/Vol] 28.5 mmol/L Normal 21.0-32.0 [facility] Comment on above: Performed By: #### H STROPN #### [facility] [address] [place] [address] Dr. Quique Ortiz Creatinine [Mass/Vol] 0.54 mg/dL Critically low 0.55-1.02 [facility] Comment on above: Performed By: #### H STROPN #### [facility] [address] [place] [address] Dr. Quique Ortiz EGFR-AF ANGUILLAN >60 Normal >=60 [facility] Comment on above: Performed By: #### H STROPN #### [facility] [address] [place] [address] Dr. Quique Ortiz EGFR-NON AF ANGUILLAN >60 Normal >=60 [facility] Comment on above: Performed By: #### H STROPN #### [facility] [address] [place] [address] Dr. Quique Ortiz Globulin (S) [Mass/Vol] 2.7 g/dL Normal [facility] Comment on above: Performed By: #### H STROPN #### [facility] [address] [place] [address] Dr. Quique Ortiz Glucose [Mass/Vol] 110 mg/dL Critically high 74-106 [facility] Comment on above: Performed By: #### H STROPN #### [facility] [address] [place] [address] Dr. uQique Ortiz Potassium [Moles/Vol] 3.4 mmol/L Critically low 3.5-5.1 [facility] Comment on above: Performed By: #### H STROPN #### [facility] [address] [place] [address] Dr. Quique Ortiz Protein [Mass/Vol] 5.6 g/dL Critically low 6.4-8.2 [facility] Comment on above: Performed By: #### H STROPN #### [facility] [address] [place] [address] Dr. Quique Ortiz Sodium [Moles/Vol] 142 mmol/L Normal 136-145 [facility] Comment on above: Performed By: #### H STROPN #### [facility] [address] [place] [address] Dr. Quique Ortiz Urea nitrogen [Mass/Vol] 6.0 mg/dL Critically low 7.0-18.0 [facility] Comment on above: Performed By: #### H STROPN #### [facility] [address] [place] [address] Dr. Quique Ortiz Urea nitrogen/Creatinine [Mass ratio] 11.1 mg/mg Normal [facility] Comment on above: Performed By: #### H STROPN #### [facility] [address] [place] [address] Dr. Quique Ortiz BNPon 04-23-2022 Natriuretic peptide B (Bld) [Mass/Vol] 1898.0 pg/mL Critically high <=900.0 [facility] Comment on above: Performed By: #### U AMIC #### [facility] [address] [place] [address] Dr. Quique Ortiz CARDIAC GORAN ADMITon 023 CK [Catalytic activity/Vol] 113 U/L Normal 26-192 [facility] Comment on above: Performed By: #### U AMIC #### [facility] [address] [place] [address] Dr. Quique Ortiz CK.MB [Mass/Vol] 2.55 ng/mL Normal <=3.60 [facility] Comment on above: Performed By: #### U AMIC #### [facility] [address] [place] [address] Dr. Quique Ortiz HSTROP 11.2 pg/mL Normal 4.0-51.3 [facility] Comment on above: Result Comment: CUT- OFF POINTS HAVE BEEN ESTABLISHED BASED ON THE FOURTH UNIVERSAL DEFINITIONS OF MYOCARDIAL INFARCTION. THE UPPER REFERENCE LIMIT (URL) OF TROPONIN, DEFINED THE 99TH PERCENTILE OF cTnI DISTRIBUTION IN A REFERENCE POPULATION, HAS BEEN CONFIRMED THE DECISION THRESHOLD FOR [place] DIAGNOSIS. Performed By: #### U AMIC #### [facility] [address] [place] [address] Dr. Quique Ortiz JXASON 50 ng/mL Normal 9-82 [facility] Comment on above: Performed By: #### U AMIC #### [facility] [address] [place] [address] Dr. Quique Ortiz CBC AUTO DIFFon 04-23-2022 BASO # 0.0 103/ul Normal 0.0-0.1 [facility] Comment on above: Performed By: #### H STROPN #### [facility] [address] [place] [address] Dr. Quique Ortiz Basophils/100 WBC (Bld) 0.5 % Normal 0.2-2.0 [facility] Comment on above: Performed By: #### H STROPN #### [facility] [address] [place] [address] Dr. Quique Ortiz EO # 0.1 103/ul Normal 0.0-0.7 [facility] Comment on above: Performed By: #### H STROPN #### [facility] [address] [place] [address] Dr. Quique Ortiz Eosinophils/100 WBC (Bld) 1.8 % Normal 0.9-7.0 [facility] Comment on above: Performed By: #### H STROPN #### [facility] [address] [place] [address] Dr. Quique Ortiz Erythrocyte distribution width (RBC) [Ratio] 13.4 % Normal 11.0-15.0 [facility] Comment on above: Performed By: #### H STROPN #### [facility] [address] [address] [address] Quique Ortiz Hematocrit (Bld) [Volume fraction] 35.9 % Critically low 36.0-48.0 [facility] Comment on above: Performed By: #### H STROPN #### [facility] [address] [place] [address] Dr. Quique Ortiz Hemoglobin (Bld) [Mass/Vol] 11.9 g/dL Critically low 12.0-16.0 [facility] Comment on above: Performed By: #### H STROPN #### [facility] [address] [place] [address] Dr. Quique Ortiz IG # 0.02 10e3/ul Normal 0.00-0.03 [facility] Comment on above: Performed By: #### H STROPN #### [facility] [address] [place] [address] Dr. Quique Ortiz IG % 0.4 % Normal 0.0-0.5 [facility] Comment on above: Performed By: #### H STROPN #### [facility] [address] [place] [address] Dr. Quique Ortiz LYMPH # 1.3 103/ul Normal 1.2-3.8 [facility] Comment on above: Performed By: #### H STROPN #### [facility] [address] [place] [address] Dr. Quique Ortiz Lymphocytes/100 WBC (Bld) 23.5 % Normal 20.5-60.0 [facility] Comment on above: Performed By: #### H STROPN #### [facility] [address] [place] [address] Dr. Quique Ortiz MANUAL DIFF REQ NO Normal [facility] Comment on above: Performed By: #### H STROPN #### [facility] [address] [place] [address] Dr. Quique Ortiz MCH (RBC) [Entitic mass] 29.4 pg Normal 26.7-34.0 [facility] Comment on above: Performed By: #### H STROPN #### [facility] [address] [place] [address] Dr. Quique Ortiz MCHC (RBC) [Mass/Vol] 33.1 g/dL Normal 29.9-35.2 [facility] Comment on above: Performed By: #### H STROPN #### [facility] [address] [address] [address] Quique Ortiz MCV (RBC) [Entitic vol] 88.6 fL Normal 81.0-99.0 [facility] Comment on above: Performed By: #### H STROPN #### [facility] [address] [place] [address] Dr. Quique Ortiz MONO # 0.5 103/ul Normal 0.3-0.8 [facility] Comment on above: Performed By: #### H STROPN #### [facility] [address] [place] [address] Dr. Quique Ortiz Monocytes/100 WBC (Bld) 8.8 % Normal 1.7-12.0 [facility] Comment on above: Performed By: #### H STROPN #### [facility] [address] [place] [address] Dr. Quique Ortiz NEUT # 3.6 103/ul Normal 1.4-6.5 [facility] Comment on above: Performed By: #### H STROPN #### [facility] [address] [place] [address] Dr. Quique Ortiz Neutrophils/100 WBC (Bld) 65.0 % Normal 43.0-75.0 [facility] Comment on above: Performed By: #### H STROPN #### [facility] [address] [place] [address] Dr. Quique Ortiz Platelet mean volume (Bld) [Entitic vol] 9.4 fL Critically low 9.5-13.5 [facility] Comment on above: Performed By: #### H STROPN #### [facility] [address] [place] [address] Dr. Quique Ortiz PLT 277 103/ul Normal 150-450 [facility] Comment on above: Performed By: #### H STROPN #### [facility] [address] [address] [address] Quique Ortiz RBC 4.05 106/ul Critically low 4.20-5.40 [facility] Comment on above: Performed By: #### H STROPN #### [facility] [address] [address] [address] Quique Ortiz WBC 5.6 103/ul Normal 4.0-11.0 [facility] Comment on above: Performed By: #### H DEVPN #### [facility] [address] [address] [address] Quique Ortiz CTA CHEST WO W [...] SHARAN SINGH Date: 2022-04-23 18:04 Normal [facility] Covid-19 PCR (CVDTBH)on 04-05 SARS-CoV-2 (COVID-19) RNA ALESIA+probe Ql (Unsp spec) Not detected Normal NOT DETECTED [facility] Comment on above: Result Comment: When [...] for this test is supported by the [place] of [employer] and Human Service's declaration that [...] used). Performed By: #### C VDTBH #### [facility] [address] [place] [address] Dr. Quique Ortiz D-DIMERon 04-23-2022 D-DIMER 0.82 mg/L FEU Critically high <=0.59 [facility] Comment on above: Performed By: #### D DIM #### [facility] [address] [place] [address] Dr. Quique Ortiz D-DIMER COMMENTS SEE BELOW Normal [facility] Comment on above: Result Comment: Incr [...] hospitalization. Performed By: #### D DIM #### [facility] [address] [place] [address] Dr. Quique Ortiz POINT OF CARE GLUCOSEon 04-05 Glucose [Mass/Vol] 113 mg/dL Critically high 74-106 [facility] Comment on above: Performed By: #### H STROPN #### [facility] [address] [place] [address] Dr. Quique Ortiz PROF 14(COMP METB)on 023 Albumin [Mass/Vol] 3.5 g/dL Normal 3.4-5.0 [facility] Comment on above: Performed By: #### U AMIC #### [facility] [address] [address] [address] Quique Ortiz Albumin/Globulin [Mass ratio] 1.0 {ratio} Normal [facility] Comment on above: Performed By: #### U AMIC #### [facility] [address] [address] [address] Quique Ortiz ALP [Catalytic activity/Vol] 102 U/L Normal 46-116 [facility] Comment on above: Performed By: #### U AMIC #### [facility] [address] [place] [address] Dr. Quique Ortiz ALT [Catalytic activity/Vol] 17 U/L Normal 14-59 [facility] Comment on above: Performed By: #### U AMIC #### [facility] [address] [place] [address] Dr. Quique Ortiz Anion gap [Moles/Vol] 11.1 mmol/L Normal [facility] Comment on above: Performed By: #### U AMIC #### [facility] [address] [place] [address] Dr. Quique Ortiz AST [Catalytic activity/Vol] 18 U/L Normal 15-37 [facility] Comment on above: Performed By: #### U AMIC #### [facility] [address] [address] [address] Quique Ortiz Bilirubin [Mass/Vol] 0.7 mg/dL Normal 0.2-1.0 [facility] Comment on above: Performed By: #### U AMIC #### [facility] [address] [place] [address] Dr. Quique Ortiz Calcium [Mass/Vol] 9.0 mg/dL Normal 8.5-10.1 [facility] Comment on above: Performed By: #### U AMIC #### [facility] [address] [place] [address] Dr. Quique Ortiz Chloride [Moles/Vol] 105 mmol/L Normal 98-107 [facility] Comment on above: Performed By: #### U AMIC #### [facility] [address] [address] [address] Quique Ortiz CO2 [Moles/Vol] 27.6 mmol/L Normal 21.0-32.0 [facility] Comment on above: Performed By: #### U AMIC #### [facility] [address] [address] [address] Quique Ortiz Creatinine [Mass/Vol] 0.57 mg/dL Normal 0.55-1.02 [facility] Comment on above: Performed By: #### U AMIC #### [facility] [address] [place] [address] Dr. Quique Ortiz EGFR-AF ANGUILLAN >60 Normal >=60 [facility] Comment on above: Performed By: #### U AMIC #### [facility] [address] [address] [address] Quique Ortiz EGFR-NON AF ANGUILLAN >60 Normal >=60 [facility] Comment on above: Performed By: #### U AMIC #### [facility] [address] [address] [address] Quique Ortiz Globulin (S) [Mass/Vol] 3.6 g/dL Normal [facility] Comment on above: Performed By: #### U AMIC #### [facility] [address] [address] [address] Quique Ortiz Glucose [Mass/Vol] 135 mg/dL Critically high 74-106 [facility] Comment on above: Performed By: #### U AMIC #### [facility] [address] [address] [address] Quique Ortiz Potassium [Moles/Vol] 3.7 mmol/L Normal 3.5-5.1 [facility] Comment on above: Performed By: #### U AMIC #### [facility] [address] [address] [address] Quique Ortiz Protein [Mass/Vol] 7.1 g/dL Normal 6.4-8.2 [facility] Comment on above: Performed By: #### U AMIC #### [facility] [address] [place] [address] Dr. Quique Ortiz Sodium [Moles/Vol] 140 mmol/L Normal 136-145 [facility] Comment on above: Performed By: #### U AMIC #### [facility] [address] [address] [address] Quique Ortiz Urea nitrogen [Mass/Vol] 7.0 mg/dL Normal 7.0-18.0 [facility] Comment on above: Performed By: #### U AMIC #### [facility] [address] [place] [address] Dr. Quique Ortiz Urea nitrogen/Creatinine [Mass ratio] 12.3 mg/mg Normal [facility] Comment on above: Performed By: #### U AMIC #### [facility] [address] [place] [address] Dr. Quique Ortiz TROPONIN, HIGH SENSITIVITYon 04-23-2022 HSTROP 10.9 pg/mL Normal 4.0-51.3 [facility] Comment on above: Result Comment: CUT- OFF POINTS HAVE BEEN ESTABLISHED BASED ON THE FOURTH UNIVERSAL DEFINITIONS OF MYOCARDIAL INFARCTION. THE UPPER REFERENCE LIMIT (URL) OF TROPONIN, DEFINED THE 99TH PERCENTILE OF cTnI DISTRIBUTION IN A REFERENCE POPULATION, HAS BEEN CONFIRMED THE DECISION THRESHOLD FOR [place] DIAGNOSIS. Performed By: #### H STROPN #### [facility] [address] [place] [address] Dr. Quique Ortiz XR CHEST 1 Von 04-23-2022 XR CHEST 1 V EXAM: XR CHEST 1 V HISTORY: Shortness of breath and chest heaviness. COMPARISON: None. TECHNIQUE: Portable chest FINDINGS: IMPRESSION: Moderate bilateral pleural effusions. No pneumothorax. No focal parenchymal consolidation or infiltrate. Electronically authenticated by: PETRONA SUMNER Date: 2022-04-23 15:45 Normal [facility] CBC AUTO DIFFon 04-11-2022 BASO # 0.0 103/ul Normal 0.0-0.1 [facility] Comment on above: Performed By: #### U AMIC #### [facility] [address] [address] [address] Quique Ortiz Basophils/100 WBC (Bld) 0.5 % Normal 0.2-2.0 [facility] Comment on above: Performed By: #### U AMIC #### [facility] [address] [address] [address] Quique Ortiz EO # 0.1 103/ul Normal 0.0-0.7 [facility] Comment on above: Performed By: #### U AMIC #### [facility] [address] [address] [address] Quique Ortiz Eosinophils/100 WBC (Bld) 1.6 % Normal 0.9-7.0 [facility] Comment on above: Performed By: #### U AMIC #### [facility] [address] [place] [address] Dr. Quique Ortiz Erythrocyte distribution width (RBC) [Ratio] 12.6 % Normal 11.0-15.0 [facility] Comment on above: Performed By: #### U AMIC #### [facility] [address] [place] [address] Dr. Quique Ortiz Hematocrit (Bld) [Volume fraction] 34.3 % Critically low 36.0-48.0 [facility] Comment on above: Performed By: #### U AMIC #### [facility] [address] [place] [address] Dr. Quique Ortiz Hemoglobin (Bld) [Mass/Vol] 11.5 g/dL Critically low 12.0-16.0 [facility] Comment on above: Performed By: #### U AMIC #### [facility] [address] [place] [address] Dr. Quique Ortiz IG # 0.01 10e3/ul Normal 0.00-0.03 [facility] Comment on above: Performed By: #### U AMIC #### [facility] [address] [address] [address] Quique Ortiz IG % 0.2 % Normal 0.0-0.5 [facility] Comment on above: Performed By: #### U AMIC #### [facility] [address] [address] [address] Quique Ortiz LYMPH # 1.3 103/ul Normal 1.2-3.8 [facility] Comment on above: Performed By: #### U AMIC #### [facility] [address] [address] [address] Quique Ortiz Lymphocytes/100 WBC (Bld) 24.0 % Normal 20.5-60.0 [facility] Comment on above: Performed By: #### U AMIC #### [facility] [address] [address] [address] Quique Ortiz MANUAL DIFF REQ NO Normal [facility] Comment on above: Performed By: #### U AMIC #### [facility] [address] [place] [address] Dr. Quique Ortiz MCH (RBC) [Entitic mass] 28.5 pg Normal 26.7-34.0 [facility] Comment on above: Performed By: #### U AMIC #### [facility] [address] [address] [address] Quique Ortiz MCHC (RBC) [Mass/Vol] 33.5 g/dL Normal 29.9-35.2 [facility] [facility] Comment on above: Performed By: #### U AMIC #### [facility] [address] [address] [address] Quique Ortiz MCV (RBC) [Entitic vol] 85.1 fL Normal 81.0-99.0 [facility] Comment on above: Performed By: #### U AMIC #### [facility] [address] [address] [address] Quique Ortiz MONO # 0.5 103/ul Normal 0.3-0.8 [facility] Comment on above: Performed By: #### U AMIC #### [facility] [address] [address] [address] Quique Ortiz Monocytes/100 WBC (Bld) 8.3 % Normal 1.7-12.0 [facility] Comment on above: Performed By: #### U AMIC #### [facility] [address] [address] [address] Quique Ortiz NEUT # 3.6 103/ul Normal 1.4-6.5 [facility] Comment on above: Performed By: #### U AMIC #### [facility] [address] [address] [address] Quique Ortiz Neutrophils/100 WBC (Bld) 65.4 % Normal 43.0-75.0 [facility] Comment on above: Performed By: #### U AMIC #### [facility] [address] [address] [address] Quique Ortiz Platelet mean volume (Bld) [Entitic vol] 9.0 fL Critically low 9.5-13.5 [facility] Comment on above: Performed By: #### U AMIC #### [facility] [address] [address] [address] Quique Ortiz PLT 243 103/ul Normal 150-450 [facility] Comment on above: Performed By: #### U AMIC #### [facility] [address] [address] [address] Quique Ortiz RBC 4.03 106/ul Critically low 4.20-5.40 [facility] Comment on above: Performed By: #### U AMIC #### [facility] [address] [address] [address] Quique Ortiz WBC 5.5 103/ul Normal 4.0-11.0 [facility] Comment on above: Performed By: #### U AMIC #### [facility] [address] [address] [address] Quique Ortiz GLYCOHEMOGLOBIN A1Con 2022 ADA RECOMMENDATION SEE BELOW Normal [facility] Comment on above: Result Comment: ADA RECOMMENDED LIMIT 4.0 - 6.0 ADA THERAPEUTIC TARGET < 7.0 ACTION SUGGESTED > 7.0 Performed By: #### C VDTBH #### [facility] [address] [address] [address] Quique Ortiz Glucose [Mass/Vol] 292 mg/dL Normal [facility] Comment on above: Performed By: #### C VDTBH #### [facility] [address] [address] [address] Quique Ortiz HbA1c (Bld) [Mass fraction] 11.8 % Critically high 4.5-6.2 [facility] Comment on above: Performed By: #### C VDTBH #### [facility] [address] [address] [address] Quique Ortiz LIPID PROFILEon 04-11-2022 CHOL-HDL RATIO NORM SEE BELOW Normal [facility] Comment on above: Result Comment: 3.3 - 4.4 LOW RISK 4.4 - 7.1 AVERAGE RISK 7.1 - 11.0 MODERATE RISK >11.0 HIGH RISK Performed By: #### L IPID, MG, CMP #### [facility] [address] [address] [address] Quique Ortiz Cholesterol [Mass/Vol] 227 mg/dL Critically high <=200 [facility] Comment on above: Performed By: #### L IPID, MG, CMP #### [facility] [address] [address] [address] Quique Ortiz Cholesterol in HDL [Mass/Vol] 48 mg/dL Normal 40-60 [facility] Comment on above: Performed By: #### L IPID, MG, CMP #### [facility] [address] [address] [address] Quique Ortiz Cholesterol in LDL [Mass/Vol] 149.8 mg/dL Normal [facility] Comment on above: Performed By: #### L IPID, MG, CMP #### [facility] [address] [address] [address] Quique Ortiz Cholesterol.total/C holesterol in HDL [Mass ratio] 4.7 {ratio} Normal [facility] Comment on above: Performed By: #### L IPID, MG, CMP #### [facility] [address] [address] [address] Quique Ortiz HDL NORMAL > or = 60 mg/dl - LO W CARDIOVASCULAR RISK <40 mg/dl - HIGH CARDIOVASCULAR RISK Normal [facility] Comment on above: Performed By: #### L IPID, MG, CMP #### [facility] [address] [address] [address] Quique Ortiz LDL CALC NORMAL SEE BELOW Normal [facility] Comment on above: Result Comment: <100 mg/dl OPTIMAL 100 - 129 mg/dl NEAR OR ABOVE OPTIMAL 130 - 159 mg/dl BORDERLINE HIGH 160 - 189 mg/dl HIGH >190 mg/dl VERY HIGH Performed By: #### L IPID, MG, CMP #### [facility] [address] [address] [address] Quique Ortiz Triglyceride [Mass/Vol] 146 mg/dL Normal <=150 [facility] Comment on above: Performed By: #### L IPID, MG, CMP #### [facility] [address] [address] [address] Quique Ortiz VLDL CALC 29.2 mg/dL Normal [facility] Comment on above: Performed By: #### L IPID, MG, CMP #### [facility] [address] [address] [address] Quique Ortiz MAGNESIUMon 04-11-2022 Magnesium [Mass/Vol] 2.0 mg/dL Normal 1.8-2.4 [facility] Comment on above: Performed By: #### L IPID, MG, CMP #### [facility] [address] [place] [address] Dr. Quique Ortiz PROF 14(COMP METB)on 023 Albumin [Mass/Vol] 3.4 g/dL Normal 3.4-5.0 [facility] Comment on above: Performed By: #### L IPID, MG, CMP #### [facility] [address] [place] [address] Dr. Quique Ortiz Albumin/Globulin [Mass ratio] 1.0 {ratio} Normal [facility] Comment on above: Performed By: #### L IPID, MG, CMP #### [facility] [address] [address] [address] Quique Ortiz ALP [Catalytic activity/Vol] 89 U/L Normal 46-116 [facility] Comment on above: Performed By: #### L IPID, MG, CMP #### [facility] [address] [place] [address] Dr. Quique Ortiz ALT [Catalytic activity/Vol] 15 U/L Normal 14-59 [facility] Comment on above: Performed By: #### L IPID, MG, CMP #### [facility] [address] [place] [address] Dr. Quique Ortiz Anion gap [Moles/Vol] 10.3 mmol/L Normal [facility] Comment on above: Performed By: #### L IPID, MG, CMP #### [facility] [address] [place] [address] Dr. Quique Ortiz AST [Catalytic activity/Vol] 13 U/L Critically low 15-37 [facility] Comment on above: Performed By: #### L IPID, MG, CMP #### [facility] [address] [place] [address] Dr. Quique Ortiz Bilirubin [Mass/Vol] 0.7 mg/dL Normal 0.2-1.0 [facility] Comment on above: Performed By: #### L IPID, MG, CMP #### [facility] [address] [place] [address] Dr. Quique Ortiz Calcium [Mass/Vol] 9.2 mg/dL Normal 8.5-10.1 [facility] Comment on above: Performed By: #### L IPID, MG, CMP #### [facility] [address] [place] [address] Dr. Quique Ortiz Chloride [Moles/Vol] 100 mmol/L Normal 98-107 [facility] Comment on above: Performed By: #### L IPID, MG, CMP #### [facility] [address] [place] [address] Dr. Quique Ortiz CO2 [Moles/Vol] 27.7 mmol/L Normal 21.0-32.0 [facility] Comment on above: Performed By: #### L IPID, MG, CMP #### [facility] [address] [place] [address] Dr. Quique Ortiz Creatinine [Mass/Vol] 0.60 mg/dL Normal 0.55-1.02 [facility] Comment on above: Performed By: #### L IPID, MG, CMP #### [facility] [address] [place] [address] Dr. Quique Ortiz EGFR-AF ANGUILLAN >60 Normal >=60 [facility] Comment on above: Performed By: #### L IPID, MG, CMP #### [facility] [address] [address] [address] Quique Ortiz EGFR-NON AF ANGUILLAN >60 Normal >=60 [facility] Comment on above: Performed By: #### L IPID, MG, CMP #### [facility] [address] [place] [address] Dr. Quique Ortiz Globulin (S) [Mass/Vol] 3.5 g/dL Normal [facility] Comment on above: Performed By: #### L IPID, MG, CMP #### [facility] [address] [place] [address] Dr. Quique Ortiz Glucose [Mass/Vol] 340 mg/dL Critically high 74-106 T [facility] Comment on above: Performed By: #### L IPID, MG, CMP #### [facility] [address] [place] [address] Dr. Quique Ortiz Potassium [Moles/Vol] 4.0 mmol/L Normal 3.5-5.1 [facility] Comment on above: Performed By: #### L IPID, MG, CMP #### [facility] [address] [place] [address] Dr. Quique Ortiz Protein [Mass/Vol] 6.9 g/dL Normal 6.4-8.2 [facility] Comment on above: Performed By: #### L IPID, MG, CMP #### [facility] [address] [place] [address] Dr. Quique Ortiz Sodium [Moles/Vol] 134 mmol/L Critically low 136-145 [facility] Comment on above: Performed By: #### L IPID, MG, CMP #### [facility] [address] [address] [address] Quique Ortiz Urea nitrogen [Mass/Vol] 10.0 mg/dL Normal 7.0-18.0 [facility] Comment on above: Performed By: #### L IPID, MG, CMP #### [facility] [address] [place] [address] Dr. Quique Ortiz Urea nitrogen/Creatinine [Mass ratio] 16.7 mg/mg Normal [facility] Comment on above: Performed By: #### L IPID, MG, CMP #### [facility] [address] [place] [address] Dr. Quique Ortiz UA RANDOM W/MICROSCOPICon BACTERIA TRACE Abnormal NONE SEEN [facility] Comment on above: Performed By: #### U AMIC #### [facility] [address] [place] [address] Dr. Quique Ortiz Bilirubin Ql (U) Negative Normal NEGATIVE [facility] Comment on above: Performed By: #### U AMIC #### [facility] [address] [place] [address] Dr. Quique Ortiz CAST NONE SEEN Normal NONE SEEN [facility] Comment on above: Performed By: #### U AMIC #### [facility] [address] [place] [address] Dr. Quique Ortiz Clarity (U) CLEAR Normal CLEAR [facility] Comment on above: Performed By: #### U AMIC #### [facility] [address] [place] [address] Dr. Quique Ortiz Color (U) LT. YELLOW Normal YELLOW [facility] Comment on above: Performed By: #### U AMIC #### [facility] [address] [place] [address] Dr. Quique Ortiz Crystals LM Nom (Urine sed) NONE SEEN Normal NONE SEEN [facility] Comment on above: Performed By: #### U AMIC #### [facility] [address] [place] [address] Dr. Quique Ortiz Epithelial cells LM Ql (Urine sed) NONE SEEN Normal NONE SEEN /RARE [facility] Comment on above: Performed By: #### U AMIC #### [facility] [address] [address] [address] Quique Ortiz Glucose Ql (U) >1000 Abnormal NEGATIVE [facility] Comment on above: Performed By: #### U AMIC #### [facility] [address] [address] [address] Quique Ortiz Hemoglobin Ql (U) SMALL Abnormal NEGATIVE [facility] Comment on above: Performed By: #### U AMIC #### [facility] [address] [address] [address] Quique Ortiz Ketones Ql (U) Negative Normal NEGATIVE [facility] Comment on above: Performed By: #### U AMIC #### [facility] [address] [address] [address] Quique Ortiz LEUKOCYTES Negative Normal NEGATIVE [facility] Comment on above: Performed By: #### U AMIC #### [facility] [address] [address] [address] Quique Ortiz MUCOUS NONE SEEN Normal NONE SEEN [facility] Comment on above: Performed By: #### U AMIC #### [facility] [address] [address] [address] Quique Ortiz Nitrite Ql (U) Negative Normal NEGATIVE [facility] Comment on above: Performed By: #### U AMIC #### [facility] [address] [address] [address] Quique Ortiz pH (U) 5.5 [pH] Normal 5-9 [facility] Comment on above: Performed By: #### U AMIC #### [facility] [address] [address] [address] Quique Ortiz RBC NONE SEEN Abnormal 0-2 [facility] Comment on above: Performed By: #### U AMIC #### [facility] [address] [address] [address] Quique Ortiz SPEC GRAVITY <=1.005 Abnormal 1.005-<=1.025 [facility] Comment on above: Performed By: #### U AMIC #### [facility] [address] [address] [address] Quique Ortiz UA PROTEIN Negative Normal NEGATIVE/ TRACE [facility] Comment on above: Performed By: #### U AMIC #### [facility] [address] [address] [address] Quique Ortiz Urobilinogen Qn (U) 0.2 {Jv'U}/dL Normal 0.2 - 1. 0 [facility] Comment on above: Performed By: #### U AMIC #### [facility] [address] [address] [address] Quique Ortiz WBC NONE SEEN Normal NONE SEEN [facility] Comment on above: Performed By: #### U AMIC #### [facility] [address] [address] [address] Quique Ortiz XR ANKLE ELENA MIN [...] MALLIKA ORTIZ Date: 2022-03-29 10:38 Normal [facility] Coding Summary.on 07-02-2020 Coding Summary. CD:[id number] Gh0b Ww+PGhlYWQ+GH6CRRVaD82yg GHutS0VP9zUCJ1PZVLSHICEX C0UPE1kiZR8VLvkU4RgkvDh NpwzvQLaVA27XEd9OWD9vQgr JXeoaE2tvMCbI1a2JuDjHA29 jB87EFrzBUHrDiI3PqYnscnk bWFy N0jcPyNebXJgSgo+PHRhYmxl IHdpZHRoPScxMDAlJyBzdHls JK0cVa2uHANbTOWqvIzbzBGs OiBj c5adJQEkFLqbMB2juJeeE1Wh dFC9OHMbe7r0Ny93oAC+PHRk WJS9kQknZOlec942OpArx1rq IDM3 wDDeRJxeUUP1Y41ho6R8LGKr XQEhHUN7sOG8bK3fkArixztj M8CfuRWqEzG3TOS5iNYpwM7j bGln vegitK3fSwp+P95HFX0WMZXZ SX0BGbf0M5XxBbwujDW+PC90 BVJpOY65tQSeqJUvv7lljGl3 JzEw AZNnSNV5kKphPHstv5FdRMIp T39rjDFpo3G3XSMzxXdhzDQe OhPykHW0aA6vNUzixfiio0hi dzsn Bpwpj2pkvy03pD95Z99bIKwn LNFmMYX9ZRCeSWEntUxcdv1c eZ7kSb3+UNwax6kcl9jheGv6 IjIw GXXtcqGphNqbAUC4l9PwMx81 V7PlrUlyf3GaUsw6wm92kQSe d3L4lSM2IZaeNNVyjG4wTTfw ZnQ6 ZAQsGkQjiP33sSJrTZnoFd9s hFcueGjbCP3tCFXecoxtKRGi nN1uITImjKLytTtmGS6qZSBt bjtm o102LiJyFME6KIPokSBoT3Zp aE6nHyTgCRWcKPInA5WosJDa CGdaV780IOlhVsU1INUpklOs Y2Fs PUNnkLevLxF4b9S2Aw7Ux1By jffeHRZ9YYhpYGD4TyU7VnAy YnR8E2UtAvm6LVMopSknOO9c J3Bh BAVwcpderewxuTN4CGJrYDWj dA06xXKaQSrpAw7cw0L5b998 IORtTBTbiK35Si8dlQltJZJf dCBU jV2deiffh5gplfrjJiZvAOAf GVq8XJg9YYAdnJvmUwKbTAK3 VnG5SYB7wWSfeN5aqUntajqf dG9w Oyc+R08vtP9rQNW7NQA9sjsa GFBtapYfVO57KU62Q6ObMffa dGFibGU+PUQwzyMmwQbaSX6p YmFj e1zdg7DfQSjuF2QoAGYrIZmk Gzu8FFBoLVK9gYR0yZ4mZMMx AZpsz5K3kDW2O1IschMxzy8x b2xs KQZfFIumL70atJDyl9F7DQDr sGP4PIUamLqtYoScvA38Fjl+ TYJxnIooz8EsNuuig1lzo6ek dGg9 AlAcMGXcxcYlpIjlDUD0l7Az Ke48E99nTFtnAHHgUKZhYPVb JZUzaJwdja1ggS6xPy4+PGNv bCB3 eNH6rI3tFLLgLuJ5IBxjU086 TfKjnKNqQyawl8gbs0hxbGh2 YrTmMWEfpkJmtVonQPJ3q9Dy Lz48 W46jOIrwMZQbOLOmGIWdFQBd aFlamv0nmE8wCe0+DI4of6xc tb83eJ43zRK+IQNjIRV2tPdb PSdw GDXlvD0lZApgNsH4ZITlCgHy mE34jVClNMjjKe5apRcqxNgi CO0tMABvzmyjt986VbPxd5jk IDEw mCJfGPydUEO8P21zv3I1UOVc FHDgJIH4yGJ4wZ1ktUnqvavl bGVmdDsgdmVydGljYWwtYWxp Z246 IHRvcDsnPlBhdGllbnQgTmFt YJw3Y8DaJbw2ERXmbTwnYI0l lOQoEKshGe8vfPbcsMcvXR0i NTBp eioyy197RtDyj9kxRTBndMPa MHvwSOJ2U76nh7X1DQLoJFHr ACU6rVH1oV9feEkfvmmywRRh dDsg ryOmmHjjHBjsNOfrJ949NIMd iXofCjXvymNqLNQxoFW5RH02 WM68gXObc0B6hZC3G4AzDPQm bmct kpufkLG4XAIsTKFjpL88Rf9v zZmvEv8uLKInKYK0QDAkuCZc B9YofS8vEiPzJLIbDVPwU8Dy eHQt LWzrW666AUpiBgF4XDItguLb L0NnFYVpyHqbTxK1l9H9Hp0O E5U6EH56UQ50kHMvl8A7lFK7 J3Bh RZYfyopmsemihFI1KWLlWYYx mG92Ua5ctKtmLg5oAKEbZDY1 JOPmkTFhM8HsiN7wZtMtFPWb MDAw O4KwnUEiTMytL258FSzkJqB0 WTOcmlWfD9IqNSUupVvpWhJ2 a6N9Vm4PYYz8WP66GD26rMJi c3R5 jAC4W3DvVHQfhtlkcdjlvLE3 ZMAqYVSjgZ46Zf6pvEcaRj0s GUFuBQF3QIUsxFYsP9RxmB9j OiAj PKExRDDdC3NwtZVeGUyrP518 MClsRaA0JLDayxWbQ1UmVPZb aGtrDlA8r6F4Hx8HZUBdHI78 IFR5 hQY9SJ63AI59R5DjQkybeFAg bGU+PHRhYmxlIHdpZHRoPScx JYUpZpLtxLvsLK1aBn8kKPCc LWNv xSvesUOwMxExt4cvRXJlODsa QY0jnKteE0DriQG8XTZnd9m9 Go10H64hK3WiuMR+PGNvbCB3 aWR0 fQ5hFtOsCvG5QEdgV225DaVb aQHnXsoks6hks9knfDl5ArW3 DSZczbKvtRcyGAI7g1XxMd34 Y29s IHdpZHRoPSIxNSUiIHZhbGln pw9mfD8oFw7+KAOkrAO1dXR0 jU4nWvBoRkF0RRjaT987OxVt cCIv Cjbpe4mbs3uusAv1EoXvNIHd mvQigVhwMYP3j7YxQe27Q7Af nDpcl9MxAfu4gg75yMKmf9G8 bGU9 Y4AvQXWdoufgcYHmzBycWY0v UGPayouaGAIhlW2vMVGgT0u7 ChUrBeX1GOagS9NqhmV4TJKa cHQg SYmhAKY1P38dz5E6TBPiELEk AUH1sKO8cS5atKckukuzmDGv zGggfzFuzKhoOBpfSSreW683 IHRv wFmsATSebO1iNPBpsVFfwKny MX0xVUIbbjehTsZXIMfjDSLH TFZJQTwvdGQ+VLPlQAI4rGei PSdw ZFFnsL2rSVBhJ8q2JrDlDvH6 KVzeS2WgEHKagzdaNe14dS2q XfYqPbP5XGbjM6KarbT5NBEt cHQg NCeoSOA6J83zy8B2SYLoWWMt AFA4eAP2kJ7lgFxroaphnEJa dPayqhAblHwdTCwjPXtfJ441 IHRv cGqnWzUnRvT0LlK8GXX4Z7Hs Rch6KCUeiUukAM9seZWaQBeh Xr0gcMioiXaqPI9zHVFweuix YWRk yO6fZMEybNMztLlrMX9oSBRr ndwdg395NxKwCQR1WEBdfRRp N1DlcF4wWyTjHNAeFFAiQ6My eHQt XMulY128BOwoSzB6CFBsgbAz P4GwXATkvWfkRuW9c3B1Ar79 NiBZZWFyczwvdGQ+PHRkIHN0 eWxl ARopGDXwxH9dRHRlL3o4AhXl RwZ3JOqwO8SvSKTavmptVg73 fB8pYwLyBuH3LEhkJ1PjhsI2 IDEw aXQuREygULX6M50ko8N0CXJs GTFdVHQ0hBU0tU8efOnyjago bGVmdDsgdmVydGljYWwtYWxp Z246 IHRvcDsnPkZlbWFsZTwvdGQ+ MAJqVFD7aSkqXGnnRBZaoH0u FAEdI5o8WvOuDaT2MHleP0Ao ZGRp xnnlNh99gB9kHqRfAzH8IZge K3RhgwJ1RTMtcXFvHKfmROV7 E82pk3Q8ZYEwSASxQTF0rHN6 dC1h bGlnbjogbGVmdDsgdmVydGlj UQetJRtvZ685RFIwuKekBwYm OYDlFS0csYycbCF+QP21ar64 L3Rh TssvJdw2EDYuOZO8eWL9mQ4r FZIuCNeqo8D2kEX1S3WafnLq gv4ub4knSTIgWAhmR50yzQUy c2U7 PSRkwEY5KEQcyNamWcPbbB97 Oyc+XFZacJiev0RyWhogr7vo w5dwzXk5WdLqBRJexpJmyAfn PSJ0 n9TaUa67Z90lMPnsBRAqQAAf FVWeTVQwlIprax7isM6pZt4+ YWTqzBT4iSQ2cQ5jRfHtPjA0 YWxp Z525UuFugCLxKihqb4yvk9mx nZu1KuCyYTMxjmCtyRnsVVM1 k0NhAo79X9WtmBlzo5WrUfj8 cj48 oBQnh2E2hRZ0G4SwYIIwpdew oMYvbWsjLO1jCHOyefsuHKVh yG4oXXOjU0s4PdWwNnV0PMlg O2Zv yqO7QNIzhEChFJEowVTDjY9c bfbxc8ncksupIiMvMHTgLGt7 XIe6WLDzyYmzMaUzPNU6PiF8 ZXJ0 kLPlpS3elCfzbbfzqU8pFyh+ PIb9y4edwMBhUH7twKZ2ES17 SI52nAQwc0U6qUG7Z3ZwSWWv bmct flblsXM6MHQePYThcM97Zw1j gMwdUs3eXLBjCBB3XQMqaRYd J6RokU6mAgTqNYPaURKbW7Bg eHQt PXueI767UNxvWrY1PMUjyeHo T0DwLJAujHodTmF7q2E9Eu2S LC20XJ12AT31yUDce4W9iJV0 J3Bh NMZlaiijkrhjdAV3OELbFVIe lZ45Xh5bbLzlSx2yOZObATY3 SRAlwEDtI3PmgH4kQyFiDHKj MDAw T5DtjKXeIVpvU746KGqpRlC3 GTZzxoXnJ0OvPRBlsEczJpF5 z6O1Jg5TXd57NH97OT20hWSg c3R5 wGE5W2NiWOWhgsjgrknxlZA6 SSPkERZwhV64Vp9opAydRh2f KWLvTTC0IYZqbBQsE1YasL7v OiAj UMIfVWBgF8DpoAYoKLooQ341 GZijCrW4JNTwbrSkE4IiFZOo yQkmUwQ2i9T2Yh3ZTYzvibf2 L3Rk PjwvdHI+UO95LTBuWI02pNEz rAHny8uljYy1KeZyOJGmADL8 eMkfEVrcm3ZlLHBeY96izEBj c2U6 IGNv (more content not included)... Normal [facility] Consent for Treatmenton 06-06 Consent for Treatment [id number]: 127 [facility] Discharge Instructionson Discharge Instructions [id number] :127 [facility] Discharge Instructions Discharge instructions complete, RR equal and non labored and nurse educated to make follow up and take medication as prescribed. [facility] Comment on above: Result Comment: Elec tronically Signed By: Malorie MONSIVAIS, Don Urbina\.br\Date and Time Signed: 06/28/20 11:39 EDT ED Clinical Summaryon 2020 ED Clinical Summary (Inserted Image. [place] ble to display) [place] [id number] ED Clinical Summary Person Information Name: KEYANNA STAFFORD[facility] Age: 65 Years : 1955 Sex: Female Language: Macedonian PCP: Manohar PARHAM DO Marital Status: Single [...] 06/28/2020 11:46:42 06/28/2020 11:46:42 06/28/2020 11:46:42 ADDRESS: [address] [place] [address] [id number] PHYS DOC NOTES: MEDICAL INFORMATION: Prescriptions Given: New Medications Printed Prescriptions amlodipine (Norvasc 10 mg Tab) 1 Tablets By Mouth every day for 30 Days. Refills: 0. PATIENT EDUCATION INFORMATION: Instructions: Hypertension; DASH Eating Plan Follow up: With: Address: When: Manohar PARHAM [address] [place] [id number] Business (1) In 3 days 07/01/2020 DIAGNOSIS: Hypertension Normal [facility] ED Note-Physicianon 06-29-19 ED Note-Physician Basic Information [...] days 07/01/2020 EDT [address] [place] [address] Business (1) Additional Instructions: Patient Education Hypertension [...] By: Waylon Marques DO 06/28/2020 10:57:50 Normal [facility] Comment on above: Result Comment: [...] Document Reviewed: 11/14/2013 ExitCare? Patient Information ?2014 [employer]. This information is not intended to replace [...] 12 oz (more content not included)... Normal [facility] ED Patient Summaryon 021 ED Patient Summary (Inserted Image. [place] ble to display) [place] [id number] Patient Discharge Instructions Person Information Name: KEYANNA STAFFORD Age: 65 Years Arrival Date: 06/28/2020 10:27:51 Discharge Diagnosis: Hypertension Primary Care Physician: Manohar PARHAM DO Provider Information Primary Provider: Waylon Marques DO Advanced Maintenance Leader:None The exam and treatment you received in the Emergency Department were for an urgent problem and are not intended as complete care. It is important that you follow up with a doctor, nurse practitioner, or physician?s timber management assistant for ongoing care. If your [...] When: Manohar PARHAM [address] [place] [address] Business (1) In 3 days 07/01/2020 In the event that this physician does not participate in your insurance network, please consult with your insurance company to find a nearby participating provider. Patient Education Materials: Hypertension; DASH Eating Plan A MESSAGE TO ALL PATIENTS REGARDING OPIOIDS PRESCRIPTION OPIOIDS: WHAT YOU NEED TO KNOW Prescription opioids can be used to help relieve zsmxnajh-gj-hsewof pain and are often prescribed following a [...] be struggling with addiction, tell your health urgent care technician and ask for guidance or call [employer]?S National Helpline at 4-132-019-KQOU. v Source: [place] Department of Health and (more content not included)... Normal [facility] HAND RIGHT 2 [facility] [address] [place] [id number] ==Patient Name: KEYANNA STAFFORD : 1955Sex: FAge: Race: WhiteMRN: [id number]. 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 Transcribed by: [email or web address], User Resident: Electronically Signed by: SERGIO LAWRENCE @ 01/07/2018 02:05 PM Normal [facility] Comment on above: Order Comment: , , = ========= , Ordering Provider - MANOHAR BONILLA PA-C , Operative Reporton 8 Operative Report MR#: 01-11-42-55 [facility] Pt. Name: Keyanna Stafford Room #: DCC [...] Dict: 01/01/2018/09:11 P/Tiffanie Rose Trans: 01/02/2018 05:47 A/[id number] 9cc: Reese Hodges M.D. [address] [place] [address] Normal [facility] *ANAEROBIC CULTUREon 018 *ANAEROBIC CULTURE Clinical Report: (D) Specimen/Source: TISSUE/INTRAOP SPEC Collected: 12/31/2017 15:35 Status: Final Last Updated: 01/05/2018 08:19 (1) Right Long Finger Soft Tissue ISO (Final) No Anaerobes Isolated 5 Days Normal [facility] Comment on above: Order Comment: Right Long Finger Soft Tissue Performed By: #### 5 [id number], [id number] ####[place] [address] [place] *ANAEROBIC CULTURE Clinical Report: (D) Specimen/Source: TISSUE/INTRAOP SPEC Collected: 12/31/2017 15:34 Status: Final Last Updated: 01/05/2018 08:07 (1) Right Long Finger Distal Phalanx ISO (Final) No Anaerobes Isolated 5 Days Result changed by SERVANDO on 01/05/2018 08:07. The previous result was: ISO (Prelim) Normal [facility] Comment on above: Order Comment: Right Long Finger Distal Phalanx Performed By: #### 3 0312 ####[facility] *FUNGAL CULTUREon 12-31-2017 *FUNGAL CULTURE Clinical Report: (D) Specimen/Source: TISSUE/INTRAOP SPEC Collected: 12/31/2017 15:35 Status: Final Last Updated: 01/08/2018 14:58 (1) Right Long Finger Soft Tissue FS (Final) No Yeast or Fungal Elements Seen ISO (Final) Tisha albicans Normal [facility] Comment on above: Order Comment: Right Long Finger Soft Tissue Performed By: #### 5 6101, [id number] ####[facility] *FUNGAL CULTURE Clinical Report: (D) Specimen/Source: TISSUE/INTRAOP SPEC Collected: 12/31/2017 15:34 Status: Final Last Updated: 01/08/2018 10:00 (1) Right Long Finger Distal Phalanx FS (Final) No Yeast or Fungal Elements Seen ISO (Final) Tisha albicans Normal [facility] Comment on above: Order Comment: Right Long Finger Distal Phalanx Performed By: #### 5 6101, [id number] ####[facility] *TISSUE CULTUREon 12-31-2017 *TISSUE CULTURE Clinical [...] Susceptible VANCOMYCIN (VA) 1 Susceptible Normal [facility] Comment on above: Order Comment: Right Long Finger Soft Tissue Performed By: #### 3 0338 ####[facility] *TISSUE CULTURE Clinical Report: (D) Specimen/Source: [...] Susceptible VANCOMYCIN (VA) 1 Susceptible Normal [facility] Comment on above: Order Comment: Right Long Finger Distal Phalanx Performed By: #### 3 0338 ####[place] [address] [address] APTTon 12-31-2017 aPTT Coag time (Bld) 27.1 s Normal 25.0-35.0 [facility] Comment on above: Result Comment: [...] THIS PURPOSE. Performed By: #### 5 6101, 63102 ####[facility] BASIC METABOLIC PANELon - Calcium mass conc 9.3 mg/dL Normal 8.6-10.3 [facility] Comment on above: Performed By: #### 0 0071 ####[facility] [place] [address], [facility] Chloride molar conc 104 mmol/L Normal 98-107 [facility] Comment on above: Performed By: #### 0 0071 ####[facility] [place] [address], [facility] CO2 molar conc 28 mmol/L Normal 21-31 [facility] Comment on above: Performed By: #### 0 0071 ####[facility] [facility] [place] [address], [facility] Creatinine mass conc 0.51 mg/dL Low 0.60-1.20 [facility] Comment on above: Performed By: #### 0 0071 ####[place] [address] [facility] [place] [address], [facility] GFR/1.73 sq M predicted among blacks MDRD vol rate/area (S/P/Bld) mL/min/{1.73_m2} Normal >60 [facility] Comment on above: Performed By: #### 0 0071 ####[facility] [facility] [place] [address], [facility] GFR/1.73 sq M predicted among non-blacks MDRD vol rate/area (S/P/Bld) mL/min/{1.73_m2} Normal >60 [facility] Comment on above: Performed By: #### 0 0071 ####[facility] [facility] [place] [address], [facility] Glucose mass conc 168 mg/dL High 70-100 [facility] Comment on above: Performed By: #### 0 0071 ####[facility] [facility].[place] [id number], [facility] Potassium molar conc 4.2 mmol/L Normal 3.5-5.1 [facility] Comment on above: Performed By: #### 0 0071 ####[facility] Sodium molar conc 141 mmol/L Normal 136-145 [facility] Comment on above: Performed By: #### 0 0071 ####[facility] Urea nitrogen mass conc 5 mg/dL Low 7-25 [facility] Comment on above: Performed By: #### 0 0071 ####[place] [address] [address] CBC W/DIFFon 12-31-2017 ABS BASOPHILS 0.0 10*3/uL Normal 0.0-0.2 [facility] Comment on above: Performed By: #### 5 0103 ####[facility] ABS IMM GRANS 0.0 10*3/uL Normal 0.0-0.2 [facility] Comment on above: Performed By: #### 5 3 ####[place] [address] [address] ABS NEUTROPHILS 3.3 10*3/uL Normal 1.6-7.6 [facility] Comment on above: Performed By: #### 5 0103 ####[facility] Basophils Auto #/vol (Bld) 0.4 % Normal 0.0-1.0 [facility] Comment on above: Performed By: #### 5 3 ####[facility] Eosinophils Auto #/vol (Bld) 0.1 10*3/uL Normal 0.0-0.5 [facility] Comment on above: Performed By: #### 3 ####[facility] Eosinophils/100 WBC Auto (Bld) 1.1 % Normal 0.0-6.0 [facility] Comment on above: Performed By: #### 3 ####[facility] Erythrocyte distribution width Auto Ratio (RBC) 13.0 % Normal 11.5-15.0 [facility] Comment on above: Performed By: #### 102 ####[facility] Hematocrit Auto Volume Fraction (Bld) 39.9 % Normal 36.0-45.0 [facility] Comment on above: Performed By: #### 102 ####[facility] Hemoglobin mass conc (Bld) 13.5 g/dL Normal 12.0-15.0 [facility] Comment on above: Performed By: #### 102 ####[facility] IMMATURE GRANS 0.4 % Normal 0.0-1.0 [facility] Comment on above: Performed By: #### 3 ####[facility] Lymphocytes Auto #/vol (Bld) 1.9 10*3/uL Normal 1.2-4.0 [facility] Comment on above: Performed By: #### 3 ####[facility] [place] [address] Lymphocytes/100 WBC Auto (Bld) 32.9 % Normal 20.0-45.0 [facility] Comment on above: Performed By: #### 5 3 ####[facility] [facility].[address] MCH Auto Entitic mass (RBC) 29.2 pg Normal 27.0-33.0 [facility] Comment on above: Performed By: #### 3 ####[facility] [facility].[address] MCHC Auto mass conc (RBC) 33.8 g/dL Normal 32.0-35.0 [facility] Comment on above: Performed By: #### 3 ####[facility] MCV Auto Entitic volume (RBC) 86.4 fL Normal 82.0-98.0 [facility] Comment on above: Performed By: #### 102 ####[facility] Monocytes Auto #/vol (Bld) 0.4 10*3/uL Normal 0.1-1.0 [facility] Comment on above: Performed By: #### 3 ####[facility] MONOS 7.4 % Normal 5.0-12.0 [facility] Comment on above: Performed By: #### 5 3 ####[facility] Neutrophils/100 WBC Auto (Bld) 57.8 % Normal 40.0-72.0 [facility] Comment on above: Performed By: #### 3 ####[facility] Nucleated RBC/100 WBC Ratio (Bld) 0 % Normal 0-0 [facility] Comment on above: Performed By: #### 3 ####[facility] PLAT CNT 226 10*3/uL Normal 150-400 [facility] Comment on above: Performed By: #### 5 0103 ####[facility] [place] [address] RBC Auto #/vol (Bld) 4.62 10*6/uL Normal 3.80-5.00 [facility] Comment on above: Performed By: #### 5 0103 ####[facility] [place] [address], [facility] WBC Auto #/vol (Bld) 5.71 10*3/uL Normal 4.00-10.60 [facility] Comment on above: Performed By: #### 5 0103 ####[facility] [place] [address] FINGER RIGHT MIN 2 VWSon FINGER RIGHT MIN 2 VWS [facility] Center[facility] [address] [place], [place] [address] ==Patient Name: KEYANNA STAFFORD : 1955Sex: FAge: Race: WhiteMRN: [id number]. Location: OUTPPatient Status: OVisit #: [id number] Date: 12/31/2017 3:35:00 PMCompleted Date: 12/31/2017 03:48 PMRequesting Provider: STUART VO Attending Provider: STUART VO Report Copy To: Signs & Symptoms: crpp right fingerHistory: Comments: crpp right fingerExam: FINGER RIGHT MIN 2 VWSAccession #: [id number] =========FINGER RIGHT MIN 2 VWS 12/31/2017 3:48 [...] documentation Electronically signed by:Abdirizak Herrera. Transcribed by: [email or web address], User Resident: Electronically Signed by: ABDIRIZAK HERRERA @ 2018 08:05 AM Normal [facility] Comment on above: Order Comment: crpp right finger POC GLUCOSE LABon 12-31-2017 Glucose mass conc 141 mg/dL High 70-100 [facility] Comment on above: Performed By: #### 8 5499 ####[facility] Glucose mass conc 152 mg/dL High 70-100 [facility] Comment on above: Performed By: #### 8 5499 ####[facility] [facility].[address] PROTHROMBIN TIMEon 8 INR Coag RelTime (PPP) 0.90 {INR} Low 0.91-1.16 [facility] Comment on above: Result Comment: ACCC P RECOMMENDED INR FOR WARFARIN THERAPY CONDITION INRPROPHYLAXIS OF VENOUS THROMBOSIS 2-3(HIGH-RISK SURGERY)TREATMENT OF VENOUS THROMBOSIS 2-3TREATMENT OF PULMONARY EMBOLISM 2-3PREVENTION OF SYSTEMIC EMBOLISM: 2-3 ACUTE MYOCARDIAL INFARCTION TISSUE HEART VALVES VALVULAR HEART DISEASE ATRIAL FIBRILLATION RECURRENT SYSTEMIC EMBOLISMMECHANICAL HEART VALVE 2.5-3.5 FROM: ORAL ANTICOAGULANTS. MECHANISM OF ACTION, CLINICALEFFECTIVENESS, AND OPTIMAL THERAPEUTIC RANGE. [id number]. Performed By: #### 5 6101, 60180 ####[facility] [facility].[address] Prothrombin time (PT) Coag time (PPP) 12.1 s Low 12.3-14.8 [facility] Comment on above: Result Comment: ALL RESULTS MUST BE INTERPRETED WITH RESPECT TO BLOOD DRAWING ARTIFACTOR DILUTION ERROR OF ANTICOAGULANT AT THE TIME OF SAMPLING. Performed By: #### 5 6101, 65785 ####[facility] [facility].[address] Encounters Encounter Date Encounter Type Care Provider Facility Start: 11-01-2023 End: 11-01-2023 ambulatory [facility] Start: 10-24-2023 End: 10-24-2023 ambulatory [facility] Start: 09-21-2023 End: [facility]: 09-04-2023 End: 09-04-2023 ambulatory [facility] Start: 06-12-2022 End: 06-13-2022 ambulatory URBANO GARCIA Facility:[facility] Start: 06-02-2022 End: 06-03-2022 ambulatory URBANO GARCIA Facility:[facility] Start: 04-23-2022 End: 04-25-2022 Evaluation and management of inpatient MARIANN DAVIDSON Facility:[facility] Start: 04-11-2022 End: 04-12-2022 ambulatory URBANO SAMI RADHA Facility:[facility] Start: 03-28-2022 End: 03-29-[address] REESE HODGES Facility:[facility] Start: 01-07-2018 End: 01-08-2018 Patient encounter procedure MANOHAR BONILLA Facility:[facility] Start: 12-31-2017 Encounter for other specified special examinations STUART EBRAHEIM [facility] Start: 12-31-2017 End: 2018 Patient encounter procedure STUART EBRAHEIM Facility:[facility] Encounter for other specified special examinations STUART EBRAHEIM [facility] Procedures Date Procedure Procedure Detail Performing Clinician Start: 09-21-2023 Follow-up visit Follow-up BALA HENAO Start: 12-31-2017 AMPUTATION OF FINGER/THUMB STUART EBRAHEIM Start: 12-31-2017 ANESTH LOWER ARM SURGERY LIZZETTE [facility] Payers Date Payer Category Payer Unknown [id number] 1955 Unknown [id number] 2.16.8 [id number] 1955 Unknown [id number] 2.16.8 [id number] 1955 Unknown [id number] 2.16.8 [id number] 1955 Unknown [id number] 2.16.84 [id number] 1955 Unknown [id number] 2.16.84 [id number] 1955 Unknown [id number] 2.16.84 [id number] 1955 Unknown [id number] 2.16.84 [id number] 1955 Unknown [id number] 2.16.84 [id number] Unknown [id number] Progress note 11-01-2023 Note Date & Type Note Facility 11-01-2023 Note Patient here for 1 w ak chin follow up HFrEF. Farxiga was added at last visit. She was unable to start Farxiga due to cost. She's down 5# from last week. Says her LE edema and cough are improving. Heart cath is scheduled for 11/12/[address] Henao. Review of Systems Constitutional: Positive for weight loss (5# since 10/24/2023). Cardiovascular: Positive for leg swelling ( a little better ). Respiratory: Positive for cough (improving). Neurological: Positive for light-headedness. [facility] Progress note 11-01-2023 Note Date & Type Note Facility 11-01-2023 Note Cardiovascular Medic [facility] SUBJECTIVE No chief complaint on file. Keyanna Stafford is a 68 y.o. female here for follow-up. Her sister Ana Paula accompanied her today. HPI PMHx: DM type II, (hx of noncompliance), HTN, HLD, HFpEF 11/01/2023 She is down about 5#. She states she noted weight loss within one day. Her NI and leg swelling are better but still notable. Ordered for Farxiga after last visit - this was not affordable. Will complete PAP today. Denies c/o CP, orthopnea, PND, dizziness/LH, palpitations, syncope. 10/24/2023 Since last seen, she was diuresed inpatient and also started on Spironolactone at her last OV with Dr. Henao. 1.5 weeks ago she woke up to her right hand being swollen, she doesn't recall any injuries. The past couple of weeks she has noticed increased chest congestion, dry cough. Some worsened shortness of breath with activity. Her weight is up. She is unsure how much. Per our scale in clinic, she is up 8lbs. Her BP is elevated today. She reports missing her AM medications due to a late start to her day. 09/04/2023 She c/o worsening SOB. Has been significant [...] Polyneuropathy due to type 2 diabetes mellitus ([facility]/HCC) Pain in left foot Nuclear senile cataract Noncompliance with treatment Mild nonproliferative diabetic retinopathy associated with type 2 diabetes mellitus (CMS/HCC) Hypothyroidism Hyperglycemia due to type 2 diabetes mellitus (CMS/HCC) Hypercholesterolemia Finger clubbing Essential hypertension Diabetes mellitus without complication (CMS/HCC) CVA (cerebral vascular accident) ([facility]/HCC) Borderline glaucoma Pseudophakia Scleroderma ([facility]/HCC) Acute on chronic combined systolic and diastolic heart failure ([facility]/HCC) Shortness of breath Past Medical History: Diagnosis Date CHF (congestive heart failure) (CMS/HCC) Diabetes mellitus ([facility]/HCC) Hyperlipidemia Hypertension Family History Problem Relation Name Age of Onset Hypertension Mother Diabetes Mother Social History Tobacco Use Smoking status: Never Smokeless tobacco: Never Substance Use Topics Alcohol use: Not Currently Drug use: Never Allergies Allergen Reactions Succinylcholine ROS Constitutional: Positive for weight loss (5# since 10/24/2023). Cardiovascular: Positive for leg swelling ( a little better ). Respiratory: Positive for cough (improving). Neurological: Positive for light-headedness. OBJECTIVE Visit Vitals BP 164/76 (BP Location: Left arm, Patient Position: Sitting) Pulse 74 Ht 1.499 m (4' 11 ) Wt 59.9 kg (132 lb) SpO2 99% BMI 26.66 kg/m??? Smoking Status Never BSA 1.58 m??? Medications: Current Outpatient Medications: furosemide (Lasix) 40 mg tablet, Take 1 tablet (40 mg) by mouth two times daily., Disp: 180 tablet, Rfl: 1 Levemir FlexTouch U100 Insulin 100 unit/mL (3 mL) pen, Inject 100 Units under the skin two times daily., Disp: , Rfl: losartan (Cozaar) 50 mg tablet, Take 1 tablet (50 mg) by mouth in the morning., Disp: 90 tablet, Rfl: 3 spironolactone (Aldactone) 25 mg tablet, Take 1 tablet (25 mg) by mouth in the morning., Disp: 30 tablet, Rfl: 0 carvedilol (Coreg) 25 mg tablet, Take 1 tablet (25 mg) by mouth with breakfast and with evening meal., Disp: 180 tablet, Rfl: 3 dapagliflozin propanediol (Farxiga) 10 mg, Take 1 tablet (10 mg) by mouth in the morning. (Patient not taking: Reported on 11/05/2023), Disp: 30 tablet, Rfl: 11 Physical Exam Vitals reviewed. Constitutional: Appearance: Normal appearance. She is normal weight. HENT: Head: Normocephalic and atraumatic. Right Ear: External ear normal. Left Ear: External ear normal. Eyes: Extraocular Movements: Extraocular movements intact. Conjunctiva/sclera: Conjunctivae normal. Pupils: Pupils are equal, round, and reactive to light. Neck: Vascular: No carotid bruit. Comments: (more content not included)... [facility] Progress note 10-24-2023 Note Date & Type Note Facility 10-24-2023 Note Cardiovascular Medic [facility] SUBJECTIVE No chief complaint on file. Keyanna Stafford is a 68 y.o. female here for follow-up. Her sister Ana Paula accompanied her today. HPI PMHx: DM type II, (hx of noncompliance), HTN, HLD, HFpEF 10/24/2023 Since last seen, she was diuresed inpatient and also started on Spironolactone at her last OV with Dr. Henao. 1.5 weeks ago she woke up to her right hand being swollen, she doesn't recall any injuries. The past couple of weeks she has noticed increased chest congestion, dry cough. Some worsened shortness of breath with activity. Her weight is up. She is unsure how much. Per our scale in clinic, she is up 8lbs. Her BP is elevated today. She reports missing her AM medications due to a late start to her day. 09/04/2023 She c/o worsening SOB. Has been significant [...] Active Problem List Diagnosis Gangrene of finger ([facility]/HCC) Proliferative diabetic retinopathy of both eyes with macular edema associated with type 2 diabetes mellitus ([facility]/HCC) Polyneuropathy due to type 2 diabetes mellitus ([facility]/HCC) Pain in left foot Nuclear senile cataract Noncompliance with treatment Mild nonproliferative diabetic retinopathy associated with type 2 diabetes mellitus (CMS/HCC) Hypothyroidism Hyperglycemia due to type 2 diabetes mellitus (CMS/HCC) Hypercholesterolemia Finger clubbing Essential hypertension Diabetes mellitus without complication (CMS/HCC) CVA (cerebral vascular accident) (CMS/HCC) Borderline glaucoma Pseudophakia Scleroderma ([facility]/HCC) Past Medical History: Diagnosis Date CHF (congestive heart failure) (CMS/HCC) Diabetes mellitus ([facility]/HCC) Hyperlipidemia Hypertension Family History Problem Relation Name Age of Onset Hypertension Mother Diabetes Mother Social History Tobacco Use Smoking status: Never Smokeless tobacco: Never Substance Use Topics Alcohol use: Not Currently Drug use: Never Allergies Allergen Reactions Succinylcholine ROS Constitutional: Positive for malaise/fatigue and weight gain (8# since 09/21/2023). Cardiovascular: Positive for dyspnea on exertion and leg swelling. Gastrointestinal: Positive for bloating. Neurological: Positive for light-headedness ( sometimes ) and numbness. All other systems reviewed and are negative. OBJECTIVE Visit Vitals BP 160/84 (BP Location: Left arm, Patient Position: Sitting) Pulse 79 Ht 1.499 m (4' 11 ) Wt 62.1 kg (137 lb) SpO2 96% BMI 27.67 kg/m??? Smoking Status Never BSA 1.61 m??? Medications: Current Outpatient Medications: Levemir FlexTouch U100 Insulin 100 unit/mL (3 mL) pen, Inject 100 Units under the skin., Disp: , Rfl: carvedilol (Coreg) 12.5 mg tablet, Take 1 tablet (12.5 mg) by mouth with breakfast and with evening meal., Disp: 180 tablet, Rfl: 3 dapagliflozin propanediol (Farxiga) 10 mg, Take 1 tablet (10 mg) by mouth in the morning., Disp: 90 tablet, Rfl: 3 furosemide (Lasix) 40 mg tablet, Take 1 tablet (40 mg) by mouth two times daily., Disp: 180 tablet, Rfl: 1 losartan (Cozaar) 50 mg tablet, Take 1 tablet (50 mg) by mouth in the morning., Disp: 90 tablet, Rfl: 3 spironolactone (Aldactone) 25 mg tablet, Take 1 tablet (25 mg) by mouth in the morning., Disp: 30 tablet, Rfl: 0 Physical Exam [...] is soft. Musculoskeletal: Cervical back: Neck supple. (more content not included)... [facility] Progress note 10-24-2023 Note Date & Type Note Facility 10-24-2023 Note Patient here for 1 m o follow up HFrEF. Spironolactone was added at last apt. BMP was drawn this morning. She's gained 8# since last visit on 09/21/23. She denies chest pain and palpitations. Says her chest feels full, like I can't breathe deep enough . Patient states PCP increased her lasix to bid a few months ago. She isn't sure if she's taking losartan and/or lisinopril-hydrochlorothiazide. Review of Systems Constitutional: Positive for malaise/fatigue and weight gain (8# since 09/21/2023). Cardiovascular: Positive for dyspnea on exertion and leg swelling. Gastrointestinal: Positive for bloating. Neurological: Positive for light-headedness ( sometimes ) and numbness. All other systems reviewed and are negative. [facility] Progress note 09-21-2023 Note Date & Type Note Facility 09-21-2023 Note Cardiovascular Medic [facility] SUBJECTIVE Chief Complaint Patient presents with Follow-up 1-2 wk follow up Keyanna Stafford is a 68 y.o. female here for follow-up. Her sister Ana Paula accompanied her today. HPI PMHx: DM type II, (hx of noncompliance), HTN, HLD, HF Patient was evaluated by Maria Fernanda Davidson NP in clinic 2 weeks ago. During [...] spirinolactone 25 mg (more content not included)... [facility] Progress note 09-04-2023 Note Date [...] All other systems reviewed and are negative. [facility] Progress note 09-04-2023 Note Date & Type Note Facility 09-04-2023 Note Cardiovascular Medic [facility] SUBJECTIVE Chief Complaint Patient presents with [...] leg: Edema pr (more content not included)... [facility] Summary Purpose Family History No Family History Records FoundNo Family History Records FoundNo Family History Records FoundNo Family History Records Found Advance Directives No Advanced Directives Records FoundNo Advanced Directives Records FoundNo Advanced Directives Records FoundNo Advanced Directives Records Found Additional Source Comments INFORMATION SOURCE (unrecogn ized section and content) DATE CREATED AUTHOR 01/14/2018 [facility] DATE CREATED AUTHOR AUTHOR'S ORGANIZ ATION 07/05/2020 [facility] DATE CREATED AUTHOR AUTHOR'S ORGANIZ ATION 06/16/2022 [facility] DATE CREATED AUTHOR AUTHOR'S ORGANIZ ATION 11/28/2023 [facility] FOR RECORDS PERTAINING TO PATIENTS WHO [...] BE BASED ON THE PRIMARY CLINICAL RECORDS. [employer] provides no warranty or guarantee of the accuracy or completeness of information in this document.
[2023-11-30 15:37] LABS: Basophils Percent Auto 0.5 % (0.2-2.0); Eosinophils Absolute Auto 0.1 10^3/uL (0.0-0.7); Eosinophils Percent Auto 2.9 % (0.9-7.0); Hemoglobin 10.8 g/dL (12.0-16.0); Immature Granulocytes Abs Auto 0.01 10^3/uL (0.00-0.03); Immature Granulocytes Pct Auto 0.2 % (0.0-0.5); Lymphocytes Absolute Auto 1.3 10^3/uL (1.2-3.8); Lymphocytes Percent Auto 28.2 % (20.5-60.0); Mean Corpuscular HGB Conc 33.8 g/dL (29.9-35.2); Mean Corpuscular Hemoglobin 28.4 pg (26.7-34.0); Mean Corpuscular Volume 84.2 fL (81.0-99.0); Mean Platelet Volume 9.7 fL (9.5-13.5); Monocytes Absolute Auto 0.3 10^3/uL (0.3-0.8); Neutrophils Absolute Auto 2.7 10^3/uL (1.4-6.5); Neutrophils Percent Auto 61.2 % (43.0-75.0); Platelet Count 184 10^3/uL (150-450); Red Cell Distribution Width 12.5 % (11.0-15.0); White Blood Count 4.4 10^3/uL (4.0-11.0)
[2023-11-30 15:51] LABS: Anion Gap 14.9; BUN Creatinine Ratio 17.5; Calcium 9.5 mg/dL (8.5-10.1); Chloride 98 mmol/L (98-107); Estimated GFR (African America 44 (>=60 mL/min/1.73m^2); Estimated GFR (Non-African Ame 36 (>=60 mL/min/1.73m^2); Potassium 4.9 mmol/L (3.5-5.1); Sodium 132 mmol/L (136-145)
[2023-11-30 15:54] LABS: Glucose 690 mg/dL (74-106)
== END 2023-11-30 15:18 | disposition home or self-care (01) ==
LOC: LAB 15:18
PROVIDERS: PCP Nurse Practitioner Family; Visit Provider Internal Medicine Cardiovascular Disease
DX: I50.43 Acute on chronic combined systolic (congestive) and diastolic (congestive) heart failure (principal)
CPT/HCPCS: 36415; 80048; 85025

== ENCOUNTER 2024-02-20 16:11 | Observation (INO) | payer MEDICARE, SELFPAY ==
[2024-02-20 16:26] VITALS: BP 130/52; PULSE 85; TEMP 36.6; O2SAT 100; BMI 25.7
--- NOTE | 2024-02-20 16:33 | XR_ITS ---
The [address] [address] Patient Name: GLENN STAFFORD MRN: [id number] date: 1955 Sex: F Assigned Patient Location: ER Current Patient Location: ED.MAIN Accession/Order Number: [id number] Exam Date: 02/20/2024 16:40 Report Date: 02/20/2024 17:21 At the request of: ALBERTO SALOMON Procedure: XR hand RT min 3V EXAM: XR hand RT min 3V HISTORY: infection of right index finger COMPARISON: None. TECHNIQUE: 3 views of the right hand FINDINGS: Status post amputation of the third finger through the proximal middle phalange. No cortical erosion or focal osteopenia to suggest acute osteomyelitis. Overlying soft tissue margin is smooth. There is soft tissue swelling of the second digit. No gas is noted within the soft tissue. There is a mildly displaced fracture of second distal phalangeal shaft, better seen on the lateral view. There is no acute dislocation. 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 XR/XR hand RT min 3V IMPRESSION: a mildly displaced fracture of second distal phalangeal shaft, better seen on the lateral view. Soft tissue swelling of the second digit, can be due to inflammation or cellulitis. Electronically authenticated by: SHARAN SINGH Date: 02/20/2024 17:21
--- NOTE | 2024-02-20 16:35 | ED_ITS ---
HPI - Extremity Problem General Chief complaint: Extremity Problem, Nontraumatic Stated complaint: upper extremity swelling Time Seen by Provider: 02/20/24 16:12 Source: patient Mode of arrival: walk-in Limitations: no limitations History of Present Illness HPI Narrative: Patient is a 69-year-old female with a history of insulin-dependent diabetes who presents to the emergency department for redness and swelling with red streaking to the right upper extremity. Patient states 1 week ago she burned her fingers on the stove. She has a history of previous surgery to the second and third fingers. She states 10 years ago she was found to have infection in the fingers secondary to chewing on her cuticles and nails. She states the areas were opened and drained, she had surgical amputation of the distal phalanx of the right third finger. She states she burned herself on a stove to the tips of the right thumb and index finger 1 week ago and has now noted that the right index finger is swollen with redness extending up the forearm. She has not had any fevers or vomiting. No drainage from the finger. Related Data Home Medications ?Medication ?Instructions ?Recorded ?Confirmed insulin detemir U-100 100 unit/mL 30 unit subcut BID 09/04/23 09/04/23 (3 mL) subcutaneous pen (Levemir FlexPen) Previous Rx's ?Medication ?Instructions ?Recorded atorvastatin 40 mg tablet (Lipitor) 40 mg PO DAILY #30 tabs 09/07/23 carvedilol 12.5 mg tablet (Coreg) 12.5 mg PO BID #60 tabs 09/07/23 furosemide 40 mg tablet 40 mg PO BID #0 tabs 09/07/23 losartan 50 mg tablet 50 mg PO DAILY #30 tabs 09/07/23 Allergies Allergy/AdvReac Type Severity Reaction Status Date / Time No Known Drug Allergies Allergy Verified 02/20/24 16:26 Review of Systems ROS Constitutional Denies: fever or chills Ears, nose, mouth, and throat Denies: nasal congestion Respiratory Denies: shortness of breath Gastrointestinal Denies: nausea or vomiting Integumentary/Breast Denies: rash Hematologic/Lymphatic Denies: easy bruising or easy bleeding [facility] Medical History (Updated 02/20/24 @ 17:39 by RUEL Davis) Non compliance w medication regimen ?Z91.148 - Patient's other noncompliance with medication regimen for other reason (ICD-10) Acute on chronic combined systolic (congestive) and diastolic (congestive) heart failure ?I50.43 - Acute on chronic combined systolic (congestive) and diastolic (congestive) heart failure (ICD-10) CHF (congestive heart failure) ?I50.9 - Heart failure, unspecified (ICD-10) HTN (hypertension) ?I10 - Essential (primary) hypertension (ICD-10) HLD (hyperlipidemia) ?E78.5 - Hyperlipidemia, unspecified (ICD-10) Type 2 diabetes mellitus ?E11.9 - Type 2 diabetes mellitus without complications (ICD-10) Social History Within the past year, how often did you have a drink containing alcohol: never Within the past year, how often did you have six or more drinks on one occasion: never Score interpretation: A score less than 3 is consistent with normal alcohol consumption. Non-prescribed substance use: denies use Highest level of school completed/degree received: high school graduate Little interest or pleasure in doing things: not at all Feeling down, depressed, or hopeless: not at all Gender Identity: female Exam Narrative Exam Narrative: Gen.: Awake, alert, in no distress Head: Normocephalic, atraumatic ENT: Moist mucous membranes Respiratory: No respiratory distress Extremities: Right third finger with surgical amputation of the distal phalanx. Right thumb with healing blisters to the distal aspect of the fingertip. Right second finger with diffuse swelling, circumferential erythema extending to the dorsum of the hand and red streaking noted up the forearm on the dorsum of the right forearm. No open areas or drainage. No palpable abscess. Distal tip of the right second finger with granulomatous tissue noted and healing blisters Psych: Normal mood and affect Neuro: No focal neuro deficit Skin: Warm, dry, intact Constitutional Vital Signs, click to edit/add: Last Vital Signs Temp 97.9 F 02/20/24 16:26 Pulse 85 02/20/24 16:26 Resp 16 02/20/24 16:26 BP 130/52 02/20/24 16:26 Pulse Ox 100 02/20/24 16:26 O2 Del Method Room Air 02/20/24 16:26 Course Vital Signs Vital signs: Vital Signs Temperature 97.9 F 02/20/24 16:26 Pulse Rate 85 02/20/24 16:26 Respiratory Rate 16 02/20/24 16:26 Blood Pressure 130/52 02/20/24 16:26 Pulse Oximetry 100 02/20/24 16:26 Oxygen Delivery Method Room Air 02/20/24 16:26 Temperature 97.9 F 02/20/24 16:26 Pulse Rate 85 02/20/24 16:26 Respiratory Rate 16 02/20/24 16:26 Blood Pressure 130/52 02/20/24 16:26 Pulse Oximetry 100 02/20/24 16:26 Oxygen Delivery Method Room Air 02/20/24 16:26 MDM - Extremity (Nontraumatic) MDM Narrative Medical decision making narrative: Labs show elevated CRP, sed rate and minimally elevated lactic acid. Patient had blood cultures obtained. Treated with Zosyn and vancomycin. Glucose is almost 500, treated with subcutaneous insulin. Patient declined any medication for pain. Tetanus was updated. X-rays show postsurgical changes to the fingers with no gas or abscess noted. Patient's previous procedure on the right second finger involved incision and drainage with a washout, patient on x-ray is noted to have a fracture of the distal phalanx, suspect this is not acute and may be related to previous procedure. Given the patient's hyperglycemia and extension of the infection to the dorsum of the forearm, she will be admitted for IV antibiotics and blood sugar control overnight. Patient's sister at bedside is in agreement with this, stable at time of admission. SUPERVISED APC VISIT, PHYSICIAN ATTESTATION: Based on the medical record the care appears appropriate. ? Medical Records Attestation: I reviewed the patient's medical records. Lab Data Attestation: I reviewed the patient's lab results. Labs: Lab Results 02/20/24 Range/Units 16:47 WBC 9.1 (4.0-11.0) 10^3/uL RBC 3.92 L (4.20-5.40) 10^6/uL Hgb 11.5 L (12.0-16.0) g/dL Hct 33.5 L (36.0-48.0) % MCV 85.5 (81.0-99.0) fL MCH 29.3 (26.7-34.0) pg MCHC 34.3 (29.9-35.2) g/dL RDW 12.5 (11.0-15.0) % Plt Count 260 (150-450) 10^3/uL MPV 9.6 (9.5-13.5) fL Neut % (Auto) 76.7 H (43.0-75.0) % Lymph % (Auto) 13.5 L (20.5-60.0) % [place] % (Auto) 8.1 (1.7-12.0) % Eos % (Auto) 1.2 (0.9-7.0) % Baso % (Auto) 0.3 (0.2-2.0) % Neut # (Auto) 7.0 H (1.4-6.5) 10^3/uL Lymph # (Auto) 1.2 (1.2-3.8) 10^3/uL [place] # (Auto) 0.7 (0.3-0.8) 10^3/uL Eos # (Auto) 0.1 (0.0-0.7) 10^3/uL Baso # (Auto) 0.0 (0.0-0.1) 10^3/uL Abs Immat Gran (auto) 0.02 (0.00-0.03) 10^3/uL Imm/Tot Granulo (auto) 0.2 (0.0-0.5) % ESR 53 H (<=30) mm/hr PT 10.5 (9.0-11.6) sec INR 0.99 VBG pH 7.512 H (7.330-7.430) VBG pCO2 28.0 L (40.0-52.0) mmHg Sodium 129 L (136-145) mmol/L Potassium 4.1 (3.5-5.1) mmol/L Chloride 94 L (98-107) mmol/L Carbon Dioxide 25.0 (21.0-32.0) mmol/L Anion Gap 14.1 BUN 25.0 H (7.0-18.0) mg/dL Creatinine 1.45 H (0.55-1.02) mg/dL Est GFR ( Amer) 43 L (>=60 mL/min/1.73m^2) Est GFR (Non-Af Amer) 36 L (>=60 mL/min/1.73m^2) BUN/Creatinine Ratio 17.2 Glucose 487 H (74-106) mg/dL Lactate 2.1 H (0.4-2.0) mmol/L Calcium 9.4 (8.5-10.1) mg/dL Total Bilirubin 1.0 (0.2-1.0) mg/dL AST 11 L (15-37) U/L ALT 17 (14-59) U/L Alkaline Phosphatase 100 (46-116) U/L C-Reactive Protein 4.01 H (<=0.50) mg/dL Total Protein 7.4 (6.4-8.2) g/dL Albumin 3.5 (3.4-5.0) g/dL Globulin 3.9 g/dL Albumin/Globulin Ratio 0.9 Imaging Data XR hand: Attestation: I have reviewed the pertinent imaging results. Radiologist's impression: ITS Impressions Hand X-Ray 02/20/24 16:33 IMPRESSION: a mildly displaced fracture of second distal phalangeal shaft, better seen on the lateral view. Soft tissue swelling of the second digit, can be due to inflammation or cellulitis. Electronically authenticated by: SHARAN SINGH Date: 02/20/2024 17:21 Discharge Plan Discharge Chief Complaint: Extremity Problem, Nontraumatic Clinical Impression: Cellulitis of finger of right hand, Lymphangitis, Acute hyperglycemia Patient Disposition: Admitted as Observation Time of Disposition Decision: 17:38 Prescriptions / Home Meds: No Action Levemir FlexPen 100 unit/mL (3 mL) insulin pen 30 unit SUBCUT BID carvedilol [Coreg] 12.5 mg tablet 12.5 mg PO BID Qty: 60 0RF Rx Instructions: must administer with a meal/food losartan 50 mg tablet 50 mg PO DAILY Qty: 30 0RF furosemide 40 mg tablet 40 mg PO BID Qty: 0 0RF atorvastatin [Lipitor] 40 mg tablet 40 mg PO DAILY Qty: 30 0RF Print Language: Cameroonian Referrals: Physician,Non-Staff, MD [Primary Care Provider] - 1 week
--- OUTSIDE RECORDS SUMMARY | 2024-02-20 16:40 | XMS_ITS | CCD ---
Author Organization [facility] Care Team Providers Care Wares Sorter Name Role Phone EBRAHEIM, STUART Unavailable Unavailable EBRAHEIM, STUART Unavailable Unavailable REESE HODGES Unavailable Unavailable HODGESREESE Unavailable Unavailable EBRAHEIM, STUART Unavailable Unavailable EBRAHEIM, STUART Unavailable Unavailable BENI HODGESEL Unavailable Unavailable BENI HODGESEL Unavailable Unavailable [place] Unavailable Unavailable EBRAHEIM, STUART Unavailable Unavailable [place] Unavailable Unavailable YERMAL, SOORAJ G Unavailable Unavailable IRENE, MANOHAR Unavailable Unavailable IRENE, MANOHAR Unavailable Unavailable HODGES, REESE Unavailable Unavailable HODGES, REESE Unavailable Unavailable AICHHOLZ, DUCO POLISHER SAMI Attending Unavailable AICHHOLZ, DUCO POLISHER SAMI Consulting Unavailable AICHHOLZ, DUCO POLISHER SAMI Primary Care Unavailable AICHHOLZ, DUCO POLISHER SAMI Admitting Unavailable DR MALLIKA ORTIZ Consulting Unavailable GORAN TORRES Consulting Unavailable MARIANN DAVIDSON Consulting Unavailable AICHHOLZ, DUCO POLISHER SAMI Primary Care Unavailable RALPH ., SVETA Admitting Unavailable RALPH ., SVETA Attending Unavailable PETRONA SUMNER Consulting Unavailable VIRGINIA TOTH Consulting Unavailable RALPH ., SVETA Consulting Unavailable DIAB ., KAROL Consulting Unavailable FRANCISCO, SHARAN Consulting Unavailable DR REESE HODGES Primary Care Unavailable WILMAN LAKHANI Admitting Unavailable DR MALLIKA ORTIZ Consulting Unavailable WILMAN LAKHANI Attending Unavailable WILMAN LAKHANI Consulting Unavailable AICHHOLZ, DUCO POLISHER SAMI Consulting Unavailable AICHHOLZ, DUCO POLISHER SAMI Primary Care Unavailable AICHHOLZ, DUCO POLISHER SAMI Admitting Unavailable AICHHOLZ, DUCO POLISHER SAMI Attending Unavailable AICHHOLZ, DUCO POLISHER SAMI Consulting Unavailable AICHHOLZ, DUCO POLISHER SAMI Admitting Unavailable AICHHOLZ, DUCO POLISHER SAMI Primary Care Unavailable AICHHOLZURBANO Attending Unavailable MARIANN DAVIDSON Attending Unavailable BALA HENAO Attending Unavailable MARIANN DAVIDSON Attending Unavailable MARIANN DAVIDSON Attending Unavailable Allergies Allergy Classification Reported Allergen(s) Allergy Type Date of Onset Reaction(s) Facility (1 source) succinylcholine chloride Drug allergy (disorder) 8 AOF [facility] Repository (1 source) Succinylcholine; Translations: [SUCCINYLCHOLINE] Drug Allergy 0 [facility] Repository Problems Active Problems Problem Classification Problem [...] Onset: 01-07-2018 Chronic 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 Henao, You have Keyanna Stafford coming for a R/Cors on 11/12/2023. She is from [place] and stated she will need to use the [employer] [facility] transport that she uses for appointments and procedures. She said they take people to everything so she thinks they are a medical transport??? She also said they will transport in the evenings. [facility] 37on 11-01-2023 37 *Increase your lasix [...] 1 tablet twice daily. *Financial assistance program: [phone] or [phone] [facility] Office Visiton 11-01-2023 Follow-up visit [id number] Keyanna Stafford 1955 Provider Department [place] 11/01/2023 MARIANN DWYER [facility] Family History Problem Relation Age of Onset Hypertension Mother Diabetes Mother Family Status - Relation Status Age at Mother Level of Service:96751 [place] OFFICE/OUTPATIENT ESTABLISHED MOD MDM 30 MIN [facility] 37on 10-24-2023 37 *Monitor your weight daily and write down your weights. Bring to your next office visit. *Will start Farxiga 10mg daily for management of your heart failure. Let us know if it is too expensive. *Take lasix faithfully 40mg twice daily. You can take your afternoon dose around 2-3pm. *Let Ms. Iniguez PRIVATE INQUIRY AGENT know about your hand swelling. *I ordered a heart cath, left/coronary and right, to look at the blood vessels in your heart to check for blockages along with checking the pressure in your heart. [facility] Office Visiton 10-24-2023 Follow-up visit [id number] Keyanna Stafford 1955 Date Provider Department Center 10/24/2023 MARIANN DWYER Family History Problem Relation Age of Onset Hypertension Mother Diabetes Mother Family Status - Relation Status Age at Mother Level of Service:51106 [place] OFFICE/OUTPATIENT ESTABLISHED MOD MDM 30 MIN [facility] Office Visiton 09-21-2023 Follow-up visit [id number] Keyanna Stafford 1955 Provider Department [place] 09/21/2023 [id number]-BALA HENAO Family History Problem Relation Age of Onset Hypertension Mother Diabetes Mother Family Status - Relation Status Age at Mother Level of Service:92468 [place] OFFICE/OUTPATIENT ESTABLISHED MOD MDM 30 MIN Reason for Visit and Comments: Follow-up [327653] - 1-2 wk follow up [facility] Office Vis[place] 09-04-2023 Follow-up visit [id number] Keyanna Stafford 1955 Provider Department Center 09/04/2023 MARIANN DWYER Family History Problem Relation Age of Onset Hypertension Mother Diabetes Mother Family Status - Relation Status Age at Mother Level of Service:44656 [place] OFFICE/OUTPATIENT ESTABLISHED MOD MDM 30 MIN Reason for Visit and Comments: Congestive Heart Failure [127] Hypertension [586298] Hyperlipidemia [182] [facility] 36on 03-20-2023 36 We can have [...] potassium go too high. Thank you. Normal [facility] 36on 12-14-2022 36 Can we call her phar richard and confirm if she picked up her medication? I just sent in a refill for lisinopril/hydrochloroth iazide. Thanks Normal [facility] XR CHEST 2 Von 06-12-2022 XR CHEST [...] by: GORAN TORRES Date: 2022-06-12 13:31 Normal [facility] XR STERNUM MIN 2 VIEWSon XR STERNUM [...] MALLIKA ORTIZ Date: 2022-06-12 16:18 Normal [facility] PROF CHEM 8 (BAS METB)on Anion gap [Moles/Vol] 15.1 mmol/L Normal [facility] Comment on above: Performed By: #### H STROPN #### [facility] [address] [address] [address] Quique Ortiz Calcium [Mass/Vol] 9.5 mg/dL Normal 8.5-10.1 [facility] Comment on above: Performed By: #### H STROPN #### [facility] [address] [address] [address] Quique Ortiz Chloride [Moles/Vol] 95 mmol/L Critically low 98-107 [facility] Comment on above: Performed By: #### H STROPN #### [facility] [address] [address] [address] Quique Ortiz CO2 [Moles/Vol] 27.3 mmol/L Normal 21.0-32.0 [facility] Comment on above: Performed By: #### H STROPN #### [facility] [address] [address] [address] Quique Ortiz Creatinine [Mass/Vol] 1.01 mg/dL Normal 0.55-1.02 [facility] Comment on above: Performed By: #### H STROPN #### [facility] [address] [address] [address] Quique Ortiz EGFR-AF WALLISIAN >60 Normal >=60 [facility] Comment on above: Performed By: #### H STROPN #### [facility] [address] [address] [address] Quique Ortiz EGFR-NON AF WALLISIAN 55 mL/min/1.73m2 Critically low >=60 [facility] Comment on above: Performed By: #### H STROPN #### [facility] [address] [address] [address] Quique Ortiz Glucose [Mass/Vol] 483 mg/dL Critically high 74-106 [facility] Comment on above: Performed By: #### H STROPN #### [facility] [address] [address] [address] Quique Ortiz Potassium [Moles/Vol] 4.4 mmol/L Normal 3.5-5.1 [facility] Comment on above: Performed By: #### H STROPN #### [facility] [address] [address] [address] Quique Ortiz Sodium [Moles/Vol] 133 mmol/L Critically low 136-145 [facility] Comment on above: Performed By: #### H STROPN #### [facility] [address] [address] [address] Quique Ortiz Urea nitrogen [Mass/Vol] 14.0 mg/dL Normal 7.0-18.0 [facility] Comment on above: Performed By: #### H STROPN #### [facility] [address] [address] [address] Quique Ortiz Urea nitrogen/Creatinine [Mass ratio] 13.9 mg/mg Normal [facility] Comment on above: Performed By: #### H STROPN #### [facility] [address] [place] [address] Dr. Quique Ortiz BNPon 04-25-2022 Natriuretic peptide B (Bld) [Mass/Vol] 1330.0 pg/mL Critically high <=900.0 [facility] Comment on above: Performed By: #### C VDTBH #### [facility] [address] [place] [address] Dr. Quique Ortiz CBC AUTO DIFFon 04-25-2022 BASO # 0.0 103/ul Normal 0.0-0.1 [facility] Comment on above: Performed By: #### C BC #### [facility] [address] [place] [address] Dr. Quique Ortiz Basophils/100 WBC (Bld) 0.4 % Normal 0.2-2.0 [facility] Comment on above: Performed By: #### C BC #### [facility] [address] [place] [address] Dr. Quique Ortiz EO # 0.1 103/ul Normal 0.0-0.7 [facility] Comment on above: Performed By: #### C BC #### [facility] [address] [place] [address] Dr. Quique Ortiz Eosinophils/100 WBC (Bld) 2.3 % Normal 0.9-7.0 [facility] Comment on above: Performed By: #### C BC #### [facility] [address] [place] [address] Dr. Quique Ortiz Erythrocyte distribution width (RBC) [Ratio] 13.2 % Normal 11.0-15.0 [facility] Comment on above: Performed By: #### C BC #### [facility] [address] [place] [address] Dr. Quique Ortiz Hematocrit (Bld) [Volume fraction] 32.7 % Critically low 36.0-48.0 [facility] Comment on above: Performed By: #### C BC #### [facility] [address] [place] [address] Dr. Quique Ortiz Hemoglobin (Bld) [Mass/Vol] 11.0 g/dL Critically low 12.0-16.0 [facility] Comment on above: Performed By: #### C BC #### [facility] [address] [place] [address] Dr. Quique Ortiz IG # 0.02 10e3/ul Normal 0.00-0.03 [facility] Comment on above: Performed By: #### C BC #### [facility] [address] [place] [address] Dr. Quique Ortiz IG % 0.4 % Normal 0.0-0.5 [facility] Comment on above: Performed By: #### C BC #### [facility] [address] [place] [address] Dr. Quique Ortiz LYMPH # 1.3 103/ul Normal 1.2-3.8 [facility] Comment on above: Performed By: #### C BC #### [facility] [address] [place] [address] Dr. Quique Ortiz Lymphocytes/100 WBC (Bld) 23.5 % Normal 20.5-60.0 [facility] Comment on above: Performed By: #### C BC #### [facility] [address] [place] [address] Dr. Quique Ortiz MANUAL DIFF REQ NO Normal [facility] Comment on above: Performed By: #### C BC #### [facility] [address] [place] [address] Dr. Quique Ortiz MCH (RBC) [Entitic mass] 29.3 pg Normal 26.7-34.0 [facility] Comment on above: Performed By: #### C BC #### [facility] [address] [place] [address] Dr. Quique Ortiz MCHC (RBC) [Mass/Vol] 33.6 g/dL Normal 29.9-35.2 [facility] Comment on above: Performed By: #### C BC #### [facility] [address] [place] [address] Dr. Quique Ortiz MCV (RBC) [Entitic vol] 87.0 fL Normal 81.0-99.0 [facility] Comment on above: Performed By: #### C BC #### [facility] [address] [place] [address] Dr. Quique Ortiz MONO # 0.6 103/ul Normal 0.3-0.8 [facility] Comment on above: Performed By: #### C BC #### [facility] [address] [place] [address] Dr. Quique Ortiz Monocytes/100 WBC (Bld) 10.2 % Normal 1.7-12.0 [facility] Comment on above: Performed By: #### C BC #### [facility] [address] [place] [address] Dr. Quique Ortiz NEUT # 3.5 103/ul Normal 1.4-6.5 [facility] Comment on above: Performed By: #### C BC #### [facility] [address] [place] [address] Dr. Quique Ortiz Neutrophils/100 WBC (Bld) 63.2 % Normal 43.0-75.0 [facility] Comment on above: Performed By: #### C BC #### [facility] [address] [place] [address] Dr. Quique Ortiz Platelet mean volume (Bld) [Entitic vol] 9.2 fL Critically low 9.5-13.5 [facility] Comment on above: Performed By: #### C BC #### [facility] [address] [place] [address] Dr. Quique Ortiz PLT 243 103/ul Normal 150-450 [facility] Comment on above: Performed By: #### C BC #### [facility] [address] [place], [place] [id number] Dr. Quique Ortiz RBC 3.76 106/ul Critically low 4.20-5.40 [facility] Comment on above: Performed By: #### C BC #### [facility] [address] [place] [address] Dr. Quique Ortiz WBC 5.6 103/ul Normal 4.0-11.0 [facility] Comment on above: Performed By: #### C BC #### [facility] [address] [address] [address] Quique Ortiz POINT OF CARE GLUCOSEon 04-06 Glucose [Mass/Vol] 226 mg/dL Critically high 74-106 [facility] Comment on above: Performed By: #### U AMIC #### [facility] [address] [place] [address] Dr. Quique Ortiz PROF 14(COMP METB)on 023 Albumin [Mass/Vol] 3.1 g/dL Critically low 3.4-5.0 [facility] Comment on above: Performed By: #### U AMIC #### [facility] [address] [place] [address] Dr. Quique Oritz Albumin/Globulin [Mass ratio] 1.0 {ratio} Normal [facility] Comment on above: Performed By: #### U AMIC #### [facility] [address] [address] [address] Quique Ortiz ALP [Catalytic activity/Vol] 69 U/L Normal 46-116 [facility] Comment on above: Performed By: #### U AMIC #### [facility] [address] [place] [address] Dr. Quique Ortiz ALT [Catalytic activity/Vol] 16 U/L Normal 14-59 [facility] Comment on above: Performed By: #### U AMIC #### [facility] [address] [address] [address] Quique Ortiz Anion gap [Moles/Vol] 12.1 mmol/L Normal [facility] Comment on above: Performed By: #### U AMIC #### [facility] [address] [place] [address] Dr. Quique Ortiz AST [Catalytic activity/Vol] 12 U/L Critically low 15-37 [facility] Comment on above: Performed By: #### U AMIC #### [facility] [address] [place] [address] Dr. Quique Ortiz Bilirubin [Mass/Vol] 0.7 mg/dL Normal 0.2-1.0 [facility] Comment on above: Performed By: #### U AMIC #### [facility] [address] [place] [address] Dr. Quique Ortiz Calcium [Mass/Vol] 9.0 mg/dL Normal 8.5-10.1 [facility] Comment on above: Performed By: #### U AMIC #### [facility] [address] [address] [address] Quique Ortiz Chloride [Moles/Vol] 101 mmol/L Normal 98-107 [facility] Comment on above: Performed By: #### U AMIC #### [facility] [address] [place] [address] Dr. Quique Ortiz CO2 [Moles/Vol] 28.5 mmol/L Normal 21.0-32.0 [facility] Comment on above: Performed By: #### U AMIC #### [facility] [address] [place] [address] Dr. Quique Ortiz Creatinine [Mass/Vol] 0.56 mg/dL Normal 0.55-1.02 [facility] Comment on above: Performed By: #### U AMIC #### [facility] [address] [place] [address] Dr. Quique Ortiz EGFR-AF WALLISIAN >60 Normal >=60 [facility] Comment on above: Performed By: #### U AMIC #### [facility] [address] [place] [address] Dr. Quique Ortiz EGFR-NON AF WALLISIAN >60 Normal >=60 [facility] Comment on above: Performed By: #### U AMIC #### [facility] [address] [place] [address] Dr. Quique Ortiz Globulin (S) [Mass/Vol] 3.2 g/dL Normal [facility] Comment on above: Performed By: #### U AMIC #### [facility] [address] [place] [address] Dr. Quique Ortiz Glucose [Mass/Vol] 187 mg/dL Critically high 74-106 [facility] Comment on above: Performed By: #### U AMIC #### [facility] [address] [address] [address] Quique Ortiz Potassium [Moles/Vol] 3.6 mmol/L Normal 3.5-5.1 [facility] Comment on above: Performed By: #### U AMIC #### [facility] [address] [place] [address] Dr. Quique Ortiz Protein [Mass/Vol] 6.3 g/dL Critically low 6.4-8.2 [facility] Comment on above: Performed By: #### U AMIC #### [facility] [address] [place] [address] Dr. Quique Ortiz Sodium [Moles/Vol] 138 mmol/L Normal 136-145 [facility] Comment on above: Performed By: #### U AMIC #### [facility] [address] [place] [address] Dr. Quique Ortiz Urea nitrogen [Mass/Vol] 9.0 mg/dL Normal 7.0-18.0 [facility] Comment on above: Performed By: #### U AMIC #### [facility] [address] [place] [address] Dr. Quique Ortiz Urea nitrogen/Creatinine [Mass ratio] 16.1 mg/mg Normal [facility] Comment on above: Performed By: #### U AMIC #### [facility] [address] [place] [address] Dr. Quique Ortiz BNPon 04-24-2022 Natriuretic peptide B (Bld) [Mass/Vol] 1760.0 pg/mL Critically high <=900.0 [facility] Comment on above: Performed By: #### H STROPN #### [facility] [address] [place] [address] Dr. Quique Ortiz CBC AUTO DIFFon 04-24-2022 BASO # 0.0 103/ul Normal 0.0-0.1 [facility] Comment on above: Performed By: #### H STROPN #### [facility] [address] [place] [address] Dr. Quique Ortiz Basophils/100 WBC (Bld) 0.4 % Normal 0.2-2.0 [facility] Comment on above: Performed By: #### H STROPN #### [facility] [address] [place] [address] Dr. Quique Ortiz EO # 0.1 103/ul Normal 0.0-0.7 [facility] Comment on above: Performed By: #### H STROPN #### [facility] [address] [place] [address] Dr. Quique Ortiz Eosinophils/100 WBC (Bld) 2.6 % Normal 0.9-7.0 [facility] Comment on above: Performed By: #### H STROPN #### [facility] [address] [place] [address] Dr. Quique Ortiz Erythrocyte distribution width (RBC) [Ratio] 13.4 % Normal 11.0-15.0 [facility] Comment on above: Performed By: #### H STROPN #### [facility] [address] [place] [address] Dr. Quique Ortiz Hematocrit (Bld) [Volume fraction] 30.3 % Critically low 36.0-48.0 [facility] Comment on above: Performed By: #### H STROPN #### [facility] [address] [place] [address] Dr. Quique Ortiz Hemoglobin (Bld) [Mass/Vol] 10.1 g/dL Critically low 12.0-16.0 [facility] Comment on above: Performed By: #### H STROPN #### [facility] [address] [place] [address] Dr. Quique Ortiz IG # 0.02 10e3/ul Normal 0.00-0.03 [facility] Comment on above: Performed By: #### H STROPN #### [facility] [address] [place] [address] Dr. Quique Ortiz IG % 0.4 % Normal 0.0-0.5 [facility] Comment on above: Performed By: #### H STROPN #### [facility] [address] [place] [address] Dr. Quique Ortiz LYMPH # 1.7 103/ul Normal 1.2-3.8 [facility] Comment on above: Performed By: #### H STROPN #### [facility] [address] [place] [address] Dr. Quique Ortiz Lymphocytes/100 WBC (Bld) 33.9 % Normal 20.5-60.0 [facility] Comment on above: Performed By: #### H STROPN #### [facility] [address] [place] [address] Dr. Quique Ortiz MANUAL DIFF REQ NO Normal [facility] Comment on above: Performed By: #### H STROPN #### [facility] [address] [place] [address] Dr. Quique Ortiz MCH (RBC) [Entitic mass] 29.4 pg Normal 26.7-34.0 [facility] Comment on above: Performed By: #### H STROPN #### [facility] [address] [place] [address] Dr. Quique Ortiz MCHC (RBC) [Mass/Vol] 33.3 g/dL Normal 29.9-35.2 [facility] Comment on above: Performed By: #### H STROPN #### [facility] [address] [place] [address] Dr. Quique Ortiz MCV (RBC) [Entitic vol] 88.3 fL Normal 81.0-99.0 [facility] Comment on above: Performed By: #### H STROPN #### [facility] [address] [place] [address] Dr. Quique Ortiz MONO # 0.5 103/ul Normal 0.3-0.8 [facility] Comment on above: Performed By: #### H STROPN #### [facility] [address] [place] [address] Dr. Quique Ortiz Monocytes/100 WBC (Bld) 10.5 % Normal 1.7-12.0 [facility] Comment on above: Performed By: #### H STROPN #### [facility] [address] [place] [address] Dr. Quique Ortiz NEUT # 2.6 103/ul Normal 1.4-6.5 [facility] Comment on above: Performed By: #### H STROPN #### [facility] [address] [address] [address] Quique Ortiz Neutrophils/100 WBC (Bld) 52.2 % Normal 43.0-75.0 [facility] Comment on above: Performed By: #### H STROPN #### [facility] [address] [address] [address] Quique Ortiz Platelet mean volume (Bld) [Entitic vol] 9.2 fL Critically low 9.5-13.5 [facility] Comment on above: Performed By: #### H STROPN #### [facility] [address] [address] [address] Quique Ortiz PLT 227 103/ul Normal 150-450 [facility] Comment on above: Performed By: #### H STROPN #### [facility] [address] [address] [address] Quique Ortiz RBC 3.43 106/ul Critically low 4.20-5.40 [facility] Comment on above: Performed By: #### H STROPN #### [facility] [address] [address] [address] Quique Ortiz WBC 5.0 103/ul Normal 4.0-11.0 [facility] Comment on above: Performed By: #### H STROPN #### [facility] [address] [address] [address] Quique Ortiz ECHOCARDIO M/2D COMPLETEon 0 04-24-2022 ECHOCARDIO M/2D COMPLETE Patient: KEYANNA STAFFORD Exam Date: 04/24/2022 : 1955 Gender:F Ordering : SVETA ROSAS . Admission #: [id number] Family : PETRONA Gregory GuadalupeLoy LOREDO Order #: [id number] CLICK HERE TO VIEW EXAM ECHOCARDIOGRAM REPORT [...] Villatoro M.D. on 04/24/2022 at 14:35 Normal [facility] POINT OF CARE GLUCOSEon - Glucose [Mass/Vol] 331 mg/dL Critically high 74-106 [facility] Comment on above: Performed By: #### P OCGLUC #### [facility] [address] [place] [address] Dr. Quique Ortiz Glucose [Mass/Vol] 333 mg/dL Critically high 74-106 [facility] Comment on above: Performed By: #### P OCGLUC #### [facility] [address] [place] [address] Dr. Quique Ortiz Glucose [Mass/Vol] 283 mg/dL Critically high 74-106 [facility] Comment on above: Performed By: #### C VDTB #### [facility] [address] [place] [address] Dr. Quique Ortiz PROF 14(COMP METB)on 023 Albumin [Mass/Vol] 2.9 g/dL Critically low 3.4-5.0 [facility] Comment on above: Performed By: #### H STROPN #### [facility] [address] [place] [address] Dr. Quique Ortiz Albumin/Globulin [Mass ratio] 1.1 {ratio} Normal [facility] Comment on above: Performed By: #### H STROPN #### [facility] [address] [place] [address] Dr. Quique Ortiz ALP [Catalytic activity/Vol] 76 U/L Normal 46-116 [facility] Comment on above: Performed By: #### H STROPN #### [facility] [address] [place] [address] Dr. Quique Ortiz ALT [Catalytic activity/Vol] 13 U/L Critically low 14-59 [facility] Comment on above: Performed By: #### H STROPN #### [facility] [address] [place] [address] Dr. Quique Ortiz Anion gap [Moles/Vol] 9.9 mmol/L Normal [facility] Comment on above: Performed By: #### H STROPN #### [facility] [address] [place] [address] Dr. Quique Ortiz AST [Catalytic activity/Vol] 14 U/L Critically low 15-37 [facility] Comment on above: Performed By: #### H STROPN #### [facility] [address] [place] [address] Dr. Quique Ortiz Bilirubin [Mass/Vol] 0.5 mg/dL Normal 0.2-1.0 [facility] Comment on above: Performed By: #### H STROPN #### [facility] [address] [place] [address] Dr. Quique Ortiz Calcium [Mass/Vol] 8.3 mg/dL Critically low 8.5-10.1 [facility] Comment on above: Performed By: #### H STROPN #### [facility] [address] [place] [address] Dr. Quique Ortiz Chloride [Moles/Vol] 107 mmol/L Normal 98-107 [facility] Comment on above: Performed By: #### H STROPN #### [facility] [address] [address] [address] Quique Ortiz CO2 [Moles/Vol] 28.5 mmol/L Normal 21.0-32.0 [facility] Comment on above: Performed By: #### H STROPN #### [facility] [address] [place] [address] Dr. Quique Ortiz Creatinine [Mass/Vol] 0.54 mg/dL Critically low 0.55-1.02 [facility] Comment on above: Performed By: #### H STROPN #### [facility] [address] [place] [address] Dr. Quique Ortiz EGFR-AF WALLISIAN >60 Normal >=60 [facility] Comment on above: Performed By: #### H STROPN #### [facility] [address] [place] [address] Dr. Quique Ortiz EGFR-NON AF WALLISIAN >60 Normal >=60 [facility] Comment on above: Performed By: #### H STROPN #### [facility] [address] [place] [address] Dr. Quique Ortiz Globulin (S) [Mass/Vol] 2.7 g/dL Normal [facility] Comment on above: Performed By: #### H STROPN #### [facility] [address] [place] [address] Dr. Quique Ortiz Glucose [Mass/Vol] 110 mg/dL Critically high 74-106 [facility] Comment on above: Performed By: #### H STROPN #### [facility] [address] [place] [address] Dr. Quique Ortiz Potassium [Moles/Vol] 3.4 mmol/L Critically low 3.5-5.1 [facility] Comment on above: Performed By: #### H STROPN #### [facility] [address] [place] [address] Dr. Quique Ortiz Protein [Mass/Vol] 5.6 g/dL Critically low 6.4-8.2 [facility] Comment on above: Performed By: #### H STROPN #### [facility] [address] [place] [address] Dr. Quique Ortiz Sodium [Moles/Vol] 142 mmol/L Normal 136-145 [facility] Comment on above: Performed By: #### H STROPN #### [facility] [address] [place] [address] Dr. Quique Ortiz Urea nitrogen [Mass/Vol] 6.0 mg/dL Critically low 7.0-18.0 [facility] Comment on above: Performed By: #### H STROPN #### [facility] [address] [place] [address] Dr. Quique Ortiz Urea nitrogen/Creatinine [Mass ratio] 11.1 mg/mg Normal [facility] Comment on above: Performed By: #### H STROPN #### [facility] [address] [place] [address] Dr. Quique Ortiz BNPon 04-23-2022 Natriuretic peptide B (Bld) [Mass/Vol] 1898.0 pg/mL Critically high <=900.0 [facility] Comment on above: Performed By: #### U AMIC #### [facility] [address] [place] [address] Dr. Quique Ortiz CARDIAC GORAN ADMITon 023 CK [Catalytic activity/Vol] 113 U/L Normal 26-192 [facility] Comment on above: Performed By: #### U AMIC #### [facility] [address] [place] [address] Dr. Quique Ortiz CK.MB [Mass/Vol] 2.55 ng/mL Normal <=3.60 [facility] Comment on above: Performed By: #### U AMIC #### [facility] [address] [place] [address] Dr. Quique Ortiz HSTROP 11.2 pg/mL Normal 4.0-51.3 [facility] Comment on above: Result Comment: CUT- OFF POINTS HAVE BEEN ESTABLISHED BASED ON THE FOURTH UNIVERSAL DEFINITIONS OF MYOCARDIAL INFARCTION. THE UPPER REFERENCE LIMIT (URL) OF TROPONIN, DEFINED THE 99TH PERCENTILE OF cTnI DISTRIBUTION IN A REFERENCE POPULATION, HAS BEEN CONFIRMED THE DECISION THRESHOLD FOR MD DIAGNOSIS. Performed By: #### U AMIC #### [facility] [address] [place] [address] Dr. Quique Ortiz JAXSON 50 ng/mL Normal 9-82 [facility] Comment on above: Performed By: #### U AMIC #### [facility] [address] [place] [address] Dr. Quique Ortiz CBC AUTO DIFFon 04-23-2022 BASO # 0.0 103/ul Normal 0.0-0.1 [facility] Comment on above: Performed By: #### H STROPN #### [facility] [address] [place] [address] Dr. Quique Ortiz Basophils/100 WBC (Bld) 0.5 % Normal 0.2-2.0 [facility] Comment on above: Performed By: #### H STROPN #### [facility] [address] [place] [address] Dr. Quique Ortiz EO # 0.1 103/ul Normal 0.0-0.7 [facility] Comment on above: Performed By: #### H STROPN #### [facility] [address] [place] [address] Dr. Quique Ortiz Eosinophils/100 WBC (Bld) 1.8 % Normal 0.9-7.0 [facility] Comment on above: Performed By: #### H STROPN #### [facility] [address] [place] [address] Dr. Quique Ortiz Erythrocyte distribution width (RBC) [Ratio] 13.4 % Normal 11.0-15.0 [facility] Comment on above: Performed By: #### H STROPN #### [facility] [address] [address] [address] Quique Ortiz Hematocrit (Bld) [Volume fraction] 35.9 % Critically low 36.0-48.0 [facility] Comment on above: Performed By: #### H STROPN #### [facility] [address] [place] [address] Dr. Quique Ortiz Hemoglobin (Bld) [Mass/Vol] 11.9 g/dL Critically low 12.0-16.0 [facility] Comment on above: Performed By: #### H STROPN #### [facility] [address] [place] [address] Dr. Quique Ortiz IG # 0.02 10e3/ul Normal 0.00-0.03 [facility] Comment on above: Performed By: #### H STROPN #### [facility] [address] [place] [address] Dr. Quique Ortiz IG % 0.4 % Normal 0.0-0.5 [facility] Comment on above: Performed By: #### H STROPN #### [facility] [address] [place] [address] Dr. Quique Ortiz LYMPH # 1.3 103/ul Normal 1.2-3.8 [facility] Comment on above: Performed By: #### H STROPN #### [facility] [address] [place] [address] Dr. Quique Ortiz Lymphocytes/100 WBC (Bld) 23.5 % Normal 20.5-60.0 [facility] Comment on above: Performed By: #### H STROPN #### [facility] [address] [place] [address] Dr. Quique Ortiz MANUAL DIFF REQ NO Normal [facility] Comment on above: Performed By: #### H STROPN #### [facility] [address] [place] [address] Dr. Quique Ortiz MCH (RBC) [Entitic mass] 29.4 pg Normal 26.7-34.0 [facility] Comment on above: Performed By: #### H STROPN #### [facility] [address] [place] [address] Dr. Quique Ortiz MCHC (RBC) [Mass/Vol] 33.1 g/dL Normal 29.9-35.2 [facility] Comment on above: Performed By: #### H STROPN #### [facility] [address] [address] [address] Quique Ortiz MCV (RBC) [Entitic vol] 88.6 fL Normal 81.0-99.0 [facility] Comment on above: Performed By: #### H STROPN #### [facility] [address] [place] [address] Dr. Quique Ortiz MONO # 0.5 103/ul Normal 0.3-0.8 [facility] Comment on above: Performed By: #### H STROPN #### [facility] [address] [place] [address] Dr. Quique Ortiz Monocytes/100 WBC (Bld) 8.8 % Normal 1.7-12.0 [facility] Comment on above: Performed By: #### H STROPN #### [facility] [address] [place] [address] Dr. Quique Ortiz NEUT # 3.6 103/ul Normal 1.4-6.5 [facility] Comment on above: Performed By: #### H STROPN #### [facility] [address] [place] [address] Dr. Quique Ortiz Neutrophils/100 WBC (Bld) 65.0 % Normal 43.0-75.0 [facility] Comment on above: Performed By: #### H STROPN #### [facility] [address] [place] [address] Dr. Quique Ortiz Platelet mean volume (Bld) [Entitic vol] 9.4 fL Critically low 9.5-13.5 [facility] Comment on above: Performed By: #### H STROPN #### [facility] [address] [place] [address] Dr. Quique Ortiz PLT 277 103/ul Normal 150-450 [facility] Comment on above: Performed By: #### H STROPN #### [facility] [address] [address] [address] Quique Ortiz RBC 4.05 106/ul Critically low 4.20-5.40 [facility] Comment on above: Performed By: #### H STROPN #### [facility] [address] [address] [address] Quique Ortiz WBC 5.6 103/ul Normal 4.0-11.0 [facility] Comment on above: Performed By: #### H DEVPN #### [facility] [address] [address] [address] Quique Ortiz CTA CHEST WO W [...] SHARAN SINGH Date: 2022-04-23 18:04 Normal [facility] Covid-19 PCR (CVDTBH)on 04-05 SARS-CoV-2 (COVID-19) RNA ALESIA+probe Ql (Unsp spec) Not detected Normal NOT DETECTED [facility] Comment on above: Result Comment: [...] for this test is supported by the [place] of [employer] and Human Service's declaration that [...] used). Performed By: #### C VDTBH #### [facility] [address] [place] [address] Dr. Quique Ortiz D-DIMERon 04-23-2022 D-DIMER 0.82 mg/L FEU Critically high <=0.59 [facility] Comment on above: Performed By: #### D DIM #### [facility] [address] [place] [address] Dr. Quique Ortiz D-DIMER COMMENTS SEE BELOW Normal [facility] Comment on above: Result Comment: Incr eases [...] hospitalization. Performed By: #### D DIM #### [facility] [address] [place] [address] Dr. Quique Ortiz POINT OF CARE GLUCOSEon 04-05 Glucose [Mass/Vol] 113 mg/dL Critically high 74-106 [facility] Comment on above: Performed By: #### H STROPN #### [facility] [address] [place] [address] Dr. Quique Ortiz PROF 14(COMP METB)on 023 Albumin [Mass/Vol] 3.5 g/dL Normal 3.4-5.0 [facility] Comment on above: Performed By: #### U AMIC #### [facility] [address] [address] [address] Quique Ortiz Albumin/Globulin [Mass ratio] 1.0 {ratio} Normal [facility] Comment on above: Performed By: #### U AMIC #### [facility] [address] [address] [address] Quique Ortiz ALP [Catalytic activity/Vol] 102 U/L Normal 46-116 [facility] Comment on above: Performed By: #### U AMIC #### [facility] [address] [place] [address] Dr. Quique Ortiz ALT [Catalytic activity/Vol] 17 U/L Normal 14-59 [facility] Comment on above: Performed By: #### U AMIC #### [facility] [address] [place] [address] Dr. Quique Ortiz Anion gap [Moles/Vol] 11.1 mmol/L Normal [facility] Comment on above: Performed By: #### U AMIC #### [facility] [address] [place] [address] Dr. Quique Ortiz AST [Catalytic activity/Vol] 18 U/L Normal 15-37 [facility] Comment on above: Performed By: #### U AMIC #### [facility] [address] [address] [address] Quique Ortiz Bilirubin [Mass/Vol] 0.7 mg/dL Normal 0.2-1.0 [facility] Comment on above: Performed By: #### U AMIC #### [facility] [address] [place] [address] Dr. Quique Ortiz Calcium [Mass/Vol] 9.0 mg/dL Normal 8.5-10.1 [facility] Comment on above: Performed By: #### U AMIC #### [facility] [address] [place] [address] Dr. Quique Ortiz Chloride [Moles/Vol] 105 mmol/L Normal 98-107 [facility] Comment on above: Performed By: #### U AMIC #### [facility] [address] [address] [address] Quique Ortiz CO2 [Moles/Vol] 27.6 mmol/L Normal 21.0-32.0 [facility] Comment on above: Performed By: #### U AMIC #### [facility] [address] [address] [address] Quique Ortiz Creatinine [Mass/Vol] 0.57 mg/dL Normal 0.55-1.02 [facility] Comment on above: Performed By: #### U AMIC #### [facility] [address] [place] [address] Dr. Quique Ortiz EGFR-AF WALLISIAN >60 Normal >=60 [facility] Comment on above: Performed By: #### U AMIC #### [facility] [address] [address] [address] Quique Ortiz EGFR-NON AF WALLISIAN >60 Normal >=60 [facility] Comment on above: Performed By: #### U AMIC #### [facility] [address] [address] [address] Quique Ortiz Globulin (S) [Mass/Vol] 3.6 g/dL Normal [facility] Comment on above: Performed By: #### U AMIC #### [facility] [address] [address] [address] Quique Ortiz Glucose [Mass/Vol] 135 mg/dL Critically high 74-106 [facility] Comment on above: Performed By: #### U AMIC #### [facility] [address] [address] [address] Quique Ortiz Potassium [Moles/Vol] 3.7 mmol/L Normal 3.5-5.1 [facility] Comment on above: Performed By: #### U AMIC #### [facility] [address] [address] [address] Quique Ortiz Protein [Mass/Vol] 7.1 g/dL Normal 6.4-8.2 [facility] Comment on above: Performed By: #### U AMIC #### [facility] [address] [place] [address] Dr. Quique Ortiz Sodium [Moles/Vol] 140 mmol/L Normal 136-145 [facility] Comment on above: Performed By: #### U AMIC #### [facility] [address] [address] [address] Quique Ortiz Urea nitrogen [Mass/Vol] 7.0 mg/dL Normal 7.0-18.0 [facility] Comment on above: Performed By: #### U AMIC #### [facility] [address] [place] [address] Dr. Quique Ortiz Urea nitrogen/Creatinine [Mass ratio] 12.3 mg/mg Normal [facility] Comment on above: Performed By: #### U AMIC #### [facility] [address] [place] [address] Dr. Quique Ortiz TROPONIN, HIGH SENSITIVITYon 04-23-2022 HSTROP 10.9 pg/mL Normal 4.0-51.3 [facility] Comment on above: Result Comment: CUT- OFF POINTS HAVE BEEN ESTABLISHED BASED ON THE FOURTH UNIVERSAL DEFINITIONS OF MYOCARDIAL INFARCTION. THE UPPER REFERENCE LIMIT (URL) OF TROPONIN, DEFINED THE 99TH PERCENTILE OF cTnI DISTRIBUTION IN A REFERENCE POPULATION, HAS BEEN CONFIRMED THE DECISION THRESHOLD FOR MD DIAGNOSIS. Performed By: #### H STROPN #### [facility] [address] [place] [address] Dr. Quique Ortiz XR CHEST 1 Von 04-23-2022 XR CHEST 1 V EXAM: XR CHEST 1 V HISTORY: Shortness of breath and chest heaviness. COMPARISON: None. TECHNIQUE: Portable chest FINDINGS: IMPRESSION: Moderate bilateral pleural effusions. No pneumothorax. No focal parenchymal consolidation or infiltrate. Electronically authenticated by: PETRONA SUMNER Date: 2022-04-23 15:45 Normal [facility] CBC AUTO DIFFon 04-11-2022 BASO # 0.0 103/ul Normal 0.0-0.1 [facility] Comment on above: Performed By: #### U AMIC #### [facility] [address] [address] [address] Quique Ortiz Basophils/100 WBC (Bld) 0.5 % Normal 0.2-2.0 [facility] Comment on above: Performed By: #### U AMIC #### [facility] [address] [address] [address] Quique Ortiz EO # 0.1 103/ul Normal 0.0-0.7 [facility] Comment on above: Performed By: #### U AMIC #### [facility] [address] [address] [address] Quique Ortiz Eosinophils/100 WBC (Bld) 1.6 % Normal 0.9-7.0 [facility] Comment on above: Performed By: #### U AMIC #### [facility] [address] [place] [address] Dr. Quique Ortiz Erythrocyte distribution width (RBC) [Ratio] 12.6 % Normal 11.0-15.0 [facility] Comment on above: Performed By: #### U AMIC #### [facility] [address] [place] [address] Dr. Quique Ortiz Hematocrit (Bld) [Volume fraction] 34.3 % Critically low 36.0-48.0 [facility] Comment on above: Performed By: #### U AMIC #### [facility] [address] [place] [address] Dr. Quique Ortiz Hemoglobin (Bld) [Mass/Vol] 11.5 g/dL Critically low 12.0-16.0 [facility] Comment on above: Performed By: #### U AMIC #### [facility] [address] [place] [address] Dr. Quique Ortiz IG # 0.01 10e3/ul Normal 0.00-0.03 [facility] Comment on above: Performed By: #### U AMIC #### [facility] [address] [address] [address] Quique Ortiz IG % 0.2 % Normal 0.0-0.5 [facility] Comment on above: Performed By: #### U AMIC #### [facility] [address] [address] [address] Quique Ortiz LYMPH # 1.3 103/ul Normal 1.2-3.8 [facility] Comment on above: Performed By: #### U AMIC #### [facility] [address] [address] [address] Quique Ortiz Lymphocytes/100 WBC (Bld) 24.0 % Normal 20.5-60.0 [facility] Comment on above: Performed By: #### U AMIC #### [facility] [address] [address] [address] Quique Ortiz MANUAL DIFF REQ NO Normal [facility] Comment on above: Performed By: #### U AMIC #### [facility] [address] [place] [address] Dr. Quique Ortiz MCH (RBC) [Entitic mass] 28.5 pg Normal 26.7-34.0 [facility] Comment on above: Performed By: #### U AMIC #### [facility] [address] [address] [address] Quique Ortiz MCHC (RBC) [Mass/Vol] 33.5 g/dL Normal 29.9-35.2 [facility] Comment on above: Performed By: #### U AMIC #### [facility] [address] [address] [address] Quique Ortiz MCV (RBC) [Entitic vol] 85.1 fL Normal 81.0-99.0 [facility] Comment on above: Performed By: #### U AMIC #### [facility] [address] [address] [address] Quique Ortiz MONO # 0.5 103/ul Normal 0.3-0.8 [facility] Comment on above: Performed By: #### U AMIC #### [facility] [address] [address] [address] Quique Ortiz Monocytes/100 WBC (Bld) 8.3 % Normal 1.7-12.0 [facility] Comment on above: Performed By: #### U AMIC #### [facility] [address] [address] [address] Quique Ortiz NEUT # 3.6 103/ul Normal 1.4-6.5 [facility] Comment on above: Performed By: #### U AMIC #### [facility] [address] [address] [address] Quique Ortiz Neutrophils/100 WBC (Bld) 65.4 % Normal 43.0-75.0 [facility] Comment on above: Performed By: #### U AMIC #### [facility] [address] [address] [address] Quique Ortiz Platelet mean volume (Bld) [Entitic vol] 9.0 fL Critically low 9.5-13.5 [facility] Comment on above: Performed By: #### U AMIC #### [facility] [address] [address] [address] Quique Ortiz PLT 243 103/ul Normal 150-450 [facility] Comment on above: Performed By: #### U AMIC #### [facility] [address] [address] [address] Quique Ortiz RBC 4.03 106/ul Critically low 4.20-5.40 [facility] Comment on above: Performed By: #### U AMIC #### [facility] [address] [address] [address] Quique Ortiz WBC 5.5 103/ul Normal 4.0-11.0 [facility] Comment on above: Performed By: #### U AMIC #### [facility] [address] [address] [address] Quique Ortiz GLYCOHEMOGLOBIN A1Con 2022 ADA RECOMMENDATION SEE BELOW Normal [facility] Comment on above: Result Comment: ADA RECOMMENDED LIMIT 4.0 - 6.0 ADA THERAPEUTIC TARGET < 7.0 ACTION SUGGESTED > 7.0 Performed By: #### C VDTBH #### [facility] [address] [address] [address] Quique Ortiz Glucose [Mass/Vol] 292 mg/dL Normal [facility] Comment on above: Performed By: #### C VDTBH #### [facility] [address] [address] [address] Quique Ortiz HbA1c (Bld) [Mass fraction] 11.8 % Critically high 4.5-6.2 [facility] Comment on above: Performed By: #### C VDTBH #### [facility] [address] [address] [address] Quique Ortiz LIPID PROFILEon 04-11-2022 CHOL-HDL RATIO NORM SEE BELOW Normal [facility] Comment on above: Result Comment: 3.3 - 4.4 LOW RISK 4.4 - 7.1 AVERAGE RISK 7.1 - 11.0 MODERATE RISK >11.0 HIGH RISK Performed By: #### L IPID, MG, CMP #### [facility] [address] [address] [address] Quique Ortiz Cholesterol [Mass/Vol] 227 mg/dL Critically high <=200 [facility] Comment on above: Performed By: #### L IPID, MG, CMP #### [facility] [address] [address] [address] Quique Ortiz Cholesterol in HDL [Mass/Vol] 48 mg/dL Normal 40-60 [facility] Comment on above: Performed By: #### L IPID, MG, CMP #### [facility] [address] [address] [address] Quique Ortiz Cholesterol in LDL [Mass/Vol] 149.8 mg/dL Normal [facility] Comment on above: Performed By: #### L IPID, MG, CMP #### [facility] [address] [address] [address] Quique Ortiz Cholesterol.total/C holesterol in HDL [Mass ratio] 4.7 {ratio} Normal [facility] Comment on above: Performed By: #### L IPID, MG, CMP #### [facility] [address] [address] [address] Quique Ortiz HDL NORMAL > or = 60 mg/dl - LO W CARDIOVASCULAR RISK <40 mg/dl - HIGH CARDIOVASCULAR RISK Normal [facility] Comment on above: Performed By: #### L IPID, MG, CMP #### [facility] [address] [address] [address] Quique Ortiz LDL CALC NORMAL SEE BELOW Normal [facility] Comment on above: Result Comment: <100 mg/dl OPTIMAL 100 - 129 mg/dl NEAR OR ABOVE OPTIMAL 130 - 159 mg/dl BORDERLINE HIGH 160 - 189 mg/dl HIGH >190 mg/dl VERY HIGH Performed By: #### L IPID, MG, CMP #### [facility] [address] [address] [address] Quique Ortiz Triglyceride [Mass/Vol] 146 mg/dL Normal <=150 [facility] Comment on above: Performed By: #### L IPID, MG, CMP #### [facility] [address] [address] [address] Quique Ortiz VLDL CALC 29.2 mg/dL Normal [facility] Comment on above: Performed By: #### L IPID, MG, CMP #### [facility] [address] [address] [address] Quique Ortiz MAGNESIUMon 04-11-2022 Magnesium [Mass/Vol] 2.0 mg/dL Normal 1.8-2.4 [facility] Comment on above: Performed By: #### L IPID, MG, CMP #### [facility] [address] [place] [address] Dr. Quique Ortiz PROF 14(COMP METB)on 023 Albumin [Mass/Vol] 3.4 g/dL Normal 3.4-5.0 [facility] Comment on above: Performed By: #### L IPID, MG, CMP #### [facility] [address] [place] [address] Dr. Quique Ortiz Albumin/Globulin [Mass ratio] 1.0 {ratio} Normal [facility] Comment on above: Performed By: #### L IPID, MG, CMP #### [facility] [address] [address] [address] Quique Ortiz ALP [Catalytic activity/Vol] 89 U/L Normal 46-116 [facility] Comment on above: Performed By: #### L IPID, MG, CMP #### [facility] [address] [place] [address] Dr. Quique Ortiz ALT [Catalytic activity/Vol] 15 U/L Normal 14-59 [facility] Comment on above: Performed By: #### L IPID, MG, CMP #### [facility] [address] [place] [address] Dr. Quique Ortiz Anion gap [Moles/Vol] 10.3 mmol/L Normal [facility] Comment on above: Performed By: #### L IPID, MG, CMP #### [facility] [address] [place] [address] Dr. Quique Ortiz AST [Catalytic activity/Vol] 13 U/L Critically low 15-37 [facility] Comment on above: Performed By: #### L IPID, MG, CMP #### [facility] [address] [place] [address] Dr. Quique Ortiz Bilirubin [Mass/Vol] 0.7 mg/dL Normal 0.2-1.0 [facility] Comment on above: Performed By: #### L IPID, MG, CMP #### [facility] [address] [place] [address] Dr. Quique Ortiz Calcium [Mass/Vol] 9.2 mg/dL Normal 8.5-10.1 [facility] Comment on above: Performed By: #### L IPID, MG, CMP #### [facility] [address] [place] [address] Dr. Quique Ortiz Chloride [Moles/Vol] 100 mmol/L Normal 98-107 [facility] Comment on above: Performed By: #### L IPID, MG, CMP #### [facility] [address] [place] [address] Dr. Quique Ortiz CO2 [Moles/Vol] 27.7 mmol/L Normal 21.0-32.0 [facility] Comment on above: Performed By: #### L IPID, MG, CMP #### [facility] [address] [place] [address] Dr. Quique Ortiz Creatinine [Mass/Vol] 0.60 mg/dL Normal 0.55-1.02 [facility] Comment on above: Performed By: #### L IPID, MG, CMP #### [facility] [address] [place] [address] Dr. Quique Ortiz EGFR-AF WALLISIAN >60 Normal >=60 [facility] Comment on above: Performed By: #### L IPID, MG, CMP #### [facility] [address] [address] [address] Quique Ortiz EGFR-NON AF WALLISIAN >60 Normal >=60 [facility] Comment on above: Performed By: #### L IPID, MG, CMP #### [facility] [address] [place] [address] Dr. Quique Ortiz Globulin (S) [Mass/Vol] 3.5 g/dL Normal [facility] Comment on above: Performed By: #### L IPID, MG, CMP #### [facility] [address] [place] [address] Dr. Quique Ortiz Glucose [Mass/Vol] 340 mg/dL Critically high 74-106 [facility] Comment on above: Performed By: #### L IPID, MG, CMP #### [facility] [address] [place] [address] Dr. Quique Ortiz Potassium [Moles/Vol] 4.0 mmol/L Normal 3.5-5.1 [facility] Comment on above: Performed By: #### L IPID, MG, CMP #### [facility] [address] [place] [address] Dr. Quique Ortiz Protein [Mass/Vol] 6.9 g/dL Normal 6.4-8.2 [facility] Comment on above: Performed By: #### L IPID, MG, CMP #### [facility] [address] [place] [address] Dr. Quique Ortiz Sodium [Moles/Vol] 134 mmol/L Critically low 136-145 [facility] Comment on above: Performed By: #### L IPID, MG, CMP #### [facility] [address] [address] [address] Quique Ortiz Urea nitrogen [Mass/Vol] 10.0 mg/dL Normal 7.0-18.0 [facility] Comment on above: Performed By: #### L IPID, MG, CMP #### [facility] [address] [place] [address] Dr. Quique Ortiz Urea nitrogen/Creatinine [Mass ratio] 16.7 mg/mg Normal [facility] Comment on above: Performed By: #### L IPID, MG, CMP #### [facility] [address] [place] [address] Dr. Quique Ortiz UA RANDOM W/MICROSCOPICon BACTERIA TRACE Abnormal NONE SEEN [facility] Comment on above: Performed By: #### U AMIC #### [facility] [address] [place] [address] Dr. Quique Ortiz Bilirubin Ql (U) Negative Normal NEGATIVE The [facility] Comment on above: Performed By: #### U AMIC #### [facility] [address] [place] [address] Dr. Quique Ortiz CAST NONE SEEN Normal NONE SEEN [facility] Comment on above: Performed By: #### U AMIC #### [facility] [address] [place] [address] Dr. Quique Ortiz Clarity (U) CLEAR Normal CLEAR [facility] Comment on above: Performed By: #### U AMIC #### [facility] [address] [place] [address] Dr. Quique Ortiz Color (U) LT. YELLOW Normal YELLOW [facility] Comment on above: Performed By: #### U AMIC #### [facility] [address] [place] [address] Dr. Quique Ortiz Crystals LM Nom (Urine sed) NONE SEEN Normal NONE SEEN [facility] Comment on above: Performed By: #### U AMIC #### [facility] [address] [place] [address] Dr. Quique Ortiz Epithelial cells LM Ql (Urine sed) NONE SEEN Normal NONE SEEN /RARE [facility] Comment on above: Performed By: #### U AMIC #### [facility] [address] [address] [address] Quique Ortiz Glucose Ql (U) >1000 Abnormal NEGATIVE The [facility] Comment on above: Performed By: #### U AMIC #### [facility] [address] [address] [address] Quique Ortiz Hemoglobin Ql (U) SMALL Abnormal NEGATIVE The [facility] Comment on above: Performed By: #### U AMIC #### [facility] [address] [address] [address] Quique Ortiz Ketones Ql (U) Negative Normal NEGATIVE [facility] Comment on above: Performed By: #### U AMIC #### [facility] [address] [address] [address] Quique Ortiz LEUKOCYTES Negative Normal NEGATIVE [facility] Comment on above: Performed By: #### U AMIC #### [facility] [address] [address] [address] Quique Ortiz MUCOUS NONE SEEN Normal NONE SEEN [facility] Comment on above: Performed By: #### U AMIC #### [facility] [address] [address] [address] Quique Ortiz Nitrite Ql (U) Negative Normal NEGATIVE [facility] Comment on above: Performed By: #### U AMIC #### [facility] [address] [address] [address] Quique Ortiz pH (U) 5.5 [pH] Normal 5-9 [facility] Comment on above: Performed By: #### U AMIC #### [facility] [address] [address] [address] Quique Ortiz RBC NONE SEEN Abnormal 0-2 [facility] Comment on above: Performed By: #### U AMIC #### [facility] [address] [address] [address] Quique Ortiz SPEC GRAVITY <=1.005 Abnormal 1.005-<=1.025 [facility] Comment on above: Performed By: #### U AMIC #### [facility] [address] [address] [address] Quique Ortiz UA PROTEIN Negative Normal NEGATIVE/ TRACE [facility] Comment on above: Performed By: #### U AMIC #### [facility] [address] [address] [address] Quique Ortiz Urobilinogen Qn (U) 0.2 {Jv'U}/dL Normal 0.2 - 1. 0 [facility] Comment on above: Performed By: #### U AMIC #### [facility] [address] [address] [address] Quique Ortiz WBC NONE SEEN Normal NONE SEEN [facility] Comment on above: Performed By: #### U AMIC #### [facility] [address] [address] [address] Quique Ortiz XR ANKLE ELENA MIN [...] MALLIKA ORTIZ Date: 2022-03-29 10:38 Normal [facility] Coding Summary.on 07-02-2020 Coding Summary. CD:[id number] Gh0b Ww+PGhlYWQ+BP5UVYVjU54li OJdwX8AW9eEDY0IRWWVJKCHM G9JRO2euDT1CGsbN2HnkdAw EgccxJHzVI59ZBw1SVA6rVsj BQhtaF8cmOByY0w4GuUpAP61 uI39KIxpNPJlShH8DrHdqlij bWFy Y6zyGtWqaZKkThl+PHRhYmxl IHdpZHRoPScxMDAlJyBzdHls GR2hWb5nLQAlSUIitYwdkVQw OiBj o6ugWVOzMPwpTO9tcKgyA6Hv wDL4NCKan4l8El71qPQ+PHRk MYB1oRslFImvn515IvAyt7jp IDM3 yQXpXPdfPBV5J71lu2O6OREm MLNtWKT2oLO1gZ7pcMthpxww Q1MlfNJgRrQ8RSF4rNXdxG0b bGln nmxgxS6lUje+N88GVQ4RFOEU IA0YThn8N1ViXkqedZC+PC90 ICBrIV10fXOorVNhw1hmqVx2 JzEw LATpMGZ1uQctVCmzi2SpJHHa R00kcNQqj0C1TXTdcLueyDOl MyBhdCI2gT3sGKgymkjpo1mk dzsn Xqexy4gccc02wH95Y97nCZal CSTlYVU2XHByRMFxuKbpri0x gJ8pUu6+KGbgg2iwv9ealHt8 IjIw KAMbwuKcbOfyWKL4g1EqOk87 F8TlwQkhk1GwCsz8ms07iYQo r4D2rQX6GJsoIKCmkJ3oFEps ZnQ6 FVTzQnUkiS98vULkFLqvXw5v dGdzlZctZR0wVBWtxvdbSUZx pU3uZYTyuZJxfUwdRA3wZYCg bjtm w170RvZtLOJ6IQSfoVYhM4Oj kP6kOgKsJHMpUKFyV5KesSNu FZatG141SJciXwV5JIBoorGb Y2Fs QCRgnFsyBzM6l9O2Qa0Yw5Cj tdxgCYW7JCtnOGH2PoZ3YxRr VeV6X8KwYtu3BFTveCmcBF4o J3Bh ICQbgzbgekcyoCS8XBZgAFUy lP77sNEhGEdsJa3jp4E9d096 EJQpVEReqC52Zr2ncZxcVNMn dCBU rC0kfrylk6axgudqFxSqXZUd MLg6QCi2UGMwtEczLnDuZQK2 SlA9OAA1dEMygD3riPmybqbj dG9w Oyc+H67yxU2cXYP8CJM1trmh LKAohpXoKF76NJ75K4XmSoxy dGFibGU+XBXdeyJetMrwNB1r YmFj b6xcp6NnMKxnF7WoFIOdZMsf Xne3MMWfZXQ2iVD9kJ8zEGXl RDffw9C7aGS5O4CnymPqbb5t b2xs NLXuBNznN39myKAfl7N5VKMu lZL3VVOkkTpkLiNdtS91Ahp+ WRTxgNusq7PiTjmgp4ots2hd dGg9 PfZfHVMwzgOghXqwKLW9k4Vz Ct92Q29zMNcbLSRyUKCuNVFp TTXzyUhwbv9jqD1yCy6+PGNv bCB3 lXS7pW2qSXJlJtK9ISxrA237 DeEvuVYbEvqdz3kag8wwfOx9 ZpPuFIBrayQvhUxcKIU6n4Jr Lz48 K31mSDboASQlRHMkAFJjMIAb tTdvuy4wrB1hMu8+PV6fv3tq nz46gX98fIR+BMWmLSF6iZkq PSdw IDYvqI9dLNonLkB6HNSzIsVk uM84vTMoPEtqTr0heCcepYja ED4jVCYzexjca746DbPxj7wr IDEw sOZgBXqeUQM4O38rn0A8MUCm AKOxRPW4vMZ8dK5lcMvfyqad bGVmdDsgdmVydGljYWwtYWxp Z246 IHRvcDsnPlBhdGllbnQgTmFt PUd8O5QaNqf7MQXjeRkvGZ3h pEGlVVvbKk4alOykjGatSS8v NTBp vsygv307ZsZnr9jqEZFzbRYe JYbfXZL7I39ld1R3TIAyPALz GAA7tAW6qD1zlHcfmjxxaQXk dDsg hqCfbHvzWAahIDpaE347SLTs bDulZgXinqFjLJVyhSZ9ZO14 PW72uPYhw8Y7yWJ6W4LjALAy bmct yivmvHZ9OXYyZYZcvQ26Ce8k vXgeTg7uZYGbODM0CFIkqWHs A5KjtY6tEkAsFCVnOQYxP0Od eHQt WFqjV293TCcbQjM4TGAlqkFp Z3EdBPQwlUtrUzP5y5Z3Yg5E V1Y9JT46LS66hEIxw8H8iSY4 J3Bh GOCmcjjbsdefwCJ0BYSkFWFj aP33Ln4kcHbiDp1lHLVtKNM2 SFFanJHgW3ClbI8hRiCdRIOz MDAw U3HhrXOqJFyzJ048PUnjQrS6 RLDhkgShV0MpYXUrsJnpVrJ9 z8M6Hd9SXQi3ZL58WH68vEUu c3R5 pLS7A1SgCKVbdqjaaimfuFV4 LFIjESTpaP39Rd5gyZdnHf7v FMIbWDA4OPPkcBKtF1JqpL3p OiAj MXVbSSYyR3ZthOUoIBblC850 WGoxFeM3BCInduLhK9OqEFVw hAblDdR8y5K3Ae6CUYKlOF96 IFR5 dDD1UV25VY79P8XiIhjqoZKi bGU+PHRhYmxlIHdpZHRoPScx PMQwIbChoPlcKE0xYj7qATUk LWNv sEoauKFcPeZtm0qqFFSfSOct JU9nbEdzE1NabYR9PCHre1y5 Gq20G05jC6TadWJ+PGNvbCB3 aWR0 zU0qAoTtBnQ9HLzcX253LlLf fMAkNupea7eiz9bnuPr8TaK5 FAMlvzRzlYiqECB4s1FeTm78 Y29s IHdpZHRoPSIxNSUiIHZhbGln ew5mxN3sKb4+CAMdyGO8zKZ8 tU3pSsOmHwZ9QJafY138LxMr cCIv Sjifv0kpw3vkhFg8IeYvONYf snVczNvnCOB1f8XeAl62G5Xr zCsdz7JsXei1qz90qUQfl4K8 bGU9 P9JxSYZnfnkjgKXqbPziMF4h EZKppompOFXndL8fHUXnD8m1 AnUuYaK2QIcdM4SqxpG6DCYe cHQg HWmlCBC5K37eu6C2JCOaSKEn DXJ9aEH0cM7lnNpledqwcRPd lApsbqPqyZmnSKxhKHhvY141 IHRv zBgnBBTduS5mSJOnvVSdcNnw VM7ySYWgfpruQyQWRIwsXHCY TFZJQTwvdGQ+IGDyJRX8dQqb PSdw XHMurE8uRJNmE0m4HxEzNnS7 LRztH6CgNFEpbcdjWq65vL2e LcCcZqS2ZDafY5QgvaA3RTXo cHQg TFhhEZI2X20rm2S7YHByLSJk OBP6aKX8vI5vfEvfuepdfPVx oIylmrAgmUebZAyvSBuhL476 IHRv mWvwVtPqOaF2DgR4BON3L0Wt Kse7APSkzLnfSA7waTEzVFta Rt5ifDdvnGklHK8sACDyymyj YWRk dT0bGOTtuZAsdIgrCN8mLZHd oruvk796HgSjJVO0YYKkxXBg W9XokK9wGmMsQEZzRWKcH5Yl eHQt CYwnI584WFptXpD9WAObwxLu F2YaJSCdaKuqVoL5q4G6Zc19 NiBZZWFyczwvdGQ+PHRkIHN0 eWxl PVeoHNHdmK9sXVSfC0k5XnPm OjE9WMicC4XqOOFnckvcIh01 rG2iAgFqRbI7XJjzG5DsuoM2 IDEw tFNdSDrtBFA0D81sa9Y9DDXs LZXxGEO3pWM4hT1lfVndrhtn bGVmdDsgdmVydGljYWwtYWxp Z246 IHRvcDsnPkZlbWFsZTwvdGQ+ PQFpQEE6bBfrHQhqDMGhlY4n EKVcV3w3UiQuVbP2AKcpT5Cl ZGRp ozjhHe22bV5iZnHrLrK7BXdc F7GqoyA5EQKeyAGzUUkdUYN8 H09mv5B2PLNuAGWjSYV0rRJ6 dC1h bGlnbjogbGVmdDsgdmVydGlj EOsqCHflX165QDNsdLxdBwFm AVNrPY3wcEqjxIW+OM71io90 L3Rh XfenVoc9GSYuLNU4tIH7aB4k YWGpMIhgx8D2fEX8U6McddLz vb7oq6elHLTtSLdrS29plQXg c2U7 DLNriVD7JILljNvgLfLscD92 Oyc+ATWwgTpfs8SxKyack8ed e3tuzPp1ZfRtCNJlimGnyDuc PSJ0 k2GiRv95B54lXHxuBYWvNRJq UXSxSGMbzEqpkr5gjB7gRd0+ XOBdkUB5vKU1vB8jGxUbIhR8 YWxp V357DnXygGQnDjmcz7qoc0ta lKo0MmHwKWAmdmDazPwePJV8 a9OpFo78S1VdcSrel0DvMuz5 cj48 xHMdv4V4lWS5X5QsPTPzpkdt yIRjuQkqRR6kRZXcunfxXVNg fT3xNVTrP3s6GdAnPbF1KGbr O2Zv ltB2LLCstZNbPHRmeGWMoQ7l ocoop9ebjeqgDtTyVEWiVZa8 WEe3BODluXgnDhDpERO8TzB8 ZXJ0 vISqmA1hpUgufeyjsL6jRlw+ UZu1o0eocSKrJI6wiFC8JS94 XA74xMYbb4D6cQR5S6OmNIUk bmct abxpaSS2OLViNZKvfY63Iv3u tLkrRk3xOMLoGLY9DZBjgPYb D7YwwR8jYfWwCDSxAJNhY7Uo eHQt PVwoE002CHrjMbR3JRDpgpXh W6DwGKSvbZduSbU3c2P3Ad6E NN89JQ06UQ83rVUco3R2oQO9 J3Bh DNJyzluulvwgmON9RWRbYDFp aA37Tr2akNelNr2qUFRdPQH9 WYHsbTOjE5YmnW7wRsWvHWCs MDAw D7NdeAXwQBucZ745LAhtWgZ5 SPBmqkIlH4TePUOtxUimTqH4 x9Q8Sl4VTm61RX29RD74bHIi c3R5 tDE3G1CmTQHmwzateegyqFB8 UXSnWRLkpP16Uy7waBwoTw2x JCTuLPJ2MSRpgYTuS9ZckY2w OiAj JDGfKFJpD6FfcOUeONxbZ129 JJxrLiJ0QWAltmXuS3IgPGRz hGugXlD4d5F9Kf5TUAnovne5 L3Rk PjwvdHI+RZ91CAAaAW52qNGn mUQdg6mqaLv4MlAtPHXzPKL5 lEqwMMxjx7XgGEHbY83zyVMj c2U6 IGNv (more content not included)... Normal [facility] Consent for Treatmenton 06-06 Consent for Treatment [id number]: 127 [facility] Discharge Instructionson Discharge Instructions [id number] :127 [facility] Discharge Instructions Discharge instructions complete, RR equal and non labored and nurse educated to make follow up and take medication as prescribed. [facility] Comment on above: Result Comment: Elec tronically Signed By: Malorie MONSIVAIS, Don Urbina\.br\Date and Time Signed: 06/28/20 11:39 EDT ED Clinical Summaryon 2020 ED Clinical Summary (Inserted Image. [place] ble to display) [place] [id number] ED Clinical Summary Person Information Name: [facility]NA [facility] Age: 65 Years : 1955 Sex: Female Language: Luxembourgish PCP: Manohar PARHAM DO Marital Status: Single [...] 06/28/2020 11:46:42 06/28/2020 11:46:42 06/28/2020 11:46:42 ADDRESS: [address] [place] [id number] PHYS DOC NOTES: MEDICAL INFORMATION: Prescriptions Given: New Medications Printed Prescriptions amlodipine (Norvasc 10 mg Tab) 1 Tablets By Mouth every day for 30 Days. Refills: 0. PATIENT EDUCATION INFORMATION: Instructions: Hypertension; DASH Eating Plan Follow up: With: Address: When: Manohar PARHAM [address] [place] [id number] Business (1) In 3 days 07/01/2020 DIAGNOSIS: Hypertension Normal [facility] ED Note-Physicianon 06-29-19 ED Note-Physician Basic [...] days 07/01/2020 EDT [address] [place] [address] Business (1) Additional Instructions: Patient Education Hypertension [...] By: Waylon Marques DO 06/28/2020 10:57:50 Normal [facility] Comment on above: Result Comment: Elec [...] Document Reviewed: 11/14/2013 ExitCare? Patient Information ?2014 [employer]. This information is not intended to replace [...] 12 oz (more content not included)... Normal [facility] ED Patient Summaryon 021 ED Patient Summary (Inserted Image. [place] ble to display) [place] [id number] Patient Discharge Instructions Person Information Name: KEYANNA STAFFORD Age: 65 Years Arrival Date: 06/28/2020 10:27:51 Discharge Diagnosis: Hypertension Primary Care Physician: Manohar PARHAM DO Provider Information Primary Provider: Waylon Marques DO Advanced Web Applications Programmer:None The exam and treatment you received in the Emergency Department were for an urgent problem and are not intended as complete care. It is important that you follow up with a doctor, nurse practitioner, or physician?s print shop assistant for ongoing care. If your symptoms [...] When: Manohar PARHAM [address] [place] [address] Business (1) In 3 days 07/01/2020 In the event that this physician does not participate in your insurance network, please consult with your insurance company to find a nearby participating provider. Patient Education Materials: Hypertension; DASH Eating Plan A MESSAGE TO ALL PATIENTS REGARDING OPIOIDS PRESCRIPTION OPIOIDS: WHAT YOU NEED TO KNOW Prescription opioids can be used to help relieve zhudbhow-ex-mpavpv pain and are often prescribed following a [...] be struggling with addiction, tell your health child care teacher and ask for guidance or call SAM[employer]?S National Helpline at 9-579-405-VTLL. v Source: [place] Department of Health and (more content not included)... Normal [facility] HAND RIGHT 2 [facility] 2 [facility] [place] [id number] ==Patient Name: KEYANNA STAFFORD : 1955Sex: FAge: Race: WhiteMRN: [id number]. 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 Transcribed by: [email or web address], User Resident: Electronically Signed by: SERGIO LAWRENCE @ 01/07/2018 02:05 PM Normal [facility] Comment on above: Order Comment: , , = ========= , Ordering Provider - MANOHAR BONILLA PA-C , Operative Reporton 8 Operative Report MR#: [id number] [facility] Pt. Name: Keyanna Stafford Room [...] Dict: 01/01/2018/09:11 P/Tiffanie Rose Trans: 01/02/2018 05:47 A/[id number] 9cc: Reese Hodges M.D. [address] [place] [address] Normal [facility] *ANAEROBIC CULTUREon 018 *ANAEROBIC CULTURE Clinical Report: (D) Specimen/Source: TISSUE/INTRAOP SPEC Collected: 12/31/2017 15:35 Status: Final Last Updated: 01/05/2018 08:19 (1) Right Long Finger Soft Tissue ISO (Final) No Anaerobes Isolated 5 Days Normal [facility] Comment on above: Order Comment: Right Long Finger Soft Tissue Performed By: #### 5 [id number], [address] ####[place] [id number] *ANAEROBIC CULTURE Clinical Report: (D) Specimen/Source: TISSUE/INTRAOP SPEC Collected: 12/31/2017 15:34 Status: Final Last Updated: 01/05/2018 08:07 (1) Right Long Finger Distal Phalanx ISO (Final) No Anaerobes Isolated 5 Days Result changed by SERVANDO on 01/05/2018 08:07. The previous result was: ISO (Prelim) Normal [facility] Comment on above: Order Comment: Right Long Finger Distal Phalanx Performed By: #### 3 0312 ####[facility] *FUNGAL CULTUREon 12-31-2017 *FUNGAL CULTURE Clinical Report: (D) Specimen/Source: TISSUE/INTRAOP SPEC Collected: 12/31/2017 15:35 Status: Final Last Updated: 01/08/2018 14:58 (1) Right Long Finger Soft Tissue FS (Final) No Yeast or Fungal Elements Seen ISO (Final) Tisha albicans Normal [facility] Comment on above: Order Comment: Right Long Finger Soft Tissue Performed By: #### 5 6101, [address] ####[facility] *FUNGAL CULTURE Clinical Report: (D) Specimen/Source: TISSUE/INTRAOP SPEC Collected: 12/31/2017 15:34 Status: Final Last Updated: 01/08/2018 10:00 (1) Right Long Finger Distal Phalanx FS (Final) No Yeast or Fungal Elements Seen ISO (Final) Tisha albicans Normal [facility] Comment on above: Order Comment: Right Long Finger Distal Phalanx Performed By: #### 5 6101, [address] ####[facility] *TISSUE CULTUREon 12-31-2017 *TISSUE CULTURE Clinical [...] Susceptible VANCOMYCIN (VA) 1 Susceptible Normal [facility] Comment on above: Order Comment: Right Long Finger Soft Tissue Performed By: #### 3 0338 ####[facility] *TISSUE CULTURE Clinical Report: (D) Specimen/Source: [...] Susceptible VANCOMYCIN (VA) 1 Susceptible Normal [facility] Comment on above: Order Comment: Right Long Finger Distal Phalanx Performed By: #### 3 0338 ####[place] [id number] [address] APTTon 12-31-2017 aPTT Coag time (Bld) 27.1 s Normal 25.0-35.0 [facility] Comment on above: Result Comment: ALL RESULTS [...] THIS PURPOSE. Performed By: #### [id number], [id number] ####[facility] BASIC METABOLIC PANELon - Calcium mass conc 9.3 mg/dL Normal 8.6-10.3 [facility] Comment on above: Performed By: #### 0 [id number] ####[facility] [place] [address], [facility] Chloride molar conc 104 mmol/L Normal 98-107 [facility] Comment on above: Performed By: #### 0 [id number] ####[facility] [place] [address], [facility] CO2 molar conc 28 mmol/L Normal 21-31 [facility] Comment on above: Performed By: #### 0 [id number] ####[facility] [place] [address], [facility] Creatinine mass conc 0.51 mg/dL Low 0.60-1.20 [facility] Comment on above: Performed By: #### 0 [id number] ####[place] [id number] [place] [address], [facility] GFR/1.73 sq M predicted among blacks MDRD vol rate/area (S/P/Bld) mL/min/{1.73_m2} Normal >60 [facility] Comment on above: Performed By: #### 0 [id number] ####[facility] [place] [address], [facility] GFR/1.73 sq M predicted among non-blacks MDRD vol rate/area (S/P/Bld) mL/min/{1.73_m2} Normal >60 [facility] Comment on above: Performed By: #### 0 [id number] ####[facility] [place] [address], [facility] Glucose mass conc 168 mg/dL High 70-100 [facility] Comment on above: Performed By: #### 0 [id number] ####[facility] [facility].[place] [id number], [facility] Potassium molar conc 4.2 mmol/L Normal 3.5-5.1 [facility] Comment on above: Performed By: #### 0 [id number] ####[facility] Sodium molar conc 141 mmol/L Normal 136-145 [facility] Comment on above: Performed By: #### 0 [id number] ####[facility] Urea nitrogen mass conc 5 mg/dL Low 7-25 [facility] Comment on above: Performed By: #### 0 0071 ####[place] [id number] [address] CBC W/DIFFon 12-31-2017 ABS BASOPHILS 0.0 10*3/uL Normal 0.0-0.2 [facility] Comment on above: Performed By: #### 5 0103 ####[facility] ABS IMM GRANS 0.0 10*3/uL Normal 0.0-0.2 [facility] Comment on above: Performed By: #### 5 3 ####[place] [id number] [address] ABS NEUTROPHILS 3.3 10*3/uL Normal 1.6-7.6 [facility] Comment on above: Performed By: #### 5 0103 ####[facility] [address] Basophils Auto #/vol (Bld) 0.4 % Normal 0.0-1.0 [facility] Comment on above: Performed By: #### 5 3 ####[facility] Eosinophils Auto #/vol (Bld) 0.1 10*3/uL Normal 0.0-0.5 [facility] Comment on above: Performed By: #### 3 ####[facility] Eosinophils/100 WBC Auto (Bld) 1.1 % Normal 0.0-6.0 [facility] Comment on above: Performed By: #### 3 ####[facility] Erythrocyte distribution width Auto Ratio (RBC) 13.0 % Normal 11.5-15.0 [facility] Comment on above: Performed By: #### 102 ####[facility] Hematocrit Auto Volume Fraction (Bld) 39.9 % Normal 36.0-45.0 [facility] Comment on above: Performed By: #### 102 ####[facility] Hemoglobin mass conc (Bld) 13.5 g/dL Normal 12.0-15.0 [facility] Comment on above: Performed By: #### 102 ####[facility] IMMATURE GRANS 0.4 % Normal 0.0-1.0 [facility] Comment on above: Performed By: #### 3 ####[facility] Lymphocytes Auto #/vol (Bld) 1.9 10*3/uL Normal 1.2-4.0 [facility] Comment on above: Performed By: #### 3 ####[facility] [place] [address] Lymphocytes/100 WBC Auto (Bld) 32.9 % Normal 20.0-45.0 [facility] Comment on above: Performed By: #### 5 3 ####[facility]3000 [facility].[address] MCH Auto Entitic mass (RBC) 29.2 pg Normal 27.0-33.0 [facility] Comment on above: Performed By: #### 3 ####[facility] [facility].[address] MCHC Auto mass conc (RBC) 33.8 g/dL Normal 32.0-35.0 [facility] Comment on above: Performed By: #### 3 ####[facility] MCV Auto Entitic volume (RBC) 86.4 fL Normal 82.0-98.0 [facility] Comment on above: Performed By: #### 102 ####[facility] Monocytes Auto #/vol (Bld) 0.4 10*3/uL Normal 0.1-1.0 [facility] Comment on above: Performed By: #### 3 ####[facility] MONOS 7.4 % Normal 5.0-12.0 [facility] Comment on above: Performed By: #### 5 3 ####[facility] Neutrophils/100 WBC Auto (Bld) 57.8 % Normal 40.0-72.0 [facility] Comment on above: Performed By: #### 3 ####[facility] Nucleated RBC/100 WBC Ratio (Bld) 0 % Normal 0-0 [facility] Comment on above: Performed By: #### 3 ####[facility] PLAT CNT 226 10*3/uL Normal 150-400 [facility] Comment on above: Performed By: #### 5 0103 ####[facility] [place] [address] RBC Auto #/vol (Bld) 4.62 10*6/uL Normal 3.80-5.00 [facility] Comment on above: Performed By: #### 5 0103 ####[facility]3000 [place] [address], [facility] WBC Auto #/vol (Bld) 5.71 10*3/uL Normal 4.00-10.60 [facility] Comment on above: Performed By: #### 5 0103 ####[facility] [place] [address] FINGER RIGHT MIN 2 VWSon FINGER RIGHT MIN 2 VWS [facility] [address] [place], [place] [id number] ==Patient Name: KEYANNA STAFFORD : 1955Sex: FAge: Race: WhiteMRN: [id number]. Location: OUTPPatient Status: OVisit #: [id number] Date: 12/31/2017 3:35:00 PMCompleted Date: 12/31/2017 03:48 PMRequesting Provider: STUART VO Attending Provider: STUART VO Report Copy To: Signs & Symptoms: crpp right fingerHistory: Comments: crpp right fingerExam: FINGER RIGHT MIN 2 VWSAccession #: [id number] =========FINGER RIGHT MIN 2 VWS 12/31/2017 3:48 [...] documentation Electronically signed by:Abdirizak Herrera. Transcribed by: [email or web address], User Resident: Electronically Signed by: ABDIRIZAK HERRERA @ 2018 08:05 AM Normal [facility] Comment on above: Order Comment: crpp right finger POC GLUCOSE LABon 12-31-2017 Glucose mass conc 141 mg/dL High 70-100 [facility] Comment on above: Performed By: #### 8 5499 ####[facility] Glucose mass conc 152 mg/dL High 70-100 [facility] Comment on above: Performed By: #### 8 5499 ####[facility]3000 [facility].[address] PROTHROMBIN TIMEon 8 INR Coag RelTime (PPP) 0.90 {INR} Low 0.91-1.16 [facility] Comment on above: Result Comment: ACCC P RECOMMENDED INR FOR WARFARIN THERAPY CONDITION INRPROPHYLAXIS OF VENOUS THROMBOSIS 2-3(HIGH-RISK SURGERY)TREATMENT OF VENOUS THROMBOSIS 2-3TREATMENT OF PULMONARY EMBOLISM 2-3PREVENTION OF SYSTEMIC EMBOLISM: 2-3 ACUTE MYOCARDIAL INFARCTION TISSUE HEART VALVES VALVULAR HEART DISEASE ATRIAL FIBRILLATION RECURRENT SYSTEMIC EMBOLISMMECHANICAL HEART VALVE 2.5-3.5 FROM: ORAL ANTICOAGULANTS. MECHANISM OF ACTION, CLINICALEFFECTIVENESS, AND OPTIMAL THERAPEUTIC RANGE. [id number]. Performed By: #### 5 6101, [id number] ####[facility]3000 [facility].[address] Prothrombin time (PT) Coag time (PPP) 12.1 s Low 12.3-14.8 [facility] Comment on above: Result Comment: ALL RESULTS MUST BE INTERPRETED WITH RESPECT TO BLOOD DRAWING ARTIFACTOR DILUTION ERROR OF ANTICOAGULANT AT THE TIME OF SAMPLING. Performed By: #### 5 6101, 73053 ####[facility]3000 [facility].[address] Encounters Encounter Date Encounter Type Care Provider Facility Start: 11-01-2023 End: 11-01-2023 ambulatory [facility] Start: 10-24-2023 End: 10-24-2023 ambulatory [facility] Start: 09-21-2023 End: 09-21-2023 [facility] Start: 09-04-2023 End: 09-04-2023 ambulatory [facility] Start: 06-12-2022 End: 06-13-2022 ambulatory URBANO GARCIA Facility:[facility] Start: 06-02-2022 End: 06-03-2022 ambulatory URBANO GARCIA Facility:[facility] Start: 04-23-2022 End: 04-25-2022 Evaluation and management of inpatient MARIANN DAVIDSON Facility:[facility] Start: 04-11-2022 End: 04-12-2022 ambulatory URBANO SAMI RADHA Facility:[facility] Start: 03-28-2022 End: 03-29-[address] REESE HODGES Facility:[facility] Start: 01-07-2018 End: 01-08-2018 Patient encounter procedure MANOHAR BONILLA Facility:[facility] Start: 12-31-2017 Encounter for other specified special examinations STUART EBRAHEIM [facility] Start: 12-31-2017 End: 2018 Patient encounter procedure STUART EBRAHEIM Facility:[facility] Encounter for other specified special examinations STUART EBRAHEIM [facility] Procedures Date Procedure Procedure Detail Performing Clinician Start: 09-21-2023 Follow-up visit Follow-up BALA HENAO Start: 12-31-2017 AMPUTATION OF FINGER/THUMB STUART EBRAHEIM Start: 12-31-2017 ANESTH [facility]OWER [facility]ZZETTE [facility] Payers Date Payer Category Payer Unknown [id number] 1955 Unknown [id number] 2.16.8 [id number] 1955 Unknown [id number] 2.16.8 [id number] 1955 Unknown [id number] 2.16.8 [id number] 1955 Unknown [id number] 2.16.84 [id number] 1955 Unknown [id number] 2.16.84 [id number] 1955 Unknown [id number] 2.16.84 [id number] 1955 Unknown [id number] 2.16.84 [id number] 1955 Unknown [id number] 2.16.84 [id number] Unknown [id number] Progress note 11-01-2023 Note Date & Type Note Facility 11-01-2023 Note Patient here for 1 w [place] follow up HFrEF. Farxiga was added at [...] for cough (improving). Neurological: Positive for light-headedness. [facility] Progress note 11-01-2023 Note Date & Type Note Facility 11-01-2023 Note [facility] SUBJECTIVE No chief complaint on file. [...] Polyneuropathy due to type 2 diabetes mellitus ([facility]/HCC) Pain in left foot Nuclear senile cataract Noncompliance with treatment Mild nonproliferative diabetic retinopathy associated with type 2 diabetes mellitus (CMS/HCC) Hypothyroidism Hyperglycemia due to type 2 diabetes mellitus (CMS/HCC) Hypercholesterolemia Finger clubbing Essential hypertension Diabetes mellitus without complication (CMS/HCC) CVA (cerebral vascular accident) ([facility]/HCC) Borderline glaucoma Pseudophakia Scleroderma ([facility]/HCC) Acute on chronic combined systolic and diastolic heart failure ([facility]/HCC) Shortness of breath Past Medical History: Diagnosis Date CHF (congestive heart failure) (CMS/HCC) Diabetes mellitus ([facility]/HCC) Hyperlipidemia Hypertension Family History Problem Relation Name [...] carotid bruit. Comments: (more content not included)... [facility] Progress note 10-24-2023 Note Date & Type Note Facility 10-24-2023 Note [facility] SUBJECTIVE No chief complaint on file. [...] Active Problem List Diagnosis Gangrene of finger ([facility]/HCC) Proliferative diabetic retinopathy of both eyes with macular edema associated with type 2 diabetes mellitus ([facility]/HCC) Polyneuropathy due to type 2 diabetes mellitus ([facility]/HCC) Pain in left foot Nuclear senile cataract Noncompliance with treatment Mild nonproliferative diabetic retinopathy associated with type 2 diabetes mellitus (CMS/HCC) Hypothyroidism Hyperglycemia due to type 2 diabetes mellitus (CMS/HCC) Hypercholesterolemia Finger clubbing Essential hypertension Diabetes mellitus without complication (CMS/HCC) CVA (cerebral vascular accident) (CMS/HCC) Borderline glaucoma Pseudophakia Scleroderma ([facility]/HCC) Past Medical History: Diagnosis Date CHF (congestive heart failure) (CMS/HCC) Diabetes mellitus ([facility]/HCC) Hyperlipidemia Hypertension Family History Problem Relation Name [...] back: Neck supple. (more content not included)... [facility] Progress note 10-24-2023 Note Date & Type [...] All other systems reviewed and are negative. [facility] Progress note 09-21-2023 Note Date & Type Note Facility 09-21-2023 Note [facility] SUBJECTIVE Chief Complaint Patient presents with [...] spirinolactone 25 mg (more content not included)... [facility] Progress note 09-04-2023 Note Date & Type [...] All other systems reviewed and are negative. [facility] Progress note 09-04-2023 Note Date & Type Note Facility 09-04-2023 Note [facility] SUBJECTIVE Chief Complaint Patient presents with [...] leg: Edema pr (more content not included)... [facility] Summary Purpose Family History No Family History Records FoundNo Family History Records FoundNo Family History Records FoundNo Family History Records Found Advance Directives No Advanced Directives Records FoundNo Advanced Directives Records FoundNo Advanced Directives Records FoundNo Advanced Directives Records Found Additional Source Comments INFORMATION SOURCE (unrecogn ized section and content) DATE CREATED AUTHOR 01/14/2018 [facility] DATE CREATED AUTHOR AUTHOR'S ORGANIZ ATION 07/05/2020 [facility] DATE CREATED AUTHOR AUTHOR'S ORGANIZ ATION 06/16/2022 [facility] DATE CREATED AUTHOR AUTHOR'S ORGANIZ ATION 11/28/2023 [facility] FOR RECORDS PERTAINING TO PATIENTS WHO ARE [...] BE BASED ON THE PRIMARY CLINICAL RECORDS. [employer] provides no warranty or guarantee of the accuracy or completeness of information in this document.
--- NOTE | 2024-02-20 16:56 | PC.NURSE ---
Wound to right index finger, area is reddened, no drainage.
[2024-02-20 16:58] LABS: Basophils Percent Auto 0.3 % (0.2-2.0); Eosinophils Absolute Auto 0.1 10^3/uL (0.0-0.7); Eosinophils Percent Auto 1.2 % (0.9-7.0); Hematocrit 33.5 % (36.0-48.0); Hemoglobin 11.5 g/dL (12.0-16.0); Immature Granulocytes Abs Auto 0.02 10^3/uL (0.00-0.03); Immature Granulocytes Pct Auto 0.2 % (0.0-0.5); Lymphocytes Absolute Auto 1.2 10^3/uL (1.2-3.8); Lymphocytes Percent Auto 13.5 % (20.5-60.0); Mean Corpuscular HGB Conc 34.3 g/dL (29.9-35.2); Mean Corpuscular Hemoglobin 29.3 pg (26.7-34.0); Mean Corpuscular Volume 85.5 fL (81.0-99.0); Mean Platelet Volume 9.6 fL (9.5-13.5); Monocytes Absolute Auto 0.7 10^3/uL (0.3-0.8); Monocytes Percent Auto 8.1 % (1.7-12.0); Neutrophils Percent Auto 76.7 % (43.0-75.0); Platelet Count 260 10^3/uL (150-450); Red Blood Count 3.92 10^6/uL (4.20-5.40); Red Cell Distribution Width 12.5 % (11.0-15.0); White Blood Count 9.1 10^3/uL (4.0-11.0)
[2024-02-20 17:04] LABS: Erythrocyte Sedimentation Rate 53 mm/hr (<=30); pH VBG 7.512 (7.330-7.430)
[2024-02-20 17:11] LABS: INR 0.99; Prothrombin Time 10.5 sec (9.0-11.6)
[2024-02-20] MEDS: PIPERACILLIN SODIUM/TAZOBACTAM 4.5 GM in 0.9 % SODIUM CHLORIDE 50 ML IV (17:11)
[2024-02-20] MEDS: ADACEL DIPH,PERTUSS(ACELL),TET VAC/PF 0.5 ML ADULT SYRINGE IM (17:13)
[2024-02-20 17:14] LABS: Alanine Aminotransferase 17 U/L (14-59); Albumin Globulin Ratio 0.9; Albumin Level 3.5 g/dL (3.4-5.0); Alkaline Phosphatase 100 U/L (46-116); Anion Gap 14.1; Aspartate Amino Transferase 11 U/L (15-37); BUN Creatinine Ratio 17.2; C Reactive Protein 4.01 mg/dL (<=0.50); Calcium 9.4 mg/dL (8.5-10.1); Chloride 94 mmol/L (98-107); Estimated GFR (African America 43 (>=60 mL/min/1.73m^2); Estimated GFR (Non-African Ame 36 (>=60 mL/min/1.73m^2); Globulin 3.9 g/dL; Glucose 487 mg/dL (74-106); Potassium 4.1 mmol/L (3.5-5.1); Sodium 129 mmol/L (136-145); Total Protein 7.4 g/dL (6.4-8.2)
[2024-02-20 17:19] LABS: Lactate/Lactic Acid 2.1 mmol/L (0.4-2.0)
[2024-02-20 17:38] LABS: Acetone NEGATIVE (NEGATIVE)
[2024-02-20] MEDS: INSULIN REGULAR, HUMAN (100 UNIT/ML) 10 ML MDV 15 UNIT SUBQ (17:56)
[2024-02-20] MEDS: SODIUM CHLORIDE 0.9% IV (18:01)
[2024-02-20] MEDS: VANCOMYCIN HCL IV (18:01)
--- NOTE | 2024-02-20 18:33 | PHOTOS ---
right index finger
[2024-02-20 18:37] VITALS: BP 157/73; PULSE 82; TEMP 36.6; O2SAT 99; BMI 25.8
--- OUTSIDE RECORDS SUMMARY | 2024-02-20 18:39 | XMS_ITS | CCD ---
Author Organization [facility] Care Team Providers Care Back End Architect Name Role Phone EBRAHEIM, STUART Unavailable Unavailable EBRAHEIM, STUART Unavailable Unavailable REESE HODGES Unavailable Unavailable HODGESREESE Unavailable Unavailable EBRAHEIM, STUART Unavailable Unavailable EBRAHEIM, STUART Unavailable Unavailable BENI HODGESEL Unavailable Unavailable BENI HODGESEL Unavailable Unavailable OR Unavailable Unavailable EBRAHEIM, STUART Unavailable Unavailable OR Unavailable Unavailable YERMAL, SOORAJ G Unavailable Unavailable IRENE, MANOHAR Unavailable Unavailable IRENE, MANOHAR Unavailable Unavailable HODGES, REESE Unavailable Unavailable HODGES, REESE Unavailable Unavailable AICHHOLZ, LEATHER SEASONER SAMI Attending Unavailable AICHHOLZ, LEATHER SEASONER SAMI Consulting Unavailable AICHHOLZ, LEATHER SEASONER SAMI Primary Care Unavailable AICHHOLZ, LEATHER SEASONER SAMI Admitting Unavailable DR MALLIKA ORTIZ Consulting Unavailable GORAN TORRES Consulting Unavailable MARIANN DAVIDSON Consulting Unavailable AICHHOLZ, LEATHER SEASONER SAMI Primary Care Unavailable RALPH ., SVETA Admitting Unavailable RALPH ., SVETA Attending Unavailable PETRONA SUMNER Consulting Unavailable VIRGINIA TOTH Consulting Unavailable RALPH ., SVETA Consulting Unavailable DIAB ., KAROL Consulting Unavailable FRANCISCO, SHARAN Consulting Unavailable DR REESE HODGES Primary Care Unavailable WILMAN LAKHANI Admitting Unavailable DR MALLIKA ORTIZ Consulting Unavailable WILMAN LAKHANI Attending Unavailable WILMAN LAKHANI Consulting Unavailable AICHHOLZ, LEATHER SEASONER SAMI Consulting Unavailable AICHHOLZ, LEATHER SEASONER SAMI Primary Care Unavailable AICHHOLZ, LEATHER SEASONER SAIM Admitting Unavailable AICHHOLZ, LEATHER SEASONER SAMI Attending Unavailable AICHHOLZ, LEATHER SEASONER SAMI Consulting Unavailable AICHHOLZ, LEATHER SEASONER SAMI Admitting Unavailable AICHHOLZ, LEATHER SEASONER SAMI Primary Care Unavailable AICHHOLZURBANO Attending Unavailable MARIANN DAVIDSON Attending Unavailable BALA HENAO Attending Unavailable MARIANN DAVIDSON Attending Unavailable MARIANN DAVIDSON Attending Unavailable Allergies Allergy Classification Reported Allergen(s) Allergy Type Date of Onset Reaction(s) Facility (1 source) succinylcholine chloride Drug allergy (disorder) 8 AOF [facility] Repository (1 source) Succinylcholine; Translations: [SUCCINYLCHOLINE] Drug Allergy [address] [facility] Repository Problems Active Problems Problem Classification [...] Onset: 01-07-2018 Chronic Other aftercare (2 sources) rn long term care (current) use of insulin; Translations: [DETENTION (CURRENT) USE OF INSULIN] Onset: 12-31-2017 Episodic [...] Range Facility Orders Onlyon 11-26-2023 Orders Only [id number] Keyanna Stafford 1955 Provider Department [place] 11/26/2023 DELILAH FLORES [facility] [place] Heart[facility]AS Family History Problem Relation Age of Onset Hypertension Mother Diabetes Mother Family Status - Relation Status Age at Mother [facility] NURSNOTEon 11-05-[address] Henao, You have Keyanna Stafford coming for a R/Cors on 11/12/2023. She is from [place] and stated she will need to use the [employer] transport that she uses for appointments and procedures. She said they take people to everything so she thinks they are a medical transport??? She also said they will transport in the evenings. [facility] 37on 11-01-2023 37 *Increase your lasix to 80mg in the AM (2 tablets) and continue 40mg (1 tablet) in the evening. *Will increase your carvedilol for better blood pressure control. Will increase to 25mg twice daily. You can take 2 tablets of your current 12.5mg prescription until this runs out then switch to the new prescription 1 tablet twice daily. *Financial assistance program: [phone] or [phone] [facility] Office Visiton 11-01-2023 Follow-up visit [id number] Keyanna Stafford 1955 Provider Department [place] 11/01/2023 MARIANN DWYER [facility] Family History Problem Relation Age of Onset Hypertension Mother Diabetes Mother Family Status - Relation Status Age at Mother Level of Service:49961 OR OFFICE/OUTPATIENT ESTABLISHED MOD MDM 30 MIN [facility] 37on 10-24-2023 37 *Monitor your weight daily and write down your weights. Bring to your next office visit. *Will start Farxiga 10mg daily for management of your heart failure. Let us know if it is too expensive. *Take lasix faithfully 40mg twice daily. You can take your afternoon dose around 2-3pm. *Let Ms. Iniguez TOUR OPERATOR know about your hand swelling. *I ordered a heart cath, left/coronary and right, to look at the blood vessels in your heart to check for blockages along with checking the pressure in your heart. [facility] Office Visiton 10-24-2023 Follow-up visit [id number] Keyanna Stafford 1955 Date Provider Department Center 10/24/2023 MARIANN DWYER Family History Problem Relation Age of Onset Hypertension Mother Diabetes Mother Family Status - Relation Status Age at Mother Level of Service:33504 OR OFFICE/OUTPATIENT ESTABLISHED MOD MDM 30 MIN [facility] Office Visiton 09-21-2023 Follow-up visit [id number] Keyanna Stafford 1955 Provider Department Center 09/21/2023 [id number] HENAO Family History Problem Relation Age of Onset Hypertension Mother Diabetes Mother Family Status - Relation Status Age at Mother Level of Service:70571 OR OFFICE/OUTPATIENT ESTABLISHED MOD MDM 30 MIN Reason for Visit and Comments: Follow-up [468283] - 1-2 wk follow up [facility] Office Visiton 09-04-2023 Follow-up visit [id number] Keyanna Stafford 1955 Provider Department Center 09/04/2023 MARIANN DWYER Family History Problem Relation Age of Onset Hypertension Mother Diabetes Mother Family Status - Relation Status Age at Mother Level of Service:04113 OR OFFICE/OUTPATIENT ESTABLISHED MOD MDM 30 MIN Reason for Visit and Comments: Congestive Heart Failure [127] Hypertension [012595] Hyperlipidemia [182] [facility] 36on 03-20-2023 36 We can have her [...] potassium go too high. Thank you. Normal [facility] 36on 12-14-2022 36 Can we call her phar richard and confirm if she picked up her medication? I just sent in a refill for lisinopril/hydrochloroth iazide. Thanks Normal [facility] XR CHEST 2 Von 06-12-2022 XR [...] by: GORAN TORRES Date: 2022-06-12 13:31 Normal [facility] XR STERNUM MIN 2 VIEWSon [...] MALLIKA ORTIZ Date: 2022-06-12 16:18 Normal [facility] PROF CHEM 8 (BAS METB)on Anion gap [Moles/Vol] 15.1 mmol/L Normal [facility] Comment on above: Performed By: #### H STROPN #### [facility] [address] [address] [address] Quique Ortiz Calcium [Mass/Vol] 9.5 mg/dL Normal 8.5-10.1 [facility] Comment on above: Performed By: #### H STROPN #### [facility] [address] [address] [address] Quique Ortiz Chloride [Moles/Vol] 95 mmol/L Critically low 98-107 [facility] Comment on above: Performed By: #### H STROPN #### [facility] [address] [address] [address] Quique Ortiz CO2 [Moles/Vol] 27.3 mmol/L Normal 21.0-32.0 [facility] Comment on above: Performed By: #### H STROPN #### [facility] [address] [address] [address] Quique Ortiz Creatinine [Mass/Vol] 1.01 mg/dL Normal 0.55-1.02 [facility] Comment on above: Performed By: #### H STROPN #### [facility] [address] [address] [address] Quique Ortiz EGFR-AF IRANIAN >60 Normal >=60 [facility] Comment on above: Performed By: #### H STROPN #### [facility] [address] [address] [address] Quique Ortiz EGFR-NON AF IRANIAN 55 mL/min/1.73m2 Critically low >=60 [facility] Comment on above: Performed By: #### H STROPN #### [facility] [address] [address] [address] Quique Ortiz Glucose [Mass/Vol] 483 mg/dL Critically high 74-106 T [facility] Comment on above: Performed By: #### H STROPN #### [facility] [address] [address] [address] Quique Ortiz Potassium [Moles/Vol] 4.4 mmol/L Normal 3.5-5.1 [facility] Comment on above: Performed By: #### H STROPN #### [facility] [address] [address] [address] Quique Ortiz Sodium [Moles/Vol] 133 mmol/L Critically low 136-145 Th [facility] Comment on above: Performed By: #### H STROPN #### [facility] [address] [address] [address] Quique Ortiz Urea nitrogen [Mass/Vol] 14.0 mg/dL Normal 7.0-18.0 [facility] Comment on above: Performed By: #### H STROPN #### [facility] [address] [address] [address] Quique Ortiz Urea nitrogen/Creatinine [Mass ratio] 13.9 mg/mg Normal [facility] Comment on above: Performed By: #### H STROPN #### [facility] [address] [place] [address] Dr. Quique Ortiz BNPon 04-25-2022 Natriuretic peptide B (Bld) [Mass/Vol] 1330.0 pg/mL Critically high <=900.0 [facility] Comment on above: Performed By: #### C VDTBH #### [facility] [address] [place] [address] Dr. Quique Ortiz CBC AUTO DIFFon 04-25-2022 BASO # 0.0 103/ul Normal 0.0-0.1 [facility] Comment on above: Performed By: #### C BC #### [facility] [address] [place] [address] Dr. Quique Ortiz Basophils/100 WBC (Bld) 0.4 % Normal 0.2-2.0 [facility] Comment on above: Performed By: #### C BC #### [facility] [address] [place] [address] Dr. Quique Ortiz EO # 0.1 103/ul Normal 0.0-0.7 [facility] Comment on above: Performed By: #### C BC #### [facility] [address] [place] [address] Dr. Quique Ortiz Eosinophils/100 WBC (Bld) 2.3 % Normal 0.9-7.0 [facility] Comment on above: Performed By: #### C BC #### [facility] [address] [place] [address] Dr. Quique Ortiz Erythrocyte distribution width (RBC) [Ratio] 13.2 % Normal 11.0-15.0 [facility] Comment on above: Performed By: #### C BC #### [facility] [address] [place] [address] Dr. Quique Ortiz Hematocrit (Bld) [Volume fraction] 32.7 % Critically low 36.0-48.0 [facility] Comment on above: Performed By: #### C BC #### [facility] [address] [place] [address] Dr. Quique Ortiz Hemoglobin (Bld) [Mass/Vol] 11.0 g/dL Critically low 12.0-16.0 [facility] Comment on above: Performed By: #### C BC #### [facility] [address] [place] [address] Dr. Quique Ortiz IG # 0.02 10e3/ul Normal 0.00-0.03 [facility] Comment on above: Performed By: #### C BC #### [facility] [address] [place] [address] Dr. Quique Ortiz IG % 0.4 % Normal 0.0-0.5 [facility] Comment on above: Performed By: #### C BC #### [facility] [address] [place] [address] Dr. Quique Ortiz LYMPH # 1.3 103/ul Normal 1.2-3.8 [facility] Comment on above: Performed By: #### C BC #### [facility] [address] [place] [address] Dr. Quique Ortiz Lymphocytes/100 WBC (Bld) 23.5 % Normal 20.5-60.0 [facility] Comment on above: Performed By: #### C BC #### [facility] [address] [place] [address] Dr. Quique Ortiz MANUAL DIFF REQ NO Normal [facility] Comment on above: Performed By: #### C BC #### [facility] [address] [place] [address] Dr. Quique Ortiz MCH (RBC) [Entitic mass] 29.3 pg Normal 26.7-34.0 [facility] Comment on above: Performed By: #### C BC #### [facility] [address] [place] [address] Dr. Quique Ortiz MCHC (RBC) [Mass/Vol] 33.6 g/dL Normal 29.9-35.2 [facility] Comment on above: Performed By: #### C BC #### [facility] [address] [place] [address] Dr. Quique Ortiz MCV (RBC) [Entitic vol] 87.0 fL Normal 81.0-99.0 [facility] Comment on above: Performed By: #### C BC #### [facility] [address] [place] [address] Dr. Quique Ortiz MONO # 0.6 103/ul Normal 0.3-0.8 [facility] Comment on above: Performed By: #### C BC #### [facility] [address] [place] [address] Dr. Quique Ortiz Monocytes/100 WBC (Bld) 10.2 % Normal 1.7-12.0 [facility] Comment on above: Performed By: #### C BC #### [facility] [address] [place] [address] Dr. Quique Ortiz NEUT # 3.5 103/ul Normal 1.4-6.5 [facility] Comment on above: Performed By: #### C BC #### [facility] [address] [place] [address] Dr. Quique Ortiz Neutrophils/100 WBC (Bld) 63.2 % Normal 43.0-75.0 [facility] Comment on above: Performed By: #### C BC #### [facility] [address] [place] [address] Dr. Quique Ortiz Platelet mean volume (Bld) [Entitic vol] 9.2 fL Critically low 9.5-13.5 [facility] Comment on above: Performed By: #### C BC #### [facility] [address] [place] [address] Dr. Quique Ortiz PLT 243 103/ul Normal 150-450 [facility] Comment on above: Performed By: #### C BC #### [facility] [address] [place], [place] [id number] Dr. Quique Ortiz RBC 3.76 106/ul Critically low 4.20-5.40 [facility] Comment on above: Performed By: #### C BC #### [facility] [address] [place] [address] Dr. Quique Ortiz WBC 5.6 103/ul Normal 4.0-11.0 [facility] Comment on above: Performed By: #### C BC #### [facility] [address] [address] [address] Quique Ortiz POINT OF CARE GLUCOSEon 04-06 Glucose [Mass/Vol] 226 mg/dL Critically high 74-106 T [facility] Comment on above: Performed By: #### U AMIC #### [facility] [address] [place] [address] Dr. Quique Ortiz PROF 14(COMP METB)on 023 Albumin [Mass/Vol] 3.1 g/dL Critically low 3.4-5.[address] [facility] Comment on above: Performed By: #### U AMIC #### [facility] [address] [place] [address] Dr. Quique Otriz Albumin/Globulin [Mass ratio] 1.0 {ratio} Normal [facility] Comment on above: Performed By: #### U AMIC #### [facility] [address] [address] [address] Quique Ortiz ALP [Catalytic activity/Vol] 69 U/L Normal 46-116 [facility] Comment on above: Performed By: #### U AMIC #### [facility] [address] [place] [address] Dr. Quique Ortiz ALT [Catalytic activity/Vol] 16 U/L Normal 14-59 [facility] Comment on above: Performed By: #### U AMIC #### [facility] [address] [address] [address] Quique Ortiz Anion gap [Moles/Vol] 12.1 mmol/L Normal [facility] Comment on above: Performed By: #### U AMIC #### [facility] [address] [place] [address] Dr. Quique Ortiz AST [Catalytic activity/Vol] 12 U/L Critically low 15-37 [facility] Comment on above: Performed By: #### U AMIC #### [facility] [address] [place] [address] Dr. Quique Ortiz Bilirubin [Mass/Vol] 0.7 mg/dL Normal 0.2-1.0 [facility] Comment on above: Performed By: #### U AMIC #### [facility] [address] [place] [address] Dr. Quique Ortiz Calcium [Mass/Vol] 9.0 mg/dL Normal 8.5-10.1 [facility] Comment on above: Performed By: #### U AMIC #### [facility] [address] [address] [address] Quique Ortiz Chloride [Moles/Vol] 101 mmol/L Normal 98-107 [facility] Comment on above: Performed By: #### U AMIC #### [facility] [address] [place] [address] Dr. Quique Ortiz CO2 [Moles/Vol] 28.5 mmol/L Normal 21.0-32.0 [facility] Comment on above: Performed By: #### U AMIC #### [facility] [address] [place] [address] Dr. Quique Ortiz Creatinine [Mass/Vol] 0.56 mg/dL Normal 0.55-1.02 [facility] Comment on above: Performed By: #### U AMIC #### [facility] [address] [place] [address] Dr. Quique Ortiz EGFR-AF IRANIAN >60 Normal >=60 [facility] Comment on above: Performed By: #### U AMIC #### [facility] [address] [place] [address] Dr. Quique Ortiz EGFR-NON AF IRANIAN >60 Normal >=60 [facility] Comment on above: Performed By: #### U AMIC #### [facility] [address] [place] [address] Dr. Quique Ortiz Globulin (S) [Mass/Vol] 3.2 g/dL Normal [facility] Comment on above: Performed By: #### U AMIC #### [facility] [address] [place] [address] Dr. Quique Ortiz Glucose [Mass/Vol] 187 mg/dL Critically high 74-106 [facility] Comment on above: Performed By: #### U AMIC #### [facility] [address] [address] [address] Quique Ortiz Potassium [Moles/Vol] 3.6 mmol/L Normal 3.5-5.1 [facility] Comment on above: Performed By: #### U AMIC #### [facility] [address] [place] [address] Dr. Quique Ortiz Protein [Mass/Vol] 6.3 g/dL Critically low 6.4-8.2 [facility] Comment on above: Performed By: #### U AMIC #### [facility] [address] [place] [address] Dr. Quique Ortiz Sodium [Moles/Vol] 138 mmol/L Normal 136-145 [facility] Comment on above: Performed By: #### U AMIC #### [facility] [address] [place] [address] Dr. Quique Ortiz Urea nitrogen [Mass/Vol] 9.0 mg/dL Normal 7.0-18.0 [facility] Comment on above: Performed By: #### U AMIC #### [facility] [address] [place] [address] Dr. Quique Ortiz Urea nitrogen/Creatinine [Mass ratio] 16.1 mg/mg Normal [facility] Comment on above: Performed By: #### U AMIC #### [facility] [address] [place] [address] Dr. Quique Ortiz BNPon 04-24-2022 Natriuretic peptide B (Bld) [Mass/Vol] 1760.0 pg/mL Critically high <=900.0 [facility] Comment on above: Performed By: #### H STROPN #### [facility] [address] [place] [address] Dr. Quique Ortiz CBC AUTO DIFFon 04-24-2022 BASO # 0.0 103/ul Normal 0.0-0.1 [facility] Comment on above: Performed By: #### H STROPN #### [facility] [address] [place] [address] Dr. Quique Ortiz Basophils/100 WBC (Bld) 0.4 % Normal 0.2-2.0 [facility] Comment on above: Performed By: #### H STROPN #### [facility] [address] [place] [address] Dr. Quique Ortiz EO # 0.1 103/ul Normal 0.0-0.7 [facility] Comment on above: Performed By: #### H STROPN #### [facility] [address] [place] [address] Dr. Quique Ortiz Eosinophils/100 WBC (Bld) 2.6 % Normal 0.9-7.0 [facility] Comment on above: Performed By: #### H STROPN #### [facility] [address] [place] [address] Dr. Quique Ortiz Erythrocyte distribution width (RBC) [Ratio] 13.4 % Normal 11.0-15.0 [facility] Comment on above: Performed By: #### H STROPN #### [facility] [address] [place] [address] Dr. Quique Ortiz Hematocrit (Bld) [Volume fraction] 30.3 % Critically low 36.0-48.0 [facility] Comment on above: Performed By: #### H STROPN #### [facility] [address] [place] [address] Dr. Quique Ortiz Hemoglobin (Bld) [Mass/Vol] 10.1 g/dL Critically low 12.0-16.0 [facility] Comment on above: Performed By: #### H STROPN #### [facility] [address] [place] [address] Dr. Quique Ortiz IG # 0.02 10e3/ul Normal 0.00-0.03 [facility] Comment on above: Performed By: #### H STROPN #### [facility] [address] [place] [address] Dr. Quique Ortiz IG % 0.4 % Normal 0.0-0.5 [facility] Comment on above: Performed By: #### H STROPN #### [facility] [address] [place] [address] Dr. Quique Ortiz LYMPH # 1.7 103/ul Normal 1.2-3.8 [facility] Comment on above: Performed By: #### H STROPN #### [facility] [address] [place] [address] Dr. Quique Ortiz Lymphocytes/100 WBC (Bld) 33.9 % Normal 20.5-60.0 [facility] Comment on above: Performed By: #### H STROPN #### [facility] [address] [place] [address] Dr. Quique Ortiz MANUAL DIFF REQ NO Normal [facility] Comment on above: Performed By: #### H STROPN #### [facility] [address] [place] [address] Dr. Quique Ortiz MCH (RBC) [Entitic mass] 29.4 pg Normal 26.7-34.0 [facility] Comment on above: Performed By: #### H STROPN #### [facility] [address] [place] [address] Dr. Quique Ortiz MCHC (RBC) [Mass/Vol] 33.3 g/dL Normal 29.9-35.2 [facility] Comment on above: Performed By: #### H STROPN #### [facility] [address] [place] [address] Dr. Quique Ortiz MCV (RBC) [Entitic vol] 88.3 fL Normal 81.0-99.0 [facility] Comment on above: Performed By: #### H STROPN #### [facility] [address] [place] [address] Dr. Quique Ortiz MONO # 0.5 103/ul Normal 0.3-0.8 [facility] Comment on above: Performed By: #### H STROPN #### [facility] [address] [place] [address] Dr. Quique Ortiz Monocytes/100 WBC (Bld) 10.5 % Normal 1.7-12.0 [facility] Comment on above: Performed By: #### H STROPN #### [facility] [address] [place] [address] Dr. Quique Ortiz NEUT # 2.6 103/ul Normal 1.4-6.5 [facility] Comment on above: Performed By: #### H STROPN #### [facility] [address] [address] [address] Quique Ortiz Neutrophils/100 WBC (Bld) 52.2 % Normal 43.0-75.0 [facility] Comment on above: Performed By: #### H STROPN #### [facility] [address] [address] [address] Quique Ortiz Platelet mean volume (Bld) [Entitic vol] 9.2 fL Critically low 9.5-13.5 [facility] Comment on above: Performed By: #### H STROPN #### [facility] [address] [address] [address] Quique Ortiz PLT 227 103/ul Normal 150-450 [facility] Comment on above: Performed By: #### H STROPN #### [facility] [address] [address] [address] Quique Ortiz RBC 3.43 106/ul Critically low 4.20-5.40 [facility] Comment on above: Performed By: #### H STROPN #### [facility] [address] [address] [address] Quique Ortiz WBC 5.0 103/ul Normal 4.0-11.0 [facility] Comment on above: Performed By: #### H STROPN #### [facility] [address] [address] [address] Quique Ortiz ECHOCARDIO M/2D COMPLETEon 0 04-24-2022 ECHOCARDIO M/2D COMPLETE Patient: KEYANNA STAFFORD Exam Date: 04/24/2022 : 1955 Gender:F Ordering : SVETA ROSAS . Admission #: [id number] Family : PETRONA Gregory GuadalupeLoy LOREDO Order #: [id number] CLICK HERE TO VIEW EXAM ECHOCARDIOGRAM REPORT [...] Villatoro M.D. on 04/24/2022 at 14:35 Normal [facility] POINT OF CARE GLUCOSEon - Glucose [Mass/Vol] 331 mg/dL Critically high 74-106 [facility] Comment on above: Performed By: #### P OCGLUC #### [facility] [address] [place] [address] Dr. Quique Ortiz Glucose [Mass/Vol] 333 mg/dL Critically high 74-106 [facility] Comment on above: Performed By: #### P OCGLUC #### [facility] [address] [place] [address] Dr. Quique Ortiz Glucose [Mass/Vol] 283 mg/dL Critically high 74-106 [facility] Comment on above: Performed By: #### C VDTB #### [facility] [address] [place] [address] Dr. Quique Ortiz PROF 14(COMP METB)on 023 Albumin [Mass/Vol] 2.9 g/dL Critically low 3.4-5.[address] [facility] Comment on above: Performed By: #### H STROPN #### [facility] [address] [place] [address] Dr. Quique Ortiz Albumin/Globulin [Mass ratio] 1.1 {ratio} Normal [facility] Comment on above: Performed By: #### H STROPN #### [facility] [address] [place] [address] Dr. Quique Ortiz ALP [Catalytic activity/Vol] 76 U/L Normal 46-116 [facility] Comment on above: Performed By: #### H STROPN #### [facility] [address] [place] [address] Dr. Quique Ortiz ALT [Catalytic activity/Vol] 13 U/L Critically low 14-59 [facility] Comment on above: Performed By: #### H STROPN #### [facility] [address] [place] [address] Dr. Quique Ortiz Anion gap [Moles/Vol] 9.9 mmol/L Normal [facility] Comment on above: Performed By: #### H STROPN #### [facility] [address] [place] [address] Dr. Quique Ortzi AST [Catalytic activity/Vol] 14 U/L Critically low 15-37 [facility] Comment on above: Performed By: #### H STROPN #### [facility] [address] [place] [address] Dr. Quique Ortiz Bilirubin [Mass/Vol] 0.5 mg/dL Normal 0.2-1.0 [facility] Comment on above: Performed By: #### H STROPN #### [facility] [address] [place] [address] Dr. Quique Ortiz Calcium [Mass/Vol] 8.3 mg/dL Critically low 8.5-10.1 [facility] Comment on above: Performed By: #### H STROPN #### [facility] [address] [place] [address] Dr. Quique Ortiz Chloride [Moles/Vol] 107 mmol/L Normal 98-107 [facility] Comment on above: Performed By: #### H STROPN #### [facility] [address] [address] [address] Quique Ortiz CO2 [Moles/Vol] 28.5 mmol/L Normal 21.0-32.0 [facility] Comment on above: Performed By: #### H STROPN #### [facility] [address] [place] [address] Dr. Quique Ortiz Creatinine [Mass/Vol] 0.54 mg/dL Critically low 0.55-1.02 [facility] Comment on above: Performed By: #### H STROPN #### [facility] [address] [place] [address] Dr. Quique Ortiz EGFR-AF IRANIAN >60 Normal >=60 [facility] Comment on above: Performed By: #### H STROPN #### [facility] [address] [place] [address] Dr. Quique Ortiz EGFR-NON AF IRANIAN >60 Normal >=60 [facility] Comment on above: Performed By: #### H STROPN #### [facility] [address] [place] [address] Dr. Quique Ortiz Globulin (S) [Mass/Vol] 2.7 g/dL Normal [facility] Comment on above: Performed By: #### H STROPN #### [facility] [address] [place] [address] Dr. Quique Ortiz Glucose [Mass/Vol] 110 mg/dL Critically high 74-106 [facility] Comment on above: Performed By: #### H STROPN #### [facility] [address] [place] [address] Dr. Quique Ortiz Potassium [Moles/Vol] 3.4 mmol/L Critically low 3.5-5.1 [facility] Comment on above: Performed By: #### H STROPN #### [facility] [address] [place] [address] Dr. Quique Ortiz Protein [Mass/Vol] 5.6 g/dL Critically low 6.4-8.2 [facility] Comment on above: Performed By: #### H STROPN #### [facility] [address] [place] [address] Dr. Quique Ortiz Sodium [Moles/Vol] 142 mmol/L Normal 136-145 [facility] Comment on above: Performed By: #### H STROPN #### [facility] [address] [place] [address] Dr. Quique Ortiz Urea nitrogen [Mass/Vol] 6.0 mg/dL Critically low 7.0-18.0 [facility] Comment on above: Performed By: #### H STROPN #### [facility] [address] [place] [address] Dr. Quique Ortiz Urea nitrogen/Creatinine [Mass ratio] 11.1 mg/mg Normal [facility] Comment on above: Performed By: #### H STROPN #### [facility] [address] [place] [address] Dr. Quique Ortiz BNPon 04-23-2022 Natriuretic peptide B (Bld) [Mass/Vol] 1898.0 pg/mL Critically high <=900.0 [facility] Comment on above: Performed By: #### U AMIC #### [facility] [address] [place] [address] Dr. Quique Ortiz CARDIAC GORAN ADMITon 023 CK [Catalytic activity/Vol] 113 U/L Normal 26-192 [facility] Comment on above: Performed By: #### U AMIC #### [facility] [address] [place] [address] Dr. Quique Ortiz CK.MB [Mass/Vol] 2.55 ng/mL Normal <=3.60 [facility] Comment on above: Performed By: #### U AMIC #### [facility] [address] [place] [address] Dr. Quique Ortiz HSTROP 11.2 pg/mL Normal 4.0-51.3 [facility] Comment on above: Result Comment: CUT- OFF POINTS HAVE BEEN ESTABLISHED BASED ON THE FOURTH UNIVERSAL DEFINITIONS OF MYOCARDIAL INFARCTION. THE UPPER REFERENCE LIMIT (URL) OF TROPONIN, DEFINED THE 99TH PERCENTILE OF cTnI DISTRIBUTION IN A REFERENCE POPULATION, HAS BEEN CONFIRMED THE DECISION THRESHOLD FOR OK DIAGNOSIS. Performed By: #### U AMIC #### [facility] [address] [place] [address] Dr. Quique Ortiz JAXSON 50 ng/mL Normal 9-82 [facility] Comment on above: Performed By: #### U AMIC #### [facility] [address] [place] [address] Dr. Quique Ortiz CBC AUTO DIFFon 04-23-2022 BASO # 0.0 103/ul Normal 0.0-0.1 [facility] Comment on above: Performed By: #### H STROPN #### [facility] [address] [place] [address] Dr. Quique Ortiz Basophils/100 WBC (Bld) 0.5 % Normal 0.2-2.0 [facility] Comment on above: Performed By: #### H STROPN #### [facility] [address] [place] [address] Dr. Quique Ortiz EO # 0.1 103/ul Normal 0.0-0.7 [facility] Comment on above: Performed By: #### H STROPN #### [facility] [address] [place] [address] Dr. Quique Ortiz Eosinophils/100 WBC (Bld) 1.8 % Normal 0.9-7.0 [facility] Comment on above: Performed By: #### H STROPN #### [facility] [address] [place] [address] Dr. Quique Ortiz Erythrocyte distribution width (RBC) [Ratio] 13.4 % Normal 11.0-15.0 [facility] Comment on above: Performed By: #### H STROPN #### [facility] [address] [address] [address] Quique Ortiz Hematocrit (Bld) [Volume fraction] 35.9 % Critically low 36.0-48.0 [facility] Comment on above: Performed By: #### H STROPN #### [facility] [address] [place] [address] Dr. Quique Ortiz Hemoglobin (Bld) [Mass/Vol] 11.9 g/dL Critically low 12.0-16.0 [facility] Comment on above: Performed By: #### H STROPN #### [facility] [address] [place] [address] Dr. Quique Ortiz IG # 0.02 10e3/ul Normal 0.00-0.03 [facility] Comment on above: Performed By: #### H STROPN #### [facility] [address] [place] [address] Dr. Quique Ortiz IG % 0.4 % Normal 0.0-0.5 [facility] Comment on above: Performed By: #### H STROPN #### [facility] [address] [place] [address] Dr. Quique Ortiz LYMPH # 1.3 103/ul Normal 1.2-3.8 [facility] Comment on above: Performed By: #### H STROPN #### [facility] [address] [place] [address] Dr. Quique Ortiz Lymphocytes/100 WBC (Bld) 23.5 % Normal 20.5-60.0 [facility] Comment on above: Performed By: #### H STROPN #### [facility] [address] [place] [address] Dr. Quique Ortiz MANUAL DIFF REQ NO Normal [facility] Comment on above: Performed By: #### H STROPN #### [facility] [address] [place] [address] Dr. Quique Ortiz MCH (RBC) [Entitic mass] 29.4 pg Normal 26.7-34.0 [facility] Comment on above: Performed By: #### H STROPN #### [facility] [address] [place] [address] Dr. Quique Ortiz MCHC (RBC) [Mass/Vol] 33.1 g/dL Normal 29.9-35.2 [facility] Comment on above: Performed By: #### H STROPN #### [facility] [address] [address] [address] Quique Ortiz MCV (RBC) [Entitic vol] 88.6 fL Normal 81.0-99.0 [facility] Comment on above: Performed By: #### H STROPN #### [facility] [address] [place] [address] Dr. Quique Ortiz MONO # 0.5 103/ul Normal 0.3-0.8 [facility] Comment on above: Performed By: #### H STROPN #### [facility] [address] [place] [address] Dr. Quique Ortiz Monocytes/100 WBC (Bld) 8.8 % Normal 1.7-12.0 [facility] Comment on above: Performed By: #### H STROPN #### [facility] [address] [place] [address] Dr. Quique Ortiz NEUT # 3.6 103/ul Normal 1.4-6.5 [facility] Comment on above: Performed By: #### H STROPN #### [facility] [address] [place] [address] Dr. Quique Ortiz Neutrophils/100 WBC (Bld) 65.0 % Normal 43.0-75.0 [facility] Comment on above: Performed By: #### H STROPN #### [facility] [address] [place] [address] Dr. Quique Ortiz Platelet mean volume (Bld) [Entitic vol] 9.4 fL Critically low 9.5-13.5 [facility] Comment on above: Performed By: #### H STROPN #### [facility] [address] [place] [address] Dr. Quique Ortiz PLT 277 103/ul Normal 150-450 [facility] Comment on above: Performed By: #### H STROPN #### [facility] [address] [address] [address] Quique Ortiz RBC 4.05 106/ul Critically low 4.20-5.40 [facility] Comment on above: Performed By: #### H STROPN #### [facility] [address] [address] [address] Quique Ortiz WBC 5.6 103/ul Normal 4.0-11.0 [facility] Comment on above: Performed By: #### H DEVPN #### [facility] [address] [address] [address] Quique Ortiz CTA CHEST WO W [...] SHARAN SINGH Date: 2022-04-23 18:04 Normal [facility] Covid-19 PCR (CVDTBH)on 04-05 SARS-CoV-2 (COVID-19) RNA ALESIA+probe Ql (Unsp spec) Not detected Normal NOT DETECTED [facility] Comment on above: Result Comment: When [...] for this test is supported by the [place] of [employer] and Human Service's declaration that [...] used). Performed By: #### C VDTBH #### [facility] [address] [place] [address] Dr. Quique Ortiz D-DIMERon 04-23-2022 D-DIMER 0.82 mg/L FEU Critically high <=0.59 [facility] Comment on above: Performed By: #### D DIM #### [facility] [address] [place] [address] Dr. Quique Ortiz D-DIMER COMMENTS SEE BELOW Normal [facility] Comment on above: Result Comment: Incr [...] hospitalization. Performed By: #### D DIM #### [facility] [address] [place] [address] Dr. Quique Ortiz POINT OF CARE GLUCOSEon 04-05 Glucose [Mass/Vol] 113 mg/dL Critically high 74-106 [facility] Comment on above: Performed By: #### H STROPN #### [facility] [address] [place] [address] Dr. Quique Ortiz PROF 14(COMP METB)on 023 Albumin [Mass/Vol] 3.5 g/dL Normal 3.4-5.0 [facility] Comment on above: Performed By: #### U AMIC #### [facility] [address] [address] [address] Quique Ortiz Albumin/Globulin [Mass ratio] 1.0 {ratio} Normal [facility] Comment on above: Performed By: #### U AMIC #### [facility] [address] [address] [address] Quique Ortiz ALP [Catalytic activity/Vol] 102 U/L Normal 46-116 [facility] Comment on above: Performed By: #### U AMIC #### [facility] [address] [place] [address] Dr. Quique Ortiz ALT [Catalytic activity/Vol] 17 U/L Normal 14-59 [facility] Comment on above: Performed By: #### U AMIC #### [facility] [address] [place] [address] Dr. Quique Ortiz Anion gap [Moles/Vol] 11.1 mmol/L Normal [facility] Comment on above: Performed By: #### U AMIC #### [facility] [address] [place] [address] Dr. Quique Ortiz AST [Catalytic activity/Vol] 18 U/L Normal 15-37 [facility] Comment on above: Performed By: #### U AMIC #### [facility] [address] [address] [address] Quique Ortiz Bilirubin [Mass/Vol] 0.7 mg/dL Normal 0.2-1.0 [facility] Comment on above: Performed By: #### U AMIC #### [facility] [address] [place] [address] Dr. Quique Ortiz Calcium [Mass/Vol] 9.0 mg/dL Normal 8.5-10.1 [facility] Comment on above: Performed By: #### U AMIC #### [facility] [address] [place] [address] Dr. Quique Ortiz Chloride [Moles/Vol] 105 mmol/L Normal 98-107 [facility] Comment on above: Performed By: #### U AMIC #### [facility] [address] [address] [address] Quique Ortiz CO2 [Moles/Vol] 27.6 mmol/L Normal 21.0-32.0 [facility] Comment on above: Performed By: #### U AMIC #### [facility] [address] [address] [address] Quique Ortiz Creatinine [Mass/Vol] 0.57 mg/dL Normal 0.55-1.02 [facility] Comment on above: Performed By: #### U AMIC #### [facility] [address] [place] [address] Dr. Quique Ortiz EGFR-AF IRANIAN >60 Normal >=60 [facility] Comment on above: Performed By: #### U AMIC #### [facility] [address] [address] [address] Quique Ortiz EGFR-NON AF IRANIAN >60 Normal >=60 [facility] Comment on above: Performed By: #### U AMIC #### [facility] [address] [address] [address] Quique Ortiz Globulin (S) [Mass/Vol] 3.6 g/dL Normal [facility] Comment on above: Performed By: #### U AMIC #### [facility] [address] [address] [address] Quique Ortiz Glucose [Mass/Vol] 135 mg/dL Critically high 74-106 [facility] Comment on above: Performed By: #### U AMIC #### [facility] [address] [address] [address] Quique Ortiz Potassium [Moles/Vol] 3.7 mmol/L Normal 3.5-5.1 [facility] Comment on above: Performed By: #### U AMIC #### [facility] [address] [address] [address] Quique Ortiz Protein [Mass/Vol] 7.1 g/dL Normal 6.4-8.2 [facility] Comment on above: Performed By: #### U AMIC #### [facility] [address] [place] [address] Dr. Quique Ortiz Sodium [Moles/Vol] 140 mmol/L Normal 136-145 [facility] Comment on above: Performed By: #### U AMIC #### [facility] [address] [address] [address] Quique Ortiz Urea nitrogen [Mass/Vol] 7.0 mg/dL Normal 7.0-18.0 [facility] Comment on above: Performed By: #### U AMIC #### [facility] [address] [place] [address] Dr. Quique Ortiz Urea nitrogen/Creatinine [Mass ratio] 12.3 mg/mg Normal [facility] Comment on above: Performed By: #### U AMIC #### [facility] [address] [place] [address] Dr. Quique Ortiz TROPONIN, HIGH SENSITIVITYon 04-23-2022 HSTROP 10.9 pg/mL Normal 4.0-51.3 [facility] Comment on above: Result Comment: CUT- OFF POINTS HAVE BEEN ESTABLISHED BASED ON THE FOURTH UNIVERSAL DEFINITIONS OF MYOCARDIAL INFARCTION. THE UPPER REFERENCE LIMIT (URL) OF TROPONIN, DEFINED THE 99TH PERCENTILE OF cTnI DISTRIBUTION IN A REFERENCE POPULATION, HAS BEEN CONFIRMED THE DECISION THRESHOLD FOR OK DIAGNOSIS. Performed By: #### H STROPN #### [facility] [address] [place] [address] Dr. Quique Ortiz XR CHEST 1 Von 04-23-2022 XR CHEST 1 V EXAM: XR CHEST 1 V HISTORY: Shortness of breath and chest heaviness. COMPARISON: None. TECHNIQUE: Portable chest FINDINGS: IMPRESSION: Moderate bilateral pleural effusions. No pneumothorax. No focal parenchymal consolidation or infiltrate. Electronically authenticated by: PETRONA SUMNER Date: 2022-04-23 15:45 Normal [facility] CBC AUTO DIFFon 04-11-2022 BASO # 0.0 103/ul Normal 0.0-0.1 [facility] Comment on above: Performed By: #### U AMIC #### [facility] [address] [address] [address] Quique Ortiz Basophils/100 WBC (Bld) 0.5 % Normal 0.2-2.0 [facility] Comment on above: Performed By: #### U AMIC #### [facility] [address] [address] [address] Quique Ortiz EO # 0.1 103/ul Normal 0.0-0.7 [facility] Comment on above: Performed By: #### U AMIC #### [facility] [address] [address] [address] Quique Ortiz Eosinophils/100 WBC (Bld) 1.6 % Normal 0.9-7.0 [facility] Comment on above: Performed By: #### U AMIC #### [facility] [address] [place] [address] Dr. Quique Ortiz Erythrocyte distribution width (RBC) [Ratio] 12.6 % Normal 11.0-15.0 [facility] Comment on above: Performed By: #### U AMIC #### [facility] [address] [place] [address] Dr. Quique Ortiz Hematocrit (Bld) [Volume fraction] 34.3 % Critically low 36.0-48.0 [facility] Comment on above: Performed By: #### U AMIC #### [facility] [address] [place] [address] Dr. Quique Ortiz Hemoglobin (Bld) [Mass/Vol] 11.5 g/dL Critically low 12.0-16.0 [facility] Comment on above: Performed By: #### U AMIC #### [facility] [address] [place] [address] Dr. Quique Ortiz IG # 0.01 10e3/ul Normal 0.00-0.03 [facility] Comment on above: Performed By: #### U AMIC #### [facility] [address] [address] [address] Quique Ortiz IG % 0.2 % Normal 0.0-0.5 [facility] Comment on above: Performed By: #### U AMIC #### [facility] [address] [address] [address] Quique Ortiz LYMPH # 1.3 103/ul Normal 1.2-3.8 [facility] Comment on above: Performed By: #### U AMIC #### [facility] [address] [address] [address] Quique Ortiz Lymphocytes/100 WBC (Bld) 24.0 % Normal 20.5-60.0 [facility] Comment on above: Performed By: #### U AMIC #### [facility] [address] [address] [address] Quique Ortiz MANUAL DIFF REQ NO Normal [facility] Comment on above: Performed By: #### U AMIC #### [facility] [address] [place] [address] Dr. Quique Ortiz MCH (RBC) [Entitic mass] 28.5 pg Normal 26.7-34.0 [facility] Comment on above: Performed By: #### U AMIC #### [facility] [address] [address] [address] Quique Ortiz MCHC (RBC) [Mass/Vol] 33.5 g/dL Normal 29.9-35.2 [facility] Comment on above: Performed By: #### U AMIC #### [facility] [address] [address] [address] Quique Ortiz MCV (RBC) [Entitic vol] 85.1 fL Normal 81.0-99.0 [facility] Comment on above: Performed By: #### U AMIC #### [facility] [address] [address] [address] Quique Ortiz MONO # 0.5 103/ul Normal 0.3-0.8 [facility] Comment on above: Performed By: #### U AMIC #### [facility] [address] [address] [address] Quique Ortiz Monocytes/100 WBC (Bld) 8.3 % Normal 1.7-12.0 [facility] Comment on above: Performed By: #### U AMIC #### [facility] [address] [address] [address] Quique Ortiz NEUT # 3.6 103/ul Normal 1.4-6.5 [facility] Comment on above: Performed By: #### U AMIC #### [facility] [address] [address] [address] Quique Ortiz Neutrophils/100 WBC (Bld) 65.4 % Normal 43.0-75.0 [facility] Comment on above: Performed By: #### U AMIC #### [facility] [address] [address] [address] Quique Ortiz Platelet mean volume (Bld) [Entitic vol] 9.0 fL Critically low 9.5-13.5 [facility] Comment on above: Performed By: #### U AMIC #### [facility] [address] [address] [address] Quique Ortiz PLT 243 103/ul Normal 150-450 [facility] Comment on above: Performed By: #### U AMIC #### [facility] [address] [address] [address] Quique Ortiz RBC 4.03 106/ul Critically low 4.20-5.40 [facility] Comment on above: Performed By: #### U AMIC #### [facility] [address] [address] [address] Quique Ortiz WBC 5.5 103/ul Normal 4.0-11.0 [facility] Comment on above: Performed By: #### U AMIC #### [facility] [address] [address] [address] Quique Ortiz GLYCOHEMOGLOBIN A1Con 2022 ADA RECOMMENDATION SEE BELOW Normal [facility] Comment on above: Result Comment: ADA RECOMMENDED LIMIT 4.0 - 6.0 ADA THERAPEUTIC TARGET < 7.0 ACTION SUGGESTED > 7.0 Performed By: #### C VDTBH #### [facility] [address] [address] [address] Quique Ortiz Glucose [Mass/Vol] 292 mg/dL Normal [facility] Comment on above: Performed By: #### C VDTBH #### [facility] [address] [address] [address] Quique Ortiz HbA1c (Bld) [Mass fraction] 11.8 % Critically high 4.5-6.2 [facility] Comment on above: Performed By: #### C VDTBH #### [facility] [address] [address] [address] Quique Ortiz LIPID PROFILEon 04-11-2022 CHOL-HDL RATIO NORM SEE BELOW Normal [facility] Comment on above: Result Comment: 3.3 - 4.4 LOW RISK 4.4 - 7.1 AVERAGE RISK 7.1 - 11.0 MODERATE RISK >11.0 HIGH RISK Performed By: #### L IPID, MG, CMP #### [facility] [address] [address] [address] Quique Ortiz Cholesterol [Mass/Vol] 227 mg/dL Critically high <=200 [facility] Comment on above: Performed By: #### L IPID, MG, CMP #### [facility] [address] [address] [address] Quique Ortiz Cholesterol in HDL [Mass/Vol] 48 mg/dL Normal 40-60 [facility] Comment on above: Performed By: #### L IPID, MG, CMP #### [facility] [address] [address] [address] Quique Ortiz Cholesterol in LDL [Mass/Vol] 149.8 mg/dL Normal [facility] Comment on above: Performed By: #### L IPID, MG, CMP #### [facility] [address] [address] [address] Quique Ortiz Cholesterol.total/C holesterol in HDL [Mass ratio] 4.7 {ratio} Normal [facility] Comment on above: Performed By: #### L IPID, MG, CMP #### [facility] [address] [address] [address] Quique Ortiz HDL NORMAL > or = 60 mg/dl - LO W CARDIOVASCULAR RISK <40 mg/dl - HIGH CARDIOVASCULAR RISK Normal [facility] Comment on above: Performed By: #### L IPID, MG, CMP #### [facility] [address] [address] [address] Quique Ortiz LDL CALC NORMAL SEE BELOW Normal [facility] Comment on above: Result Comment: <100 mg/dl OPTIMAL 100 - 129 mg/dl NEAR OR ABOVE OPTIMAL 130 - 159 mg/dl BORDERLINE HIGH 160 - 189 mg/dl HIGH >190 mg/dl VERY HIGH Performed By: #### L IPID, MG, CMP #### [facility] [address] [address] [address] Quique Ortiz Triglyceride [Mass/Vol] 146 mg/dL Normal <=150 [facility] Comment on above: Performed By: #### L IPID, MG, CMP #### [facility] [address] [address] [address] Quique Ortiz VLDL CALC 29.2 mg/dL Normal [facility] Comment on above: Performed By: #### L IPID, MG, CMP #### [facility] [address] [address] [address] Quique Ortiz MAGNESIUMon 04-11-2022 Magnesium [Mass/Vol] 2.0 mg/dL Normal 1.8-2.4 [facility] Comment on above: Performed By: #### L IPID, MG, CMP #### [facility] [address] [place] [address] Dr. Quique Ortiz PROF 14(COMP METB)on 023 Albumin [Mass/Vol] 3.4 g/dL Normal 3.4-5.0 [facility] Comment on above: Performed By: #### L IPID, MG, CMP #### [facility] [address] [place] [address] Dr. Quique Ortiz Albumin/Globulin [Mass ratio] 1.0 {ratio} Normal [facility] Comment on above: Performed By: #### L IPID, MG, CMP #### [facility] [address] [address] [address] Quique Ortiz ALP [Catalytic activity/Vol] 89 U/L Normal 46-116 [facility] Comment on above: Performed By: #### L IPID, MG, CMP #### [facility] [address] [place] [address] Dr. Quique Ortiz ALT [Catalytic activity/Vol] 15 U/L Normal 14-59 [facility] Comment on above: Performed By: #### L IPID, MG, CMP #### [facility] [address] [place] [address] Dr. Quique Ortiz Anion gap [Moles/Vol] 10.3 mmol/L Normal [facility] Comment on above: Performed By: #### L IPID, MG, CMP #### [facility] [address] [place] [address] Dr. Quique Ortiz AST [Catalytic activity/Vol] 13 U/L Critically low 15-37 [facility] Comment on above: Performed By: #### L IPID, MG, CMP #### [facility] [address] [place] [address] Dr. Quique Ortiz Bilirubin [Mass/Vol] 0.7 mg/dL Normal 0.2-1.0 [facility] Comment on above: Performed By: #### L IPID, MG, CMP #### [facility] [address] [place] [address] Dr. Quique Ortiz Calcium [Mass/Vol] 9.2 mg/dL Normal 8.5-10.1 [facility] Comment on above: Performed By: #### L IPID, MG, CMP #### [facility] [address] [place] [address] Dr. Quique Ortiz Chloride [Moles/Vol] 100 mmol/L Normal 98-107 [facility] Comment on above: Performed By: #### L IPID, MG, CMP #### [facility] [address] [place] [address] Dr. Quique Ortiz CO2 [Moles/Vol] 27.7 mmol/L Normal 21.0-32.0 [facility] Comment on above: Performed By: #### L IPID, MG, CMP #### [facility] [address] [place] [address] Dr. Quique Ortiz Creatinine [Mass/Vol] 0.60 mg/dL Normal 0.55-1.02 [facility] Comment on above: Performed By: #### L IPID, MG, CMP #### [facility] [address] [place] [address] Dr. Quique Ortiz EGFR-AF IRANIAN >60 Normal >=60 [facility] Comment on above: Performed By: #### L IPID, MG, CMP #### [facility] [address] [address] [address] Quique Ortiz EGFR-NON AF IRANIAN >60 Normal >=60 [facility] Comment on above: Performed By: #### L IPID, MG, CMP #### [facility] [address] [place] [address] Dr. Quique Ortiz Globulin (S) [Mass/Vol] 3.5 g/dL Normal [facility] Comment on above: Performed By: #### L IPID, MG, CMP #### [facility] [address] [place] [address] Dr. Quique Ortiz Glucose [Mass/Vol] 340 mg/dL Critically high 74-106 [facility] Comment on above: Performed By: #### L IPID, MG, CMP #### [facility] [address] [place] [address] Dr. Quique Ortiz Potassium [Moles/Vol] 4.0 mmol/L Normal 3.5-5.1 [facility] Comment on above: Performed By: #### L IPID, MG, CMP #### [facility] [address] [place] [address] Dr. Quique Ortiz Protein [Mass/Vol] 6.9 g/dL Normal 6.4-8.2 [facility] Comment on above: Performed By: #### L IPID, MG, CMP #### [facility] [address] [place] [address] Dr. Quique Ortiz Sodium [Moles/Vol] 134 mmol/L Critically low 136-145 Th [facility] Comment on above: Performed By: #### L IPID, MG, CMP #### [facility] [address] [address] [address] Quique Ortiz Urea nitrogen [Mass/Vol] 10.0 mg/dL Normal 7.0-18.0 [facility] Comment on above: Performed By: #### L IPID, MG, CMP #### [facility] [address] [place] [address] Dr. Quique Ortiz Urea nitrogen/Creatinine [Mass ratio] 16.7 mg/mg Normal [facility] Comment on above: Performed By: #### L IPID, MG, CMP #### [facility] [address] [place] [address] Dr. Quique Ortiz UA RANDOM W/MICROSCOPICon BACTERIA TRACE Abnormal NONE SEEN [facility] Comment on above: Performed By: #### U AMIC #### [facility] [address] [place] [address] Dr. Quique Ortiz Bilirubin Ql (U) Negative Normal NEGATIVE [facility] Comment on above: Performed By: #### U AMIC #### [facility] [address] [place] [address] Dr. Quique Ortiz CAST NONE SEEN Normal NONE SEEN [facility] Comment on above: Performed By: #### U AMIC #### [facility] [address] [place] [address] Dr. Quique Ortiz Clarity (U) CLEAR Normal CLEAR [facility] Comment on above: Performed By: #### U AMIC #### [facility] [address] [place] [address] Dr. Quique Ortiz Color (U) LT. YELLOW Normal YELLOW [facility] Comment on above: Performed By: #### U AMIC #### [facility] [address] [place] [address] Dr. Quique Ortiz Crystals LM Nom (Urine sed) NONE SEEN Normal NONE SEEN [facility] Comment on above: Performed By: #### U AMIC #### [facility] [address] [place] [address] Dr. Quique Ortiz Epithelial cells LM Ql (Urine sed) NONE SEEN Normal NONE SEEN /RARE [facility] Comment on above: Performed By: #### U AMIC #### [facility] [address] [address] [address] Quique Ortiz Glucose Ql (U) >1000 Abnormal NEGATIVE [facility] Comment on above: Performed By: #### U AMIC #### [facility] [address] [address] [address] Quique Ortiz Hemoglobin Ql (U) SMALL Abnormal NEGATIVE [facility] Comment on above: Performed By: #### U AMIC #### [facility] [address] [address] [address] Quique Ortiz Ketones Ql (U) Negative Normal NEGATIVE [facility] Comment on above: Performed By: #### U AMIC #### [facility] [address] [address] [address] Quique Ortiz LEUKOCYTES Negative Normal NEGATIVE [facility] Comment on above: Performed By: #### U AMIC #### [facility] [address] [address] [address] Quique Ortiz MUCOUS NONE SEEN Normal NONE SEEN [facility] Comment on above: Performed By: #### U AMIC #### [facility] [address] [address] [address] Quique Ortiz Nitrite Ql (U) Negative Normal NEGATIVE [facility] Comment on above: Performed By: #### U AMIC #### [facility] [address] [address] [address] Quique Ortiz pH (U) 5.5 [pH] Normal 5-9 [facility] Comment on above: Performed By: #### U AMIC #### [facility] [address] [address] [address] Quique Ortiz RBC NONE SEEN Abnormal 0-2 [facility] Comment on above: Performed By: #### U AMIC #### [facility] [address] [address] [address] Quique Ortiz SPEC GRAVITY <=1.005 Abnormal 1.005-<=1.025 [facility] Comment on above: Performed By: #### U AMIC #### [facility] [address] [address] [address] Quique Ortiz UA PROTEIN Negative Normal NEGATIVE/ TRACE [facility] Comment on above: Performed By: #### U AMIC #### [facility] [address] [address] [address] Quique Ortiz Urobilinogen Qn (U) 0.2 {Jv'U}/dL Normal 0.2 - 1. 0 [facility] Comment on above: Performed By: #### U AMIC #### [facility] [address] [address] [address] Quique Ortiz WBC NONE SEEN Normal NONE SEEN [facility] Comment on above: Performed By: #### U AMIC #### [facility] [address] [address] [address] Quique Ortiz XR ANKLE ELENA MIN [...] MALLIKA ORTIZ Date: 2022-03-29 10:38 Normal [facility] Coding Summary.on 07-02-2020 Coding Summary. CD:[id number] Gh0b Ww+PGhlYWQ+FU4AQFAuJ04uw NZzlR6XT3iUWK4HGXAXZBCMW M3EPG5btBT5QNnwD3EkykDp OlwssDFjHZ43PNq6YSA3oViq IIsnjF0vhLCsN3y2QsKhJE47 xL84UQvbSVRyFfY1NtUleiyn bWFy P4kyWhJlkYMlSkc+PHRhYmxl IHdpZHRoPScxMDAlJyBzdHls MD5rNg0wZQKuCWQbiQmneDYj OiBj p3wlDUYkMIluEC8tgGdvS3Oc gVP8PSCai0n3Ln42yBX+PHRk KBE0iNvsYFcfu936LfIrj3vn IDM3 pDKxVBguHJK2Y41zo2U9QCXa QGDqZOZ8xSY9zG0biQwvackl W9QoyTGoOlP6FNH6pYMlxT6j bGln wkvmaM9sHpy+D14XZS9VOQAK ME5CSpq0R7FtLmhzxJO+PC90 SXQkUP43vYTvmIGsj3fwyYk8 JzEw JLFcZEF7eEsfDBfmj8LrKJNi X23gdYLgx2I9KGVqrWmemSRu ZfAwjJJ7pG1gKRyohcpaz9ya dzsn Ovnlu4sgvz12yB30R67uLZek SZSkDLN0VHNsCENfqKswhz1l iH8uQb4+WMgfc1emz0ggvOi3 IjIw ENYleqEnyFjxNJL0f7MgJs62 L5PxbYzqe3RhTeg2ho73kJPo a4U1rSL1RCrfNZHoeU3kPInk ZnQ6 CDKzGuYraH50jONzIOqiRo1b wGupmLwjLG9iXZDsajcrCBJb sI9kKCHhqUBtsNsfNX0yRRGb bjtm h721LmUaPFV8OGRrtOOlW3Uy nF0gTfZmPRZbVTNlA9SytFJz NGleR001UDaaEdD1AQDuqyPp Y2Fs DXIplZcxVkF0z7U8Zg7Ok4Yt ufdfKUD0MBsiFJO1OaG4LmIw UaD9H2GpJva4AJHqoFhcDR0v J3Bh WORgzxbktrhbuKX7CPKvJKAz hJ80aMVyZJnqAg9du9D5b226 JTWhEWVomY80Zi3uySwmQUSx dCBU jQ3xrqnzu2aecmdaPyXuAHRq ZJw7UCg2SGYqbBeaNmDqEFU1 TuR8ZVE9uIMoxE4hvMwatnph dG9w Oyc+X80pbQ4pWCY2QUM1dtxx QOVcbwXaHV94LD05C0FdMxdh dGFibGU+IMStubFbzPyvFU0y YmFj z2buq9OyPOxcR7JbSDVqJDzk Psq7ALKaUFO0aXX0qO5dGPBy FUzqd6K8lCN4Q5ZgevTnko3l b2xs MMCdAAkrO33lvEEcv4C5PNPq mSD6LFSjtQnjQaUvcC14Yck+ RZMziEsek7HcWpvoe4fgl1pe dGg9 YuKfPVHfybDrdVkaGRE5r3Pi Lo93E72eISbtTEHtQBGnGIJu KPPjnXdtwj3whA8pAe7+PGNv bCB3 dND5qF1eYPCnGrO5CTcoO400 MpJkyUDrNoemt8qed9immGu8 BrMhHYUpfpBloTmgDXO7g4Qk Lz48 N53aFAdgKOXsUURqJQWlSSHr yCzebp1zgP4kSc7+VC2rv2qs dw62dN88jHK+UMQoANR5jOoc PSdw SCCyyK5aLGetMyF1XHReNcQz xW81kFMeDLvjVe8djMagsVic LM7rNWZunyefh549UqEjb5bh IDEw aYGbGJamBUU1J03nw3D6RCDs RNUoNPU4hMU1eS4ptYfdixvf bGVmdDsgdmVydGljYWwtYWxp Z246 IHRvcDsnPlBhdGllbnQgTmFt YSk1H1TtLip2ZTJhzJpjVH1g yQGvBRnyZz4svSkyfZpvHP3o NTBp wpvin572PaSvt5zkLTWlkOQy IYqqZAK5S48mj9N2MGIsGIDe GLS0bOE2sR9mwMvcudolaIZk dDsg ksIqmYtfEMhyGSiiH170WPLj dRiyJmIjubVnSCTmrFK5EA55 HG68xVUom4N8aUY9R8XkQPRn bmct dvishUR9JZZxFRMwiC62Kz0m xWrwRy5cMWHvXTD2BOLhwUWm U2RjsL9gDvGbFOEfBOXkC6Bc eHQt MUydI182EEkoZuM1HFGpflTb S0NuKKTixUohEaY8t6P4Vb3M Z8S0YW42VH47wMIzf5Q3oSF0 J3Bh ABXpkcwcovsvuLW1IVPzKTZu gC42Yg6acEoaNy3yJYNfGAY3 BJTqcTWwA7EzkW0tLqWnGJGh MDAw Y0TtuLKgZFbwO897SOneWiM3 ROPqvzIcT4CaTEEqvUekLmB1 c8D2Dn2YQBi4MD28QM02ePQv c3R5 pLC6E7MqRKXswaehzbikhMZ5 WTRhXLVhlC99Hg1wmXfpEu9x XWUjPQO7FYVcjBUoQ5ArrK2i OiAj HOAsCCGtV0RvoGYmLKbzR254 ESelHnM6EXRxwjPkA4CfOKMs dWupQaK5q1V6Pc0NTWKcJZ70 IFR5 iIS4RA89BL67R9LvFxrmpTJi bGU+PHRhYmxlIHdpZHRoPScx LBGvGuMpbAzfDS5dTb3eWMWb LWNv qNrveQJlYjYyi5vpZLIlZQqi TI3jeAjqG2JroAH3FABsw1a0 Lv62B98cB5FilMA+PGNvbCB3 aWR0 gS5uJhQaYoR9IHihN801LuPp jBEwPacuo8bxg0oxoBf3QmM1 LFMdfgZufYtpWBB2a2UhNl44 Y29s IHdpZHRoPSIxNSUiIHZhbGln tg8ngP7mKf3+QEYgeDX0jSO8 rF4jMhRtKoA3SVrgW469JeRg cCIv Axpjr9zpz8tbfCr5TaSbAKLt bhOedVjuWEF3w0NmVp54B9Mv lAlkq9AnYyo9mt76tJNpi7A5 bGU9 X1FnMFYlbispmLAysXvkDL8n BXDqbhyzVMPgbD1iBHNlG4e5 OwFuLdE9PNqoA6MqfvS8OQDs cHQg XCxxCAU7T58bv9X6ELVvIFJx OME7vNB2gM0ifBwzxeryoJWy iCrilbEkoHhrYRrtUEimO553 IHRv gPtyRVDsnS7fUCKylJPoiGnn KF5vSHOudetaDtZUKCihFQIB TFZJQTwvdGQ+EPRjFUY6xGse PSdw LVZheR9wOCMrN0a1JeBnYrO4 OIvnA3HzPWIpwpfuIq35vX0j VePsMbY0KTgyB5AfjpC9GOIp cHQg GRfeHYM4G67jn5Z1WJKiTSWg LLA4oCQ7lO5kkVlhhcogaVPl mCpsbaWcdYpsRUgfJPxxK295 IHRv xFtkDjJjJtK4DaZ0QBN1Y0Qv Aau3NABrgXmnRE5ofKFsVNvp Ch0xjQexnGssDS4bSNZxyluy YWRk yD6mDWDgnMTxuCdsIW4kZPDf xqtuo790OzQzEGI6VJJdrAQx S7JneE5oTvGiMHKdJEKwP5Xc eHQt KBjvE288FAjoWxU6NCJiwcUp T3JiLQRfwUdgZhT1v6W2Ct11 NiBZZWFyczwvdGQ+PHRkIHN0 eWxl JOciFIWhqG3mKRFtC7f5HpLv UfC7FKlqE5OcSGXsdsatOw80 uN8vIaYiWfF1INlmH9NvmpS9 IDEw rMDbOZtmFLM0Z84re6S7RXJa LNQpPHR5xLL6oN4ofQsosdih bGVmdDsgdmVydGljYWwtYWxp Z246 IHRvcDsnPkZlbWFsZTwvdGQ+ ITYoLMK0lEwyNTpyRICrwS6v ZWXwO5p1WcNrJtW7WGgoV6In ZGRp clklAk97sP1iXhBfUoX4GCtv K5SyouP9WGCpoONxDImiTWP4 X39hl7Y4GRDzJUGfPNQ1uEB7 dC1h bGlnbjogbGVmdDsgdmVydGlj WWgzKMosA391XUXkcEhxBmNc XDXqTF3gqZyiqZY+ZB99zh42 L3Rh LnycVjd6UANbHBN5uKT0qI5e KDNmGJsbx3F8iPF0L4YqbeRy sb5nm3zySLSbNIdxP33aoAZw c2U7 AFYavOE0QTWmpEttMcJxoA23 Oyc+TFVarOjuh5PqBomgz9ll f9jgqLn6WiMyWLLcanLqkTjj PSJ0 t7XjOy97C96rQKxgLFWkNXOh BMRbGMIbaZyrtj1wjW2wIr9+ EWLkmRJ0lLL8pJ3qUtVdHwE6 YWxp A374TnTlmYGqVmnda1leo6dr cFb8ZeAfFYLvudSxfAgfPHT8 y5RvLk42B6LmrOrbe1SnXya3 cj48 hILcn7T2bSH3B6RgKEXltkju xZSmkMwqXE1uKNJvwhypINRn hT7sXNWcD1g3JnAtTfS2MJkm O2Zv tjY2XFKqeTSeATUceIYOnI5v fvodg7oyxojnLnWyLJMzQRw2 LCc8AQXyzEjxQqDyUDL6PrV4 ZXJ0 fLQzfD1itOyzcxufaK1mXrs+ VHe0o4fgvSUsKE9auXX6QI76 AR88kOTlu6A9rTF3N6PtLFCo bmct haurqGW9EPDkSYAetX12Uz5m bHqaJs1qOAAgFJE3SVUzxWQq V0HgyQ8hGnZmMDJvNQDoZ4Mt eHQt MYgmF863CEjmIpS0JUQanjPn J8VqASAabGefKqI0g2C7Qx0Z QX47EI99VJ07kDRaz8G7sDW4 J3Bh UBIfjjofqehvpCA8NAHiPKUr uG12Bu7yhMzsEg7xNXEfESL9 QMLcwYHmG0ScwS8kYzXfICZy MDAw A9MynTDwWDmkV613CUiqVgK8 UFQczlFtP6BjWQLgfRcaJaH6 y9U8Xg5UPn98NY97ZI08mUCh c3R5 hTJ9V0HtTSMrsiuosjgyeEV6 SRWzHVHfjN73Vx9aiMmxOg7e SDZhRCC9ESMoaPHwD8ZyxR2y OiAj ROJkQESaC8HjuDXjBAlqA364 PHlqWmE4BBQesxUeR6RhHVSn pKseYlL7v2V1Kp6KDTnjond1 L3Rk PjwvdHI+ZL70PIBoAV51dWPh yNTxs4avyOp3JrSjTXFdMHQ8 eZusVFyqh0LcCVXzW19yfCZk c2U6 IGNv (more content not included)... Normal [facility] Consent for Treatmenton 06-06 Consent for Treatment [id number]: 127 [facility] Discharge Instructionson Discharge Instructions [id number] :127 [facility] Discharge Instructions Discharge instructions complete, RR equal and non labored and nurse educated to make follow up and take medication as prescribed. [facility] Comment on above: Result Comment: Elec tronically Signed By: Malorie MONSIVAIS, Don Urbina\.br\Date and Time Signed: 06/28/20 11:39 EDT ED Clinical Summaryon 2020 ED Clinical Summary (Inserted Image. [place] ble to display) [place] [id number] ED Clinical Summary Person Information Name: KEYANNA STAFFORD[facility] Age: 65 Years : 1955 Sex: Female Language: Mongolian PCP: Manohar PARHAM DO Marital Status: Single [...] 06/28/2020 11:46:42 06/28/2020 11:46:42 06/28/2020 11:46:42 ADDRESS: [address] [place] [id number] PHYS DOC NOTES: MEDICAL INFORMATION: Prescriptions Given: New Medications Printed Prescriptions amlodipine (Norvasc 10 mg Tab) 1 Tablets By Mouth every day for 30 Days. Refills: 0. PATIENT EDUCATION INFORMATION: Instructions: Hypertension; DASH Eating Plan Follow up: With: Address: When: Manohar PARHAM [address] [place] [id number] Business (1) In 3 days 07/01/2020 DIAGNOSIS: Hypertension Normal [facility] ED Note-Physicianon 06-29-19 ED Note-Physician [...] days 07/01/2020 EDT [address] [place] [address] Business (1) Additional Instructions: Patient Education Hypertension [...] By: Waylon Marques DO 06/28/2020 10:57:50 Normal [facility] Comment on above: [...] Document Reviewed: 11/14/2013 ExitCare? Patient Information ?2014 [facility]IRS-Lab. This information is not intended to replace [...] 12 oz (more content not included)... Normal [facility] ED Patient Summaryon 021 ED Patient Summary (Inserted Image. [place] ble to display) [place] [id number] Patient Discharge Instructions Person Information Name: KEYANNA STAFFORD Age: 65 Years Arrival Date: 06/28/2020 10:27:51 Discharge Diagnosis: Hypertension Primary Care Physician: Manohar PARHAM DO Provider Information Primary Provider: Waylon Marques DO Advanced Factory Manager:None The exam and treatment you received in the Emergency Department were for an urgent problem and are not intended as complete care. It is important that you follow up with a doctor, nurse practitioner, or physician?s speech assistant for ongoing care. If your symptoms [...] When: Manohar PARHAM [address] [place] [address] Business (1) In 3 days 07/01/2020 In the event that this physician does not participate in your insurance network, please consult with your insurance company to find a nearby participating provider. Patient Education Materials: Hypertension; DASH Eating Plan A MESSAGE TO ALL PATIENTS REGARDING OPIOIDS PRESCRIPTION OPIOIDS: WHAT YOU NEED TO KNOW Prescription opioids can be used to help relieve vdtgjfbj-un-yvanrn pain and are often prescribed following a [...] with addiction, tell your health child care centre director and ask for guidance or call [employer]?S National Helpline at 1-927-849-NKWX. v Source: [place] Department of Health and (more content not included)... Normal [facility] HAND RIGHT 2 [facility] HAND RIGHT 2 [facility] [address] [place] [id number] ==Patient Name: KEYANNA STAFFORD : 1955Sex: FAge: Race: WhiteMRN: [id number]. 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 Transcribed by: [email or web address], User Resident: Electronically Signed by: SERGIO LAWRENCE @ 01/07/2018 02:05 PM Normal [facility] Comment on above: Order Comment: , , = ========= , Ordering Provider - MANOHAR BONILLA PA-C , Operative Reporton 8 Operative Report MR#: [id number] [facility] Pt. Name: Keyanna Stafford Room [...] decisions regarding the patient care.Electronically Signed by:Stuart oV M.D. 01/05/2018 10:48 A Stuart Vo M.D. I was present for the sandy and critical portions and I was otherwiseimmediately available to assist. Date Dict: 01/01/2018/09:11 P/Tiffanie Rose Trans: 01/02/2018 05:47 A/mmoDN_[id number] 9cc: Reese Hodges M.D. [address] [place] [address] Normal [address] [facility] *ANAEROBIC CULTUREon 018 *ANAEROBIC CULTURE Clinical Report: (D) Specimen/Source: TISSUE/INTRAOP SPEC Collected: 12/31/2017 15:35 Status: Final Last Updated: 01/05/2018 08:19 (1) Right Long Finger Soft Tissue ISO (Final) No Anaerobes Isolated 5 Days Normal [facility] Comment on above: Order Comment: Right Long Finger Soft Tissue Performed By: #### 5 1571, [id number] ####[place] [id number] [address] *ANAEROBIC CULTURE Clinical Report: (D) Specimen/Source: TISSUE/INTRAOP SPEC Collected: 12/31/2017 15:34 Status: Final Last Updated: 01/05/2018 08:07 (1) Right Long Finger Distal Phalanx ISO (Final) No Anaerobes Isolated 5 Days Result changed by SERVANDO on 01/05/2018 08:07. The previous result was: ISO (Prelim) Normal [facility] Comment on above: Order Comment: Right Long Finger Distal Phalanx Performed By: #### 3 0312 ####[facility] *FUNGAL CULTUREon 12-31-2017 *FUNGAL CULTURE Clinical Report: (D) Specimen/Source: TISSUE/INTRAOP SPEC Collected: 12/31/2017 15:35 Status: Final Last Updated: 01/08/2018 14:58 (1) Right Long Finger Soft Tissue FS (Final) No Yeast or Fungal Elements Seen ISO (Final) Tisha albicans Normal [facility] Comment on above: Order Comment: Right Long Finger Soft Tissue Performed By: #### 5 6101, [id number] ####[facility] *FUNGAL CULTURE Clinical Report: (D) Specimen/Source: TISSUE/INTRAOP SPEC Collected: 12/31/2017 15:34 Status: Final Last Updated: 01/08/2018 10:00 (1) Right Long Finger Distal Phalanx FS (Final) No Yeast or Fungal Elements Seen ISO (Final) Tisha albicans Normal [facility] Comment on above: Order Comment: Right Long Finger Distal Phalanx Performed By: #### 5 6101, [id number] ####[facility] *TISSUE CULTUREon 12-31-2017 *TISSUE CULTURE Clinical [...] VANCOMYCIN (VA) 1 Susceptible Normal [facility] Comment on above: Order Comment: Right Long Finger Soft Tissue Performed By: #### 3 0338 ####[facility] *TISSUE CULTURE Clinical Report: (D) Specimen/Source: [...] VANCOMYCIN (VA) 1 Susceptible Normal [facility] Comment on above: Order Comment: Right Long Finger Distal Phalanx Performed By: #### 3 0338 ####[place] [id number] [address] APTTon 12-31-2017 aPTT Coag time (Bld) 27.1 s Normal 25.0-35.[address] [facility] Comment on above: Result Comment: ALL [...] THIS PURPOSE. Performed By: #### 5 6101, [id number] ####[facility] BASIC METABOLIC PANELon - Calcium mass conc 9.3 mg/dL Normal 8.6-10.[address] [facility] Comment on above: Performed By: #### 0 0071 ####[facility] [place] [address], [facility] Chloride molar conc 104 mmol/L Normal 98-[address] [facility] Comment on above: Performed By: #### 0 0071 ####[facility] [place] [address], [facility] CO2 molar conc 28 mmol/L Normal 21-[address] [facility] Comment on above: Performed By: #### 0 0071 ####[facility] [facility] [place] [address], [facility] Creatinine mass conc 0.51 mg/dL Low 0.60-1.[address] [facility] Comment on above: Performed By: #### 0 0071 ####[place] [address] [facility] [place] [address], [facility] GFR/1.73 sq M predicted among blacks MDRD vol rate/area (S/P/Bld) mL/min/{1.73_m2} Normal >[address] [facility] Comment on above: Performed By: #### 0 0071 ####[facility] [facility] [place] [address], [facility] GFR/1.73 sq M predicted among non-blacks MDRD vol rate/area (S/P/Bld) mL/min/{1.73_m2} Normal >[address] [facility] Comment on above: Performed By: #### 0 0071 ####[facility] [facility] [place] [address], [facility] Glucose mass conc 168 mg/dL High 70-[address] [facility] Comment on above: Performed By: #### 0 0071 ####[facility] [facility].[place] [id number], [facility] Potassium molar conc 4.2 mmol/L Normal 3.5-5.[address] [facility] Comment on above: Performed By: #### 0 0071 ####[facility] Sodium molar conc 141 mmol/L Normal 136-[address] [facility] Comment on above: Performed By: #### 0 0071 ####[facility] Urea nitrogen mass conc 5 mg/dL Low 7-[address] [facility] Comment on above: Performed By: #### 0 0071 ####[place] [id number] [address] CBC W/DIFFon 12-31-2017 ABS BASOPHILS 0.0 10*3/uL Normal 0.0-0.[address] [facility] Comment on above: Performed By: #### 5 0103 ####[facility] ABS IMM GRANS 0.0 10*3/uL Normal 0.0-0.[address] [facility] Comment on above: Performed By: #### 5 3 ####[place] [address] [address] ABS NEUTROPHILS 3.3 10*3/uL Normal 1.6-7.[address] [facility] Comment on above: Performed By: #### 5 0103 ####[facility] Basophils Auto #/vol (Bld) 0.4 % Normal 0.0-1.[address] [facility] Comment on above: Performed By: #### 5 3 ####[facility] Eosinophils Auto #/vol (Bld) 0.1 10*3/uL Normal 0.0-0.[address] [facility] Comment on above: Performed By: #### 3 ####[facility] Eosinophils/100 WBC Auto (Bld) 1.1 % Normal 0.0-6.[address] [facility] Comment on above: Performed By: #### 3 ####[facility] Erythrocyte distribution width Auto Ratio (RBC) 13.0 % Normal 11.5-15.[address] [facility] Comment on above: Performed By: #### 102 ####[facility] Hematocrit Auto Volume Fraction (Bld) 39.9 % Normal 36.0-45.[address] [facility] Comment on above: Performed By: #### 102 ####[facility] Hemoglobin mass conc (Bld) 13.5 g/dL Normal 12.0-15.[address] [facility] Comment on above: Performed By: #### 102 ####[facility] IMMATURE GRANS 0.4 % Normal 0.0-1.[address] [facility] Comment on above: Performed By: #### 3 ####[facility] Lymphocytes Auto #/vol (Bld) 1.9 10*3/uL Normal 1.2-4.[address] [facility] Comment on above: Performed By: #### 3 ####[facility] [place] [address] Lymphocytes/100 WBC Auto (Bld) 32.9 % Normal 20.0-45.[address] [facility] Comment on above: Performed By: #### 5 3 ####[facility]3000 [facility].[address] MCH Auto Entitic mass (RBC) 29.2 pg Normal 27.0-33.[address] [facility] Comment on above: Performed By: #### 3 ####[facility]3000 [facility].[address] MCHC Auto mass conc (RBC) 33.8 g/dL Normal 32.0-35.[address] [facility] Comment on above: Performed By: #### 3 ####[facility] MCV Auto Entitic volume (RBC) 86.4 fL Normal 82.0-98.[address] [facility] Comment on above: Performed By: #### 102 ####[facility] Monocytes Auto #/vol (Bld) 0.4 10*3/uL Normal 0.1-1.[address] [facility] Comment on above: Performed By: #### 3 ####[facility] MONOS 7.4 % Normal 5.0-12.[address] [facility] Comment on above: Performed By: #### 5 3 ####[facility] Neutrophils/100 WBC Auto (Bld) 57.8 % Normal 40.0-72.[address] [facility] Comment on above: Performed By: #### 3 ####[facility] Nucleated RBC/100 WBC Ratio (Bld) 0 % Normal 0-[address] [facility] Comment on above: Performed By: #### 3 ####[facility] PLAT CNT 226 10*3/uL Normal 150-[address] [facility] Comment on above: Performed By: #### 5 0103 ####[facility] [place] [address] RBC Auto #/vol (Bld) 4.62 10*6/uL Normal 3.80-5.[address] [facility] Comment on above: Performed By: #### 5 0103 ####[facility] [place] [address], [facility] WBC Auto #/vol (Bld) 5.71 10*3/uL Normal 4.00-10.[address] [facility] Comment on above: Performed By: #### 5 0103 ####[facility] [place] [address] FINGER RIGHT MIN 2 VWSon FINGER RIGHT MIN [address] [facility] HospitalDepartment [facility] Peawcitgy[address] [place], [place] [id number] ==Patient Name: KEYANNA STAFFORD : 1955Sex: FAge: Race: WhiteMRN: [id number]. Location: OUTPPatient Status: OVisit #: [id number] Date: 12/31/2017 3:35:00 PMCompleted Date: 12/31/2017 03:48 PMRequesting Provider: STUART VO Attending Provider: STUART VO Report Copy To: Signs & Symptoms: crpp right fingerHistory: Comments: crpp right fingerExam: FINGER RIGHT MIN 2 VWSAccession #: [id number] =========FINGER RIGHT MIN 2 VWS 12/31/2017 3:48 [...] documentation Electronically signed by:Abdirizak Herrera. Transcribed by: [email or web address], User Resident: Electronically Signed by: ABDIRIZAK HERRERA @ 2018 08:05 AM Normal [facility] Comment on above: Order Comment: crpp right finger POC GLUCOSE LABon 12-31-2017 Glucose mass conc 141 mg/dL High 70-[address] [facility] Comment on above: Performed By: #### 8 5499 ####[facility] Glucose mass conc 152 mg/dL High 70-[address] [facility] Comment on above: Performed By: #### 8 5499 ####[facility]3000 [facility].[address] PROTHROMBIN TIMEon 8 INR Coag RelTime (PPP) 0.90 {INR} Low 0.91-1.[address] [facility] Comment on above: Result Comment: ACCC P RECOMMENDED INR FOR WARFARIN THERAPY CONDITION INRPROPHYLAXIS OF VENOUS THROMBOSIS 2-3(HIGH-RISK SURGERY)TREATMENT OF VENOUS THROMBOSIS 2-3TREATMENT OF PULMONARY EMBOLISM 2-3PREVENTION OF SYSTEMIC EMBOLISM: 2-3 ACUTE MYOCARDIAL INFARCTION TISSUE HEART VALVES VALVULAR HEART DISEASE ATRIAL FIBRILLATION RECURRENT SYSTEMIC EMBOLISMMECHANICAL HEART VALVE 2.5-3.5 FROM: ORAL ANTICOAGULANTS. MECHANISM OF ACTION, CLINICALEFFECTIVENESS, AND OPTIMAL THERAPEUTIC RANGE. [id number]. Performed By: #### 5 6101, [id number] ####[facility]3000 [facility].[address] Prothrombin time (PT) Coag time (PPP) 12.1 s Low 12.3-14.[address] [facility] Comment on above: Result Comment: ALL RESULTS MUST BE INTERPRETED WITH RESPECT TO BLOOD DRAWING ARTIFACTOR DILUTION ERROR OF ANTICOAGULANT AT THE TIME OF SAMPLING. Performed By: #### 5 6101, [address] ####[facility]3000 [facility].[address] Encounters Encounter Date Encounter Type Care Provider Facility Start: 11-01-2023 End: 11-01-2023 ambulatory [facility] Start: 10-24-2023 End: 10-24-2023 ambulatory [facility] Start: 09-21-2023 End: [facility]: 09-04-2023 End: 09-04-2023 ambulatory [facility] Start: 06-12-2022 End: 06-13-2022 ambulatory URBANO GARCIA Facility:[facility] Start: 06-02-2022 End: 06-03-2022 ambulatory URBANO GARCIA Facility:[facility] Start: 04-23-2022 End: 04-25-2022 Evaluation and management of inpatient MARIANN DAVIDSON Facility:[facility] Start: 04-11-2022 End: 04-12-2022 ambulatory URBANO SAMI RADHA Facility:[facility] Start: 03-28-2022 End: 03-29-[address] REESE HODGES Facility:[facility] Start: 01-07-2018 End: 01-08-2018 Patient encounter procedure MANOHAR BONILLA Facility:[facility] Start: 12-31-2017 Encounter for other specified special examinations STUART EBRAHEIM [facility] Start: 12-31-2017 End: 2018 Patient encounter procedure STUART EBRAHEIM Facility:[facility] Encounter for other specified special examinations STUART EBRAHEIM [facility] Procedures Date Procedure Procedure Detail Performing Clinician Start: 09-21-2023 Follow-up visit Follow-up BALA HENAO Start: 12-31-2017 AMPUTATION OF FINGER/THUMB STUART EBRAHEIM Start: 12-31-2017 AN[facility]H [facility]OWER [facility] Payers Date Payer Category Payer Unknown [id number] 1955 Unknown [id number] 2.16.8 [id number] 1955 Unknown [id number] 2.16.8 [id number] 1955 Unknown [id number] 2.16.8 [id number] 1955 Unknown [id number] 2.16.84 [id number] 1955 Unknown [id number] 2.16.84 [id number] 1955 Unknown [id number] 2.16.84 [id number] 1955 Unknown [id number] 2.16.84 [id number] 1955 Unknown [id number] 2.16.84 [id number] Unknown [id number] Progress note 11-01-2023 Note Date & Type Note Facility 11-01-2023 Note Patient here for 1 w [place] follow up HFrEF. Farxiga was added at [...] for cough (improving). Neurological: Positive for light-headedness. [facility] Progress note 11-01-2023 Note Date & Type Note Facility 11-01-2023 Note [facility] SUBJECTIVE No chief complaint on [...] Polyneuropathy due to type 2 diabetes mellitus ([facility]/HCC) Pain in left foot Nuclear senile cataract Noncompliance with treatment Mild nonproliferative diabetic retinopathy associated with type 2 diabetes mellitus (CMS/HCC) Hypothyroidism Hyperglycemia due to type 2 diabetes mellitus (CMS/HCC) Hypercholesterolemia Finger clubbing Essential hypertension Diabetes mellitus without complication (CMS/HCC) CVA (cerebral vascular accident) ([facility]/HCC) Borderline glaucoma Pseudophakia Scleroderma ([facility]/HCC) Acute on chronic combined systolic and diastolic heart failure ([facility]/HCC) Shortness of breath Past Medical History: Diagnosis Date CHF (congestive heart failure) (CMS/HCC) Diabetes mellitus ([facility]/HCC) Hyperlipidemia Hypertension Family History Problem Relation [...] carotid bruit. Comments: (more content not included)... [facility] Progress note 10-24-2023 Note Date & Type Note Facility 10-24-2023 Note [facility] SUBJECTIVE No chief complaint on [...] Active Problem List Diagnosis Gangrene of finger ([facility]/HCC) Proliferative diabetic retinopathy of both eyes with macular edema associated with type 2 diabetes mellitus ([facility]/HCC) Polyneuropathy due to type 2 diabetes mellitus ([facility]/HCC) Pain in left foot Nuclear senile cataract Noncompliance with treatment Mild nonproliferative diabetic retinopathy associated with type 2 diabetes mellitus (CMS/HCC) Hypothyroidism Hyperglycemia due to type 2 diabetes mellitus (CMS/HCC) Hypercholesterolemia Finger clubbing Essential hypertension Diabetes mellitus without complication (CMS/HCC) CVA (cerebral vascular accident) (CMS/HCC) Borderline glaucoma Pseudophakia Scleroderma ([facility]/HCC) Past Medical History: Diagnosis Date CHF (congestive heart failure) (CMS/HCC) Diabetes mellitus ([facility]/HCC) Hyperlipidemia Hypertension Family History Problem Relation [...] back: Neck supple. (more content not included)... [facility] Progress note 10-24-2023 Note Date & Type [...] other systems reviewed and are negative. [facility] Progress note 09-21-2023 Note Date & Type Note Facility 09-21-2023 Note [facility] SUBJECTIVE Chief Complaint Patient presents [...] spirinolactone 25 mg (more content not included)... [facility] Progress note 09-04-2023 Note Date & Type [...] other systems reviewed and are negative. [facility] Progress note 09-04-2023 Note Date & Type Note Facility 09-04-2023 Note [facility] SUBJECTIVE Chief Complaint Patient presents with [...] leg: Edema pr (more content not included)... [facility] Summary Purpose Family History No Family History Records FoundNo Family History Records FoundNo Family History Records FoundNo Family History Records Found Advance Directives No Advanced Directives Records FoundNo Advanced Directives Records FoundNo Advanced Directives Records FoundNo Advanced Directives Records Found Additional Source Comments INFORMATION SOURCE (unrecogn ized section and content) DATE CREATED AUTHOR 01/14/2018 [facility] DATE CREATED AUTHOR AUTHOR'S ORGANIZ ATION 07/05/2020 [facility] DATE CREATED AUTHOR AUTHOR'S ORGANIZ ATION 06/16/2022 [facility] DATE CREATED AUTHOR AUTHOR'S ORGANIZ ATION 11/28/2023 [facility] FOR RECORDS PERTAINING TO PATIENTS WHO ARE [...] BE BASED ON THE PRIMARY CLINICAL RECORDS. [employer] provides no warranty or guarantee of the accuracy or completeness of information in this document.
[2024-02-20 19:37] VITALS: BP 136/69; PULSE 84; TEMP 36.4; O2SAT 98
[2024-02-20 20:39] LABS: Bilirubin Urine NEGATIVE (NEGATIVE); Blood Urine NEGATIVE (NEGATIVE); Clarity Urine CLEAR (CLEAR); Color Urine LT. YELLOW (YELLOW); Glucose Urine UA >=1000 mg/dL (NEGATIVE); Ketones Urine NEGATIVE (NEGATIVE); Leukocyte Esterase Urine NEGATIVE (NEGATIVE); Nitrite Urine NEGATIVE (NEGATIVE); Protein Urine NEGATIVE (NEG/TRACE); Specific Gravity Urine <=1.005 (1.005-1.025); Urobilinogen Urine 0.2 EU/dL (0.2-1.0)
[2024-02-20 20:56] LABS: Bacteria Urine MODERATE #/HPF (NONE SEEN); Cast Seen? NONE SEEN #/LPF (NONE SEEN); Crystals Seen? None Seen #/HPF (None Seen); Mucus Urine NONE SEEN (NONE SEEN); RBC Urine 0-2 #/HPF (0-2); Squamous Epithelial Cell Urine MODERATE #/LPF (NONE/RARE); Urine Culture Indicated YES
[2024-02-20 21:17] LABS: Glucometer 359 mg/dL (74-106)
[2024-02-20] MEDS: CARVEDILOL 12.5 MG TABLET PO (21:17)
[2024-02-20] MEDS: HEPARIN SODIUM (PORCINE) 5,000 UNIT/ML VIAL 5000 UNIT SUBQ (21:17)
[2024-02-20] MEDS: ATORVASTATIN CALCIUM 40 MG TABLET PO (21:17)
[2024-02-20] MEDS: FUROSEMIDE 40 MG TABLET PO (21:17)
[2024-02-20] MEDS: INSULIN GLARGINE 300 UNIT/3 ML INSULN.PEN 30 UNIT SQ (21:17)
[2024-02-20] MEDS: INSULIN ASPART 300 UNIT/3 ML PEN SUBQ (21:19)
[2024-02-20 22:11] LABS: Lactate/Lactic Acid 2.4 mmol/L (0.4-2.0)
[2024-02-20] MEDS: 0.9 % SODIUM CHLORIDE 500 ML IV (23:01)
[2024-02-20 23:25] VITALS: BP 126/58; PULSE 83; TEMP 36.8; O2SAT 96
[2024-02-21] MEDS: 0.9 % SODIUM CHLORIDE 250 ML 10 ML IV (00:43)
[2024-02-21] MEDS: PIPERACILLIN SODIUM/TAZOBACTAM 3.375 GM in 0.9 % SODIUM CHLORIDE 50 ML IV ×2 (00:43→11:22)
[2024-02-21 03:45] VITALS: BP 97/55; PULSE 83; TEMP 36.9; O2SAT 90
[2024-02-21 05:44] LABS: Basophils Percent Auto 0.5 % (0.2-2.0); Eosinophils Absolute Auto 0.2 10^3/uL (0.0-0.7); Eosinophils Percent Auto 2.8 % (0.9-7.0); Hematocrit 29.4 % (36.0-48.0); Hemoglobin 10.1 g/dL (12.0-16.0); Immature Granulocytes Abs Auto 0.01 10^3/uL (0.00-0.03); Immature Granulocytes Pct Auto 0.2 % (0.0-0.5); Lymphocytes Absolute Auto 1.5 10^3/uL (1.2-3.8); Lymphocytes Percent Auto 24.5 % (20.5-60.0); Mean Corpuscular HGB Conc 34.4 g/dL (29.9-35.2); Mean Corpuscular Hemoglobin 29.6 pg (26.7-34.0); Mean Corpuscular Volume 86.2 fL (81.0-99.0); Mean Platelet Volume 9.8 fL (9.5-13.5); Monocytes Absolute Auto 0.6 10^3/uL (0.3-0.8); Neutrophils Absolute Auto 3.9 10^3/uL (1.4-6.5); Platelet Count 221 10^3/uL (150-450); Red Blood Count 3.41 10^6/uL (4.20-5.40); Red Cell Distribution Width 12.6 % (11.0-15.0); White Blood Count 6.1 10^3/uL (4.0-11.0)
[2024-02-21 05:55] LABS: Estimated Average Glucose 303 mg/dL; Glycohemoglobin A1C 12.2 % (4.5-6.2)
[2024-02-21 06:02] LABS: Alanine Aminotransferase 17 U/L (14-59); Albumin Globulin Ratio 0.8; Albumin Level 2.9 g/dL (3.4-5.0); Alkaline Phosphatase 73 U/L (46-116); Anion Gap 13.7; Aspartate Amino Transferase 14 U/L (15-37); BUN Creatinine Ratio 21.8; Bilirubin Total 0.6 mg/dL (0.2-1.0); Carbon Dioxide 25.9 mmol/L (21.0-32.0); Chloride 103 mmol/L (98-107); Estimated GFR (African America 54 (>=60 mL/min/1.73m^2); Estimated GFR (Non-African Ame 45 (>=60 mL/min/1.73m^2); Globulin 3.5 g/dL; Glucose 131 mg/dL (74-106); Potassium 3.6 mmol/L (3.5-5.1); Sodium 139 mmol/L (136-145); Total Protein 6.4 g/dL (6.4-8.2)
--- NOTE | 2024-02-21 07:55 | P.HP_ITS ---
HPI H&P: HPI History of Present Illness Chief complaint: cellulitis of right hand lymphangitis hyperglycemi Narrative: 69-year-old female with history of heart failure with preserved ejection fraction, Insuin dependent type 2 diabetes, HTN, HLD with long history of medical non compliance who presented to the ER yesterday with finger pain and redness of the right arm/hand. Patient states 1 week ago she burned her fingers on the stove. She has a history of previous surgery to the second and third fingers. She states 10 years ago she was found to have infection in the fingers secondary to chewing on her cuticles and nails. She states the areas were opened and drained, she had surgical amputation of the distal phalanx of the right third finger. She states she burned herself on a stove to the tips of the right thumb and index finger 1 week ago and has now noted that the right index finger is swollen with redness extending up the forearm. She has not had any fevers or vomiting. drainage from the finger. ER findings: WBC's 9.1, Hb 11.5, ESR 53, CRP 4.01, Cr 1.45, Lactate 2.4 Acetone negative; Xray of the right hand: a mildly displaced fracture of second distal phalangeal shaft, better seen on the lateral view. Soft tissue swelling of the second digit, can be due to inflammation or cellulitis. Anion Gap 14, Glucose 487, Positive UA Patient admitted for Acute cellulitis of the right index finger and hand with secondary finger fracture, hyperglycemia and ELAINE After morning rounds, patient developed some dizziness after med pass and some diarrhea Opioid HPI Opioid Management Most Recent Pain and Opioid Data: Last Pain Scale 6 02/21/24 12:00 02/21/24 Last Pain Assessment 02/21/24 12:00 Last ORT Total Score 0 02/20/24 18:37 02/20/24 Last ORT Risk Category Low Risk 02/20/24 18:37 02/20/24 Review of Systems ROS Narrative ROS: a complete review of systems were reviewed with patient and are positive as below or listed in History of Chief Complaint. General: no fever, chills, night sweats Head: no headache, trauma, visual changes, nausea or vomiting Skin: no reported rashes, itching or sores Eyes: no blurriness of vision Ears: no reported hearing loss, vertigo, earache, or tinnitus Throat: no sore throat, hoarseness, swelling of neck, or tongue pain Heart: no chest pain Lungs: no shortness of breath or cough GI: no diarrhea or vomiting/nausea Urinary: no urinary urgency, frequency or pain Neuro: no numbness or tingling, pain in right hand HEM: no bleeding issues or bruising ENDO: no thyroid problems Psych: no anxiety or depression PFSH PFSH Medical History (Updated 02/21/24 @ 08:10 by Sasha Barroso DO) Non compliance w medication regimen ?Z91.148 - Patient's other noncompliance with medication regimen for other reason (ICD-10) Acute on chronic combined systolic (congestive) and diastolic (congestive) heart failure ?I50.43 - Acute on chronic combined systolic (congestive) and diastolic (congestive) heart failure (ICD-10) CHF (congestive heart failure) ?I50.9 - Heart failure, unspecified (ICD-10) HTN (hypertension) ?I10 - Essential (primary) hypertension (ICD-10) HLD (hyperlipidemia) ?E78.5 - Hyperlipidemia, unspecified (ICD-10) Type 2 diabetes mellitus ?E11.9 - Type 2 diabetes mellitus without complications (ICD-10) Surgical History History of amputation of finger ?Z89.029 - Acquired absence of unspecified finger(s) (ICD-10) History of knee surgery ?Z98.890 - Other specified postprocedural states (ICD-10) Hx of tonsillectomy ?Z90.89 - Acquired absence of other organs (ICD-10) Family History Grandmother Family history of stroke Family history of diabetes mellitus Mother Family history of diabetes mellitus Father Family history of diabetes mellitus Brother Family history of diabetes mellitus Aunt Family history of cancer Uncle Family history of cancer Social History Within the past year, how often did you have a drink containing alcohol: never Within the past year, how often did you have six or more drinks on one occasion: never Score interpretation: A score less than 3 is consistent with normal alcohol consumption. Smoking status: Never smoker Non-prescribed substance use: denies use Highest level of school completed/degree received: high school graduate Little interest or pleasure in doing things: not at all Feeling down, depressed, or hopeless: not at all Gender Identity: female Meds Home Medications and Allergies Home Medications ?Medication ?Instructions ?Recorded ?Confirmed ?Type insulin detemir U-100 100 unit/mL 40 unit subcut BID 09/04/23 02/20/24 History (3 mL) subcutaneous pen (Levemir FlexPen) carvedilol 12.5 mg tablet (Coreg) 12.5 mg PO BID #60 tabs 09/07/23 02/20/24 Rx furosemide 40 mg tablet 40 mg PO BID #0 tabs 09/07/23 02/20/24 Rx losartan 50 mg tablet 50 mg PO DAILY #30 tabs 09/07/23 02/20/24 Rx dapagliflozin propanediol 5 mg 5 mg PO DAILY 02/20/24 02/20/24 History tablet (Farxiga) spironolactone 25 mg tablet 25 mg PO DAILY 02/20/24 02/20/24 History Allergies Allergy/AdvReac Type Severity Reaction Status Date / Time No Known Drug Allergies Allergy Verified 02/20/24 16:26 Exam Narrative Exam Narrative: General: Patient is alert, and oriented to person, place and time with normal affect, proper hygiene Skin: Right third finger with surgical amputation of the distal phalanx. Right thumb with healing blisters to the distal aspect of the fingertip. Right second finger with diffuse swelling, circumferential erythema extending to the dorsum of the hand and red streaking noted up the mid forearm. No open areas or drainage. No palpable abscess. Distal tip of the right second finger with granulomatous tissue noted and healing blisters Head: atraumatic, acephalic Eyes: PERRLA, no nystagmus present, conjunctiva clear, no scleral icterus Ears: normal gross auditory acuity Heart: Normal rate and rhythm, no murmurs/rubs/gallops Lungs: no audible wheezes, crackles and normal breath sounds all lung tan Abdomen: Normal audible bowel sounds, no distension, No palpable masses, no organomegaly, no rebound/guarding/ or rigidity Musculoskeletal: no swelling bilateral lower extremities Neuro: CN II-X grossly intact Constitutional Vital Signs, click to edit/add: Last Vital Signs Temp 98.4 F 02/21/24 03:45 Pulse 83 02/21/24 03:45 Resp 18 02/21/24 03:45 BP 97/55 02/21/24 03:45 Pulse Ox 90 L 02/21/24 03:45 O2 Del Method Room Air 02/21/24 03:45 Results Labs Labs: Short CBC 02/20/24 02/21/24 Range/Units 16:47 05:02 WBC 9.1 6.1 (4.0-11.0) 10^3/uL Hgb 11.5 L 10.1 L (12.0-16.0) g/dL Hct 33.5 L 29.4 L (36.0-48.0) % Plt Count 260 221 (150-450) 10^3/uL BMP 02/20/24 02/21/24 16:47 05:02 Sodium 129 L 139 Potassium 4.1 3.6 Chloride 94 L 103 Carbon Dioxide 25.0 25.9 BUN 25.0 H 26.0 H Creatinine 1.45 H 1.19 H Glucose 487 H 131 H Calcium 9.4 9.0 Liver Function 02/20/24 02/21/24 Range/Units 16:47 05:02 Total Bilirubin 1.0 0.6 (0.2-1.0) mg/dL AST 11 L 14 L (15-37) U/L ALT 17 17 (14-59) U/L Alkaline Phosphatase 100 73 (46-116) U/L Albumin 3.5 2.9 L (3.4-5.0) g/dL Urine 02/20/24 Range/Units 20:10 Urine Color Lt. yellow (YELLOW) Urine Clarity Clear (CLEAR) Urine pH 6.0 (5.0-9.0) Ur Specific [place] <=1.005 A (1.005-1.025) Urine Protein Negative (NEG/TRACE) mg/dL Urine Glucose (UA) >=1000 A (NEGATIVE) mg/dL ABG ABG results: 02/20/24 16:47 VBG pH 7.512 H VBG pCO2 28.0 L Assessment and Plan Assessment and Plan (1) Cellulitis of finger of right hand: Assessment and Plan: Patient with normal WBC's but elevated Lactate level, CRP and ESR. Placed on Zosyn and Vancomycin. Will place Ortho consult today. Could be post traumatic cellulitis as patient also has fracture. PT/OT for evaluations as well. (2) Fracture of finger of right hand: Assessment and Plan: will be difficult to place in finger splint with swelling. Patient has no pain. continue to treat #1 Qualifiers: Encounter type: initial encounter Finger: index finger Fracture alignment: nondisplaced Fracture type: closed Phalanx: distal Qualified Code(s): S62.660A - Nondisplaced fracture of distal phalanx of right index finger, initial encounter for closed fracture (3) ELAINE (acute kidney injury): Assessment and Plan: UA positive, should be covered with Zosyn. Awaiting urine culture. No fluids at this time for high risk of overload. (4) Acute hyperglycemia: Assessment and Plan: could be causing high lactate level, but also could be infection related. glucose was 487, acetones blood negative, continue long acting insuling zoraida 40 units BID and SSI. Diabetic diet. Ha1c was 12.0. Diabetic counseling. (5) CHF (congestive heart failure): Assessment and Plan: appears in no acute CHF. Will resume Coreg, lasix, losartan, and spironolactone Qualifiers: Heart failure chronicity: chronic Heart failure type: diastolic Qualified Code(s): I50.32 - Chronic diastolic (congestive) heart failure (6) HTN (hypertension): Assessment and Plan: continue Coreg, lasix, losartan, and spironolactone Qualifiers: Hypertension type: secondary to endocrine disorders Qualified Code(s): I15.2 - Hypertension secondary to endocrine disorders (7) HLD (hyperlipidemia): Assessment and Plan: diet controlled. Not taking medication for this. Qualifiers: Hyperlipidemia type: unspecified Qualified Code(s): E78.5 - Hyperlipidemia, unspecified (8) Type 2 diabetes mellitus: Assessment and Plan: clearly uncontrolled with ha1c 12, continue accuchecks with SSI, and Levemir. Diabetic counseling if available. Qualifiers: Diabetes mellitus complication status: without complication Diabetes mellitus residential insulin use: with residential use Qualified Code(s): E11.9 - Type 2 diabetes mellitus without complications; Z79.4 - jail (current) use of insulin Plan Patient is a full code continue heparin for DVT prophylaxis Patient is observation status and is not expected to cross 2 midnights
[2024-02-21 09:10] VITALS: BP 119/64; PULSE 74; TEMP 36.8; O2SAT 96
[2024-02-21] MEDS: SPIRONOLACTONE 25 MG TABLET PO (09:20)
[2024-02-21] MEDS: FUROSEMIDE 40 MG TABLET PO (09:20)
[2024-02-21] MEDS: INSULIN GLARGINE 300 UNIT/3 ML INSULN.PEN 30 UNIT SQ (09:20)
[2024-02-21] MEDS: CARVEDILOL 12.5 MG TABLET PO (09:20)
[2024-02-21] MEDS: LOSARTAN POTASSIUM 50 MG TABLET PO (09:20)
--- NOTE | 2024-02-21 11:47 | CM.NOTE ---
Rounds made with Dr. Barroso. Dr. Barroso reviews xray findings and lab results with Keyanna. Follow up with Orthopod and Family physician. Keyanna verbalizes understanding.
[2024-02-21 11:55] VITALS: BP 102/62; PULSE 76; O2SAT 98
[2024-02-21] MEDS: INSULIN ASPART 300 UNIT/3 ML PEN SUBQ (12:17)
[2024-02-21 12:20] LABS: Glucometer 301 mg/dL (74-106)
--- NOTE | 2024-02-21 12:43 | SWNOTE1 ---
Medicare Outpatient Observation Notice reviewed and discussed with patient. Pt. verbalized understanding and signed the form. Original given to patient and copy placed in patient?s chart.
--- NOTE | 2024-02-21 12:44 | SWNOTE1 ---
SW met with pt to discuss dc needs. Pt lives at [facility] in [place]. She uses the elevator to get to the 3rd floor. Pt has family and friends who helps as needed. Pt's sister helps with grocery shopping. Pt does not use any DME at home and is unsure if she needs one at this time. Pt does not have any HH at this time. Pt voices no discharge concerns at this time. SW to follow as needed. SW also voiced to pt that she needs to get a PCP. She stated she has not called anyone yet, but will call her insurance and they can provide a list of physician in network. DISHA highly encouraged pt to do this. DISHA did review OT note and madhav lane recommended. SW to see if she wants us to try and get one.
--- NOTE | 2024-02-21 13:31 | SWNOTE1 ---
SW spoke to the patient about the recommendation of a wheeled walker. SW offered to try to get through her insurance while she is here. Pt voiced she thinks her sister has one in her garage that was her mother's. She stated she will talk to her sister and she can use that one.
--- NOTE | 2024-02-21 15:29 | PM.DS1 ---
DS: Providers Provider Date of admission: 02/20/24 18:17 Primary care physician: Non-Staff Physician, Attending physician on admission: Sasha Barroso Consults: 02/20/24 17:40 Occupational Therapy Eval and Treat Routine Reason for consultation: hand pain Has provider been notified: No Physical Therapy Eval and Treat Routine Reason for consultation: weakness, hand pain Has provider been notified: No 02/21/24 08:20 Consult to [employer] Routine Reason for consultation: ha1c 12 Has provider been notified: No Discharging clinician: Sasha Barroso DS: Diagnosis Discharge Diagnosis (1) Cellulitis of finger of right hand: (2) Fracture of finger of right hand: Qualifiers: Encounter type: initial encounter Finger: index finger Fracture type: closed Phalanx: distal Fracture alignment: nondisplaced Qualified Code(s): S62.660A - Nondisplaced fracture of distal phalanx of right index finger, initial encounter for closed fracture (3) ELAINE (acute kidney injury): (4) Acute hyperglycemia: (5) CHF (congestive heart failure): Qualifiers: Heart failure chronicity: chronic Heart failure type: diastolic Qualified Code(s): I50.32 - Chronic diastolic (congestive) heart failure (6) HTN (hypertension): Qualifiers: Hypertension type: secondary to endocrine disorders Qualified Code(s): I15.2 - 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 She would like to go home. I have sent keflex 500mg BID x 7 days and she has close outpatient follow up for her finger with Dr Wallace. She is encouraged to find a PCP as she does not have one currently. She plans to find one close to [place] if possible. She may return to the ER with any worsening signs or symptoms. She is non-compliant with her diabetes. Ha1c was 12. She says she will discuss with her pcp. Status at Discharge Functional status at discharge: independent ambulation Overall status at discharge: patient is progressing back to baseline Time Spent with Patient Time attestation: Total time spent providing and/or coordinating discharge services: Time spent: greater than 30 minutes Exam Narrative Exam Narrative: no change at the time of discharge from admission H&P dated 02/21/24 Constitutional Vital Signs, click to edit/add: Last Vital Signs Temp 98.2 F 02/21/24 09:10 Pulse 76 02/21/24 11:55 Resp 18 02/21/24 11:55 BP 102/62 02/21/24 11:55 Pulse Ox 98 02/21/24 11:55 O2 Del Method Room Air 02/21/24 11:55 DS: Data Data Completed and Pending Labs on day of discharge: Labs from last 24 hours 02/21/24 02/21/24 02/20/24 12:09 05:02 21:30 WBC 6.1 RBC 3.41 L Hgb 10.1 L Hct 29.4 L MCV 86.2 MCH 29.6 MCHC 34.4 RDW 12.6 Plt Count 221 MPV 9.8 Neut % (Auto) 63.0 Lymph % (Auto) 24.5 [place] % (Auto) 9.0 Eos % (Auto) 2.8 Baso % (Auto) 0.5 Neut # (Auto) 3.9 Lymph # (Auto) 1.5 [place] # (Auto) 0.6 Eos # (Auto) 0.2 Baso # (Auto) 0.0 Abs Immat Gran (auto) 0.01 Imm/Tot Granulo (auto) 0.2 ESR PT INR VBG pH VBG pCO2 Sodium 139 Potassium 3.6 Chloride 103 Carbon Dioxide 25.9 Anion Gap 13.7 BUN 26.0 H Creatinine 1.19 H Est GFR ( Amer) 54 L Est GFR (Non-Af Amer) 45 L BUN/Creatinine Ratio 21.8 Glucose 131 H Estimat Average Glucose 303 Hemoglobin A1c 12.2 H Lactate 2.4 H* Calcium 9.0 Total Bilirubin 0.6 AST 14 L ALT 17 Alkaline Phosphatase 73 C-Reactive Protein Total Protein 6.4 Albumin 2.9 L Globulin 3.5 Albumin/Globulin Ratio 0.8 Urine Color Urine Clarity Urine pH Ur Specific [place] Urine Protein Urine Glucose (UA) Urine Ketones Urine Occult Blood Urine Nitrite Urine Bilirubin Urine Urobilinogen Ur Leukocyte Esterase Urine RBC Urine WBC Ur Squamous Epith Cells Urine Crystals Urine Bacteria Urine Casts Urine Mucus Ur Culture Indicated? Acetone, Qual POC Glucose 301 H 02/20/24 02/20/24 02/20/24 21:16 20:10 16:47 WBC 9.1 RBC 3.92 L Hgb 11.5 L Hct 33.5 L MCV 85.5 MCH 29.3 MCHC 34.3 RDW 12.5 Plt Count 260 MPV 9.6 Neut % (Auto) 76.7 H Lymph % (Auto) 13.5 L [place] % (Auto) 8.1 Eos % (Auto) 1.2 Baso % (Auto) 0.3 Neut # (Auto) 7.0 H Lymph # (Auto) 1.2 [place] # (Auto) 0.7 Eos # (Auto) 0.1 Baso # (Auto) 0.0 Abs Immat Gran (auto) 0.02 Imm/Tot Granulo (auto) 0.2 ESR 53 H PT 10.5 INR 0.99 VBG pH 7.512 H VBG pCO2 28.0 L Sodium 129 L Potassium 4.1 Chloride 94 L Carbon Dioxide 25.0 Anion Gap 14.1 BUN 25.0 H Creatinine 1.45 H Est GFR ( Amer) 43 L Est GFR (Non-Af Amer) 36 L BUN/Creatinine Ratio 17.2 Glucose 487 H Estimat Average Glucose Hemoglobin A1c Lactate 2.1 H Calcium 9.4 Total Bilirubin 1.0 AST 11 L ALT 17 Alkaline Phosphatase 100 C-Reactive Protein 4.01 H Total Protein 7.4 Albumin 3.5 Globulin 3.9 Albumin/Globulin Ratio 0.9 Urine Color Lt. yellow Urine Clarity Clear Urine pH 6.0 Ur Specific [place] <=1.005 A Urine Protein Negative Urine Glucose (UA) >=1000 A Urine Ketones Negative Urine Occult Blood Negative Urine Nitrite Negative Urine Bilirubin Negative Urine Urobilinogen 0.2 Ur Leukocyte Esterase Negative Urine RBC 0-2 Urine WBC 2-5 A Ur Squamous Epith Cells Moderate A Urine Crystals None seen Urine Bacteria Moderate A Urine Casts None seen Urine Mucus None seen Ur Culture Indicated? Yes Acetone, Qual Negative POC Glucose 359 H Discharge Plan Discharge Disposition: Home, Self-Care Discharge Medications: New cephalexin 500 mg capsule 500 mg PO BID 7 Days Qty: 14 0RF Continued Levemir FlexPen 100 unit/mL (3 mL) insulin pen 40 unit SUBCUT BID carvedilol [Coreg] 12.5 mg tablet 12.5 mg PO BID Qty: 60 0RF Rx Instructions: must administer with a meal/food losartan 50 mg tablet 50 mg PO DAILY Qty: 30 0RF furosemide 40 mg tablet 40 mg PO BID Qty: 0 0RF spironolactone 25 mg tablet 25 mg PO DAILY dapagliflozin propanediol [Farxiga] 5 mg tablet 5 mg PO DAILY Activity: increase activity as tolerated Diet: diabetic diet Print Language: Icelandic Patient Instructions: Cephalexin (By mouth), Cellulitis (ED) Forms: Portal Instructions Follow Up Appointments: Mon. Theo, 02/25/2024 at 10:50 [facility], [address] [place] [address], [address],
--- NOTE | 2024-02-26 15:18 | CM.DCFOLLOWU ---
Person spoke with:patient How are you feeling? well How is your pain? none Did you understand your discharge instructions?yes Do you have any questions about your discharge instructions?no Were you given any prescriptions at discharge?yes Were you able to get your prescriptions filled?yes Do you understand how to take your medications as ordered?yes Do you have any questions about your follow up appointment and do you plan to keep your follow up appointment? no questions, did not go to her follow up and has not re-scheduled. Advised to call and re-schedule Is there anything else that you would like to discuss?no Questions/Comments/Concerns/Other:none
== END 2024-02-21 16:24 | disposition home or self-care (01) ==
LOC: ER 17:53 → MS 18:36
PROVIDERS: Physician Assistant; Admitting Provider Family Medicine; Emergency Provider Emergency Medicine; Visit Provider Family Medicine
DX: E11.628 Type 2 diabetes mellitus with other skin complications (principal); L03.011 Cellulitis of right finger; E11.65 Type 2 diabetes mellitus with hyperglycemia; Z79.4 Long term (current) use of insulin; I11.0 Hypertensive heart disease with heart failure; E78.5 Hyperlipidemia, unspecified; Z91.148 Patient's other noncompliance with medication regimen for other reason; N17.9 Acute kidney failure, unspecified; S62.630A Displaced fracture of distal phalanx of right index finger, initial encounter for closed fracture; X58.XXXA Exposure to other specified factors, initial encounter; I50.32 Chronic diastolic (congestive) heart failure; R82.998 Other abnormal findings in urine
CPT/HCPCS: 36415; 73130; 80053; 81001; 82009; 82800; 82948; 83036; 83605; 85025; 85610; 85652; 86140; 87040; 87086; 90471; 90715; 96365; 96366; 96367; 96372; 97162; 97165; 99285; G0378; J1644; J1817; J2543; J3370

== ENCOUNTER 2024-05-06 16:14 | Emergency (ER) | payer MEDICARE, SELFPAY ==
[2024-05-06] VITALS (47 sets, daily range): BP systolic 91–142; BP diastolic 49–94; PULSE 56–77; TEMP 36.9; O2SAT 82–100; BMI 26.3
--- OUTSIDE RECORDS SUMMARY | 2024-05-06 16:28 | XMS_ITS | CCD ---
Author Organization [facility] Care Team Providers Care Aircraft Engine Technician Name Role Phone EBRAHEIM, STUART Unavailable Unavailable [...] Unavailable Unavailable HODGES, REESE Unavailable Unavailable AICHHOLZ, MANAGER LANGUAGE SAMI Attending Unavailable AICHHOLZ, MANAGER LANGUAGE SAMI Consulting Unavailable AICHHOLZ, MANAGER LANGUAGE SAMI Primary Care Unavailable AICHHOLZ, MANAGER LANGUAGE SAMI Admitting Unavailable DR MALLIKA ORTIZ Consulting Unavailable GORAN TORRES Consulting Unavailable MARIANN DAVIDSON Consulting Unavailable AICHHOLZ, MANAGER LANGUAGE SAMI Primary Care Unavailable RALPH ., SVETA Admitting Unavailable RALPH ., SVETA Attending Unavailable PETRONA SUMNER Consulting Unavailable VIRGINIA TOTH Consulting Unavailable RALPH ., SVETA Consulting Unavailable DIAB ., KAROL Consulting Unavailable FRANCISCO, SHARAN Consulting Unavailable DR REESE HODGES Primary Care Unavailable WILMAN LAKHANI Admitting Unavailable DR MALLIKA ORTIZ Consulting Unavailable WILMAN LAKHANI Attending Unavailable WILMAN LAKHANI Consulting Unavailable AICHHOLZ, MANAGER LANGUAGE SAMI Consulting Unavailable AICHHOLZ, MANAGER LANGUAGE SAMI Primary Care Unavailable AICHHOLZ, MANAGER LANGUAGE SAMI Admitting Unavailable AICHHOLZ, MANAGER LANGUAGE SAMI Attending Unavailable AICHHOLZ, MANAGER LANGUAGE SAMI Consulting Unavailable AICHHOLZ, MANAGER LANGUAGE SAMI Admitting Unavailable AICHHOLZ, MANAGER LANGUAGE SAMI Primary Care Unavailable AICHHOLZURBANO Attending Unavailable BALA HENAO Attending Unavailable MARIANN DAVIDSON Attending Unavailable MARIANN DAVIDSON Attending Unavailable MARIANN DAVIDSON Attending Unavailable MARIANN DAVIDSON Attending Unavailable Allergies Allergy Classification Reported Allergen(s) Allergy Type Date of Onset Reaction(s) Facility (1 source) succinylcholine chloride Drug allergy (disorder) 8 AOF [facility] Repository (1 source) Succinylcholine; Translations: [SUCCINYLCHOLINE] Drug Allergy 0 [facility] Repository Problems Active Problems Problem Classification Problem Date Documented Date Episodic/Chronic Congestive heart failure; nonhypertensive (13 sources) Heart failure, unspecified; Translations: [Acute diastolic [...] Onset: 01-07-2018 Chronic Other aftercare (2 sources) [facility] (current) use of insulin; Translations: [INSPECTOR RETURNED MATERIALS (CURRENT) USE OF INSULIN] Onset: 12-31-2017 Episodic [...] sources) Edema, unspecified; Translations: [Edema, unspecified] Onset: 04-22-2024 Episodic Respiratory failure; insufficiency; arrest (adult) (1 [...] Value Interpretation Reference Range Facility Office Visiton 04-22-2024 Follow-up visit [id number] Tomluis fernandoKeyanna Cheatham 1955 Provider Department Center 04/22/2024 MARIANN DWYER [facility] Family History Problem Relation Age of Onset Hypertension Mother Diabetes Mother Family Status - Relation Status Age at Mother Level of Service:50405 OR OFFICE/OUTPATIENT ESTABLISHED MOD MDM 30 MIN Reason for Visit and Comments: Congestive Heart Failure [127] Hypertension [270961] [facility] Orders Onlyon 11-26-2023 Orders Only [id number] Keyanna Stafford 1955 Provider Department [place] 11/26/2023 DELILAH FLORES [facility] [place] HeartVAS Family History Problem Relation Age of Onset Hypertension Mother Diabetes Mother Family Status - Relation Status Age at Mother [facility] NURSNOTEon 11-05-[address] Henao, You have Keyanna Stafford coming for a R/Cors on 11/12/2023. She is from [place] and stated she will need to use the senior services transport that she uses for appointments and procedures. She said they take people to everything so she thinks they are a medical transport??? She also said they will transport in the evenings. [facility] 37on 11-01-2023 37 *Increase your lasix [...] 1 tablet twice daily. *Financial assistance program: [phone] or [phone] [facility] Office Visiton 11-01-2023 Follow-up visit [id number] Keyanna Stafford 1955 Provider Department Center 11/01/2023 MARIANN DWYER Family History Problem Relation Age of Onset Hypertension Mother Diabetes Mother Family Status - Relation Status Age at Mother Level of Service:64355 OR OFFICE/OUTPATIENT ESTABLISHED MOD MDM 30 MIN Normal [facility] 37on 10-24-2023 37 *Monitor your weight daily and write down your weights. Bring to your next office visit. *Will start Farxiga 10mg daily for management of your heart failure. Let us know if it is too expensive. *Take lasix faithfully 40mg twice daily. You can take your afternoon dose around 2-3pm. *Let Ms. Hira SINGH know about your hand swelling. *I ordered a heart cath, left/coronary and right, to look at the blood vessels in your heart to check for blockages along with checking the pressure in your heart. Normal [facility] Office Visiton 10-24-2023 Follow-up visit [id number] Keyanna Stafford 1955 Provider Department Center 10/24/2023 MARIANN DWYER Family History Problem Relation Age of Onset Hypertension Mother Diabetes Mother Family Status - Relation Status Age at Mother Level of Service:86406 OR OFFICE/OUTPATIENT ESTABLISHED MOD MDM 30 MIN Normal [facility] Office Visiton 09-21-2023 Follow-up visit [id number] Keyanna Stafford 1955 Provider Department Center 09/21/2023 [id number] HENAO Family History Problem Relation Age of Onset Hypertension Mother Diabetes Mother Family Status - Relation Status Age at Mother Level of Service:32549 OR OFFICE/OUTPATIENT ESTABLISHED MOD MDM 30 MIN Reason for Visit and Comments: Follow-up [281980] - 1-2 wk follow up Normal [facility] Office Visiton 09-04-2023 Follow-up visit [id number] Keyanna Stafford 1955 Date Provider Department Center 09/04/2023 MARIANN DWYER Family History Problem Relation Age of Onset Hypertension Mother Diabetes Mother Family Status - Relation Status Age at Mother Level of Service:15563 OR OFFICE/OUTPATIENT ESTABLISHED MOD MDM 30 MIN Reason for Visit and Comments: Congestive Heart Failure [127] Hypertension [447035] Hyperlipidemia [182] Normal [facility] XR CHEST 2 Von 06-12-2022 XR [...] by: GORAN TORRES Date: 2022-06-12 13:31 Normal [facility] XR STERNUM MIN 2 VIEWSon XR STERNUM [...] MALLIKA ORTIZ Date: 2022-06-12 16:18 Normal [facility] PROF CHEM 8 (BAS METB)on Anion gap [Moles/Vol] 15.1 mmol/L Normal [facility] Comment on above: Performed By: #### H STROPN #### [facility] [address] [place] [address] Dr. Quique Ortiz Calcium [Mass/Vol] 9.5 mg/dL Normal 8.5-10.1 [facility] Comment on above: Performed By: #### H STROPN #### [facility] [address] [address] [address] Quique Ortiz Chloride [Moles/Vol] 95 mmol/L Critically low 98-107 [facility] Comment on above: Performed By: #### H STROPN #### [facility] [address] [address] [address] Quique Ortiz CO2 [Moles/Vol] 27.3 mmol/L Normal 21.0-32.0 [facility] Comment on above: Performed By: #### H STROPN #### [facility] [address] [address] [address] Quique Ortiz Creatinine [Mass/Vol] 1.01 mg/dL Normal 0.55-1.02 [facility] Comment on above: Performed By: #### H STROPN #### [facility] [address] [address] [address] Quique Ortiz EGFR-AF QATARI >60 Normal >=60 [facility] Comment on above: Performed By: #### H STROPN #### [facility] [address] [address] [address] Qiuque Ortiz EGFR-NON AF QATARI 55 mL/min/1.73m2 Critically low >=60 [facility] Comment on above: Performed By: #### H STROPN #### [facility] [address] [address] [address] Quique Ortiz Glucose [Mass/Vol] 483 mg/dL Critically high 74-106 [facility] Comment on above: Performed By: #### H STROPN #### [facility] [address] [address] [address] Quique Ortiz Potassium [Moles/Vol] 4.4 mmol/L Normal 3.5-5.1 [facility] Comment on above: Performed By: #### H STROPN #### [facility] [address] [address] [address] Quique Ortiz Sodium [Moles/Vol] 133 mmol/L Critically low 136-145 [facility] Comment on above: Performed By: #### H STROPN #### [facility] [address] [address] [address] Quique Ortiz Urea nitrogen [Mass/Vol] 14.0 mg/dL Normal 7.0-18.0 [facility] Comment on above: Performed By: #### H STROPN #### [facility] [address] [address] [address] Quique Ortiz Urea nitrogen/Creatinine [Mass ratio] 13.9 mg/mg Normal [facility] Comment on above: Performed By: #### H STROPN #### [facility] [address] [place] [address] Dr. Quique Ortiz BNPon 04-25-2022 Natriuretic peptide B (Bld) [Mass/Vol] 1330.0 pg/mL Critically high <=900.0 [facility] Comment on above: Performed By: #### C VDTBH #### [facility] [address] [place] [address] Dr. Quique Ortiz CBC AUTO DIFFon 04-25-2022 BASO # 0.0 103/ul Normal 0.0-0.1 [facility] Comment on above: Performed By: #### C BC #### [facility] [address] [place] [address] Dr. Quique Ortiz Basophils/100 WBC (Bld) 0.4 % Normal 0.2-2.0 [facility] Comment on above: Performed By: #### C BC #### [facility] [address] [place] [address] Dr. Quique Ortiz EO # 0.1 103/ul Normal 0.0-0.7 [facility] Comment on above: Performed By: #### C BC #### [facility] [address] [place] [address] Dr. Quique Ortiz Eosinophils/100 WBC (Bld) 2.3 % Normal 0.9-7.0 [facility] Comment on above: Performed By: #### C BC #### [facility] [address] [place] [address] Dr. Quique Ortiz Erythrocyte distribution width (RBC) [Ratio] 13.2 % Normal 11.0-15.0 [facility] Comment on above: Performed By: #### C BC #### [facility] [address] [place] [address] Dr. Quique Ortiz Hematocrit (Bld) [Volume fraction] 32.7 % Critically low 36.0-48.0 [facility] Comment on above: Performed By: #### C BC #### [facility] [address] [place] [address] Dr. Quique Ortiz Hemoglobin (Bld) [Mass/Vol] 11.0 g/dL Critically low 12.0-16.0 [facility] Comment on above: Performed By: #### C BC #### [facility] [address] [place] [address] Dr. Quique Ortiz IG # 0.02 10e3/ul Normal 0.00-0.03 [facility] Comment on above: Performed By: #### C BC #### [facility] [address] [place] [address] Dr. Quique Ortiz IG % 0.4 % Normal 0.0-0.5 [facility] Comment on above: Performed By: #### C BC #### [facility] [address] [place] [address] Dr. Quique Ortiz LYMPH # 1.3 103/ul Normal 1.2-3.8 [facility] Comment on above: Performed By: #### C BC #### [facility] [address] [place] [address] Dr. Quique Ortiz Lymphocytes/100 WBC (Bld) 23.5 % Normal 20.5-60.0 [facility] Comment on above: Performed By: #### C BC #### [facility] [address] [place] [address] Dr. Quique Ortiz MANUAL DIFF REQ NO Normal [facility] Comment on above: Performed By: #### C BC #### [facility] [address] [place] [address] Dr. Quique Ortiz MCH (RBC) [Entitic mass] 29.3 pg Normal 26.7-34.0 [facility] Comment on above: Performed By: #### C BC #### [facility] [address] [place] [address] Dr. Quique Ortiz MCHC (RBC) [Mass/Vol] 33.6 g/dL Normal 29.9-35.2 [facility] Comment on above: Performed By: #### C BC #### [facility] [address] [place] [address] Dr. Quique Ortiz MCV (RBC) [Entitic vol] 87.0 fL Normal 81.0-99.0 [facility] Comment on above: Performed By: #### C BC #### [facility] [address] [address] [address] Quique Ortiz MONO # 0.6 103/ul Normal 0.3-0.8 [facility] Comment on above: Performed By: #### C BC #### [facility] [address] [address] [address] Quique Ortiz Monocytes/100 WBC (Bld) 10.2 % Normal 1.7-12.0 [facility] Comment on above: Performed By: #### C BC #### [facility] [address] [address] [address] Quique Ortiz NEUT # 3.5 103/ul Normal 1.4-6.5 [facility] Comment on above: Performed By: #### C BC #### [facility] [address] [address] [address] Quique Ortiz Neutrophils/100 WBC (Bld) 63.2 % Normal 43.0-75.0 [facility] Comment on above: Performed By: #### C BC #### [facility] [address] [address] [address] Quique Ortiz Platelet mean volume (Bld) [Entitic vol] 9.2 fL Critically low 9.5-13.5 [facility] Comment on above: Performed By: #### C BC #### [facility] [address] [address] [address] Quique Ortiz PLT 243 103/ul Normal 150-450 [facility] Comment on above: Performed By: #### C BC #### [facility] [address] [address] [address] Quique Ortiz RBC 3.76 106/ul Critically low 4.20-5.40 [facility] Comment on above: Performed By: #### C BC #### [facility] [address] [address] [address] Quique Ortiz WBC 5.6 103/ul Normal 4.0-11.0 [facility] Comment on above: Performed By: #### C BC #### [facility] [address] [address] [address] Quique Ortiz POINT OF CARE GLUCOSEon 04-06 Glucose [Mass/Vol] 226 mg/dL Critically high 74-106 [facility] Comment on above: Performed By: #### U AMIC #### [facility] [address] [address] [address] Quique Ortiz PROF 14(COMP METB)on 023 Albumin [Mass/Vol] 3.1 g/dL Critically low 3.4-5.0 [facility] Comment on above: Performed By: #### U AMIC #### [facility] [address] [address] [address] Quique Ortiz Albumin/Globulin [Mass ratio] 1.0 {ratio} Normal [facility] Comment on above: Performed By: #### U AMIC #### [facility] [address] [place] [address] Dr. Quique Ortiz ALP [Catalytic activity/Vol] 69 U/L Normal 46-116 [facility] Comment on above: Performed By: #### U AMIC #### [facility] [address] [address] [address] Quique Ortiz ALT [Catalytic activity/Vol] 16 U/L Normal 14-59 [facility] Comment on above: Performed By: #### U AMIC #### [facility] [address] [address] [address] Quique Ortiz Anion gap [Moles/Vol] 12.1 mmol/L Normal [facility] Comment on above: Performed By: #### U AMIC #### [facility] [address] [address] [address] Quique Ortiz AST [Catalytic activity/Vol] 12 U/L Critically low 15-37 [facility] Comment on above: Performed By: #### U AMIC #### [facility] [address] [address] [address] Quique Ortiz Bilirubin [Mass/Vol] 0.7 mg/dL Normal 0.2-1.0 [facility] Comment on above: Performed By: #### U AMIC #### [facility] [address] [address] [address] Quique Ortiz Calcium [Mass/Vol] 9.0 mg/dL Normal 8.5-10.1 [facility] Comment on above: Performed By: #### U AMIC #### [facility] [address] [address] [address] Quique Ortiz Chloride [Moles/Vol] 101 mmol/L Normal 98-107 [facility] Comment on above: Performed By: #### U AMIC #### [facility] [address] [address] [address] Quique Ortiz CO2 [Moles/Vol] 28.5 mmol/L Normal 21.0-32.0 [facility] Comment on above: Performed By: #### U AMIC #### [facility] [address] [address] [address] Quique Ortiz Creatinine [Mass/Vol] 0.56 mg/dL Normal 0.55-1.02 [facility] Comment on above: Performed By: #### U AMIC #### [facility] [address] [address] [address] Quique Ortiz EGFR-AF QATARI >60 Normal >=60 [facility] Comment on above: Performed By: #### U AMIC #### [facility] [address] [address] [address] Quique Ortiz EGFR-NON AF QATARI >60 Normal >=60 [facility] Comment on above: Performed By: #### U AMIC #### [facility] [address] [address] [address] Quique Ortiz Globulin (S) [Mass/Vol] 3.2 g/dL Normal [facility] Comment on above: Performed By: #### U AMIC #### [facility] [address] [address] [address] Quique Ortiz Glucose [Mass/Vol] 187 mg/dL Critically high 74-106 T [facility] Comment on above: Performed By: #### U AMIC #### [facility] [address] [address] [address] Quique Ortiz Potassium [Moles/Vol] 3.6 mmol/L Normal 3.5-5.1 [facility] Comment on above: Performed By: #### U AMIC #### [facility] [address] [place] [address] Dr. Quique Ortiz Protein [Mass/Vol] 6.3 g/dL Critically low 6.4-8.2 [facility] Comment on above: Performed By: #### U AMIC #### [facility] [address] [place] [address] Dr. Quique Ortiz Sodium [Moles/Vol] 138 mmol/L Normal 136-145 [facility] Comment on above: Performed By: #### U AMIC #### [facility] [address] [place] [address] Dr. Quique Ortiz Urea nitrogen [Mass/Vol] 9.0 mg/dL Normal 7.0-18.0 [facility] Comment on above: Performed By: #### U AMIC #### [facility] [address] [place] [address] Dr. Quique Ortiz Urea nitrogen/Creatinine [Mass ratio] 16.1 mg/mg Normal [facility] Comment on above: Performed By: #### U AMIC #### [facility] [address] [place] [address] Dr. Quique Ortiz BNPon 04-24-2022 Natriuretic peptide B (Bld) [Mass/Vol] 1760.0 pg/mL Critically high <=900.0 [facility] Comment on above: Performed By: #### H STROPN #### [facility] [address] [place] [address] Dr. Quique Ortiz CBC AUTO DIFFon 04-24-2022 BASO # 0.0 103/ul Normal 0.0-0.1 [facility] Comment on above: Performed By: #### H STROPN #### [facility] [address] [place] [address] Dr. Quique Ortiz Basophils/100 WBC (Bld) 0.4 % Normal 0.2-2.0 [facility] Comment on above: Performed By: #### H STROPN #### [facility] [address] [address] [address] Quique Ortiz EO # 0.1 103/ul Normal 0.0-0.7 [facility] Comment on above: Performed By: #### H STROPN #### [facility] [address] [place] [address] Dr. Quique Ortiz Eosinophils/100 WBC (Bld) 2.6 % Normal 0.9-7.0 [facility] Comment on above: Performed By: #### H STROPN #### [facility] [address] [place] [address] Dr. Quique Ortiz Erythrocyte distribution width (RBC) [Ratio] 13.4 % Normal 11.0-15.0 [facility] Comment on above: Performed By: #### H STROPN #### [facility] [address] [place] [address] Dr. Quique Ortiz Hematocrit (Bld) [Volume fraction] 30.3 % Critically low 36.0-48.0 [facility] Comment on above: Performed By: #### H STROPN #### [facility] [address] [place] [address] Dr. Quique Ortiz Hemoglobin (Bld) [Mass/Vol] 10.1 g/dL Critically low 12.0-16.0 [facility] Comment on above: Performed By: #### H STROPN #### [facility] [address] [place] [address] Dr. Quique Ortiz IG # 0.02 10e3/ul Normal 0.00-0.03 [facility] Comment on above: Performed By: #### H STROPN #### [facility] [address] [place] [address] Dr. Quique Ortiz IG % 0.4 % Normal 0.0-0.5 [facility] Comment on above: Performed By: #### H STROPN #### [facility] [address] [place] [address] Dr. Quique Ortiz LYMPH # 1.7 103/ul Normal 1.2-3.8 [facility] Comment on above: Performed By: #### H STROPN #### [facility] [address] [address] [address] Quique Ortiz Lymphocytes/100 WBC (Bld) 33.9 % Normal 20.5-60.0 [facility] Comment on above: Performed By: #### H STROPN #### [facility] [address] [place] [address] Dr. Quique Ortiz MANUAL DIFF REQ NO Normal [facility] Comment on above: Performed By: #### H STROPN #### [facility] [address] [address] [address] Quique Ortiz MCH (RBC) [Entitic mass] 29.4 pg Normal 26.7-34.0 [facility] Comment on above: Performed By: #### H STROPN #### [facility] [address] [place] [address] Dr. Quique Ortiz MCHC (RBC) [Mass/Vol] 33.3 g/dL Normal 29.9-35.2 [facility] Comment on above: Performed By: #### H STROPN #### [facility] [address] [place] [address] Dr. Quique Ortiz MCV (RBC) [Entitic vol] 88.3 fL Normal 81.0-99.0 [facility] Comment on above: Performed By: #### H STROPN #### [facility] [address] [place] [address] Dr. Quique Ortiz MONO # 0.5 103/ul Normal 0.3-0.8 [facility] Comment on above: Performed By: #### H STROPN #### [facility] [address] [place] [address] Dr. Quique Ortiz Monocytes/100 WBC (Bld) 10.5 % Normal 1.7-12.0 [facility] [place] Comment on above: Performed By: #### H STROPN #### [facility] [address] [place] [address] Dr. Quique Ortiz NEUT # 2.6 103/ul Normal 1.4-6.5 [facility] Comment on above: Performed By: #### H STROPN #### [facility] [address] [address] [address] Quique Ortiz Neutrophils/100 WBC (Bld) 52.2 % Normal 43.0-75.0 [facility] [place] Comment on above: Performed By: #### H STROPN #### [facility] [address] [address] [address] Quique Ortiz Platelet mean volume (Bld) [Entitic vol] 9.2 fL Critically low 9.5-13.5 [facility] [place] Comment on above: Performed By: #### H STROPN #### [facility] [address] [address] [address] Quique Ortiz PLT 227 103/ul Normal 150-450 [facility] [place] Comment on above: Performed By: #### H STROPN #### [facility] [address] [address] [address] Quique Ortiz RBC 3.43 106/ul Critically low 4.20-5.[address] [facility] Comment on above: Performed By: #### H STROPN #### [facility] [address] [address] [address] Quique Ortiz WBC 5.0 103/ul Normal 4.0-11.0 [facility] [place] Comment on above: Performed By: #### H STROPN #### [facility] [id number] Quique Ortiz ECHOCARDIO M/2D COMPLETEon 0 04-24-2022 ECHOCARDIO M/2D COMPLETE Patient: KEYANNA STAFFORD Exam Date: 04/24/2022 : 1955 Gender:F Ordering : SVETA ROSAS . Admission #: [id number] Family : PETRONA Gregory GuadalupeLoy SUMNER Order #: [id number] CLICK HERE TO VIEW EXAM ECHOCARDIOGRAM REPORT [...] Villatoro M.D. on 04/24/2022 at 14:35 Normal [facility] [place] POINT OF CARE GLUCOSEon 04-06 Glucose [Mass/Vol] 331 mg/dL Critically high -106 [facility] Comment on above: Performed By: #### P OCGLUC #### [facility] [address] [address] [address] Quique Ortiz Glucose [Mass/Vol] 333 mg/dL Critically high [facility]106 [facility] Comment on above: Performed By: #### P OCGLUC #### [facility] [address] [address] [address] Quique Ortiz Glucose [Mass/Vol] 283 mg/dL Critically high [facility]106 [facility] Comment on above: Performed By: #### C VDTBH #### [facility] [address] [address] [address] Quique Ortiz PROF 14(COMP METB)on 023 Albumin [Mass/Vol] 2.9 g/dL Critically low 3.4-5.0 Th e [facility] Comment on above: Performed By: #### H STROPN #### [facility] [address] [address] [address] Quique Ortiz Albumin/Globulin [Mass ratio] 1.1 {ratio} Normal [facility] [place] Comment on above: Performed By: #### H STROPN #### [facility] [address] [place] [address] Dr. Quique Ortiz ALP [Catalytic activity/Vol] 76 U/L Normal 46-116 [facility] [place] Comment on above: Performed By: #### H STROPN #### [facility] [address] [address] [address] Quique Ortiz ALT [Catalytic activity/Vol] 13 U/L Critically low 14-59 [facility] [place] Comment on above: Performed By: #### H STROPN #### [facility] [address] [place] [address] Dr. Quique Ortiz Anion gap [Moles/Vol] 9.9 mmol/L Normal [facility] [place] Comment on above: Performed By: #### H STROPN #### [facility] [address] [address] [address] Quique Ortiz AST [Catalytic activity/Vol] 14 U/L Critically low 15-37 [facility] [place] Comment on above: Performed By: #### H STROPN #### [facility] [address] [address] [address] Quique Ortiz Bilirubin [Mass/Vol] 0.5 mg/dL Normal 0.2-1.0 [facility] [place] Comment on above: Performed By: #### H STROPN #### [facility] [address] [place] [address] Dr. Quique Ortiz Calcium [Mass/Vol] 8.3 mg/dL Critically low 8.5-10.1 Th [facility] Comment on above: Performed By: #### H STROPN #### [facility] [address] [address] [address] Quique Ortiz Chloride [Moles/Vol] 107 mmol/L Normal 98-107 [facility] [place] Comment on above: Performed By: #### H STROPN #### [facility] [address] [address] [address] Quique Ortiz CO2 [Moles/Vol] 28.5 mmol/L Normal 21.0-32.0 [facility] Comment on above: Performed By: #### H STROPN #### [facility] [address] [address] [address] Quique Ortiz Creatinine [Mass/Vol] 0.54 mg/dL Critically low 0.55-1.02 [facility] [place] Comment on above: Performed By: #### H STROPN #### [facility] [address] [place] [address] Dr. Quique Ortiz EGFR-AF QATARI >60 Normal >=60 [facility] Comment on above: Performed By: #### H STROPN #### [facility] [address] [address] [address] Quique Ortiz EGFR-NON AF QATARI >60 Normal >=60 [facility] [place] Comment on above: Performed By: #### H STROPN #### [facility] [address] [place] [address] Dr. Quique Ortiz Globulin (S) [Mass/Vol] 2.7 g/dL Normal [facility] [place] Comment on above: Performed By: #### H STROPN #### [facility] [address] [place] [address] Dr. Quique Ortiz Glucose [Mass/Vol] 110 mg/dL Critically high 74-106 [facility] Comment on above: Performed By: #### H STROPN #### [facility] [address] [address] [address] Quique Ortiz Potassium [Moles/Vol] 3.4 mmol/L Critically low 3.5-5.1 [facility] [place] Comment on above: Performed By: #### H STROPN #### [facility] [address] [address] [address] Quique Ortiz Protein [Mass/Vol] 5.6 g/dL Critically low 6.4-8.2 Th [facility] Comment on above: Performed By: #### H STROPN #### [facility] [address] [address] [address] Quique Ortiz Sodium [Moles/Vol] 142 mmol/L Normal 136-145 [facility] Comment on above: Performed By: #### H STROPN #### [facility] [address] [place] [address] Dr. Quique Ortiz Urea nitrogen [Mass/Vol] 6.0 mg/dL Critically low 7.0-18.0 [facility] [place] Comment on above: Performed By: #### H STROPN #### [facility] [address] [place] [address] Dr. Quique Ortiz Urea nitrogen/Creatinine [Mass ratio] 11.1 mg/mg Normal [facility] [place] Comment on above: Performed By: #### H STROPN #### [facility] [address] [place] [address] Dr. Quique Ortiz BNPon 04-23-2022 Natriuretic peptide B (Bld) [Mass/Vol] 1898.0 pg/mL Critically high <=900.0 [facility] [place] Comment on above: Performed By: #### U AMIC #### [facility] [address] [place] [address] Dr. Quique Ortiz CARDIAC GORAN ADMITon 023 CK [Catalytic activity/Vol] 113 U/L Normal 26-192 [facility] [place] Comment on above: Performed By: #### U AMIC #### [facility] [address] [place] [address] Dr. Quique Ortiz CK.MB [Mass/Vol] 2.55 ng/mL Normal <=3.60 [facility] Comment on above: Performed By: #### U AMIC #### [facility] [address] [place] [address] Dr. Quique Ortiz HSTROP 11.2 pg/mL Normal 4.0-51.3 [facility] [place] Comment on above: Result Comment: CUT- OFF POINTS HAVE BEEN ESTABLISHED BASED ON THE FOURTH UNIVERSAL DEFINITIONS OF MYOCARDIAL INFARCTION. THE UPPER REFERENCE LIMIT (URL) OF TROPONIN, DEFINED THE 99TH PERCENTILE OF cTnI DISTRIBUTION IN A REFERENCE POPULATION, HAS BEEN CONFIRMED THE DECISION THRESHOLD FOR IA DIAGNOSIS. Performed By: #### U AMIC #### [facility] [address] [place] [address] Dr. Quique Ortiz JAXSON 50 ng/mL Normal 9-82 [facility] Comment on above: Performed By: #### U AMIC #### [facility] [address] [place] [address] Dr. Quique Ortiz CBC AUTO DIFFon 04-23-2022 BASO # 0.0 103/ul Normal 0.0-0.1 [facility] [place] Comment on above: Performed By: #### H STROPN #### [facility] [address] [place] [address] Dr. Quique Ortiz Basophils/100 WBC (Bld) 0.5 % Normal 0.2-2.0 [facility] [place] Comment on above: Performed By: #### H STROPN #### [facility] [address] [place] [address] Dr. Quique Ortiz EO # 0.1 103/ul Normal 0.0-0.7 [facility] [place] Comment on above: Performed By: #### H STROPN #### [facility] [address] [place] [address] Dr. Quique Ortiz Eosinophils/100 WBC (Bld) 1.8 % Normal 0.9-7.0 [facility] [place] Comment on above: Performed By: #### H STROPN #### [facility] [address] [place] [address] Dr. Quique Ortiz Erythrocyte distribution width (RBC) [Ratio] 13.4 % Normal 11.0-15.0 [facility] [place] Comment on above: Performed By: #### H STROPN #### [facility] [address] [place] [address] Dr. Quique Ortiz Hematocrit (Bld) [Volume fraction] 35.9 % Critically low 36.0-48.0 [facility] [place] Comment on above: Performed By: #### H STROPN #### [facility] [address] [place] [address] Dr. Quique Ortiz Hemoglobin (Bld) [Mass/Vol] 11.9 g/dL Critically low 12.0-16.0 [facility] [place] Comment on above: Performed By: #### H STROPN #### [facility] [address] [place] [address] Dr. Quique Ortiz IG # 0.02 10e3/ul Normal 0.00-0.03 [facility] [place] Comment on above: Performed By: #### H STROPN #### [facility] [address] [place] [address] Dr. Quique Ortiz IG % 0.4 % Normal 0.0-0.5 [facility] [place] Comment on above: Performed By: #### H STROPN #### [facility] [address] [place] [address] Dr. Quique Ortiz LYMPH # 1.3 103/ul Normal 1.2-3.8 [facility] [place] Comment on above: Performed By: #### H STROPN #### [facility] [address] [place] [address] Dr. Quique Ortiz Lymphocytes/100 WBC (Bld) 23.5 % Normal 20.5-60.0 [facility] [place] Comment on above: Performed By: #### H STROPN #### [facility] [address] [place] [address] Dr. Quique Ortiz MANUAL DIFF REQ NO Normal [facility] Comment on above: Performed By: #### H STROPN #### [facility] [address] [place] [address] Dr. Quique Ortiz MCH (RBC) [Entitic mass] 29.4 pg Normal 26.7-34.0 [facility] [place] Comment on above: Performed By: #### H STROPN #### [facility] [address] [place] [address] Dr. Quique Ortiz MCHC (RBC) [Mass/Vol] 33.1 g/dL Normal 29.9-35.2 [facility] [place] Comment on above: Performed By: #### H STROPN #### [facility] [address] [place] [address] Dr. Quique Ortiz MCV (RBC) [Entitic vol] 88.6 fL Normal 81.0-99.0 [facility] [place] Comment on above: Performed By: #### H STROPN #### [facility] [address] [place] [address] Dr. Quique Ortiz MONO # 0.5 103/ul Normal 0.3-0.8 [facility] [place] Comment on above: Performed By: #### H STROPN #### [facility] [address] [place] [address] Dr. Quique Ortiz Monocytes/100 WBC (Bld) 8.8 % Normal 1.7-12.0 [facility] [place] Comment on above: Performed By: #### H STROPN #### [facility] [address] [place] [address] Dr. Quique Ortiz NEUT # 3.6 103/ul Normal 1.4-6.5 [facility] [place] Comment on above: Performed By: #### H STROPN #### [facility] [address] [place] [address] Dr. Quique Ortiz Neutrophils/100 WBC (Bld) 65.0 % Normal 43.0-75.0 [facility] [place] Comment on above: Performed By: #### H STROPN #### [facility] [address] [place] [address] Dr. Quique Ortiz Platelet mean volume (Bld) [Entitic vol] 9.4 fL Critically low 9.5-13.5 [facility] [place] Comment on above: Performed By: #### H STROPN #### [facility] [address] [place] [address] Dr. Quique Ortiz PLT 277 103/ul Normal 150-450 [facility] Comment on above: Performed By: #### H STROPN #### [facility] [address] [place] [address] Dr. Quique Ortiz RBC 4.05 106/ul Critically low 4.20-5.40 [facility] Comment on above: Performed By: #### H STROPN #### [facility] [address] [place], [place] [address] Dr. Quique Ortiz WBC 5.6 103/ul Normal 4.0-11.0 [facility] Comment on above: Performed By: #### H STROPN #### [facility] [address] [place], [place] [address] Dr. Quique Ortiz CTA CHEST WO W [...] SHARAN SINGH Date: 2022-04-23 18:04 Normal [facility] Covid-19 PCR (CVDTB)on 04-05 SARS-CoV-2 (COVID-19) RNA ALESIA+probe Ql (Unsp spec) Not detected Normal NOT DETECTED [facility] Comment on above: Result Comment: [...] for this test is supported by the Software Quality Tester of Health and Human Service's declaration that [...] used). Performed By: #### C VDTBH #### [facility] [address] [place] [address] Dr. Quique Ortiz D-DIMERon 04-23-2022 D-DIMER 0.82 mg/L FEU Critically high <=0.59 [facility] Comment on above: Performed By: #### D DIM #### [facility] [address] [place] [address] Dr. Quique Ortiz D-DIMER COMMENTS SEE BELOW Normal [facility] Comment on above: Result Comment: Incr [...] hospitalization. Performed By: #### D DIM #### [facility] [address] [place] [address] Dr. Quique Ortiz POINT OF CARE GLUCOSEon 04-05 Glucose [Mass/Vol] 113 mg/dL Critically high 74-106 [facility] Comment on above: Performed By: #### H STROPN #### [facility] [address] [place] [address] Dr. Quique Ortiz PROF 14(COMP METB)on 03-19-2 023 Albumin [Mass/Vol] 3.5 g/dL Normal 3.4-5.0 [facility] Comment on above: Performed By: #### U AMIC #### [facility] [address] [address] [address] Quique Ortiz Albumin/Globulin [Mass ratio] 1.0 {ratio} Normal [facility] [place] Comment on above: Performed By: #### U AMIC #### [facility] [address] [address] [address] Quique Ortiz ALP [Catalytic activity/Vol] 102 U/L Normal 46-116 [facility] [place] Comment on above: Performed By: #### U AMIC #### [facility] [address] [place] [address] Dr. Quique Ortiz ALT [Catalytic activity/Vol] 17 U/L Normal 14-59 [facility] [place] Comment on above: Performed By: #### U AMIC #### [facility] [address] [place] [address] Dr. Quique Ortiz Anion gap [Moles/Vol] 11.1 mmol/L Normal [facility] [place] Comment on above: Performed By: #### U AMIC #### [facility] [address] [place] [address] Dr. Quique Ortiz AST [Catalytic activity/Vol] 18 U/L Normal 15-37 [facility] [place] Comment on above: Performed By: #### U AMIC #### [facility] [address] [place] [address] Dr. Quique Ortiz Bilirubin [Mass/Vol] 0.7 mg/dL Normal 0.2-1.0 [facility] [place] Comment on above: Performed By: #### U AMIC #### [facility] [address] [address] [address] Quique Ortiz Calcium [Mass/Vol] 9.0 mg/dL Normal 8.5-10.1 [facility] Comment on above: Performed By: #### U AMIC #### [facility] [address] [address] [address] Quique Ortiz Chloride [Moles/Vol] 105 mmol/L Normal 98-107 [facility] Comment on above: Performed By: #### U AMIC #### [facility] [address] [address] [address] Quique Ortiz CO2 [Moles/Vol] 27.6 mmol/L Normal 21.0-32.0 [facility] Comment on above: Performed By: #### U AMIC #### [facility] [address] [address] [address] Quique Ortiz Creatinine [Mass/Vol] 0.57 mg/dL Normal 0.55-1.02 [facility] [place] Comment on above: Performed By: #### U AMIC #### [facility] [address] [address] [address] Quique Ortiz EGFR-AF QATARI >60 Normal >=60 [facility] Comment on above: Performed By: #### U AMIC #### [facility] [address] [address] [address] Quique Ortiz EGFR-NON AF QATARI >60 Normal >=60 [facility] [place] Comment on above: Performed By: #### U AMIC #### [facility] [address] [address] [address] Quique Ortiz Globulin (S) [Mass/Vol] 3.6 g/dL Normal [facility] [place] Comment on above: Performed By: #### U AMIC #### [facility] [address] [address] [address] Quique Ortiz Glucose [Mass/Vol] 135 mg/dL Critically high 74-106 [facility] Comment on above: Performed By: #### U AMIC #### [facility] [address] [address] [address] Quique Ortiz Potassium [Moles/Vol] 3.7 mmol/L Normal 3.5-5.1 [facility] [place] Comment on above: Performed By: #### U AMIC #### [facility] [address] [address] [address] Quique Ortiz Protein [Mass/Vol] 7.1 g/dL Normal 6.4-8.2 [facility] Comment on above: Performed By: #### U AMIC #### [facility] [address] [address] [address] Quique Ortiz Sodium [Moles/Vol] 140 mmol/L Normal 136-145 [facility] Comment on above: Performed By: #### U AMIC #### [facility] [address] [address] [address] Quique Ortiz Urea nitrogen [Mass/Vol] 7.0 mg/dL Normal 7.0-18.0 [facility] [place] Comment on above: Performed By: #### U AMIC #### [facility] [address] [address] [address] Quique Ortiz Urea nitrogen/Creatinine [Mass ratio] 12.3 mg/mg Normal [facility] [place] Comment on above: Performed By: #### U AMIC #### [facility] [address] [place] [address] Dr. Quique Ortiz TROPONIN, HIGH SENSITIVITYon 04-23-2022 HSTROP 10.9 pg/mL Normal 4.0-51.3 [facility] [place] Comment on above: Result Comment: CUT- OFF POINTS HAVE BEEN ESTABLISHED BASED ON THE FOURTH UNIVERSAL DEFINITIONS OF MYOCARDIAL INFARCTION. THE UPPER REFERENCE LIMIT (URL) OF TROPONIN, DEFINED THE 99TH PERCENTILE OF cTnI DISTRIBUTION IN A REFERENCE POPULATION, HAS BEEN CONFIRMED THE DECISION THRESHOLD FOR IA DIAGNOSIS. Performed By: #### H STROPN #### [facility] [address] [place] [address] Dr. Quique Ortiz XR CHEST 1 Von 04-23-2022 XR CHEST 1 V EXAM: XR CHEST 1 V HISTORY: Shortness of breath and chest heaviness. COMPARISON: None. TECHNIQUE: Portable chest FINDINGS: IMPRESSION: Moderate bilateral pleural effusions. No pneumothorax. No focal parenchymal consolidation or infiltrate. Electronically authenticated by: PETRONA SUMNER Date: 2022-04-23 15:45 Normal [facility] [place] CBC AUTO DIFFon 04-11-2022 BASO # 0.0 103/ul Normal 0.0-0.1 [facility] [place] Comment on above: Performed By: #### U AMIC #### [facility] [address] [place] [address] Dr. Quique Ortiz Basophils/100 WBC (Bld) 0.5 % Normal 0.2-2.0 [facility] [place] Comment on above: Performed By: #### U AMIC #### [facility] [address] [place] [address] Dr. Quique Ortiz EO # 0.1 103/ul Normal 0.0-0.7 [facility] Comment on above: Performed By: #### U AMIC #### [facility] [address] [place] [address] Dr. Quique Ortiz Eosinophils/100 WBC (Bld) 1.6 % Normal 0.9-7.0 [facility] [place] Comment on above: Performed By: #### U AMIC #### [facility] [address] [place] [address] Dr. Quique Ortiz Erythrocyte distribution width (RBC) [Ratio] 12.6 % Normal 11.0-15.0 [facility] [place] Comment on above: Performed By: #### U AMIC #### [facility] [address] [place] [address] Dr. Quique Ortiz Hematocrit (Bld) [Volume fraction] 34.3 % Critically low 36.0-48.0 [facility] [place] Comment on above: Performed By: #### U AMIC #### [facility] [address] [place] [address] Dr. Quique Ortiz Hemoglobin (Bld) [Mass/Vol] 11.5 g/dL Critically low 12.0-16.0 [facility] [place] Comment on above: Performed By: #### U AMIC #### [facility] [address] [place] [address] Dr. Quique Ortiz IG # 0.01 10e3/ul Normal 0.00-0.03 [facility] Comment on above: Performed By: #### U AMIC #### [facility] [address] [place] [address] Dr. Quique Ortiz IG % 0.2 % Normal 0.0-0.5 [facility] Comment on above: Performed By: #### U AMIC #### [facility] [address] [place] [address] Dr. Quique Ortiz LYMPH # 1.3 103/ul Normal 1.2-3.8 [facility] Comment on above: Performed By: #### U AMIC #### [facility] [address] [address] [address] Quique Ortiz Lymphocytes/100 WBC (Bld) 24.0 % Normal 20.5-60.0 [facility] [place] Comment on above: Performed By: #### U AMIC #### [facility] [address] [place] [address] Dr. Quique Ortiz MANUAL DIFF REQ NO Normal [facility] Comment on above: Performed By: #### U AMIC #### [facility] [address] [place] [address] Dr. Quique Ortiz MCH (RBC) [Entitic mass] 28.5 pg Normal 26.7-34.0 [facility] [place] Comment on above: Performed By: #### U AMIC #### [facility] [address] [place] [address] Dr. Quique Ortiz MCHC (RBC) [Mass/Vol] 33.5 g/dL Normal 29.9-35.2 [facility] Comment on above: Performed By: #### U AMIC #### [facility] [address] [place] [address] Dr. Quique Ortiz MCV (RBC) [Entitic vol] 85.1 fL Normal 81.0-99.0 [facility] Comment on above: Performed By: #### U AMIC #### [facility] [address] [place] [address] Dr. Quique Ortiz MONO # 0.5 103/ul Normal 0.3-0.8 [facility] Comment on above: Performed By: #### U AMIC #### [facility] [address] [place] [address] Dr. Quique Ortiz Monocytes/100 WBC (Bld) 8.3 % Normal 1.7-12.0 [facility] [place] Comment on above: Performed By: #### U AMIC #### [facility] [address] [place] [address] Dr. Quique Ortiz NEUT # 3.6 103/ul Normal 1.4-6.5 [facility] [place] Comment on above: Performed By: #### U AMIC #### [facility] [address] [address] [address] Quique Ortiz Neutrophils/100 WBC (Bld) 65.4 % Normal 43.0-75.0 [facility] [place] Comment on above: Performed By: #### U AMIC #### [facility] [address] [address] [address] Quique Ortiz Platelet mean volume (Bld) [Entitic vol] 9.0 fL Critically low 9.5-13.5 [facility] [place] Comment on above: Performed By: #### U AMIC #### [facility] [address] [place] [address] Dr. Quique Ortiz PLT 243 103/ul Normal 150-450 [facility] [place] Comment on above: Performed By: #### U AMIC #### [facility] [address] [address] [address] Quique Ortiz RBC 4.03 106/ul Critically low 4.20-5.40 [facility] Comment on above: Performed By: #### U AMIC #### [facility] [address] [address] [address] Quique Ortiz WBC 5.5 103/ul Normal 4.0-11.0 [facility] [place] Comment on above: Performed By: #### U AMIC #### [facility] [address] [place] [address] Dr. Quique Ortiz GLYCOHEMOGLOBIN A1Con 2022 ADA RECOMMENDATION SEE BELOW Normal [facility] Comment on above: Result Comment: ADA RECOMMENDED LIMIT 4.0 - 6.0 ADA THERAPEUTIC TARGET < 7.0 ACTION SUGGESTED > 7.0 Performed By: #### C VDTBH #### [facility] [address] [place] [address] Dr. Quique Ortiz Glucose [Mass/Vol] 292 mg/dL Normal [facility] Comment on above: Performed By: #### C VDTBH #### [facility] [address] [address] [address] Quique Ortiz HbA1c (Bld) [Mass fraction] 11.8 % Critically high 4.5-6.2 [facility] [place] Comment on above: Performed By: #### C VDTBH #### [facility] [address] [address] [address] Quique Ortiz LIPID PROFILEon 04-11-2022 CHOL-HDL RATIO NORM SEE BELOW Normal [facility] Comment on above: Result Comment: 3.3 - 4.4 LOW RISK 4.4 - 7.1 AVERAGE RISK 7.1 - 11.0 MODERATE RISK >11.0 HIGH RISK Performed By: #### L IPID, MG, CMP #### [facility] [address] [address] [address] Quique Ortiz Cholesterol [Mass/Vol] 227 mg/dL Critically high <=200 [facility] [place] Comment on above: Performed By: #### L IPID, MG, CMP #### [facility] [address] [address] [address] Quique Ortiz Cholesterol in HDL [Mass/Vol] 48 mg/dL Normal 40-60 [facility] [place] Comment on above: Performed By: #### L IPID, MG, CMP #### [facility] [address] [address] [address] Quique Ortiz Cholesterol in LDL [Mass/Vol] 149.8 mg/dL Normal [facility] [place] Comment on above: Performed By: #### L IPID, MG, CMP #### [facility] [address] [address] [address] Quique Ortiz Cholesterol.total/C holesterol in HDL [Mass ratio] 4.7 {ratio} Normal [facility] [place] Comment on above: Performed By: #### L IPID, MG, CMP #### [facility] [address] [address] [address] Quique Ortiz HDL NORMAL > or = 60 mg/dl - LO W CARDIOVASCULAR RISK <40 mg/dl - HIGH CARDIOVASCULAR RISK Normal [facility] [place] Comment on above: Performed By: #### L IPID, MG, CMP #### [facility] [address] [address] [address] Quique Ortiz LDL CALC NORMAL SEE BELOW Normal [facility] Comment on above: Result Comment: <100 mg/dl OPTIMAL 100 - 129 mg/dl NEAR OR ABOVE OPTIMAL 130 - 159 mg/dl BORDERLINE HIGH 160 - 189 mg/dl HIGH >190 mg/dl VERY HIGH Performed By: #### L IPID, MG, CMP #### [facility] [address] [address] [address] Quique Ortiz Triglyceride [Mass/Vol] 146 mg/dL Normal <=150 [facility] [place] Comment on above: Performed By: #### L IPID, MG, CMP #### [facility] [address] [address] [address] Quique Ortiz VLDL CALC 29.2 mg/dL Normal [facility] [place] Comment on above: Performed By: #### L IPID, MG, CMP #### [facility] [address] [place] [address] Dr. Quique Ortiz MAGNESIUMon 04-11-2022 Magnesium [Mass/Vol] 2.0 mg/dL Normal 1.8-2.4 [facility] [place] Comment on above: Performed By: #### L IPID, MG, CMP #### [facility] [address] [place] [address] Dr. Quique Ortiz PROF 14(COMP METB)on 023 Albumin [Mass/Vol] 3.4 g/dL Normal 3.4-5.0 [facility] Comment on above: Performed By: #### L IPID, MG, CMP #### [facility] [address] [place] [address] Dr. Quique Ortiz Albumin/Globulin [Mass ratio] 1.0 {ratio} Normal [facility] [place] Comment on above: Performed By: #### L IPID, MG, CMP #### [facility] [address] [place] [address] Dr. Quique Ortiz ALP [Catalytic activity/Vol] 89 U/L Normal 46-116 [facility] [place] Comment on above: Performed By: #### L IPID, MG, CMP #### [facility] [address] [address] [address] Quique Ortiz ALT [Catalytic activity/Vol] 15 U/L Normal 14-59 [facility] [place] Comment on above: Performed By: #### L IPID, MG, CMP #### [facility] [address] [place] [address] Dr. Quique Ortiz Anion gap [Moles/Vol] 10.3 mmol/L Normal [facility] [place] Comment on above: Performed By: #### L IPID, MG, CMP #### [facility] [address] [place] [address] Dr. Quique Ortiz AST [Catalytic activity/Vol] 13 U/L Critically low 15-37 [facility] [place] Comment on above: Performed By: #### L IPID, MG, CMP #### [facility] [address] [place] [address] Dr. Quique Ortiz Bilirubin [Mass/Vol] 0.7 mg/dL Normal 0.2-1.0 [facility] [place] Comment on above: Performed By: #### L IPID, MG, CMP #### [facility] [address] [address] [address] Quique Ortiz Calcium [Mass/Vol] 9.2 mg/dL Normal 8.5-10.1 [facility] Comment on above: Performed By: #### L IPID, MG, CMP #### [facility] [address] [place] [address] Dr. Quique Ortiz Chloride [Moles/Vol] 100 mmol/L Normal 98-107 [facility] Comment on above: Performed By: #### L IPID, MG, CMP #### [facility] [address] [place] [address] Dr. Quique Ortiz CO2 [Moles/Vol] 27.7 mmol/L Normal 21.0-32.0 [facility] Comment on above: Performed By: #### L IPID, MG, CMP #### [facility] [address] [place] [address] Dr. Quique Ortiz Creatinine [Mass/Vol] 0.60 mg/dL Normal 0.55-1.02 [facility] [place] Comment on above: Performed By: #### L IPID, MG, CMP #### [facility] [address] [address] [address] Quique Ortiz EGFR-AF QATARI >60 Normal >=60 [facility] Comment on above: Performed By: #### L IPID, MG, CMP #### [facility] [address] [address] [address] Quique Ortiz EGFR-NON AF QATARI >60 Normal >=60 [facility] [place] Comment on above: Performed By: #### L IPID, MG, CMP #### [facility] [address] [address] [address] Quique Ortiz Globulin (S) [Mass/Vol] 3.5 g/dL Normal [facility] [place] Comment on above: Performed By: #### L IPID, MG, CMP #### [facility] [address] [place] [address] Dr. Quique Ortiz Glucose [Mass/Vol] 340 mg/dL Critically high 74-106 [facility] Comment on above: Performed By: #### L IPID, MG, CMP #### [facility] [address] [address] [address] Quique Ortiz Potassium [Moles/Vol] 4.0 mmol/L Normal 3.5-5.1 [facility] [place] Comment on above: Performed By: #### L IPID, MG, CMP #### [facility] [address] [address] [address] Quique Ortiz Protein [Mass/Vol] 6.9 g/dL Normal 6.4-8.2 [facility] Comment on above: Performed By: #### L IPID, MG, CMP #### [facility] [address] [address] [address] Quique Ortiz Sodium [Moles/Vol] 134 mmol/L Critically low 136-145 [facility] Comment on above: Performed By: #### L IPID, MG, CMP #### [facility] [address] [address] [address] Quique Ortiz Urea nitrogen [Mass/Vol] 10.0 mg/dL Normal 7.0-18.0 [facility] [place] Comment on above: Performed By: #### L IPID, MG, CMP #### [facility] [address] [place] [address] Dr. Quique Ortiz Urea nitrogen/Creatinine [Mass ratio] 16.7 mg/mg Normal [facility] Comment on above: Performed By: #### L IPID, MG, CMP #### [facility] [address] [place] [address] Dr. Quique Ortiz UA RANDOM W/MICROSCOPICon BACTERIA TRACE Abnormal NONE SEEN [facility] [place] Comment on above: Performed By: #### U AMIC #### [facility] [address] [place] [address] Dr. Quique Ortiz Bilirubin Ql (U) Negative Normal NEGATIVE [facility] Comment on above: Performed By: #### U AMIC #### [facility] [address] [place] [address] Dr. Quique Ortiz CAST NONE SEEN Normal NONE SEEN [facility] [place] Comment on above: Performed By: #### U AMIC #### [facility] [address] [place] [address] Dr. Quique Ortiz Clarity (U) CLEAR Normal CLEAR [facility] [place] Comment on above: Performed By: #### U AMIC #### [facility] [address] [place] [address] Dr. Quique Ortiz Color (U) LT. YELLOW Normal YELLOW [facility] Comment on above: Performed By: #### U AMIC #### [facility] [address] [place] [address] Dr. Quique Ortiz Crystals LM Nom (Urine sed) NONE SEEN Normal NONE SEEN [facility] [place] Comment on above: Performed By: #### U AMIC #### [facility] [address] [place] [address] Dr. Quique Ortiz Epithelial cells LM Ql (Urine sed) NONE SEEN Normal NONE SEEN /RARE [facility] Comment on above: Performed By: #### U AMIC #### [facility] [address] [place] [address] Dr. Quique Ortiz Glucose Ql (U) >1000 Abnormal NEGATIVE [facility] Comment on above: Performed By: #### U AMIC #### [facility] [address] [address] [address] Quique Ortiz Hemoglobin Ql (U) SMALL Abnormal NEGATIVE [facility] Comment on above: Performed By: #### U AMIC #### [facility] [address] [address] [address] Quique Ortiz Ketones Ql (U) Negative Normal NEGATIVE [facility] Comment on above: Performed By: #### U AMIC #### [facility] [address] [address] [address] Quique Ortiz LEUKOCYTES Negative Normal NEGATIVE [facility] [place] Comment on above: Performed By: #### U AMIC #### [facility] [address] [place] [address] Dr. Quique Ortiz MUCOUS NONE SEEN Normal NONE SEEN [facility] [place] Comment on above: Performed By: #### U AMIC #### [facility] [address] [address] [address] Quique Ortiz Nitrite Ql (U) Negative Normal NEGATIVE [facility] Comment on above: Performed By: #### U AMIC #### [facility] [address] [address] [address] Quique Ortiz pH (U) 5.5 [pH] Normal 5-9 [facility] [place] Comment on above: Performed By: #### U AMIC #### [facility] [address] [address] [address] Quique Ortiz RBC NONE SEEN Abnormal 0-2 [facility] [place] Comment on above: Performed By: #### U AMIC #### [facility] [address] [address] [address] Quique Ortiz SPEC GRAVITY <=1.005 Abnormal 1.005-<=1.[address] [facility] Comment on above: Performed By: #### U AMIC #### [facility] [address] [place] [address] Dr. Quique Ortiz UA PROTEIN Negative Normal NEGATIVE/ TRACE [facility] Comment on above: Performed By: #### U AMIC #### [facility] [address] [place], [place] [address] Dr. Quique Ortiz Urobilinogen Qn (U) 0.2 {Jv'U}/dL Normal 0.2 - 1. 0 [facility] [place] Comment on above: Performed By: #### U AMIC #### [facility] [address] [place], [place] [address] Dr. Quique Ortiz WBC NONE SEEN Normal NONE SEEN [facility] Comment on above: Performed By: #### U AMIC #### [facility] [address] [place], [place] [address] Dr. Quique Ortiz XR ANKLE ELENA MIN [...] MALLIKA ORTIZ Date: 2022-03-29 10:38 Normal [facility] Coding Summary.on 07-02-2020 Coding Summary. [id number] Gh0b Ww+PGhlYWQ+LM1DJDCtZ74mg KAruM1BA5kNCQ6FKZPHIEHRH L0BZA2vkMJ7GHuqH6FkkmQl RopdqVYwCG15MSj9ERK4mGwo ZBoybB1gsMLsI3y7VjTyQK34 mF78MFdnJEGzIeT7LdQsdmbf bWFy S3caAeBcpNUsHrx+PHRhYmxl IHdpZHRoPScxMDAlJyBzdHls OX2yQe8aWWEmZQFpsUpswRGy OiBj y5wdKVCbDPdjWM6ycUbqP9Oi cLD4HHRif6j6Nx52eLZ+PHRk LYT8oNlwWOrjf383DnGqy3fs IDM3 lWIpPCunOUD1H87yi5V2ICYu KZTjWRN3lWR7mA5viElufprd O7NxkMZlWbF8KBQ3wSSuhY3a bGln ulhhzP0iLmg+F94VQZ8OTHTE LF0KEis5Y7SqNmjluEV+PC90 SAOoKK63qMQbaQRqt7rcpCe5 JzEw OFYsNUC2vXilAYqyj8EmYTRf E33vmIBsn0I5AJLkzCsqxGEl JuGfqGE7tB3jWVynzmlbl5ya dzsn Xcgmu3vcfa58oD72Z75xKNzq PZChQWX2FTYmUCAqpMijie9b nU0cBg1+HOvdb8hgp4ghlEu3 IjIw YWUdspAwtBteJPB4y5LgMm19 L5ZntPfwf8KyVml3ro42sHUf f1X0tJQ3NNwfQDOukM1wVMec ZnQ6 LPTyQaJndG60aBUxTObcAo1a jWokmRfvGJ7uLBFkienrQNZc sS2pPQLtnDQapDnpQN6aWRPx bjtm h978QpEfJGL9FUCthJMiV0Tr eJ3eLyUjEKWfMYBoJ8VldPKd EEjgC791HMaeBxQ3EEUyjrSh Y2Fs QMOfbOhkCeD0y1D9Vb1Ih8Rh rgdzHEC7NNxyPRC2UoV9ZzWi VlY5W5EsArb1DAZqzQiuBZ2j J3Bh QBVrtnjnachesFB8QKFfGKSz jD14dUJzTMyhOo1vi0A5j059 UPJtZHQptQ91Jb8oaHrwOUBx dCBU pL7yxsigj5wrteawPgBaBHXh WUu9YGk2OLRydWqeMwSqODR5 XnS3FOK2kWZayM5nxKsiiidd dG9w Oyc+T98ujZ1aIJQ9SMX9kfft XKFetbPkUH57IA10A6PsQknp dGFibGU+KWWtxiTizWlcMO5t YmFj c7hxo0FjEPfcY6XdORIrARur Hus4NDPaAIR3qCG3cD9xIYGr HPqxv6U8jOZ7B8TkmpRlqy5z b2xs EIMpPWohJ61xhOCjk7Y9WXAu lST6OGIxtCzqZcRqcR80Tnl+ FHLkdAosu2UzPcmck7jkm6bm dGg9 UeTeWZXekuZdbDoeVCT8b2Kr Py20H00yFOhhXPYcVDSmMUSn EOVfvWtedt8igU8mMs8+PGNv bCB3 cWB1dN3vEANpWtZ4PXzkP976 EsQuwZGsDmfhf6kiu9xiaUy5 LrKgXGCoieYxzEuqDLO3o5Cq Lz48 I85rKWeiWGWuWSEyPBNmHFNm wGxsre3bgY6tCa0+TL3tc3va pq87jV76eRN+AZCnPYU6kYyi PSdw XNQxrC4iUPtzGzZ2JWEwQmJl fZ44jSKmMFrjAh7riHpxyGda CQ3tKTTyaqcsg797UiQcv5ry IDEw nTLkDIpbJVT3C16ql8U9EYPc LHTbGSY0aNB7lT5ftTytqtrz bGVmdDsgdmVydGljYWwtYWxp Z246 IHRvcDsnPlBhdGllbnQgTmFt BRc8V5QvRya1EUWbuOvjIO1w oSJjZXysBb5zcFvviQcyHY9e NTBp sdcao387DoVds8jgDEWqyNQq FSrkNEC6H82tk0N1PDSvDBJn QMG5uWJ1bS8udEsrkyocdFCl dDsg mbMslGmuKPcnAHxeV478QJWl wNflPvKbsqQwLYAcjRB0LN28 FN25iJTcz5B8yZA4L0ZmNOPb bmct qaxyoSJ2QXCeCCFkcR67Ct3p wUlcTa0sONSrXQK3NZKqpXWc Y3WygM1rEqKuTVNuGYQmZ1Bz eHQt DTsmV703NOlaQkE2ZVRrfqOq A5IpTFGxrPlpEsG6p3M6Wm1B O8L8GI55WZ07fCXti9L1cZJ6 J3Bh KRQfywnvulrkdTO7XGHnRJAw rZ96Ud6xiLakEi7fOEYwBXB5 UMAfcFZeF2JlfY6qEqHfWOFz MDAw A5VrgITvLRhkK700NOnwPgW6 QIQapyMtR6EnEQSzbPfoWxO9 o7D8La6QOYj6BD31JQ02nASu c3R5 oQV2B4IhOAWeqxenayxcfMD9 VVZpHYEgmH59Ap9dpKwdQw3u FBPpIYP2FLSclLKuI0AwmR3e OiAj SHWpSIPxX4VqyJOoLTflQ235 MQarSvI7KHAfvwMuA0NkZIWc hUjjWrI1z8X4Mc3MQUYeLI70 IFR5 kRV8IZ56BY88D4CoLenkpKHh bGU+PHRhYmxlIHdpZHRoPScx IHAgEpYenFrpYB6qPy1hATRv LWNv gVqewLKbClZzy5sjORBdFGef PV0ezTzqJ7LnrEM1CNHjg5y8 Vf11Y69dO1BfgBT+PGNvbCB3 aWR0 lN2zWfOoMiX5VPkfF641ZoFq nNPjJgnfs8tod9sfzRg7UiQ3 CEZpgnGoeOppBDU3h3FmJb01 Y29s IHdpZHRoPSIxNSUiIHZhbGln lf9sdW1fQj8+IQZedVT0sYH2 nF5rAvKuQcC9QIztR389MrPs cCIv Uryuk7kpz5gupRw8MoQhHLTu abRjtNvjWJH8l8MiCv44O1Hz oCkds0XsFkn3pk07zKLrp8A8 bGU9 R9RqHZQjfhpufWVawRtdIZ7b GMSdfwfiLGRntA7jULSpW9p8 PmIaZdK6FFhtU8BdefZ1YCAy cHQg SIwgYEM3L78of1Y1LYTtPUAa FNW2mST4aR2jrDroldzcmIVw qTshclJwkDrfWFmoSIbmO091 IHRv qAxaMWRflG1eNWInwEEfuJig OL9dNVGsnyxeDaDHZPoqYOCW TFZJQTwvdGQ+TQImZGB1vAra PSdw NGZlcB1fFHTdP8k5PkZjTpI0 HLecT3ZaOYQwzztgTf98pX9p EpMgNlQ0JQuxX6HnxdJ5OIJs cHQg VWfjFNB8K36sh6C0IAMeZTKd WWG1sTU6lO2rmVplbiuifWUs kLyofaUzcCqbBXrqNMgmD176 IHRv kFpuDrRwZaW7DwL6JPM8N4Sv Cbk1OVLisHekJL8pdOPcBQom Jm0brFwldXnzSL0aRMQsptmq YWRk dP8bVRCmuARssAvfVV7nJMAh hnxqa921AsBlFKZ1ITLwlKCn U9DzpS9mVuXlNYEbOTYpE7Qh eHQt WQnpS353COnvDjQ5DCEuyzFk M8SdASTcgKwgDlB5u2P8Tj73 NiBZZWFyczwvdGQ+PHRkIHN0 eWxl SHkkGVHhuO5vDJNeS6o5SrXg AiM3HCobR0WwQXDolfkwVz00 zW1pUlJcAbZ6IZtgY4LhqgN5 IDEw tNEtBFxwRGD6V67jk9M0JAWz RMNnGJS0dVJ9yW6ldZijaxkv bGVmdDsgdmVydGljYWwtYWxp Z246 IHRvcDsnPkZlbWFsZTwvdGQ+ EOXwLEQ0aGwlAIoeEYQfiE4m CIDfS6e8RzLzQhJ1AFuhA3Jc ZGRp bneuQb60aY2iBtUhMbT1HBkg I3GjcmB4SDEmqALfDSrwCCE5 B77nj2R4ORPvFHSwOOV5uCO1 dC1h bGlnbjogbGVmdDsgdmVydGlj OHywZVlkS984FEHfiPehBjVn OOZrRM8xaVrwfGG+PN83sp74 L3Rh HyrvFol4YOMqQKM2dLR8cJ9y MVFoRVkvz1H7wIF2C3QbsbGn ac7av4feOTMxGCcsO83noFWk c2U7 MGAsvPK1QCBynCipRoGhpP06 Oyc+WOUnfNupt4QzWxlid2gw c1vgqEt2LgPbZVFpnqJueXrr PSJ0 a3YnHr61G86uVBqdROWrQOGa IIKrCZBlnFuuiw2mgI9mHs7+ GBVerQM4mWA0rN1tIgUlVkO8 YWxp K814AuDahEDiTcpfn8sul6du uDr2WfGqCWFtjoUhrRdrOTL8 h9LfEy14M0JcvKiiq0AcLko8 cj48 wOZxi7W6nAH1E4TgPJTinlxh iZFagOgiGL9zKCKrkmqyKEYt hB7xSCBgZ9y1LvBzZbV9IEgd O2Zv cjY2NNSquDIvYEYysMKWzC3a xnljc7ekggtpJbDiGQQeBLz4 UQo8BOBjkIdxGjWwOWK5DsB6 ZXJ0 eEAvaO7sgCwfntuszF6uAxk+ BHc7m2dmrOQhDN2ttDP7NF02 SO82qYAcy1U3kXP3Q3YjGZYy bmct tzfpwKX0TXMpYBMgyF11Ll7t sZvrCk7lCWSqMBZ7BFFcqIMl R3TezE3yOqTqPWWuPBEqI1Kr eHQt ZPxmO543GTomKiC7QRHhmsRa Z6DeRNWidUrcDkX6k9V5Ni2O SW83UA16UO01nPHdx0H0mQP6 J3Bh ZIQkxbwrpxtefRK2MRVnZSZb eS18Xq2ldRpwKd9hXHMxIAR6 GNHcpEFaW4UwtD3cUqYyJDVx MDAw R3CrlRHuKSgdY635IVhhIuW4 LILodzDrB2RxARPoyYtnPbG3 f9A3Jp0JNt76UL54TM66jWNe c3R5 bJG8E9YmTHArwbiwqweirHC5 IFMpXGFswL23Do0xaYueLv3p RGYaITV2VYNmdHTfH8NkyV8s OiAj HLKoTXOjU1LfoDDsXZmwG237 WFlvGxW9NPDcfzBdL1MvAUKb lVcuGcC7n3U7Hi4VQYjylsf4 L3Rk PjwvdHI+FB43KHUeZI44jBCm yQYvu4kjzFp7KtEwYMUdBEI3 oKduBDfzh2UpYHGpU92rmHFs c2U6 IGNv (more content not included)... Normal [facility] Consent for Treatmenton 06-06 Consent for Treatment [id number]: 127 [facility] Discharge Instructionson Discharge Instructions [id number] :127 [facility] Discharge Instructions Discharge instructions complete, RR equal and non labored and nurse educated to make follow up and take medication as prescribed. [facility] Comment on above: Result Comment: Elec tronically Signed By: Malorie MONSIVAIS, Don Urbina\.tiffany\Date and Time Signed: 06/28/20 11:39 EDT ED Clinical Summaryon 2020 ED Clinical Summary (Inserted Image. [place] ble to display) [place] [id number] ED Clinical Summary Person Information Name: KEYANNA STAFFORD/[facility] Age: 65 Years : 1955 Sex: Female Language: Syriac PCP: Manohar PARHAM DO Marital Status: Single [...] 06/28/2020 11:46:42 06/28/2020 11:46:42 06/28/2020 11:46:42 ADDRESS: [address] [id number] PHYS DOC NOTES: MEDICAL INFORMATION: Prescriptions Given: New Medications Printed Prescriptions amlodipine (Norvasc 10 mg Tab) 1 Tablets By Mouth every day for 30 Days. Refills: 0. PATIENT EDUCATION INFORMATION: Instructions: Hypertension; DASH Eating Plan Follow up: With: Address: When: Manohar PRASAD [address] [place] [id number] Business (1) In 3 days 07/01/2020 DIAGNOSIS: Hypertension Normal [facility] ED Note-Physicianon 06-29-19 ED Note-Physician Basic [...] days 07/01/2020 EDT [address] [place] [address]- Business (1) Additional Instructions: Patient Education Hypertension [...] Dr. Marques. BORDERLINE ECG Signed By: Waylon Mraques DO 06/28/2020 10:57:50 Normal [facility] Comment on above: Result Comment: Elec [...] Document Reviewed: 11/14/2013 ExitCare? Patient Information ?2014 [employer]. This information is not intended to replace [...] 12 oz (more content not included)... Normal [facility] ED Patient Summaryon 021 ED Patient Summary (Inserted Image. [place] ble to display) [address] [address] Patient Discharge Instructions Person Information Name: KEYANNA STAFFORD Age: 65 Years Arrival Date: 06/28/2020 10:27:51 Discharge Diagnosis: Hypertension Primary Care Physician: Manohar PARHAM DO Provider Information Primary Provider: Waylon Marques DO Advanced Tea Room Manager:None The exam and treatment you received in the Emergency Department were for an urgent problem and are not intended as complete care. It is important that you follow up with a doctor, nurse practitioner, or physician?s therapy assistant for ongoing care. If your symptoms [...] Instructions: With: Address: When: Manohar PARHAM [address] [facility] [address] [place] [id number] Business (1) In 3 days 07/01/2020 In the event that this physician does not participate in your insurance network, please consult with your insurance company to find a nearby participating provider. Patient Education Materials: Hypertension; DASH Eating Plan A MESSAGE TO ALL PATIENTS REGARDING OPIOIDS PRESCRIPTION OPIOIDS: WHAT YOU NEED TO KNOW Prescription opioids can be used to help relieve qzognxax-eq-ioeucw pain and are often prescribed following a [...] be struggling with addiction, tell your health animal care worker and ask for guidance or call [facility]?S National Helpline at [id number]. l Source: [place] Department of Health and (more content not included)... Normal [facility] HAND RIGHT 2 [facility] 8 HAND RIGHT 2 [facility] CenterDepartment of Uuoeroryy[address] [place] [address] ==Patient Name: KEYANNA STAFFORD : 1955Sex: FAge: Race: WhiteMRN: [id number]. 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 Transcribed by: [email or web address], User Resident: Electronically Signed by: SERGIO LAWRENCE @ 01/07/2018 02:05 PM Normal [facility] Comment on above: Order Comment: , , = ========= , Ordering Provider - MANOHAR BONILLA PA-C , Operative Reporton 8 Operative Report MR#: [id number] [facility] Pt. Name: Keyanna Stafford Room [...] Dict: 01/01/2018/09:11 P/Tiffanie Rose Trans: 01/02/2018 05:47 A/Emil_JN:[id number] 9cc: Reese Hodges M.D. [address] [place] [address] Normal [facility] *ANAEROBIC CULTUREon 018 *ANAEROBIC CULTURE Clinical Report: (D) Specimen/Source: TISSUE/INTRAOP SPEC Collected: 12/31/2017 15:35 Status: Final Last Updated: 01/05/2018 08:19 (1) Right Long Finger Soft Tissue ISO (Final) No Anaerobes Isolated 5 Days Normal [facility] Comment on above: Order Comment: Right Long Finger Soft Tissue Performed By: #### 5 8751, 77725 ####[address] [address], [facility] *ANAEROBIC CULTURE Clinical Report: (D) Specimen/Source: TISSUE/INTRAOP SPEC Collected: 12/31/2017 15:34 Status: Final Last Updated: 01/05/2018 08:07 (1) Right Long Finger Distal Phalanx ISO (Final) No Anaerobes Isolated 5 Days Result changed by SERVANDO on 01/05/2018 08:07. The previous result was: ISO (Prelim) Normal [facility] Comment on above: Order Comment: Right Long Finger Distal Phalanx Performed By: #### 3 0312 ####[facility] *FUNGAL CULTUREon 12-31-2017 *FUNGAL CULTURE Clinical Report: (D) Specimen/Source: TISSUE/INTRAOP SPEC Collected: 12/31/2017 15:35 Status: Final Last Updated: 01/08/2018 14:58 (1) Right Long Finger Soft Tissue FS (Final) No Yeast or Fungal Elements Seen ISO (Final) Tisha albicans Normal [facility] Comment on above: Order Comment: Right Long Finger Soft Tissue Performed By: #### 5 6101, [id number] ####[facility] *FUNGAL CULTURE Clinical Report: (D) Specimen/Source: TISSUE/INTRAOP SPEC Collected: 12/31/2017 15:34 Status: Final Last Updated: 01/08/2018 10:00 (1) Right Long Finger Distal Phalanx FS (Final) No Yeast or Fungal Elements Seen ISO (Final) Tisha albicans Normal [facility] Comment on above: Order Comment: Right Long Finger Distal Phalanx Performed By: #### 5 6101, 11389 ####[facility] *TISSUE CULTUREon 12-31-2017 *TISSUE CULTURE Clinical [...] Susceptible VANCOMYCIN (VA) 1 Susceptible Normal [facility] Comment on above: Order Comment: Right Long Finger Soft Tissue Performed By: #### 3 0338 ####[facility] *TISSUE CULTURE Clinical Report: (D) Specimen/Source: [...] Susceptible VANCOMYCIN (VA) 1 Susceptible Normal [facility] Comment on above: Order Comment: Right Long Finger Distal Phalanx Performed By: #### 3 0338 ####[place] [address] [address] APTTon 12-31-2017 aPTT Coag time (Bld) 27.1 s Normal 25.0-35.0 [facility] Comment on above: Result Comment: ALL [...] THIS PURPOSE. Performed By: #### 5 6101, 61832 ####[facility] BASIC METABOLIC PANELon 12-07 Calcium mass conc 9.3 mg/dL Normal 8.6-10.3 [facility] Comment on above: Performed By: #### 0 0071 ####[facility] [facility] [place] [address], [facility] Chloride molar conc 104 mmol/L Normal 98-107 [facility] Comment on above: Performed By: #### 0 0071 ####[facility] [place] [address], [facility] CO2 molar conc 28 mmol/L Normal 21-31 [facility] Comment on above: Performed By: #### 0 0071 ####[facility] [facility] [place] [address], [facility] Creatinine mass conc 0.51 mg/dL Low 0.60-1.20 [facility] Comment on above: Performed By: #### 0 0071 ####[facility] [facility] [place] [address], [place] GFR/1.73 sq M predicted among blacks MDRD vol rate/area (S/P/Bld) mL/min/{1.73_m2} Normal >60 [facility] Comment on above: Performed By: #### 0 0071 ####[facility] [facility] [place] [address], [facility] GFR/1.73 sq M predicted among non-blacks MDRD vol rate/area (S/P/Bld) mL/min/{1.73_m2} Normal >60 [facility] Comment on above: Performed By: #### 0 0071 ####[facility] [facility] [place] [address], [facility] Glucose mass conc 168 mg/dL High 70-100 [facility] Comment on above: Performed By: #### 0 0071 ####[facility] [place] [address], [place] Potassium molar conc 4.2 mmol/L Normal 3.5-5.1 [facility] Comment on above: Performed By: #### 0 0071 ####[facility] Sodium molar conc 141 mmol/L Normal 136-145 [facility] Comment on above: Performed By: #### 0 1 ####[place] [address] [address] Urea nitrogen mass conc 5 mg/dL Low 7-25 [facility] Comment on above: Performed By: #### 0 1 ####[place] [address] [address] CBC W/DIFFon 12-31-2017 ABS BASOPHILS 0.0 10*3/uL Normal 0.0-0.2 [facility] Comment on above: Performed By: #### 5 102 ####[address] ABS IMM GRANS 0.0 10*3/uL Normal 0.0-0.2 [facility] Comment on above: Performed By: #### 5 102 ####[address] ABS NEUTROPHILS 3.3 10*3/uL Normal 1.6-7.6 [facility] Comment on above: Performed By: #### 5 3 ####[place] [address] [address] Basophils Auto #/vol (Bld) 0.4 % Normal 0.0-1.0 [facility] Comment on above: Performed By: #### 5 102 ####[address] Eosinophils Auto #/vol (Bld) 0.1 10*3/uL Normal 0.0-0.5 [facility] Comment on above: Performed By: #### 5 102 ####[facility] [facility].[address] Eosinophils/100 WBC Auto (Bld) 1.1 % Normal 0.0-6.0 [facility] Comment on above: Performed By: #### 5 0103 ####[facility] [facility].[address] Erythrocyte distribution width Auto Ratio (RBC) 13.0 % Normal 11.5-15.0 [facility] Comment on above: Performed By: #### 0103 ####[facility] Hematocrit Auto Volume Fraction (Bld) 39.9 % Normal 36.0-45.0 [facility] Comment on above: Performed By: #### 102 ####[address] Hemoglobin mass conc (Bld) 13.5 g/dL Normal 12.0-15.0 [facility] Comment on above: Performed By: #### 3 ####[address] IMMATURE GRANS 0.4 % Normal 0.0-1.0 [facility] Comment on above: Performed By: #### 3 ####[facility] [facility].[address] Lymphocytes Auto #/vol (Bld) 1.9 10*3/uL Normal 1.2-4.0 [facility] Comment on above: Performed By: #### 5 0103 ####[facility] [place] [address], [facility] Lymphocytes/100 WBC Auto (Bld) 32.9 % Normal 20.0-45.0 [facility] Comment on above: Performed By: #### 5 3 ####[facility] MCH Auto Entitic mass (RBC) 29.2 pg Normal 27.0-33.0 [facility] Comment on above: Performed By: #### 5 0103 ####[facility] MCHC Auto mass conc (RBC) 33.8 g/dL Normal 32.0-35.0 [facility] Comment on above: Performed By: #### 5 0103 ####[facility] MCV Auto Entitic volume (RBC) 86.4 fL Normal 82.0-98.0 [facility] Comment on above: Performed By: #### 5 0103 ####[address] Monocytes Auto #/vol (Bld) 0.4 10*3/uL Normal 0.1-1.0 [facility] Comment on above: Performed By: #### 0103 ####[place] [address] [address] MONOS 7.4 % Normal 5.0-12.0 [facility] Comment on above: Performed By: #### 5 0103 ####[place] [address] [address] Neutrophils/100 WBC Auto (Bld) 57.8 % Normal 40.0-72.0 [facility] Comment on above: Performed By: #### 3 ####[place] [address] [address] Nucleated RBC/100 WBC Ratio (Bld) 0 % Normal 0-0 [facility] Comment on above: Performed By: #### 3 ####[place] [address] [address] PLAT CNT 226 10*3/uL Normal 150-400 [facility] Comment on above: Performed By: #### 5 0103 ####[address] RBC Auto #/vol (Bld) 4.62 10*6/uL Normal 3.80-5.00 [facility] Comment on above: Performed By: #### 5 0103 ####[address] WBC Auto #/vol (Bld) 5.71 10*3/uL Normal 4.00-10.60 [facility] Comment on above: Performed By: #### 5 0103 ####[address] FINGER RIGHT MIN 2 VWSon FINGER RIGHT MIN 2 VWS [facility] Botrjbnuy[address] [place], [place] [address] ==Patient Name: KEYANNA STAFFORD : 1955Sex: FAge: Race: WhiteMRN: [id number]. Location: OUTPPatient Status: OVisit #: [id number] Date: 12/31/2017 3:35:00 PMCompleted Date: 12/31/2017 03:48 PMRequesting Provider: STUART VO Attending Provider: STUART VO Report Copy To: Signs & Symptoms: crpp right fingerHistory: Comments: crpp right fingerExam: FINGER RIGHT MIN 2 VWSAccession #: [id number] =========FINGER RIGHT MIN 2 VWS 12/31/2017 3:48 [...] documentation Electronically signed by:Abdirizak Herrera. Transcribed by: [email or web address], User Resident: Electronically Signed by: ABDIRIZAK HERRERA @ 2018 08:05 AM Normal [facility] Comment on above: Order Comment: crpp right finger POC GLUCOSE LABon 12-31-2017 Glucose mass conc 141 mg/dL High 70-100 [facility] Comment on above: Performed By: #### 8 5499 ####[facility] Glucose mass conc 152 mg/dL High 70-100 [facility] Comment on above: Performed By: #### 8 5499 ####[facility] PROTHROMBIN TIMEon 8 INR Coag RelTime (PPP) 0.90 {INR} Low 0.91-1.16 [facility] Comment on above: Result Comment: ACCC P RECOMMENDED INR FOR WARFARIN THERAPY CONDITION INRPROPHYLAXIS OF VENOUS THROMBOSIS 2-3(HIGH-RISK SURGERY)TREATMENT OF VENOUS THROMBOSIS 2-3TREATMENT OF PULMONARY EMBOLISM 2-3PREVENTION OF SYSTEMIC EMBOLISM: 2-3 ACUTE MYOCARDIAL INFARCTION TISSUE HEART VALVES VALVULAR HEART DISEASE ATRIAL FIBRILLATION RECURRENT SYSTEMIC EMBOLISMMECHANICAL HEART VALVE 2.5-3.5 FROM: ORAL ANTICOAGULANTS. MECHANISM OF ACTION, CLINICALEFFECTIVENESS, AND OPTIMAL THERAPEUTIC RANGE. [id number];108:231S-246S. Performed By: #### 5 6101, 35288 ####[facility] [facility].[address] Prothrombin time (PT) Coag time (PPP) 12.1 s Low 12.3-14.8 [facility] Comment on above: Result Comment: ALL RESULTS MUST BE INTERPRETED WITH RESPECT TO BLOOD DRAWING ARTIFACTOR DILUTION ERROR OF ANTICOAGULANT AT THE TIME OF SAMPLING. Performed By: #### 5 6101, 33633 ####[facility] Encounters Encounter Date Encounter Type Care Provider Facility Start: 04-22-2024 End: 04-22-2024 ambulatory [facility] Start: 11-01-2023 End: 11-01-2023 ambulatory [facility] Start: 10-24-2023 End: 10-24-2023 ambulatory [facility] Start: 09-21-2023 End: 09-21-2023 ambulatory [facility] Start: 09-04-2023 End: 09-04-2023 ambulatory [facility] Start: 06-12-2022 End: 06-13-2022 ambulatory URBANO GARCIA Facility:[facility] Start: 06-02-2022 End: 06-03-2022 ambulatory URBANO GARCIA Facility:[facility] Start: 04-23-2022 End: 04-25-2022 Evaluation and management of inpatient MARIANN SUAD Facility:[facility] Start: 04-11-2022 End: 04-12-2022 ambulatory MANAGER LANGUAGE SAMI ELLIOTTSWEETIEArmando Facility:[facility] Start: 03-28-2022 End: 03-29-[address] REESE HODGES Facility:[facility] Start: 01-07-2018 End: 01-08-2018 Patient encounter procedure MANOHAR BONILLA Facility:[facility] Start: 12-31-2017 Encounter for other specified special examinations STUART EBRAHEIM [facility] Start: 12-31-2017 End: 2018 Patient encounter procedure STUART EBRAHEIM Facility:[facility] Encounter for other specified special examinations STUART EBRAHEIM [facility] Procedures Date Procedure Procedure Detail Performing Clinician Start: 09-21-2023 Follow-up visit Follow-up BALA HENAO Start: 12-31-2017 AMPUTATION OF FINGER/THUMB STUART BELTRANHEIM Start: 12-31-2017 ANESTH LOWER ARM SURGERY LIZZETTE BURGESS Payers Date Payer Category Payer Unknown [id number] 1955 Unknown [id number] 2.16.8 [id number] 1955 Unknown [id number] 2.16.8 [id number] 1955 Unknown [id number] 2.16.8 [id number] 1955 Unknown [id number] 2.16.84 [id number] 1955 Unknown [id number] 2.16.84 [id number] 1955 Unknown [id number] 2.16.84 [id number] 1955 Unknown [id number] 2.16.84 [id number] 1955 Unknown [id number] 2.16.84 [id number] Unknown [id number] Progress note 04-22-2024 Note Date & Type Note Facility 04-22-2024 Note Cardiovascular Medic [facility] SUBJECTIVE Chief Complaint Patient presents with Congestive Heart Failure Hypertension Keyanna Stafford is a 69 y.o. female here for follow-up. Her sister Ana Paula accompanied her today. HPI PMHx: DM type II, (hx of noncompliance), HTN, HLD, HFpEF 04/22/2024 When I last saw her, she was scheduled to proceed with a coronary angiogram. However, her labs showed significantly elevated blood sugars and her procedure was post poned. She has not yet had it done. She has NI. She also c/o fatigue. Her leg swelling has been improved since last seen. Denies CP, orthopnea, PND, palpitations, syncope. She c/o leg pain - occurs when she walks. 11/01/2023 She is down about 5#. She states she noted weight loss within one day. Her NI and leg swelling are better but still notable. Ordered for [facility] after last visit - this was not [...] List Diagnosis Gangrene of finger ([facility]/HCC) Proliferative diabetic retinopathy of both eyes with macular edema associated with type 2 diabetes mellitus ([facility]/HCC) Polyneuropathy due to type 2 diabetes mellitus ([facility]/HCC) Pain in left foot Nuclear senile cataract Noncompliance with treatment Mild nonproliferative diabetic retinopathy associated with type 2 diabetes mellitus ([facility]/HCC) Hypothyroidism Hyperglycemia due to type 2 diabetes mellitus ([facility]/HCC) Hypercholesterolemia Finger clubbing Essential hypertension Diabetes mellitus without complication ([facility]/HCC) CVA (cerebral vascular accident) ([facility]/HCC) Borderline glaucoma Pseudophakia Scleroderma ([facility]/HCC) Acute on chronic combined systolic and diastolic heart failure ([facility]/HCC) Shortness of breath Past Medical History: Diagnosis Date Abnormal ECG CHF (congestive heart failure) ([facility]/HCC) Diabetes mellitus ([facility]) Hyperlipidemia Hypertension Family History Problem Relation Name Age of Onset Hypertension Mother Diabetes Mother Social History Tobacco Use Smoking status: Never Smokeless tobacco: Never Substance Use Topics Alcohol use: Not Currently Drug use: Never Allergies Allergen Reactions Succinylcholine ROS Constitutional: Positive for weight loss (6# since Oct 2023). HENT: Positive for congestion. Cardiovascular: Positive for dyspnea on exertion and leg swelling. Respiratory: Positive for cough (improving) and shortness of breath. Musculoskeletal: Positive for arthritis, back pain and joint pain. Neurological: Positive for dizziness and light-headedness. All other systems reviewed and are negative. OBJECTIVE Visit Vitals BP 106/74 (BP Location: Left arm, Patient Position: Sitting) Pulse 83 Ht 1.499 m (4' 11 ) Wt 57.2 kg (126 lb) SpO2 95% BMI 25.45 kg/m??? Smoking Status Never BSA 1.54 m??? Medications: Current Outpatient Medications: Levemir FlexTouch U100 Insulin 100 unit/mL (3 mL) pen, Inject 30 Units under the skin two times daily., Disp: , Rfl: carvedilol (Coreg) 25 mg tablet, Take 1 tablet (25 mg) by mouth with breakfast and with evening meal., Disp: 180 tablet, Rfl: 3 dapagliflozin propanediol (Farxiga) 10 mg, Take 1 tablet (10 mg) by mouth in the morning., Disp: 90 tablet, Rfl: 3 furosemide (Lasix) 40 mg tablet, 80mg in the AM, 40mg in the PM, Disp: 240 tablet, Rfl: 1 losartan (Cozaar) 50 mg tablet, Take 1 tablet (50 mg) by (more content not included)... [facility] Progress note 04-22-2024 Note Date & Type Note Facility 04-22-2024 Note Patient here for 6 m o follow up and to re-discuss need for heart cath. Says she's not really having chest pain. Says her breathing is normal for her. Review of Systems Constitutional: Positive for weight loss (6# since Oct 2023). HENT: Positive for congestion. Cardiovascular: Positive for dyspnea on exertion and leg swelling. Respiratory: Positive for cough (improving) and shortness of breath. Musculoskeletal: Positive for arthritis, back pain and joint pain. Neurological: Positive for dizziness and light-headedness. All other systems reviewed and are negative. [facility] Progress note 11-01-2023 Note Date & Type Note Facility 11-01-2023 Note [facility]ovascular [facility] SUBJECTIVE No chief complaint [...] accident) (CMS/HCC) Borderline glaucoma Pseudophakia Scleroderma (CMS/HCC) Acute on chronic combined systolic and diastolic heart failure (CMS/HCC) Shortness of breath Past Medical History: Diagnosis [...] carotid bruit. Comments: (more content not included)... [facility] Progress note 11-01-2023 Note Date & Type Note Facility 11-01-2023 Note Patient here for 1 w wilton follow up HFrEF. Farxiga was added at [...] for cough (improving). Neurological: Positive for light-headedness. [facility] Progress note 10-24-2023 Note Date & Type Note Facility 10-24-2023 Note Cardiovascular Medic [facility] SUBJECTIVE No chief complaint on file. [...] clubbing Essential hypertension Diabetes mellitus without complication ([facility]/HCC) CVA (cerebral vascular accident) ([facility]/HCC) Borderline glaucoma Pseudophakia Scleroderma ([facility]/HCC) Past Medical History: Diagnosis Date CHF (congestive heart failure) ([facility]/HCC) Diabetes mellitus ([facility]) Hyperlipidemia Hypertension Family History Problem Relation Name [...] back: Neck supple. (more content not included)... [facility] Progress note 10-24-2023 Note Date & [...] All other systems reviewed and are negative. [facility] Progress note 09-21-2023 Note Date & Type Note Facility 09-21-2023 Note Cardiovascular Medic [facility] SUBJECTIVE Chief Complaint Patient [...] spirinolactone 25 mg (more content not included)... [facility] Progress note 09-04-2023 Note Date & Type Note Facility 09-04-2023 Note Cardiovascular Medic [facility] SUBJECTIVE Chief Complaint Patient [...] heart failure) (CMS/HCC) Diabetes mellitus ([facility]/HCC) Hyperlipidemia Hypertension Family History Problem Relation Name [...] leg: Edema pr (more content not included)... [facility] Progress note 09-04-2023 Note Date & [...] All other systems reviewed and are negative. [facility] Summary Purpose Family History No Family History Records FoundNo Family History Records FoundNo Family History Records FoundNo Family History Records Found Advance Directives No Advanced Directives Records FoundNo Advanced Directives Records FoundNo Advanced Directives Records FoundNo Advanced Directives Records Found Additional Source Comments INFORMATION SOURCE (unrecogn ized section and content) DATE CREATED AUTHOR 01/14/2018 [facility] DATE CREATED AUTHOR AUTHOR'S ORGANIZ ATION 07/05/2020 [facility] DATE CREATED AUTHOR AUTHOR'S ORGANIZ ATION 06/16/2022 [facility] DATE CREATED AUTHOR AUTHOR'S ORGANIZ ATION 04/25/2024 [facility] FOR RECORDS PERTAINING TO PATIENTS WHO [...] BE BASED ON THE PRIMARY CLINICAL RECORDS. [facility] [employer] [facility]. provides no warranty or guarantee of the accuracy or completeness of information in this document.
--- NOTE | 2024-05-06 16:31 | ECG_ITS ---
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 Measurements Intervals [place] Rate: 76 P: 63 NH: 168 QRS: -2 QRSD: 92 T: 19 QT: 406 QTc: 437 Interpretive Statements 1100 Sinus rhythm [address] depression, possible subendocardial injury 4564 Twave abnormality, possible lateral ischemia 5233 Voltage criteria for LVH 9150 abnormal ECG Possible ischemia now present Left ventricular hypertrophy now present ST (T wave) deviation still present Electronically Signed On 05-06-2024 20:23:10 EDT by LUCIANA DIAZ M.D.
--- NOTE | 2024-05-06 16:59 | PC.NURSE ---
glucose monitor reads HI in triage
[2024-05-06 17:20] LABS: Hematocrit 28.5 % (36.0-48.0); Hemoglobin 9.6 g/dL (12.0-16.0); Mean Corpuscular HGB Conc 33.7 g/dL (29.9-35.2); Mean Corpuscular Hemoglobin 29.3 pg (26.7-34.0); Mean Corpuscular Volume 86.9 fL (81.0-99.0); Mean Platelet Volume 10.5 fL (9.5-13.5); Platelet Count 228 10^3/uL (150-450); Red Blood Count 3.28 10^6/uL (4.20-5.40); Red Cell Distribution Width 12.6 % (11.0-15.0); White Blood Count 14.7 10^3/uL (4.0-11.0)
[2024-05-06 17:22] LABS: PCO2 VBG 33.8 mmHg (40.0-52.0); pH VBG 7.325 (7.330-7.430)
[2024-05-06 17:32] LABS: Acetone SMALL (NEGATIVE); Erythrocyte Sedimentation Rate >130 mm/hr (<=30); INR 1.15
[2024-05-06 17:43] LABS: Alanine Aminotransferase 22 U/L (14-59); Albumin Globulin Ratio 0.6; Albumin Level 2.8 g/dL (3.4-5.0); Alkaline Phosphatase 144 U/L (46-116); Anion Gap 23.9; Aspartate Amino Transferase 18 U/L (15-37); BUN Creatinine Ratio 27.3; C Reactive Protein 31.18 mg/dL (<=0.50); Calcium 9.4 mg/dL (8.5-10.1); Carbon Dioxide 17.6 mmol/L (21.0-32.0); Chloride 88 mmol/L (98-107); Estimated GFR (African America 40 (>=60 mL/min/1.73m^2); Estimated GFR (Non-African Ame 33 (>=60 mL/min/1.73m^2); Globulin 4.7 g/dL; Magnesium 2.5 mg/dL (1.8-2.4); Potassium 5.5 mmol/L (3.5-5.1); Total Protein 7.5 g/dL (6.4-8.2)
[2024-05-06] MEDS: 0.9 % SODIUM CHLORIDE 1,000 ML 999 ML IV (17:43)
[2024-05-06 17:45] LABS: Band Neutrophils Absolute 0.3 10^3/uL (0.0-0.3); Lymphocytes Absolute Manual 0.44 10^3/uL (1.20-3.80); Monocytes Absolute Manual 0.44 10^3/uL (0.30-0.80); Segmented Neut Absolute Manual 13.52 10^3/uL (1.4-6.5)
[2024-05-06 17:49] LABS: Glucose 603 mg/dL (74-106); Lactate/Lactic Acid 2.2 mmol/L (0.4-2.0); Sodium 124 mmol/L (136-145); Troponin I High Sensitivity 328.2 pg/mL (4.0-51.3)
--- NOTE | 2024-05-06 18:07 | ED_ITS ---
HPI HPI - General Adult General Chief complaint: Extremity Problem, Nontraumatic Stated complaint: Rt Foot LUMP Time Seen by Provider: 05/06/24 16:30 Source: patient Mode of arrival: Wheelchair History of Present Illness HPI narrative: Patient is a 69-year-old female with history of insulin-dependent diabetes who presents to the emergency department for swelling, pain and infection of the right great toe. Patient is a very poor historian with a longstanding history of medication noncompliance and poor blood sugar control. She states that she believes for the last several days her overgrown toenail caused her to have swelling and infection. Her sister at bedside states this has been ongoing for several weeks. Patient denies fevers, chills, vomiting. She has no idea how her blood sugars have been running, she does not take her blood sugar at home or her diabetic medications. She states she has been feeling dizzy, no chest pain or shortness of breath. She denies any pain to the toe. Related Data Home Medications ?Medication ?Instructions ?Recorded ?Confirmed insulin detemir U-100 100 unit/mL 40 unit subcut BID 09/04/23 02/20/24 (3 mL) subcutaneous pen (Levemir FlexPen) dapagliflozin propanediol 5 mg 5 mg PO DAILY 02/20/24 02/20/24 tablet (Farxiga) spironolactone 25 mg tablet 25 mg PO DAILY 02/20/24 02/20/24 Previous Rx's ?Medication ?Instructions ?Recorded carvedilol 12.5 mg tablet (Coreg) 12.5 mg PO BID #60 tabs 09/07/23 furosemide 40 mg tablet 40 mg PO BID #0 tabs 09/07/23 losartan 50 mg tablet 50 mg PO DAILY #30 tabs 09/07/23 cephalexin 500 mg capsule 500 mg PO BID 7 days #14 caps 02/21/24 Allergies Allergy/AdvReac Type Severity Reaction Status Date / Time No Known Drug Allergies Allergy Verified 02/20/24 16:26 Opioid HPI Opioid Management Most Recent Opioid Data: Last Pain Scale 6 02/21/24 14:00 02/21/24 Last ORT Total Score 0 02/20/24 18:37 02/20/24 Last ORT Risk Category Low Risk 02/20/24 18:37 02/20/24 Review of Systems ROS Constitutional Denies: fever or chills Ears, nose, mouth, and throat Denies: throat pain or nasal congestion Cardiovascular Denies: chest pain Respiratory Denies: shortness of breath Gastrointestinal Denies: nausea or vomiting Musculoskeletal Denies: back pain Integumentary/Breast Reports: skin swelling; Denies: rash or skin pain Neurological Reports: dizziness; Denies: numbness in extremities or weakness in extremities Hematologic/Lymphatic Denies: easy bruising or easy bleeding PFSH PFS Medical History (Updated 05/06/24 @ 19:08 by RUEL Davis) Non compliance w medication regimen ?Z91.148 - Patient's other noncompliance with medication regimen for other reason (ICD-10) Acute on chronic combined systolic (congestive) and diastolic (congestive) heart failure ?I50.43 - Acute on chronic combined systolic (congestive) and diastolic (congestive) heart failure (ICD-10) CHF (congestive heart failure) ?I50.9 - Heart failure, unspecified (ICD-10) HTN (hypertension) ?I10 - Essential (primary) hypertension (ICD-10) HLD (hyperlipidemia) ?E78.5 - Hyperlipidemia, unspecified (ICD-10) Type 2 diabetes mellitus ?E11.9 - Type 2 diabetes mellitus without complications (ICD-10) Surgical History History of amputation of finger ?Z89.029 - Acquired absence of unspecified finger(s) (ICD-10) History of knee surgery ?Z98.890 - Other specified postprocedural states (ICD-10) Hx of tonsillectomy ?Z90.89 - Acquired absence of other organs (ICD-10) Family History Grandmother Family history of stroke Family history of diabetes mellitus Mother Family history of diabetes mellitus Father Family history of diabetes mellitus Brother Family history of diabetes mellitus Aunt Family history of cancer Uncle Family history of cancer Social History Within the past year, how often did you have a drink containing alcohol: never Within the past year, how often did you have six or more drinks on one occasion: never Score interpretation: A score less than 3 is consistent with normal alcohol consumption. Smoking status: Never smoker Non-prescribed substance use: denies use Highest level of school completed/degree received: high school graduate Little interest or pleasure in doing things: not at all Feeling down, depressed, or hopeless: not at all Gender Identity: female Exam Narrative Exam Narrative: Gen.: Awake, alert, in no distress Head: Normocephalic, atraumatic ENT: Moist mucous membranes Respiratory: No respiratory distress, lungs clear bilaterally Cardio: Regular rate and rhythm Extremities: Moves extremities equally, right great toe is edematous, dorsum appears partially necrotic with no bony exposure or visible abscess. No drainage. Red streaking extending to the dorsum of the right foot. Mild erythema noted on the plantar aspect of the distal foot. Psych: Normal mood and affect Neuro: No focal neuro deficit Skin: Warm, dry Constitutional Vital Signs, click to edit/add: Last Vital Signs Temp 98.4 F 05/06/24 16:18 Pulse 71 05/06/24 16:18 Resp 16 05/06/24 16:18 BP 128/94 H 05/06/24 16:18 Pulse Ox 100 05/06/24 16:18 Course Vital Signs Vital signs: Vital Signs Temperature 98.4 F 05/06/24 16:18 Pulse Rate 71 05/06/24 16:18 Respiratory Rate 16 05/06/24 16:18 Blood Pressure 128/94 H 05/06/24 16:18 Pulse Oximetry 100 05/06/24 16:18 Temperature 98.4 F 05/06/24 16:18 Pulse Rate 71 05/06/24 16:18 Respiratory Rate 16 05/06/24 16:18 Blood Pressure 128/94 H 05/06/24 16:18 Pulse Oximetry 100 05/06/24 16:18 Medical Decision Making [facility] Narrative Medical decision making narrative: Upon arrival patient was noted to have glucometer reading high, DKA workup was initiated and she was given a liter of IV fluids. X-rays of the chest and foot were obtained showing question of possible osteomyelitis with no evidence of gas or abscess. Zosyn and vancomycin were initiated. Labs show the patient has leukocytosis with elevated lactic acid, elevated blood sugar and electrolytes reflecting hyperglycemia. She was started on an insulin drip as her venous pH is low and she has small acetone. Insulin drip started at 3 units/h. Patient was also noted to have EKG changes showing worsening ST depression and she has significantly elevated troponin. On reevaluation by attending physician, patient's sister states she is due to have heart cath on May 16 at [facility] so they preferred to be transferred to this facility. Patient was started on a heparin drip, given aspirin. She has 3 peripheral IVs. 184: Patient was accepted by [facility] for hospitalist service to Dr. Billy. She is stable at this time with unremarkable vital signs. She had no complaints of chest pain in the ER. She did not require any pain medication or Zofran. Critical care time 45 minutes SHARED APC VISIT, PHYSICIAN ATTESTATION: [id number] I performed a substantive part of the MDM during the patient?s E/M visit. I personally evaluated and examined the patient. I personally made or approved the documented management plan and acknowledge its risk of complications. Medical Records Medical records reviewed: Yes I reviewed the patient's medical records Lab Data Lab results reviewed: Yes I reviewed the patient's lab results Labs: Lab Results 05/06/24 Range/Units 17:05 WBC 14.7 H (4.0-11.0) 10^3/uL RBC 3.28 L (4.20-5.40) 10^6/uL Hgb 9.6 L (12.0-16.0) g/dL Hct 28.5 L (36.0-48.0) % MCV 86.9 (81.0-99.0) fL MCH 29.3 (26.7-34.0) pg MCHC 33.7 (29.9-35.2) g/dL RDW 12.6 (11.0-15.0) % Plt Count 228 (150-450) 10^3/uL MPV 10.5 (9.5-13.5) fL Seg Neuts % (Manual) 92.0 H (43.0-75.0) Band Neutrophils % 2.0 (0-5) % Lymphocytes % (Manual) 3.0 L (20.5-60.0) % Monocytes % (Manual) 3.0 (1.7-12.0) % Eosinophils % (Manual) 0.0 L (0.9-7.0) % Basophils % (Manual) 0.0 L (0.2-2.0) % Neutrophils # (Manual) 13.52 H (1.4-6.5) 10^3/uL Band Neutrophils # 0.3 (0.0-0.3) 10^3/uL Lymphocytes # (Manual) 0.44 L (1.20-3.80) 10^3/uL Monocytes # (Manual) 0.44 (0.30-0.80) 10^3/uL Eosinophils # (Manual) 0.00 (0.00-0.70) 10^3/uL Basophils # (Manual) 0.00 (0.00-0.10) 10^3/uL ESR >130 H (<=30) mm/hr PT 12.0 H (9.0-11.6) sec INR 1.15 VBG pH 7.325 L (7.330-7.430) VBG pCO2 33.8 L (40.0-52.0) mmHg Sodium 124 L* (136-145) mmol/L Potassium 5.5 H (3.5-5.1) mmol/L Chloride 88 L (98-107) mmol/L Carbon Dioxide 17.6 L (21.0-32.0) mmol/L Anion Gap 23.9 BUN 42.0 H (7.0-18.0) mg/dL Creatinine 1.54 H (0.55-1.02) mg/dL Est GFR ( Amer) 40 L (>=60 mL/min/1.73m^2) Est GFR (Non-Af Amer) 33 L (>=60 mL/min/1.73m^2) BUN/Creatinine Ratio 27.3 Glucose 603 H* (74-106) mg/dL Lactate 2.2 H* (0.4-2.0) mmol/L Calcium 9.4 (8.5-10.1) mg/dL Magnesium 2.5 H (1.8-2.4) mg/dL Total Bilirubin 1.0 (0.2-1.0) mg/dL AST 18 (15-37) U/L ALT 22 (14-59) U/L Alkaline Phosphatase 144 H (46-116) U/L Troponin I High Sens 328.2 H* (4.0-51.3) pg/mL C-Reactive Protein 31.18 H (<=0.50) mg/dL Total Protein 7.5 (6.4-8.2) g/dL Albumin 2.8 L (3.4-5.0) g/dL Globulin 4.7 g/dL Albumin/Globulin Ratio 0.6 Lipase 14.0 L (16.0-77.0) U/L Acetone, Qual Small A (NEGATIVE) Imaging Data Chest x-ray: Attestation: I have reviewed the pertinent imaging results. ECG Data Attestation: I personally reviewed and interpreted this ECG as follows: (Normal sinus rhythm at a rate of 76, ST depression noted in the lateral leads with T wave inversion in lead III. No acute ST elevation or ectopy. EKG reviewed by attending physician. Compared to EKG 09/04/2023, ST depression has deepened.) Critical Care Time Critical Care Time Critical Care Time: Yes Total Critical Care Time: 45 Attestation: 45 minutes of critical care time for assessment of DKA, treatment with insulin drip, evaluation for non-STEMI and treatment with heparin Discharge Plan Discharge Chief Complaint: Extremity Problem, Nontraumatic Clinical Impression: Non-ST elevated myocardial infarction (non-STEMI), DKA (diabetic ketoacidosis), Cellulitis of right foot, Hyperglycemia, Medically noncompliant Patient Disposition: [facility] Time of Disposition Decision: 19:08 Discharge Location: [facility] Condition: Fair Mode of Transportation: EMS Prescriptions / Home Meds: No Action Levemir FlexPen 100 unit/mL (3 mL) insulin pen 40 unit SUBCUT BID carvedilol [Coreg] 12.5 mg tablet 12.5 mg PO BID Qty: 60 0RF Rx Instructions: must administer with a meal/food losartan 50 mg tablet 50 mg PO DAILY Qty: 30 0RF furosemide 40 mg tablet 40 mg PO BID Qty: 0 0RF spironolactone 25 mg tablet 25 mg PO DAILY dapagliflozin propanediol [Farxiga] 5 mg tablet 5 mg PO DAILY cephalexin 500 mg capsule 500 mg PO BID 7 Days Qty: 14 0RF Print Language: [place] Citizen Referrals: MISTY MCBRIDE [Primary Care Provider] - 1 week
[2024-05-06] MEDS: PIPERACILLIN SODIUM/TAZOBACTAM 4.5 GM in 0.9 % SODIUM CHLORIDE 50 ML IV (18:45)
[2024-05-06] MEDS: HEPARIN SODIUM,PORCINE/D5W 25,000 UNIT/500 ML IV.SOLN 12 UNIT IV (18:45)
[2024-05-06] MEDS: ASPIRIN 81 MG TAB.CHEW 162 MG PO (18:46)
[2024-05-06] MEDS: INSULIN REGULAR IN 0.9 % NACL 100 UNIT/100 ML PLAST..BAG IV (18:46)
[2024-05-06 18:53] LABS: Bilirubin Urine NEGATIVE (NEGATIVE); Blood Urine NEGATIVE (NEGATIVE); Clarity Urine CLEAR (CLEAR); Color Urine LT. YELLOW (YELLOW); Glucose Urine UA >=1000 mg/dL (NEGATIVE); Ketones Urine 15 mg/dL (NEGATIVE); Leukocyte Esterase Urine NEGATIVE (NEGATIVE); Nitrite Urine NEGATIVE (NEGATIVE); Protein Urine NEGATIVE (NEG/TRACE); Specific Gravity Urine <=1.005 (1.005-1.025); Urobilinogen Urine 0.2 EU/dL (0.2-1.0); pH Urine 5.5 (5.0-9.0)
[2024-05-06 19:16] LABS: RBC Urine NONE SEEN #/HPF (0-2); WBC Urine NONE SEEN #/HPF (NONE SEEN)
[2024-05-06 19:18] LABS: Crystals Seen? None Seen #/HPF (None Seen); Mucus Urine NONE SEEN (NONE SEEN); Squamous Epithelial Cell Urine FEW #/LPF (NONE/RARE)
[2024-05-06 19:19] LABS: Cast Seen? NONE SEEN #/LPF (NONE SEEN)
[2024-05-06 19:20] LABS: Bacteria Urine SMALL #/HPF (NONE SEEN); Urine Culture Indicated YES-FRMC
[2024-05-06 19:23] LABS: Lactate/Lactic Acid 1.8 mmol/L (0.4-2.0)
[2024-05-06 19:27] LABS: Troponin I High Sensitivity 284.1 pg/mL (4.0-51.3)
[2024-05-06] MEDS: VANCOMYCIN HCL 1,000 MG in 0.9 % SODIUM CHLORIDE 250 ML 250 MG IV (19:36)
[2024-05-06 20:10] LABS: Glucometer 524 mg/dL (74-106)
--- NOTE | 2024-05-06 20:21 | PC.NURSE ---
Shannan from [facility] applied to L lat/post/upper arm. Shannan is warming up at this time--will be usable at 2109. Pt wears this at home, but did have this on upon arrival. States that she has not had any type of BS monitoring device at home--supplies ran out. She arrived with a glucose over 600. Linda to titrate the insulin gtt. This drip is stay at the current rate because thePA would like for BS to come down gently . Will continue to monitor hourly, and report numbers. Pt also has a darkly discolored and swollen great L toe. The toe is quite enlarged. No drainage noted. Also noted that her fingertips are reduced in size and are small with the tip of the index finger missing. The fingernails are partly gone and appear to have a fungal infection. She states this is because she compulsively chews her fingernails and tips.
[2024-05-06 21:13] LABS: Glucometer 508 mg/dL (74-106)
[2024-05-06] MEDS: 0.9 % SODIUM CHLORIDE 1,000 ML 250 ML IV (21:15)
[2024-05-06 22:06] LABS: Glucometer 474 mg/dL (74-106)
[2024-05-06 23:08] LABS: Glucometer 471 mg/dL (74-106)
[2024-05-07] VITALS: PULSE 65; O2SAT 96
[2024-05-07 00:01] VITALS: BP 138/64
[2024-05-07 00:01] LABS: Glucometer 446 mg/dL (74-106)
[2024-05-07 00:10] VITALS: PULSE 61; O2SAT 91
[2024-05-07 00:20] VITALS: PULSE 65; O2SAT 97
[2024-05-07 00:22] VITALS: BP 94/50; PULSE 65; O2SAT 96
[2024-05-07 00:30] VITALS: PULSE 62; O2SAT 94
== END 2024-05-07 00:50 | disposition short-term general hospital (02) ==
PROVIDERS: Physician Assistant; Emergency Provider Emergency Medicine; PCP Nurse Practitioner Family
DX: I21.4 Non-ST elevation (NSTEMI) myocardial infarction (principal); E11.10 Type 2 diabetes mellitus with ketoacidosis without coma; L03.115 Cellulitis of right lower limb; Z79.4 Long term (current) use of insulin; Z91.148 Patient's other noncompliance with medication regimen for other reason; R42 Dizziness and giddiness; R79.89 Other specified abnormal findings of blood chemistry
CPT/HCPCS: 36415; 71045; 73660; 80053; 81001; 82009; 82800; 82948; 83605; 83690; 83735; 84484; 85007; 85027; 85610; 85652; 86140; 87040; 87086; 87106; 93005; 96361; 96365; 96366; 96368; 96375; 99285; J1644; J2543; J3370